=== PATIENT | male | born 1960 | race Caucasian/White ===

== ENCOUNTER 2020-02-27 09:15 | Outpatient (REF) | payer OTHER, SELFPAY ==
--- NOTE | 2020-02-27 09:35 | CT_ITS ---
EXAMINATION: CT HEAD WITHOUT CONTRAST CLINICAL INFORMATION: Numbness of face COMPARISON: 10/24/2018 TECHNIQUE: Contiguous axial imaging was performed from the skull base to vertex without intravenous administration of contrast. This CT examination was performed using dose optimization techniques as appropriate, variously including the following: *Automated exposure control *Adjustment of mA and/or kV according to patient size (this includes techniques or standardized protocols for targeted exams where dose is matched to indication/reason for exam; i.e. extremities or head) *Use of iterative reconstruction technique DLP: 757 mGy-cm FINDINGS: There is no evidence of acute intracranial hemorrhage or territorial infarction. No abnormal mass effect or midline shift is seen. Willis to white matter differentiation is well preserved. No extra-axial fluid collections are identified. The ventricles are normal in size. Patchy subcortical and periventricular white matter low-attenuation changes. Bilateral basal ganglial lacunar infarcts redemonstrated, with a new but nonrecent lacunar infarct in the left DP extending into the genu of the left internal capsule. There is also new lacunar infarct within the left caudate head. The osseous structures and soft tissues are normal. Status post bilateral medial maxillary antrostomies. Chronic mucoperiosteal thickening of the left maxillary sinus, and throughout the left ethmoid air cells. Post surgical changes within the left nasal cavity as well. IMPRESSION: * No acute transcortical infarct. * Moderate chronic white matter small vessel ischemic changes and bilateral basal ganglial lacunar infarct with interval progression since the previous exam. * Chronic sinus disease and evidence of prior FESS
== END 2020-02-27 09:16 | disposition home or self-care (01) ==
LOC: HO.CT 09:15
PROVIDERS: Visit Provider Internal Medicine
DX: R20.0 Anesthesia of skin (principal)
CPT/HCPCS: 70450

== ENCOUNTER 2020-04-25 10:15 | Inpatient (IN) | payer OTHER, SELFPAY ==
[2020-04-25] VITALS (7 sets, daily range): BP systolic 104–127; BP diastolic 53–82; PULSE 68–80; RESP 14–20; TEMP 36.3–36.8; O2SAT 96–100; BMI 25.2; BMI 26.6
--- NOTE | 2020-04-25 10:29 | ED.AMS ---
HPI - Altered Mental Status General Chief Complaint: Neuro Symptoms/Deficit Stated Complaint: Neuro symptoms x 5 days Time Seen by Provider: 04/25/20 10:29 Source: patient and old records reviewed Limitations: altered mental status History of Present Illness HPI narrative: family dropped him off and left but told order picker he has been like this for 5 days, review of EMR shows 2019 ICU stay with pneumonia/sepsis/delerium/ on xarelto for DVD had delerium post ICU staty complaint: altered mental status Onset (ago): day(s) (5) Timing confirmed by: family member Severity: severe Consistency of symptoms: getting Worse Context: history of similar presentation Associated symptoms: denies other symptoms Related Data Home Medications Medication Instructions Recorded Confirmed amitriptyline 150 mg PO BEDTIME 04/25/20 04/25/20 ascorbic acid (vitamin C) 500 mg PO BID 04/25/20 04/25/20 aspirin 81 mg PO DAILY 04/25/20 04/25/20 cholecalciferol (vitamin D3) 125 mcg PO DAILY 04/25/20 04/25/20 [Vitamin D3] clotrimazole 1 appl TOPICAL DAILY 04/25/20 04/25/20 colchicine 0.6 mg PO DAILY PRN 04/25/20 04/25/20 ferrous sulfate 325 mg PO BID 04/25/20 04/25/20 furosemide 20 mg PO DAILY 04/25/20 04/25/20 gabapentin 800 mg PO TID 04/25/20 04/25/20 hydroxychloroquine [Plaquenil] 200 mg PO BID 04/25/20 04/25/20 hydroxyzine HCl 25 mg PO Q6H PRN 04/25/20 04/25/20 lisinopril 2.5 mg PO DAILY 04/25/20 04/25/20 meloxicam 15 mg PO DAILY 04/25/20 04/25/20 metformin 500 mg PO BID 04/25/20 04/25/20 metoprolol tartrate 12.5 mg PO BID 04/25/20 04/25/20 omeprazole 20 mg PO DAILY 04/25/20 04/25/20 paroxetine HCl [Paxil] 30 mg PO DAILY 04/25/20 04/25/20 pregabalin 150 mg PO BID 04/25/20 04/25/20 rivaroxaban [Xarelto] 20 mg PO QPM 04/25/20 04/25/20 Allergies Allergy/AdvReac Type Severity Reaction Status Date / Time No Known Allergies Allergy Verified 04/25/20 10:32 [No Known Allergies*] Review of Systems Review of Systems: ROS unable to be obtained due to altered mental status [facility] Past Medical History Source: old records reviewed Medical History (Updated 04/25/20 @ 12:19 by Dayanna French DO) Acute delirium CHF (congestive heart failure) Diabetes DVT (deep venous thrombosis) HTN (hypertension) Pneumonia PVD (peripheral vascular disease) Respiratory failure Social History Social History (Updated 04/25/20 @ 10:32 by Dayanna French DO) Alcohol intake: unknown Smoking Status: Unknown if ever smoked Use of substances other than those prescribed or required for medical reasons: Unknown Advance Directives: No Advance Directives Information Provided: Yes Physical Exam Vital Signs: Vital Signs: Last Vital Signs Temp 98.0 F 04/25/20 10:29 Pulse 72 04/25/20 12:03 Resp 14 04/25/20 12:03 BP 111/68 04/25/20 12:03 Pulse Ox 96 04/25/20 12:03 Body Mass Index 25.2 Appearance: Alert. confused, cannot answer orientation questions but follows commands, anxious. mild acute distress. Eyes: Pupils equal, round and reactive to light. ENT: Pharynx normal. Neck: Normal inspection. Neck supple. CVS: Normal heart rate and rhythm. Pulses normal. Respiratory: No respiratory distress. Breath sounds normal. Abdomen: Soft and non-tender. Skin: Skin warm and dry. Normal skin color. Normal skin turgor. Extremities: No lower extremity edema. No calf ttp Neuro: Confused, follows commands, thinks he's at work. No motor deficit. No sensory deficit. Course Course Course Narrative: call to nephjuan miguel Romo listed as contact who dropped him off - dizzy x 1 week, falling, BS was high - unsure of his medications 1043 AM, states the is elderly 20+ years older than Geraldo and she cannot care for him. likely still on xarelto given elevated coags - patient still altered but no hypoxic, CT scan consistent with COVID discussion with family that the patient is very much altered from baseline and that this is acute change MDM - Altered Mental Status MDM Narrative Medical decision making narrative: 59 yo male with hx of DM, CHF, pneumonia, DVT was on xarelto in the past unsure of now, dropped off by family member for AMS x 5 days - has no reported trauma, follows commands but is delerious will need CT head for ICH, labs, toxic/metabolic workup, dispo pending workup Lab Data Result diagrams: 04/25/20 11:23 04/25/20 10:46 Labs: Lab Results 04/25/20 04/25/20 04/25/20 Range/Units 10:28 10:46 11:22 WBC (4.8-10.8) X10*3/uL RBC (4.60-5.80) X10*6/uL Hgb (14.0-18.0) g/dl Hct (42-52) % MCV (80-98) fL MCH (27.0-33.0) pg MCHC (31.0-36.0) g/dl RDW (11.0-16.0) % Plt Count (160-400) X10*3/uL MPV Immature Gran % (Auto) (0.0-0.4) % Neut % (Auto) (45-73) % Lymph % (Auto) (20-40) % [place] % (Auto) (2-11) % Eos % (Auto) (0-4) % Baso % (Auto) (0-2) % Lymph # (Auto) (1.2-4.9) X10*3/uL [place] # (Auto) (0.1-1.2) X10*3/uL Eos # (Auto) (0.0-0.4) X10*3/uL Baso # (Auto) (0.0-0.2) X10*3/uL Abs Immat Gran (auto) (0.00-0.03) X10*3/uL Absolute Neuts (auto) (2.0-8.3) X10*3/uL Absolute Nucleated RBC (0.0-0.012) X10*3/uL Nucleated RBC % (auto) (0.0-0.2) /100WBC PT (10.8-13.0) SEC INR (0.9-1.1) APTT (24.1-38.0) SEC VBG pH 7.33 (7.32-7.43) VBG pCO2 58 mmhg VBG pO2 39 mmhg VBG HCO3 30 mmol/L VBG O2 Saturation 67.3 % VBG Base Excess 2.4 mmol/L Sodium 141 (135-145) mmol/L Potassium 4.5 (3.3-5.1) mmol/l Chloride 104 (96-108) mmol/L Carbon Dioxide 22 (22-29) mmol/L Anion Gap 20 (12-20) BUN 17 H (9-16) mg/dL Creatinine 1.09 (0.5-1.4) mg/dL Estim Creat Clear Calc 80.0 Estimated GFR > 60 POC Glucose 181 H (60-115) mg/dL Random Glucose 176 H (60-115) mg/dL Lactic Acid (0.5-2.0) mmol/L Calcium 9.6 (8.4-10.2) mg/dL Magnesium (1.6-2.6) mg/dL Total Bilirubin (0.0-1.0) mg/dL Direct Bilirubin (0.0-0.5) mg/dL AST (5-37) U/L ALT (0-40) U/L Alkaline Phosphatase (39-117) U/L Lactate Dehydrogenase (118-273) U/L Total Creatine Kinase 99 (38-174) U/L Total Protein (6.5-8.0) g/dL Albumin (3.5-5.0) g/dL Lipase (8-78) U/L Ethyl Alcohol mg/dL COVID-19 ([facility]) (Negative) COVID-19 Clin Com 04/25/20 04/25/20 04/25/20 Range/Units 11:23 11:23 11:23 WBC 11.2 H (4.8-10.8) X10*3/uL RBC 4.53 L (4.60-5.80) X10*6/uL Hgb 11.6 L (14.0-18.0) g/dl Hct 37.0 L (42-52) % MCV 81.7 (80-98) fL MCH 25.6 L (27.0-33.0) pg MCHC 31.4 (31.0-36.0) g/dl RDW 14.9 (11.0-16.0) % Plt Count 184 (160-400) X10*3/uL MPV Not Reportable Immature Gran % (Auto) 0.4 (0.0-0.4) % Neut % (Auto) 76.2 H (45-73) % Lymph % (Auto) 13.6 L (20-40) % [place] % (Auto) 9.0 (2-11) % Eos % (Auto) 0.4 (0-4) % Baso % (Auto) 0.4 (0-2) % Lymph # (Auto) 1.5 (1.2-4.9) X10*3/uL [place] # (Auto) 1.0 (0.1-1.2) X10*3/uL Eos # (Auto) 0.0 (0.0-0.4) X10*3/uL Baso # (Auto) 0.0 (0.0-0.2) X10*3/uL Abs Immat Gran (auto) 0.04 H (0.00-0.03) X10*3/uL Absolute Neuts (auto) 8.5 H (2.0-8.3) X10*3/uL Absolute Nucleated RBC 0.000 (0.0-0.012) X10*3/uL Nucleated RBC % (auto) 0.0 (0.0-0.2) /100WBC PT (10.8-13.0) SEC INR (0.9-1.1) APTT (24.1-38.0) SEC VBG pH (7.32-7.43) VBG pCO2 mmhg VBG pO2 mmhg VBG HCO3 mmol/L VBG O2 Saturation % VBG Base Excess mmol/L Sodium (135-145) mmol/L Potassium (3.3-5.1) mmol/l Chloride (96-108) mmol/L Carbon Dioxide (22-29) mmol/L Anion Gap (12-20) BUN (9-16) mg/dL Creatinine (0.5-1.4) mg/dL Estim Creat Clear Calc Estimated GFR POC Glucose (60-115) mg/dL Random Glucose (60-115) mg/dL Lactic Acid (0.5-2.0) mmol/L Calcium (8.4-10.2) mg/dL Magnesium (1.6-2.6) mg/dL Total Bilirubin (0.0-1.0) mg/dL Direct Bilirubin (0.0-0.5) mg/dL AST (5-37) U/L ALT (0-40) U/L Alkaline Phosphatase (39-117) U/L Lactate Dehydrogenase (118-273) U/L Total Creatine Kinase (38-174) U/L Total Protein (6.5-8.0) g/dL Albumin (3.5-5.0) g/dL Lipase (8-78) U/L Ethyl Alcohol < 10 mg/dL COVID-19 ([facility]) Negative (Negative) COVID-19 Clin Com See Note 04/25/20 04/25/20 04/25/20 Range/Units 11:23 11:23 11:23 WBC (4.8-10.8) X10*3/uL RBC (4.60-5.80) X10*6/uL Hgb (14.0-18.0) g/dl Hct (42-52) % MCV (80-98) fL MCH (27.0-33.0) pg MCHC (31.0-36.0) g/dl RDW (11.0-16.0) % Plt Count (160-400) X10*3/uL MPV Immature Gran % (Auto) (0.0-0.4) % Neut % (Auto) (45-73) % Lymph % (Auto) (20-40) % [place] % (Auto) (2-11) % Eos % (Auto) (0-4) % Baso % (Auto) (0-2) % Lymph # (Auto) (1.2-4.9) X10*3/uL [place] # (Auto) (0.1-1.2) X10*3/uL Eos # (Auto) (0.0-0.4) X10*3/uL Baso # (Auto) (0.0-0.2) X10*3/uL Abs Immat Gran (auto) (0.00-0.03) X10*3/uL Absolute Neuts (auto) (2.0-8.3) X10*3/uL Absolute Nucleated RBC (0.0-0.012) X10*3/uL Nucleated RBC % (auto) (0.0-0.2) /100WBC PT 16.4 H (10.8-13.0) SEC INR 1.4 H (0.9-1.1) APTT 42.6 H (24.1-38.0) SEC VBG pH (7.32-7.43) VBG pCO2 mmhg VBG pO2 mmhg VBG HCO3 mmol/L VBG O2 Saturation % VBG Base Excess mmol/L Sodium (135-145) mmol/L Potassium (3.3-5.1) mmol/l Chloride (96-108) mmol/L Carbon Dioxide (22-29) mmol/L Anion Gap (12-20) BUN (9-16) mg/dL Creatinine (0.5-1.4) mg/dL Estim Creat Clear Calc Estimated GFR POC Glucose (60-115) mg/dL Random Glucose (60-115) mg/dL Lactic Acid 1.8 (0.5-2.0) mmol/L Calcium (8.4-10.2) mg/dL Magnesium 1.5 L (1.6-2.6) mg/dL Total Bilirubin 0.3 (0.0-1.0) mg/dL Direct Bilirubin 0.3 (0.0-0.5) mg/dL AST 13 (5-37) U/L ALT 14 (0-40) U/L Alkaline Phosphatase 91 (39-117) U/L Lactate Dehydrogenase 141 (118-273) U/L Total Creatine Kinase (38-174) U/L Total Protein 7.4 (6.5-8.0) g/dL Albumin 4.3 (3.5-5.0) g/dL Lipase 24 (8-78) U/L Ethyl Alcohol mg/dL COVID-19 ([facility]) (Negative) COVID-19 Clin Com ECG Data ECG #1: Attestation: I personally reviewed and interpreted this ECG as follows: ECG interpretation date: 04/25/20 ECG interpretation time: 10:37 Interpretation: Rate: 80 Rhythm: NSR with 1st degree AVB [place]: normal Normal P waves. Normal NICOLÁS. Normal QRS complex. ST T wave : inverted V2-V5 , no LIZA qTC: normal prior studies: no acute ischemia, no change from 09/2018 The study has been interpreted contemporaneously by me. . Discharge Plan Discharge Clinical Impression: COVID-19, Encephalopathy Patient Disposition: Admitted As Inpatient Prescriptions: No Action omeprazole 20 mg Capsule,Delayed Release(Dr/Ec) 20 mg PO DAILY RF: 0 gabapentin 800 mg Tablet 800 mg PO TID RF: 0 Xarelto 20 mg Tablet 20 mg PO QPM RF: 0 meloxicam 15 mg Tablet 15 mg PO DAILY RF: 0 metoprolol tartrate 25 mg Tablet 12.5 mg PO BID RF: 0 clotrimazole 1 % Cream 1 appl TOPICAL DAILY RF: 0 amitriptyline 150 mg Tablet 150 mg PO BEDTIME RF: 0 cholecalciferol (vitamin D3) [Vitamin D3] 125 mcg (5,000 unit) Tablet 125 mcg PO DAILY RF: 0 aspirin 81 mg Tablet 81 mg PO DAILY RF: 0 colchicine 0.6 mg Tablet 0.6 mg PO DAILY PRN (Reason: GOUT FLARE) RF: 0 ferrous sulfate 325 mg (65 mg iron) Tablet 325 mg PO BID RF: 0 furosemide 20 mg Tablet 20 mg PO DAILY RF: 0 hydroxyzine HCl 25 mg Tablet 25 mg PO Q6H PRN (Reason: Itching) RF: 0 lisinopril 2.5 mg Tablet 2.5 mg PO DAILY RF: 0 metformin 500 mg Tablet 500 mg PO BID RF: 0 paroxetine HCl [Paxil] 30 mg Tablet 30 mg PO DAILY RF: 0 hydroxychloroquine [Plaquenil] 200 mg Tablet 200 mg PO BID RF: 0 pregabalin 150 mg Capsule 150 mg PO BID RF: 0 ascorbic acid (vitamin C) 500 mg Tablet 500 mg PO BID RF: 0
--- NOTE | 2020-04-25 10:30 | ECG_ITS ---
Test Reason : FALL Blood Pressure : / mmHG Vent. Rate : 080 BPM Atrial Rate : 080 BPM P-R Int : 206 ms QRS Dur : 106 ms QT Int : 368 ms P-R-T Axes : 034 -15 055 degrees QTc Int : 424 ms Normal sinus rhythm ST & T wave abnormality, consider anterior ischemia Abnormal ECG When compared with ECG of 17-OCT-2018 05:43, No significant changes seen Referred By: Dayanna French Electronically Signed By:ROMAIN ADLER
--- NOTE | 2020-04-25 10:30 | CT_ITS ---
EXAMINATION: CT CHEST WITHOUT CONTRAST CLINICAL INFORMATION: Altered mental status. COMPARISON: Chest CT from 10/17/2018. TECHNIQUE: Multidetector volumetric CT imaging of the chest was done. Axial MIP volume rendering provided. Sagittal and coronal reformatted images were obtained. This CT examination was performed using dose optimization techniques as appropriate, variously including the following: *Automated exposure control *Adjustment of mA and/or kV according to patient size (this includes techniques or standardized protocols for targeted exams where dose is matched to indication/reason for exam; i.e. extremities or head) *Use of iterative reconstruction technique DLP: Please refer to separately reported CT examinations of the head and cervical spine for the dose data. FINDINGS: LUNGS AND PLEURA: Trachea and central airways are widely patent and normal in caliber. Mild paraseptal emphysema at lung apices. Multiple scattered patchy groundglass opacities are present in both lungs, and many of these opacities are more peripheral than central in distribution. Note that coronal virus infection (Covid 19 pneumonia) can have this appearance. No pulmonary edema, pleural effusion or pneumothorax. CARDIOVASCULAR: The heart size is normal. Scattered atherosclerotic calcification of coronary arteries and thoracic aorta without aortic aneurysm. Pulmonary arteries are normal in size. No pericardial effusion. MEDIASTINUM AND LOWER NECK: The thyroid gland and esophagus are unremarkable. No mediastinal mass. LYMPHATICS: No pathologic sized lymph nodes. UPPER ABDOMEN: Limited rich adenoma of the left adrenal gland has a stable appearance compared to 10/02/2018. Small, 0.3 cm calcification of the gallbladder. 2.1 cm cyst of the pancreatic tail is stable in size compared to 10/02/2018. SKELETAL AND CHEST WALL: The thoracic vertebra have normal height and alignment. No aggressive osseous lesions within the thorax. No chest wall mass. CT/CT chest wo con IMPRESSION: * There are scattered multifocal groundglass opacities of both lungs; this would be the typical imaging appearance of Covid-19 pneumonia. * Mild paraseptal emphysema of the lung apices. * A cyst of the pancreatic tail, and a lipid rich adenoma of the left adrenal gland, remain stable in appearance compared to 10/02/2018.
--- NOTE | 2020-04-25 10:30 | CT_ITS ---
EXAMINATION: CT HEAD W/O IV CONTRAST CT CERVICAL SPINE W/O IV CONTRAST CLINICAL INFORMATION: Altered mental status. COMPARISON: Prior CT exams from 09/21/2018 and 02/27/2020. TECHNIQUE: Head - Contiguous axial imaging of the head was performed from the skull base to the vertex without the administration of intravenous contrast, and axial images are reconstructed at 2 mm and 5 mm slice thickness. Cervical spine - A volumetric, helical CT acquisition of the cervical spine was obtained without contrast; in addition to the standard set of axial images, multiplanar reformatted images were provided in the coronal and sagittal imaging planes. This CT examination was performed using dose optimization techniques as appropriate, variously including the following: *Automated exposure control *Adjustment of mA and/or kV according to patient size (this includes techniques or standardized protocols for targeted exams where dose is matched to indication/reason for exam; i.e. extremities or head) *Use of iterative reconstruction technique DLP: 1572 mGy-cm (total, for CT exams of the chest, cervical spine and head) FINDINGS: HEAD: No intracranial hemorrhage, extra-axial fluid collection, focal mass effect or midline shift. The dove-white matter differentiation is maintained. Chronic small vessel ischemic changes of supratentorial white matter. No evidence of an acute major vascular territory infarction. There is chronic hypoattenuation from an old pontine infarct. Also, several old, lacunar infarcts are noted in regions of the thalami and bilateral caudate/basal ganglia. Mild atrophy of cerebral hemispheres with commensurate prominence of ventricles and sulci. No hydrocephalus. The cerebellar tonsils are normal position. The calvarium is intact. The mastoid air cells and middle ear cavities are well aerated. Temporomandibular joints, orbits and globes are unremarkable. Prior paranasal sinus surgery. Findings include chronic mucoperiosteal thickening involving left maxillary and ethmoid sinuses. There are chronic secretions within frontal and right maxillary sinuses. CERVICAL SPINE: No acute abnormalities compared to 09/21/2018. The craniocervical junction is normal. The occipital condyles, dens and atlantodental articulation are intact. The vertebral body heights and alignment are maintained. No fractures in the anterior or posterior elements. No prevertebral soft tissue swelling. Chronic, mild discovertebral degenerative changes of the cervical spine, and multilevel facet arthropathy, worst on the right at C3-C4. Chronic degeneration and joint ankylosis at the left C4-C5 facet joint. Chronic uncovertebral joint hypertrophy and facet arthropathy on the right at C3-C4 causes severe right-sided neural foraminal stenosis at this level. The facet hypertrophy at C4-C5 causes left-sided neural foraminal stenosis. No significant central spinal canal stenosis. No fluid collection or hematoma in the visualized neck. Atherosclerotic calcification of the aortic arch and branch vessels. The calcified plaque causes chronic stenosis of each proximal ICA. Findings in the chest are dictated separately. Thyroid gland is unremarkable. CT/CT cervical spine wo con IMPRESSION: * No hemorrhage or other acute intracranial pathology compared to 02/27/2020. 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 * Chronic paranasal sinus disease. * No acute fracture or malalignment of the degenerated cervical spine.
[2020-04-25 10:33] LABS: Glucose, Whole Blood 181 mg/dL (60-115)
--- NOTE | 2020-04-25 10:49 | PC.NURSE ---
Pt to Ct scan at this time. Speech is mumbled, and pt unable to answer all questions appropriately. Dr pond spoke with Nephew to confirm sx and onset.
[2020-04-25 11:27] LABS: Anion Gap 20 (12-20); Blood Urea Nitrogen 17 mg/dL (9-16); Calcium 9.6 mg/dL (8.4-10.2); Carbon Dioxide 22 mmol/L (22-29); Chloride 104 mmol/L (96-108); Estimated Glomerular Filt Rate > 60; Glucose Random 176 mg/dL (60-115); Potassium 4.5 mmol/l (3.3-5.1); Sodium 141 mmol/L (135-145)
[2020-04-25 11:40] LABS: PCO2 VBG 58 mmhg; PO2 VBG 39 mmhg; pH VBG 7.33 (7.32-7.43)
[2020-04-25 11:41] LABS: Base Excess VBG 2.4 mmol/L; HCO3 VBG 30 mmol/L; Oxygen Saturation VBG 67.3 %
[2020-04-25 11:45] LABS: Imm Gran Abs Auto 0.04 X10*3/uL (0.00-0.03); Imm Gran Pct Auto 0.4 % (0.0-0.4)
[2020-04-25 11:47] LABS: Basophils Percent Auto 0.4 % (0-2); Eosinophils Percent Auto 0.4 % (0-4); Hemoglobin 11.6 g/dl (14.0-18.0); Lymphocytes Absolute Auto 1.5 X10*3/uL (1.2-4.9); Lymphocytes Percent Auto 13.6 % (20-40); Mean Corpuscular HGB Conc 31.4 g/dl (31.0-36.0); Mean Corpuscular Hemoglobin 25.6 pg (27.0-33.0); Mean Corpuscular Volume 81.7 fL (80-98); Neutrophils Absolute Auto 8.5 X10*3/uL (2.0-8.3); Neutrophils Percent Auto 76.2 % (45-73); Platelet Count 184 X10*3/uL (160-400); Red Blood Count 4.53 X10*6/uL (4.60-5.80); Red Cell Distribution Width 14.9 % (11.0-16.0); White Blood Count 11.2 X10*3/uL (4.8-10.8)
[2020-04-25 11:52] LABS: COVID-19 Test Negative (Negative)
[2020-04-25 11:53] LABS: MANUAL DIFF FLAG NO
[2020-04-25 11:55] LABS: INTERNATIONAL NORM RATIO 1.4 (0.9-1.1); Prothrombin Time 16.4 SEC (10.8-13.0)
[2020-04-25 11:57] LABS: Partial Thromboplastin Time 42.6 SEC (24.1-38.0)
[2020-04-25 12:06] LABS: Lactic Acid 1.8 mmol/L (0.5-2.0)
[2020-04-25 12:08] LABS: Ethanol < 10 mg/dL
[2020-04-25 12:12] LABS: Alanine Aminotransferase 14 U/L (0-40); Albumin Level 4.3 g/dL (3.5-5.0); Alkaline Phosphatase 91 U/L (39-117); Aspartate Amino Transferase 13 U/L (5-37); Bilirubin Direct 0.3 mg/dL (0.0-0.5); Bilirubin Total 0.3 mg/dL (0.0-1.0); Lactate Dehydrogenase 141 U/L (118-273); Lipase 24 U/L (8-78); Magnesium 1.5 mg/dL (1.6-2.6); Total Protein 7.4 g/dL (6.5-8.0)
[2020-04-25 12:16] LABS: Troponin-I High Sensitivity < 3.5 ng/L (<3.5-35.0)
[2020-04-25] MEDS: cefTRIAXone sodium 1 GM in 0.9 % Sodium Chloride 50 ML IV (12:32)
[2020-04-25 12:35] LABS: Procalcitonin < 0.02 ng/mL
[2020-04-25 12:39] LABS: Thyroid Stimulating Hormone 1.11 uIU/mL (0.32-4.0)
[2020-04-25 12:49] LABS: Ferritin 33 ng/mL (20-250)
[2020-04-25] MEDS: Magnesium Sulfate/H2O 2 GM/50 ML PIGGYBACK IV (13:00)
[2020-04-25 13:09] LABS: Ammonia 26 umol/L (13-55)
[2020-04-25 13:12] LABS: C Reactive Protein 5.53 mg/dL (< or = 0.50)
--- NOTE | 2020-04-25 13:37 | P.HPHOSP_ITS ---
History of Present Illness Date of Service: 04/25/20 Chief Complaint: Altered mental status This is a 59-year-old with history of DVT/PE on anticoagulation, DM who was brought into the emergency department due to frequent falls and confusion. Per his nephew he has been confused for the past 8 days. Yesterday he had multiple falls. His SINGLE STAYER OPERATOR she was recently diagnosed with COVID-19, he was last in contact with the SINGLE STAYER OPERATOR 5 days ago. The patient is a coma be used but able to follow commands and answer some basic questions. He reports mild cough which may have started yesterday, sore throat. No shortness of breath. Patient was afebrile, vital signs within limits. Lab work unremarkable with the exception of magnesium of 1.5. Brain CT negative patient's exam was nonfocal. Given history of COVID-19 contact he had a CT scan of the chest which did show multifocal ground-glass opacities concerning for COVID-19 pneumonia. Patient did not require supplemental oxygen. He was given ceftriaxone empirically and the decision was made to admit him for further management. Review of Systems Review of Systems: Yes all other systems are reviewed and are negative ENT: Reports sore throat Cardiovascular: Cardiovascular: Denies dyspnea Respiratory: Respiratory: Reports cough and Denies dyspnea Neurologic: Reports confusion Psychiatric: Psychiatric: Reports confusion [facility] Medical History (Updated 04/25/20 @ 13:47 by BRADY Dumont) Alcohol abuse CHF (congestive heart failure) Diabetes DVT (deep venous thrombosis) Gout HCV (hepatitis C virus) HLD (hyperlipidemia) HTN (hypertension) Neuropathy Pneumonia PVD (peripheral vascular disease) Tobacco dependence Surgical History (Updated 04/25/20 @ 13:47 by BRADY Dumont) S/P femoropopliteal bypass surgery Social History (Updated 04/25/20 @ 13:48 by BRADY Dumont) Household Members: Spouse Alcohol intake: former Smoking Status: Current every day smoker Use of substances other than those prescribed or required for medical reasons: No Advance Directives: No Advance Directives Information Provided: Yes Meds Allergies Allergy/AdvReac Type Severity Reaction Status Date / Time No Known Allergies Allergy Verified 04/25/20 10:32 [No Known Allergies*] Home Medications Medication Instructions Recorded Confirmed Type amitriptyline 150 mg PO BEDTIME 04/25/20 04/25/20 History ascorbic acid (vitamin C) 500 mg PO BID 04/25/20 04/25/20 History aspirin 81 mg PO DAILY 04/25/20 04/25/20 History cholecalciferol (vitamin D3) 125 mcg PO DAILY 04/25/20 04/25/20 History [Vitamin D3] clotrimazole 1 appl TOPICAL DAILY 04/25/20 04/25/20 History colchicine 0.6 mg PO DAILY PRN 04/25/20 04/25/20 History ferrous sulfate 325 mg PO BID 04/25/20 04/25/20 History furosemide 20 mg PO DAILY 04/25/20 04/25/20 History gabapentin 800 mg PO TID 04/25/20 04/25/20 History hydroxychloroquine [Plaquenil] 200 mg PO BID 04/25/20 04/25/20 History hydroxyzine HCl 25 mg PO Q6H PRN 04/25/20 04/25/20 History lisinopril 2.5 mg PO DAILY 04/25/20 04/25/20 History meloxicam 15 mg PO DAILY 04/25/20 04/25/20 History metformin 500 mg PO BID 04/25/20 04/25/20 History metoprolol tartrate 12.5 mg PO BID 04/25/20 04/25/20 History omeprazole 20 mg PO DAILY 04/25/20 04/25/20 History paroxetine HCl [Paxil] 30 mg PO DAILY 04/25/20 04/25/20 History pregabalin 150 mg PO BID 04/25/20 04/25/20 History rivaroxaban [Xarelto] 20 mg PO QPM 04/25/20 04/25/20 History Physical Exam Vital Signs and Narrative: Vital Signs: Last Vital Signs Temp 98.0 F 04/25/20 10:29 Pulse 72 04/25/20 12:03 Resp 14 04/25/20 12:03 BP 111/68 04/25/20 12:03 Pulse Ox 96 04/25/20 12:03 Body Mass Index 25.2 Const: General: alert, awake and confusion Nutritional Appearance: well nourished Orientation/consciousness: oriented to person, oriented to place and confusion HENMT: Head: Yes normocephalic and Yes atraumatic Eyes: Sclerae: sclerae normal Chest: Chest palpation & inspection: normal inspection of the chest Resp: Effort & Inspection: normal respiratory effort and no respiratory distress Cardio: Rate: regular rate Rhythm: regular rhythm GI: Palpation (GI): Soft to palpation and nontender Skin: General skin exam: no rashes or lesions noted Neuro: General: oriented to person, oriented to place and confusion Cranial nerves: Yes CN's II-XII intact bilaterally and Yes Bilaterally intact EOM present Extrem: General: Yes normal to inspection Results Labs CBC and Chem 7: 04/25/20 11:23 04/25/20 10:46 Labs: Laboratory Results - last 24 hr 04/25/20 04/25/20 04/25/20 10:28 10:46 11:22 MCV MCH MCHC RDW Plt Count MPV Immature Gran % (Auto) Neut % (Auto) Lymph % (Auto) Beckham % (Auto) Eos % (Auto) Baso % (Auto) Lymph # (Auto) Beckham # (Auto) Eos # (Auto) Baso # (Auto) Abs Immat Gran (auto) Absolute Neuts (auto) Absolute Nucleated RBC Nucleated RBC % (auto) PT INR APTT VBG pH 7.33 VBG pCO2 58 VBG pO2 39 VBG HCO3 30 VBG O2 Saturation 67.3 VBG Base Excess 2.4 Anion Gap 20 Estim Creat Clear Calc 80.0 Estimated GFR > 60 POC Glucose 181 H Random Glucose 176 H Lactic Acid Calcium 9.6 Magnesium Ferritin Total Bilirubin Direct Bilirubin AST ALT Alkaline Phosphatase Ammonia Lactate Dehydrogenase Total Creatine Kinase 99 Troponin I High Sens C-Reactive Protein 5.53 H Total Protein Albumin Lipase Procalcitonin TSH Ethyl Alcohol COVID-19 ([facility]) COVID-19 Clin Com 04/25/20 04/25/20 04/25/20 11:23 11:23 11:23 MCV 81.7 MCH 25.6 L MCHC 31.4 RDW 14.9 Plt Count 184 MPV Not Reportable Immature Gran % (Auto) 0.4 Neut % (Auto) 76.2 H Lymph % (Auto) 13.6 L Beckham % (Auto) 9.0 Eos % (Auto) 0.4 Baso % (Auto) 0.4 Lymph # (Auto) 1.5 Beckham # (Auto) 1.0 Eos # (Auto) 0.0 Baso # (Auto) 0.0 Abs Immat Gran (auto) 0.04 H Absolute Neuts (auto) 8.5 H Absolute Nucleated RBC 0.000 Nucleated RBC % (auto) 0.0 PT INR APTT VBG pH VBG pCO2 VBG pO2 VBG HCO3 VBG O2 Saturation VBG Base Excess Anion Gap Estim Creat Clear Calc Estimated GFR POC Glucose Random Glucose Lactic Acid Calcium Magnesium Ferritin Total Bilirubin Direct Bilirubin AST ALT Alkaline Phosphatase Ammonia Lactate Dehydrogenase Total Creatine Kinase Troponin I High Sens C-Reactive Protein Total Protein Albumin Lipase Procalcitonin TSH Ethyl Alcohol < 10 COVID-19 ([facility]) Negative COVID-19 Clin Com See Note 04/25/20 04/25/20 04/25/20 11:23 11:23 11:23 MCV MCH MCHC RDW Plt Count MPV Immature Gran % (Auto) Neut % (Auto) Lymph % (Auto) Beckham % (Auto) Eos % (Auto) Baso % (Auto) Lymph # (Auto) Beckham # (Auto) Eos # (Auto) Baso # (Auto) Abs Immat Gran (auto) Absolute Neuts (auto) Absolute Nucleated RBC Nucleated RBC % (auto) PT 16.4 H INR 1.4 H APTT 42.6 H VBG pH VBG pCO2 VBG pO2 VBG HCO3 VBG O2 Saturation VBG Base Excess Anion Gap Estim Creat Clear Calc Estimated GFR POC Glucose Random Glucose Lactic Acid 1.8 Calcium Magnesium 1.5 L Ferritin 33 Total Bilirubin 0.3 Direct Bilirubin 0.3 AST 13 ALT 14 Alkaline Phosphatase 91 Ammonia Lactate Dehydrogenase 141 Total Creatine Kinase Troponin I High Sens C-Reactive Protein Total Protein 7.4 Albumin 4.3 Lipase 24 Procalcitonin TSH 1.11 Ethyl Alcohol COVID-19 ([facility]) COVID-19 [facility]icon Com 04/25/20 04/25/20 04/25/20 11:23 11:23 12:02 MCV MCH MCHC RDW Plt Count MPV Immature Gran % (Auto) Neut % (Auto) Lymph % (Auto) Beckham % (Auto) Eos % (Auto) Baso % (Auto) Lymph # (Auto) Beckham # (Auto) Eos # (Auto) Baso # (Auto) Abs Immat Gran (auto) Absolute Neuts (auto) Absolute Nucleated RBC Nucleated RBC % (auto) PT INR APTT VBG pH VBG pCO2 VBG pO2 VBG HCO3 VBG O2 Saturation VBG Base Excess Anion Gap Estim Creat Clear Calc Estimated GFR POC Glucose Random Glucose Lactic Acid Calcium Magnesium Ferritin Total Bilirubin Direct Bilirubin AST ALT Alkaline Phosphatase Ammonia 26 Lactate Dehydrogenase Total Creatine Kinase Troponin I High Sens < 3.5 C-Reactive Protein Total Protein Albumin Lipase Procalcitonin < 0.02 TSH Ethyl Alcohol COVID-19 ([facility]) COVID-19 Clin Com Imaging Radiologist's Impressions: Impressions Cervical Spine CT 04/25/20 10:30 IMPRESSION: * No hemorrhage or other acute intracranial pathology compared to 02/27/2020. 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 * Chronic paranasal sinus disease. * No acute fracture or malalignment of the degenerated cervical spine. Chest CT 04/25/20 10:30 IMPRESSION: * There are scattered multifocal groundglass opacities of both lungs; this would be the typical imaging appearance of Covid-19 pneumonia. * Mild paraseptal emphysema of the lung apices. * A cyst of the pancreatic tail, and a lipid rich adenoma of the left adrenal gland, remain stable in appearance compared to 10/02/2018. Head CT 04/25/20 10:30 IMPRESSION: * No hemorrhage or other acute intracranial pathology compared to 02/27/2020. 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 * Chronic paranasal sinus disease. * No acute fracture or malalignment of the degenerated cervical spine. Assessment and Plan (1) Encephalopathy: Status: Acute This is a 59-year-old male with history of diabetes, DVT/PE on anticoagulation, PVD among others brought to the emergency department for 8 days of confusion found to have CT scan concerning for COVID-[address] negative, nonfocal exam. Afebrile. Lab work wnl Tox screen, UA pending ? r/t polypharmacy versus COVID encephalopathy -neurology consult -hold hydroxyzine, gabapentin, pregabalin, amitriptyline Ground-glass opacities on CT Concerning for COVID-19 Initial screening negative Not requiring supplemental oxygen -droplet/contact precautions -will repeat covid test in 2-3 days Hypo magnesemia Replaced in the ED -repeat in a.m. Diabetes Hold metformin -SSI, POC Tobacco dependence -nrt Hypertension Continue lisinopril, metoprolol, Lasix History of DVT/PE Continue Xarelto History of polyarthralgia Hold Plaquenil DVT prophylaxis-Xarelto Code status-full code This case was discussed with Dr. Sanchez
--- NOTE | 2020-04-25 15:01 | P.EN_ITS ---
Event Note Date of Service: 04/25/20 Event Note: I interviewed and examined the patient. I discussed their present ation and management with the mid-level provider. I reviewed the history and physical and agree with the documentation, with the following additions and corrections: Mr Unger is a 59yo M pt of Dr Jones at [facility] with PMHx of prior PE now on rivaroxaban, DM2, HTN, peripheral neuropathy, prior alcoholism (per nephew, last intake over a yr ago), resolved HCV, tobacco abuse, and PVD s/p fem/pop bypass. His nephew noticed that over the last 8 days, the pt has become increasingly confused and disoriented. Since yesterday, he has fallen approximately 11 times. Patient endorses a mild sore through and dry cough for a few days, though he is not really a reliable historian due to confusion. His nephew has only noticed nasal congestion. The patient's GOVERNOR ASSEMBLER HYDRAULIC recently tested positive for COVID-19 and last contact with the pt was approximately 5 days ago. Pt lives with his disabled, elderly , who has no respiratory symptoms. Since his GOVERNOR ASSEMBLER [employer]DRAULIC has been out sick, his has been giving him his medications. Notably, he is on pregabalin, gabapentin, hydroxyzine, paroxetine, and amitriptylline. He is also supposedly on hydroxychloroquine for unspecified arthritis prescribed by Dr Chan. On exam, pt is confused, oriented to self and place, thinks it is 2020 then corrects himself to say it is 2020, thinks it is March but recognizes that has passed, but otherwise is quite conrfused about why he is here. Per his nephew this is not his baseline. He has normal strength in 4 extremities. There is no tremor or asterixis. He is afebrile, BP is 104/67, HR 68 and regular, and RR 16 and SaO2 100% on RA. Labs notable only for WBC 11.2 with 14% lymphs, CRP 5.53, Mg 1.5. CT head shows no acute disease. CT chest shows scattered GGO consistent with COVID-19; however, COVID-19 ALICIA is negative. Impression is of acute encephalopathy and ground-glass pneumonia. Possibly due to polypharmacy given all of his medications, rule out toxic ingestion. Possibly COVID-19 with false-negative test due to how recent the exposure is. Plan to admit to [facility] in a private room under contact/droplet precautions, retest COVID-19 PCR and inflammatory markers in 2-3 days, check Utox, consult Neurology, hold pregabalin/gabapentin/hydroxyzine/paroxetine/amitryptylline, replete/monitor Mg Per nephew he is FULL CODE
[2020-04-25] MEDS: Nicotine 21 MG PATCH.TD24 TRANSDERMA (16:50)
[2020-04-25] MEDS: 0.9 % Sodium Chloride Flush 3 ML SYRINGE IVFLUSH ×2 (16:50→23:47)
[2020-04-25 17:10] LABS: Glucose, Whole Blood 154 mg/dL (60-115)
[2020-04-25] MEDS: Insulin Lispro 100 UNIT/ML 3 ML VIAL SUBCUT ×2 (17:17→21:23)
[2020-04-25] MEDS: Rivaroxaban 20 MG TABLET PO (17:17)
[2020-04-25] MEDS: Flu Vacc QS2020-21(6mos up)/PF 0.5 ML SYRINGE IM (17:57)
[2020-04-25 20:45] LABS: Glucose, Whole Blood 155 mg/dL (60-115)
[2020-04-25] MEDS: Ascorbic Acid 500 MG TABLET PO (21:23)
[2020-04-25] MEDS: Metoprolol Tartrate 12.5 MG HALFTAB PO (21:23)
--- NOTE | 2020-04-25 22:38 | PC.NURSE ---
Pt had no c/o sob, trouble breathing. resting in bed comfortably. VS stable.
[2020-04-26] VITALS (8 sets, daily range): BP systolic 116–156; BP diastolic 68–83; PULSE 88–108; RESP 18–20; TEMP 36.7–37.1; O2SAT 95–98
[2020-04-26] MEDS: Omeprazole 20 MG CAPSULE.DR PO (06:26)
[2020-04-26 06:33] LABS: Imm Gran Abs Auto 0.04 X10*3/uL (0.00-0.03); Imm Gran Pct Auto 0.4 % (0.0-0.4); MANUAL DIFF FLAG SCAN; SCAN SMEAR FLAG 1
[2020-04-26 06:36] LABS: Basophils Percent Auto 0.3 % (0-2); Eosinophils Absolute Auto 0.1 X10*3/uL (0.0-0.4); Eosinophils Percent Auto 1.5 % (0-4); Hemoglobin 11.5 g/dl (14.0-18.0); Lymphocytes Percent Auto 21.2 % (20-40); Mean Corpuscular HGB Conc 31.9 g/dl (31.0-36.0); Mean Corpuscular Hemoglobin 26.3 pg (27.0-33.0); Mean Corpuscular Volume 82.2 fL (80-98); Mean Platelet Volume 13.9 fL (9.4-12.4); Monocytes Percent Auto 10.9 % (2-11); Neutrophils Absolute Auto 6.1 X10*3/uL (2.0-8.3); Neutrophils Percent Auto 65.7 % (45-73); Platelet Count 172 X10*3/uL (160-400); Red Blood Count 4.38 X10*6/uL (4.60-5.80); White Blood Count 9.3 X10*3/uL (4.8-10.8)
[2020-04-26 07:11] LABS: PLT ABN DIST 1
[2020-04-26 07:12] LABS: SLIDE REVIEW VERIFIED
[2020-04-26 07:27] LABS: Anion Gap 16 (12-20); Blood Urea Nitrogen 15 mg/dL (9-16); Calcium 8.9 mg/dL (8.4-10.2); Carbon Dioxide 25 mmol/L (22-29); Chloride 101 mmol/L (96-108); Creatinine Clr Calc Pharmacy 92.8; Estimated Glomerular Filt Rate > 60; Glucose Random 165 mg/dL (60-115); Magnesium 1.9 mg/dL (1.6-2.6); Potassium 3.8 mmol/l (3.3-5.1); Sodium 138 mmol/L (135-145)
[2020-04-26 09:26] LABS: Glucose, Whole Blood 198 mg/dL (60-115)
[2020-04-26] MEDS: Nicotine 21 MG PATCH.TD24 TRANSDERMA (09:28)
[2020-04-26] MEDS: lisinopriL 2.5 MG TABLET PO (09:29)
[2020-04-26] MEDS: Metoprolol Tartrate 12.5 MG HALFTAB PO ×2 (09:29→21:20)
[2020-04-26] MEDS: Furosemide 20 MG TABLET PO (09:29)
[2020-04-26] MEDS: Aspirin Enteric Coated 81 MG TABLET.DR PO (09:29)
[2020-04-26] MEDS: Ascorbic Acid 500 MG TABLET PO ×2 (09:29→21:20)
[2020-04-26] MEDS: 0.9 % Sodium Chloride Flush 3 ML SYRINGE IVFLUSH ×2 (09:34→17:05)
[2020-04-26] MEDS: Clotrimazole 1 % Cream 15 GM TUBE 1 APPL TOPICAL (09:36)
[2020-04-26] MEDS: Cholecalciferol (Vitamin D3) 25 MCG TABLET 125 MCG PO (09:38)
--- NOTE | 2020-04-26 10:08 | P.CDIC_ITS ---
CDI Concurrent Query Service Date: 04/26/20 Documentation Clarification: Please clarify if you are treating a proba ble/suspected/likely or confirmed: Specifics: Toxic Encephalopathy Metabolic Encephalopathy Acute Encephalopathy Please specify if known PLEASE DO NOT DELETE/MODIFY EXISTING CONTENT Additional information is needed in order to code to the highest accuracy and appropriate Severity of Illness (SOI). Please clarify the information noted below in your progress notes and discharge summary. Risk Factors/Clinical Indicators/Treatments Acute encephalopathy possibly due to polypharmacy given all his medicatiions. Confused, disoriented, delerious, altered mental status. ED: toxic/metabolic workup. H&P: ? r/t polypharmacy vs. covid encephalopathy CDS: Lary Hylton CCS, [facility] Contact Number: [phone] Please Review the information above and exercise your independent professional judgment in responding to the query. If you concur, pleas document in the PROGRESS NOTES and DISCHARGE SUMMARY. If you do not agree with the query, please document in the query above. THIS QUERY IS PART OF THE PERMANENT MEDICAL RECORD
--- NOTE | 2020-04-26 10:57 | PM.NEUROCN ---
History of Present Illness Data of Consult Service Date: 04/26/20 Primary Care Provider: Unknown Physician 59 years old man I was asked to see for confusion. When I saw him he tried to tell me that he was not sure why he was admitted and he was fine. Apparently his PATTERN GRADER had COVID recently and he had exposure to BC a few days ago. He was brought to hospital for confusion and falling. There was no sign of any seizure disorder or any fixed focal weakness or speech or language difficulty. He was not complaining of any pain or headache. Review of Systems Review of Systems: No recent cold or flu-like illness though he was exposed to COVID patient. No pain cardiac symptom or seizure. He has been falling. Neurologic: Reports confusion Psychiatric: Psychiatric: Reports confusion [facility] Past Medical History Medical History (Updated 04/25/20 @ 13:47 by BRADY Dumont) Alcohol abuse CHF (congestive heart failure) Diabetes DVT (deep venous thrombosis) Gout HCV (hepatitis C virus) HLD (hyperlipidemia) HTN (hypertension) Neuropathy Pneumonia PVD (peripheral vascular disease) Tobacco dependence Surgical History Surgical History (Updated 04/25/20 @ 13:47 by BRADY Dumont) S/P femoropopliteal bypass surgery Social History Social History (Updated 04/25/20 @ 13:48 by BRADY Dumont) Household Members: Spouse Housing: Apartment Do you presently have visiting nurse or other home services: Yes (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 If so, by whom?: No Do you feel safe in your current relationship?: Yes Is there a partner from a previous relationship who is making you feel unsafe now?: No Are you made to feel afraid or neglected: No Advance Directives: No Advance Directives Information Provided: Yes Do you have thoughts of harming others: None Do you have a plan to hurt others: No Plan Recently lost weight without trying: Unsure service: No Current occupational status: unemployed Meds Allergies Allergy/AdvReac Type Severity Reaction Status Date / Time No Known Allergies Allergy Verified 04/25/20 10:32 [No Known Allergies*] Home Medications Medication Instructions Recorded Confirmed Type amitriptyline 150 mg PO BEDTIME 04/25/20 04/25/20 History ascorbic acid (vitamin C) 500 mg PO BID 04/25/20 04/25/20 History aspirin 81 mg PO DAILY 04/25/20 04/25/20 History cholecalciferol (vitamin D3) 125 mcg PO DAILY 04/25/20 04/25/20 History [Vitamin D3] clotrimazole 1 appl TOPICAL DAILY 04/25/20 04/25/20 History colchicine 0.6 mg PO DAILY PRN 04/25/20 04/25/20 History ferrous sulfate 325 mg PO BID 04/25/20 04/25/20 History furosemide 20 mg PO DAILY 04/25/20 04/25/20 History gabapentin 800 mg PO TID 04/25/20 04/25/20 History hydroxychloroquine [Plaquenil] 200 mg PO BID 04/25/20 04/25/20 History hydroxyzine HCl 25 mg PO Q6H PRN 04/25/20 04/25/20 History lisinopril 2.5 mg PO DAILY 04/25/20 04/25/20 History meloxicam 15 mg PO DAILY 04/25/20 04/25/20 History metformin 500 mg PO BID 04/25/20 04/25/20 History metoprolol tartrate 12.5 mg PO BID 04/25/20 04/25/20 History omeprazole 20 mg PO DAILY 04/25/20 04/25/20 History paroxetine HCl [Paxil] 30 mg PO DAILY 04/25/20 04/25/20 History pregabalin 150 mg PO BID 04/25/20 04/25/20 History rivaroxaban [Xarelto] 20 mg PO QPM 04/25/20 04/25/20 History Physical Exam Vital Signs: Vital Signs: Last Vital Signs Temp 98.5 F 04/26/20 07:24 Pulse 88 04/26/20 09:29 Resp 18 04/26/20 07:24 BP 125/77 04/26/20 09:29 Pulse Ox 98 04/26/20 07:24 Body Mass Index 26.6 He was alert and awake with normal spontaneity of speech fluency comprehension and affect. There were no obvious cranial nerve findings. There was no focal weakness. Deep tendon reflexes were absent with flexor plantars. Exam was limited. Const: General: confusion Orientation/consciousness: confusion Neuro: General: confusion Results Labs CBC & Chem 7: 04/26/20 05:40 04/26/20 05:40 Labs: Short CBC 04/25/20 04/26/20 Range/Units 11:23 05:40 WBC 11.2 H 9.3 (4.8-10.8) X10*3/uL Hgb 11.6 L 11.5 L (14.0-18.0) g/dl Hct 37.0 L 36.0 L (42-52) % Plt Count 184 172 (160-400) X10*3/uL BMP 04/25/20 04/26/20 10:46 05:40 Sodium 141 138 Potassium 4.5 3.8 Chloride 104 101 Carbon Dioxide 22 25 BUN 17 H 15 Creatinine 1.09 0.94 Calcium 9.6 8.9 D Cardiac Enzymes 04/25/20 Range/Units 10:46 Total Creatine Kinase 99 (38-174) U/L Liver Function 04/25/20 Range/Units 11:23 Total Bilirubin 0.3 (0.0-1.0) mg/dL Direct Bilirubin 0.3 (0.0-0.5) mg/dL AST 13 (5-37) U/L ALT 14 (0-40) U/L Alkaline Phosphatase 91 (39-117) U/L Albumin 4.3 (3.5-5.0) g/dL Assessment and Plan (1) Encephalopathy: Status: Acute 59 years old man with underlying history of congestive heart failure, previous history of alcohol abuse, and diabetes who was brought to hospital with confusion and falling. At this time there was no obvious sign of confusion. He has multiple reasons to be unsteady including multiple ischemic infarcts in neuropathy. It is unclear if there is any new pathology but with previous history of multiple ischemic infarctions and stroke would be more likely possibility to explain both confusion and unsteadiness. As far as stroke is concerned he is already taking maximum antiplatelets/anticoagulants. May be an outpatient EEG can also be considered to rule out possibility of seizure disorder.
--- NOTE | 2020-04-26 11:02 | MHC.CM.PN ---
CM spoke with /HCP Beti [phone] who reports patient amb with a walker and lives with her. Patient is usually A&O x 4. Patient does have a HCP and a copy is on file. 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 Nephjuan miguel Romo [phone] will provide transportation. CM will continue to follow patient for discharge needs.
[2020-04-26 12:00] LABS: Glucose, Whole Blood 271 mg/dL (60-115)
[2020-04-26] MEDS: Insulin Lispro 100 UNIT/ML 3 ML VIAL SUBCUT ×3 (12:27→21:21)
[2020-04-26 12:53] LABS: Amphetamine Screen Urine Not Detected (Not Detect); Barbiturates, Urine Not Detected (Not Detect); Benzodiazepines Screen Urine Not Detected (Not Detect); Cannabinoid Screen Urine POSITIVE (Not Detect); Cocaine Screen Urine Not Detected (Not Detect); Opiate Screen Urine Not Detected (Not Detect); Phencyclidine Screen Urine Not Detected (Not Detect)
--- NOTE | 2020-04-26 15:07 | HO.PM.IMPN ---
Subjective Subjective Date of Service: 04/26/20 Interval History: A little more oriented but doesn't know why he's here. Thinks it is 1929... but knows it is April. Very ataxic. No EtOH per nephew or . Denies cough now. A little sore throat. Physical Exam Vital Signs: Vital Signs: Last Vital Signs Temp 98.7 F 04/26/20 11:52 Pulse 88 04/26/20 12:20 Resp 20 04/26/20 11:52 BP 123/79 04/26/20 12:20 Pulse Ox 95 04/26/20 12:20 Body Mass Index 26.6 Gen: in no acute distress HEENT: sclera anicteric, moist mucus membranes Neck: supple Lungs: no respiratory distress, auscultation deferred due to COVID-19 suspicion Heart: normal peripheral pulses Abd: soft, non-tender, non-distended Ext: no cyanosis, clubbing, or edema Skin: warm/well-perfused Neuro: alert and oriented to self and place but not date, ataxic Objective Data Current Medications Generic Name Dose Route Start Last Admin Trade Name Craigq PRN Reason Stop Dose Admin Acetaminophen 650 mg 04/25/20 16:41 Acetaminophen 325 Mg Tablet PO Q6H PRN Pain, Mild (Pain Scale 1-3) Ascorbic Acid 500 mg 04/25/20 21:00 04/26/20 09:29 Ascorbic Acid 500 Mg Tablet PO 500 mg BID MARYCARMEN Administration Aspirin 81 mg 04/26/20 09:00 04/26/20 09:29 Aspirin Enteric Coated 81 Mg Tablet. PO 81 mg DAILY MARYCARMEN Administration Clotrimazole 1 appl 04/26/20 09:00 04/26/20 09:36 Clotrimazole 1 % Cream 15 Gm Tube TOPICAL 1 appl DAILY MARYCARMEN Administration Docusate Sodium 100 mg 04/25/20 16:41 Docusate Sodium 100 Mg Capsule PO DAILY PRN Constipation Furosemide 20 mg 04/26/20 09:00 04/26/20 09:29 Furosemide 20 Mg Tablet PO 20 mg DAILY MARYCARMEN Administration Protocol Insulin Human Lispro 0 unit 04/25/20 16:41 04/26/20 12:27 Insulin Lispro 100 Unit/Ml 3 Ml Vial SUBCUT 6 unit QIDACHS MARYCARMEN Administration Protocol Lisinopril 2.5 mg 04/26/20 09:00 04/26/20 09:29 Lisinopril 2.5 Mg Tablet PO 2.5 mg DAILY [facility] Administration Protocol Metoprolol Tartrate 12.5 mg 04/25/20 21:00 04/26/20 09:29 Metoprolol Tartrate 12.5 Mg Halftab PO 12.5 mg BID MARYCARMEN Administration Protocol Nicotine 21 mg 04/25/20 16:41 04/26/20 09:28 Nicotine 21 Mg Patch.Td24 TRANSDERMA 21 mg DAILY MARYCARMEN Administration Omeprazole 20 mg 04/26/20 06:30 04/26/20 06:26 Omeprazole 20 Mg Capsule.Dr PO 20 mg DAILY@0630 [facility] Administration Ondansetron HCl 4 mg 04/25/20 16:41 Ondansetron Hcl 4 Mg/2 Ml Vial IVPUSH Q8H PRN Nausea and Vomiting Pharmacy Consult 1 each 04/25/20 10:30 Consult Rx Perform Med Rec MISCELLANE ONCE PRN Consult order Rivaroxaban 20 mg 04/25/20 17:00 04/25/20 17:17 Rivaroxaban 20 Mg Tablet PO 20 mg DAILY@1700 [facility] Administration Sodium Chloride 3 ml 04/25/20 16:41 04/26/20 09:34 0.9 % Sodium Chloride Flush 3 Ml Syringe IVFLUSH 3 ml QSHIFT [facility] Administration Vitamin D 125 mcg 04/26/20 09:00 04/26/20 09:38 Cholecalciferol (Vitamin D3) 25 Mcg Tablet PO 125 mcg DAILY [facility] Administration Labs CBC & Chem 7: 04/26/20 05:40 04/26/20 05:40 Labs: Laboratory Results - last 24 hr 04/25/20 04/25/20 04/26/20 16:46 20:39 05:40 WBC 9.3 RBC 4.38 L Hgb 11.5 L Hct 36.0 L MCV 82.2 MCH 26.3 L MCHC 31.9 RDW 15.0 Plt Count 172 MPV 13.9 H Immature Gran % (Auto) 0.4 Neut % (Auto) 65.7 Lymph % (Auto) 21.2 [place] % (Auto) 10.9 Eos % (Auto) 1.5 Baso % (Auto) 0.3 Lymph # (Auto) 2.0 [place] # (Auto) 1.0 Eos # (Auto) 0.1 Baso # (Auto) 0.0 Abs Immat Gran (auto) 0.04 H Absolute Neuts (auto) 6.1 Absolute Nucleated RBC 0.000 Nucleated RBC % (auto) 0.0 Smear Tech's Comments VERIFIED Sodium Potassium Chloride Carbon Dioxide Anion Gap BUN Creatinine Estim Creat Clear Calc Estimated GFR POC Glucose 154 H 155 H Random Glucose Calcium Magnesium Urine Opiates Screen Ur Barbiturates Screen Ur Phencyclidine Scrn Ur Amphetamines Screen U Benzodiazepines Scrn Urine Cocaine Screen U Marijuana (THC) Screen 04/26/20 04/26/20 04/26/20 05:40 09:23 11:30 WBC RBC Hgb Hct MCV MCH MCHC RDW Plt Count MPV Immature Gran % (Auto) Neut % (Auto) Lymph % (Auto) [place] % (Auto) Eos % (Auto) Baso % (Auto) Lymph # (Auto) [place] # (Auto) Eos # (Auto) Baso # (Auto) Abs Immat Gran (auto) Absolute Neuts (auto) Absolute Nucleated RBC Nucleated RBC % (auto) Smear Tech's Comments Sodium 138 Potassium 3.8 Chloride 101 Carbon Dioxide 25 Anion Gap 16 BUN 15 Creatinine 0.94 Estim Creat Clear Calc 92.8 Estimated GFR > 60 POC Glucose 198 H Random Glucose 165 H Calcium 8.9 D Magnesium 1.9 Urine Opiates Screen Not Detected Ur Barbiturates Screen Not Detected Ur Phencyclidine Scrn Not Detected Ur Amphetamines Screen Not Detected U Benzodiazepines Scrn Not Detected Urine Cocaine Screen Not Detected U Marijuana (THC) Screen POSITIVE H 04/26/20 11:51 WBC RBC Hgb Hct MCV MCH MCHC RDW Plt Count MPV Immature Gran % (Auto) Neut % (Auto) Lymph % (Auto) [place] % (Auto) Eos % (Auto) Baso % (Auto) Lymph # (Auto) [place] # (Auto) Eos # (Auto) Baso # (Auto) Abs Immat Gran (auto) Absolute Neuts (auto) Absolute Nucleated RBC Nucleated RBC % (auto) Smear Tech's Comments Sodium Potassium Chloride Carbon Dioxide Anion Gap BUN Creatinine Estim Creat Clear Calc Estimated GFR POC Glucose 271 H Random Glucose Calcium Magnesium Urine Opiates Screen Ur Barbiturates Screen Ur Phencyclidine Scrn Ur Amphetamines Screen U Benzodiazepines Scrn Urine Cocaine Screen U Marijuana (THC) Screen Microbiology Microbiology Results: Microbiology 04/25/20 11:22 Blood - Venous Blood Culture - Preliminary No growth after 24 hours. 04/25/20 10:46 Blood - Venous Blood Culture - Preliminary No growth after 24 hours. 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 # tobacco abuse - NRT # dispo - per PT STR recommended, updated pt's + nephew
--- NOTE | 2020-04-26 16:10 | MHC.CM.PN ---
CM spoke with richard Romo re: PT recommending STR. Choices are [facility] and [facility]. Referrals made via allscripts.
[2020-04-26] MEDS: Rivaroxaban 20 MG TABLET PO (17:04)
[2020-04-26 19:52] LABS: Glucose, Whole Blood 186 mg/dL (60-115)
[2020-04-26 20:06] LABS: Glucose, Whole Blood 190 mg/dL (60-115)
[2020-04-27] VITALS (9 sets, daily range): BP systolic 113–166; BP diastolic 63–88; PULSE 78–108; RESP 12–20; TEMP 36.6–37.2; O2SAT 93–98
[2020-04-27] MEDS: 0.9 % Sodium Chloride Flush 3 ML SYRINGE IVFLUSH ×4 (01:00→21:36)
[2020-04-27] MEDS: Omeprazole 20 MG CAPSULE.DR PO (06:26)
[2020-04-27 06:53] LABS: Hemoglobin 11.3 g/dl (14.0-18.0); Imm Gran Abs Auto 0.04 X10*3/uL (0.00-0.03); Imm Gran Pct Auto 0.3 % (0.0-0.4); MANUAL DIFF FLAG SCAN; SCAN SMEAR FLAG 1
[2020-04-27 06:55] LABS: Basophils Absolute Auto 0.1 X10*3/uL (0.0-0.2); Basophils Percent Auto 0.4 % (0-2); Eosinophils Absolute Auto 0.1 X10*3/uL (0.0-0.4); Lymphocytes Absolute Auto 2.1 X10*3/uL (1.2-4.9); Lymphocytes Percent Auto 17.4 % (20-40); Mean Corpuscular HGB Conc 32.3 g/dl (31.0-36.0); Mean Corpuscular Volume 80.6 fL (80-98); Mean Platelet Volume 13.6 fL (9.4-12.4); Monocytes Absolute Auto 1.5 X10*3/uL (0.1-1.2); Monocytes Percent Auto 12.7 % (2-11); Neutrophils Absolute Auto 8.2 X10*3/uL (2.0-8.3); Neutrophils Percent Auto 68.2 % (45-73); Platelet Count 183 X10*3/uL (160-400); Red Blood Count 4.34 X10*6/uL (4.60-5.80); Red Cell Distribution Width 14.9 % (11.0-16.0); White Blood Count 12.1 X10*3/uL (4.8-10.8)
[2020-04-27 06:59] LABS: D Dimer 211 NG/ML
[2020-04-27 07:18] LABS: Alanine Aminotransferase 17 U/L (0-40); Alkaline Phosphatase 97 U/L (39-117); Anion Gap 17 (12-20); Aspartate Amino Transferase 19 U/L (5-37); Bilirubin Total 0.9 mg/dL (0.0-1.0); Blood Urea Nitrogen 13 mg/dL (9-16); C Reactive Protein 15.89 mg/dL (< or = 0.50); Calcium 9.3 mg/dL (8.4-10.2); Carbon Dioxide 22 mmol/L (22-29); Chloride 104 mmol/L (96-108); Creatinine Clr Calc Pharmacy 93.8; Estimated Glomerular Filt Rate > 60; Glucose Random 172 mg/dL (60-115); Lactate Dehydrogenase 215 U/L (118-273); PLT ABN DIST 1; Potassium 3.8 mmol/l (3.3-5.1); Sodium 139 mmol/L (135-145); Total Protein 7.1 g/dL (6.5-8.0)
[2020-04-27 07:29] LABS: Procalcitonin 0.03 ng/mL
[2020-04-27 07:34] LABS: Ferritin 77 ng/mL (20-250)
[2020-04-27] MEDS: Cholecalciferol (Vitamin D3) 25 MCG TABLET 125 MCG PO (07:42)
[2020-04-27] MEDS: Ascorbic Acid 500 MG TABLET PO ×2 (07:43→21:36)
[2020-04-27] MEDS: Nicotine 21 MG PATCH.TD24 TRANSDERMA (07:43)
[2020-04-27] MEDS: Furosemide 20 MG TABLET PO (07:43)
[2020-04-27] MEDS: Metoprolol Tartrate 12.5 MG HALFTAB PO ×2 (07:43→21:36)
[2020-04-27 07:44] LABS: SLIDE REVIEW VERIFIED
[2020-04-27] MEDS: Aspirin Enteric Coated 81 MG TABLET.DR PO (07:45)
[2020-04-27] MEDS: lisinopriL 2.5 MG TABLET PO (07:45)
[2020-04-27] MEDS: Insulin Lispro 100 UNIT/ML 3 ML VIAL SUBCUT ×4 (07:51→21:37)
[2020-04-27 08:15] LABS: Glucose, Whole Blood 245 mg/dL (60-115)
[2020-04-27 12:22] LABS: Influenza A PCR NEGATIVE (Negative); Influenza B PCR NEGATIVE (Negative); Resp Syncy Virus RNA Qual PCR NEGATIVE (Negative); SARS COV2 PCR INHOUSE NEGATIVE (Negative)
[2020-04-27 13:00] LABS: Glucose, Whole Blood 163 mg/dL (60-115)
--- NOTE | 2020-04-27 13:51 | P.PNIM_ITS ---
Subjective Subjective Date of Service: 04/27/20 Interval History: Very ataxic and still somewhat confused. Repeat SARS-CoV2 PCR negative. RN reports dry cough; pt denies this to me. No fever. Physical Exam Vital Signs: Vital Signs: Last Vital Signs Temp 98.3 F 04/27/20 11:32 Pulse 94 04/27/20 11:32 Resp 12 04/27/20 11:32 BP 113/63 04/27/20 11:32 Pulse Ox 98 04/27/20 11:32 Body Mass Index 26.6 Gen: in no acute distress HEENT: sclera anicteric, moist mucus membranes Neck: supple Lungs: no respiratory distress, auscultation deferred due to COVID-19 suspicion Heart: normal peripheral pulses Abd: soft, non-tender, non-distended Ext: no cyanosis, clubbing, or edema Skin: warm/well-perfused Neuro: mildly disoriented, severely ataxic, impaired [id number] bilaterally Objective Data Current Medications Generic Name Dose Route Start Last Admin Trade Name Freq PRN Reason Stop Dose Admin Acetaminophen 650 mg 04/25/20 16:41 Acetaminophen 325 Mg Tablet PO Q6H PRN Pain, Mild (Pain Scale 1-3) Ascorbic Acid 500 mg 04/25/20 21:00 04/27/20 07:43 Ascorbic Acid 500 Mg Tablet PO 500 mg BID MARYCARMEN Administration Aspirin 81 mg 04/26/20 09:00 04/27/20 07:45 Aspirin Enteric Coated 81 Mg Tablet. PO 81 mg DAILY MARYCARMEN Administration Clotrimazole 1 appl 04/26/20 09:00 04/27/20 07:52 Clotrimazole 1 % Cream 15 Gm Tube TOPICAL Not Given DAILY MARYCARMEN Docusate Sodium 100 mg 04/25/20 16:41 Docusate Sodium 100 Mg Capsule PO DAILY PRN Constipation Furosemide 20 mg 04/26/20 09:00 04/27/20 07:43 Furosemide 20 Mg Tablet PO 20 mg DAILY [facility] Administration Protocol Insulin Human Lispro 0 unit 04/25/20 16:41 04/27/20 12:44 Insulin Lispro 100 Unit/Ml 3 Ml Vial SUBCUT 2 unit QIDACHS MARYCARMEN Administration Protocol Lisinopril 2.5 mg 04/26/20 09:00 04/27/20 07:45 Lisinopril 2.5 Mg Tablet PO 2.5 mg DAILY MARYCARMEN Administration Protocol Metoprolol Tartrate 12.5 mg 04/25/20 21:00 04/27/20 07:43 Metoprolol Tartrate 12.5 Mg Halftab PO 12.5 mg BID MARYCARMEN Administration Protocol Nicotine 21 mg 04/25/20 16:41 04/27/20 07:43 Nicotine 21 Mg Patch.Td24 TRANSDERMA 21 mg DAILY MARYCARMEN Administration Omeprazole 20 mg 04/26/20 06:30 04/27/20 06:26 Omeprazole 20 Mg Capsule.Dr PO 20 mg DAILY@0630 MARYCARMEN Administration Ondansetron HCl 4 mg 04/25/20 16:41 Ondansetron Hcl 4 Mg/2 Ml Vial IVPUSH Q8H PRN Nausea and Vomiting Pharmacy Consult 1 each 04/25/20 10:30 Consult Rx Perform Med Rec MISCELLANE ONCE PRN Consult order Rivaroxaban 20 mg 04/25/20 17:00 04/26/20 17:04 Rivaroxaban 20 Mg Tablet PO 20 mg DAILY@1700 [facility] Administration Sodium Chloride 3 ml 04/25/20 16:41 04/27/20 07:52 0.9 % Sodium Chloride Flush 3 Ml Syringe IVFLUSH 3 ml QSHIFT MARYCARMEN Administration Vitamin D 125 mcg 04/26/20 09:00 04/27/20 07:42 Cholecalciferol (Vitamin D3) 25 Mcg Tablet PO 125 mcg DAILY MARYCARMEN Administration Labs CBC & Chem 7: 04/27/20 06:18 04/27/20 06:18 Microbiology Microbiology Results: Microbiology 04/25/20 11:22 Blood - Venous Blood Culture - Preliminary No growth after 48 hours. 04/25/20 10:46 Blood - Venous Blood Culture - Preliminary No growth after 48 hours. Assessment and Plan (1) Encephalopathy: Status: Acute Assessment and Plan: hospital d#3 59yo M with hx PE on rivaorxaban, DM2, HTN, peripheral neuropathy, prior alcoholism (last intake >1 yr ago), resolved HCV, tobacco abuse, PVD s/p fem-pop bypass presenting with increasing confusion/disorientation exposed to COVID-19, CT chest shows bilateral GGO # encephalopathy, ataxia - unclear etiology. Neuro consulted. possible polypharmacy? holding pregabalin, gabapentin, amitrpytlline, hydroxyzine, and paroxetine. will obtain MRI. 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 ?etiology. PCT low. CRP quite elevated. check SARS-CoV2 IgG. check resp virus panel in am. check for ambulatory desaturation # hypoMg - repleted # DM2 - hold MTF, give correction-dose lispro # HTN - continue lisinopril, , furosemide # hx PE - continue rivaroxaban # arthritis - pt is on hydroxychloroquine from Rheum. 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 # tobacco abuse - NRT # dispo - will need STR due to severe balance problems
[2020-04-27 17:15] LABS: Glucose, Whole Blood 165 mg/dL (60-115)
[2020-04-27] MEDS: Rivaroxaban 20 MG TABLET PO (17:32)
--- NOTE | 2020-04-27 19:13 | PC.NURSE ---
Patient disoriented requiring frequent verbal cuing. Very impulsive and noncompliant with instruction. Patient very ataxic as well. Patient stumbled a few times when walking. MD aware. COVID swab sent. will continue to monitor.
[2020-04-27 21:02] LABS: Glucose, Whole Blood 180 mg/dL (60-115)
[2020-04-28] VITALS (9 sets, daily range): BP systolic 116–138; BP diastolic 56–86; PULSE 83–120; RESP 18–20; TEMP 36.4–37.2; O2SAT 93–98
[2020-04-28] MEDS: Omeprazole 20 MG CAPSULE.DR PO (05:36)
[2020-04-28 07:37] LABS: Glucose, Whole Blood 189 mg/dL (60-115)
[2020-04-28 07:38] LABS: Eosinophils Absolute Auto 0.2 X10*3/uL (0.0-0.4); Eosinophils Percent Auto 1.8 % (0-4); Hemoglobin 11.1 g/dl (14.0-18.0); Monocytes Absolute Auto 1.3 X10*3/uL (0.1-1.2)
[2020-04-28 07:41] LABS: Basophils Percent Auto 0.3 % (0-2); Hematocrit 34.2 % (42-52); Imm Gran Abs Auto 0.04 X10*3/uL (0.00-0.03); Imm Gran Pct Auto 0.4 % (0.0-0.4); Lymphocytes Absolute Auto 1.8 X10*3/uL (1.2-4.9); Lymphocytes Percent Auto 17.7 % (20-40); Mean Corpuscular HGB Conc 32.5 g/dl (31.0-36.0); Mean Corpuscular Hemoglobin 26.2 pg (27.0-33.0); Mean Corpuscular Volume 80.7 fL (80-98); Monocytes Percent Auto 12.9 % (2-11); Neutrophils Absolute Auto 6.8 X10*3/uL (2.0-8.3); Neutrophils Percent Auto 66.9 % (45-73); Platelet Count 191 X10*3/uL (160-400); Red Blood Count 4.24 X10*6/uL (4.60-5.80); Red Cell Distribution Width 15.3 % (11.0-16.0); White Blood Count 10.2 X10*3/uL (4.8-10.8)
[2020-04-28 07:48] LABS: SARS COV2 IgG Negative (Negative)
[2020-04-28] MEDS: Insulin Lispro 100 UNIT/ML 3 ML VIAL SUBCUT ×4 (09:11→22:40)
[2020-04-28] MEDS: 0.9 % Sodium Chloride Flush 3 ML SYRINGE IVFLUSH ×3 (09:11→22:40)
[2020-04-28] MEDS: Nicotine 21 MG PATCH.TD24 TRANSDERMA (09:35)
[2020-04-28] MEDS: Cholecalciferol (Vitamin D3) 25 MCG TABLET 125 MCG PO (09:38)
[2020-04-28] MEDS: Ascorbic Acid 500 MG TABLET PO ×2 (09:38→22:40)
[2020-04-28] MEDS: Furosemide 20 MG TABLET PO (09:38)
[2020-04-28] MEDS: Metoprolol Tartrate 12.5 MG HALFTAB PO ×2 (09:38→22:39)
[2020-04-28] MEDS: lisinopriL 2.5 MG TABLET PO (09:39)
[2020-04-28 11:29] LABS: Glucose, Whole Blood 240 mg/dL (60-115)
--- NOTE | 2020-04-28 11:51 | HO.PM.IMPN ---
Subjective Subjective Date of Service: 04/28/20 Interval History: Still very confused and unbalanced. Adamantly denies fever, chills, cough, or dyspnea. Laughing inappropriately. Physical Exam Vital Signs: Vital Signs: Last Vital Signs Temp 99.0 F 04/28/20 07:39 Pulse 120 H 04/28/20 09:39 Resp 20 04/28/20 07:39 BP 129/65 04/28/20 07:39 Pulse Ox 94 04/28/20 07:39 Body Mass Index 26.6 Gen: in no acute distress HEENT: sclera anicteric, moist mucus membranes Neck: supple Lungs: no respiratory distress, auscultation deferred due to COVID-19 suspicion Heart: normal peripheral pulses Abd: soft, non-tender, non-distended Ext: no cyanosis, clubbing, or edema Skin: warm/well-perfused Neuro: knows he is in the hospital but does not know what city, knows it is Wednesday and April but does not know the year, severely ataxic, impaired [id number] bilaterally, normal strength in all 4 extremities Psych: inappropriate affect Objective Data Current Medications Generic Name Dose Route Start Last Admin Trade Name Freq PRN Reason Stop Dose Admin Acetaminophen 650 mg 04/25/20 16:41 Acetaminophen 325 Mg Tablet PO Q6H PRN Pain, Mild (Pain Scale 1-3) Ascorbic Acid 500 mg 04/25/20 21:00 04/28/20 09:38 Ascorbic Acid 500 Mg Tablet PO 500 mg BID MARYCARMEN Administration Aspirin 81 mg 04/26/20 09:00 04/28/20 09:39 Aspirin Enteric Coated 81 Mg Tablet. PO Not Given DAILY [facility] Clotrimazole 1 appl 04/26/20 09:00 04/28/20 09:40 Clotrimazole 1 % Cream 15 Gm Tube TOPICAL Not Given DAILY [facility] Docusate Sodium 100 mg 04/25/20 16:41 Docusate Sodium 100 Mg Capsule PO DAILY PRN Constipation Furosemide 20 mg 04/26/20 09:00 04/28/20 09:38 Furosemide 20 Mg Tablet PO 20 mg DAILY [facility] Administration Protocol Insulin Human Lispro 0 unit 04/25/20 16:41 04/28/20 09:11 Insulin Lispro 100 Unit/Ml 3 Ml Vial SUBCUT 2 unit QIDACHS [facility] Administration Protocol Lisinopril 2.5 mg 04/26/20 09:00 04/28/20 09:39 Lisinopril 2.5 Mg Tablet PO 2.5 mg DAILY [facility] Administration Protocol Metoprolol Tartrate 12.5 mg 04/25/20 21:00 04/28/20 09:38 Metoprolol Tartrate 12.5 Mg Halftab PO 12.5 mg BID MARYCARMEN Administration Protocol Nicotine 21 mg 04/25/20 16:41 04/28/20 09:35 Nicotine 21 Mg Patch.Td24 TRANSDERMA 21 mg DAILY [facility]EN Administration Omeprazole 20 mg 04/26/20 06:30 04/28/20 05:36 Omeprazole 20 Mg Capsule.Dr PO 20 mg DAILY@0630 [facility] Administration Ondansetron HCl 4 mg 04/25/20 16:41 Ondansetron Hcl 4 Mg/2 Ml Vial IVPUSH Q8H PRN Nausea and Vomiting Pharmacy Consult 1 each 04/25/20 10:30 Consult Rx Perform Med Rec MISCELLANE ONCE PRN Consult order Rivaroxaban 20 mg 04/25/20 17:00 04/27/20 17:32 Rivaroxaban 20 Mg Tablet PO 20 mg DAILY@1700 [facility] Administration Sodium Chloride 3 ml 04/25/20 16:41 04/28/20 09:11 0.9 % Sodium Chloride Flush 3 Ml Syringe IVFLUSH 3 ml QSHIFT [facility] Administration Vitamin D 125 mcg 04/26/20 09:00 04/28/20 09:38 Cholecalciferol (Vitamin D3) 25 Mcg Tablet PO 125 mcg DAILY [facility]ARYC[facility] Administration Labs CBC & Chem 7: 04/28/20 06:13 04/27/20 06:18 Labs: Laboratory Results - last 24 hr 04/27/20 04/27/20 04/27/20 06:18 11:27 12:55 WBC RBC Hgb Hct MCV MCH MCHC RDW Plt Count MPV Immature Gran % (Auto) Neut % (Auto) Lymph % (Auto) [place] % (Auto) Eos % (Auto) Baso % (Auto) Lymph # (Auto) [place] # (Auto) Eos # (Auto) Baso # (Auto) Abs Immat Gran (auto) Absolute Neuts (auto) Absolute Nucleated RBC Nucleated RBC % (auto) POC Glucose 163 H Coronavirus (PCR) NEGATIVE Influenza Type A (PCR) NEGATIVE Influenza Type B (PCR) NEGATIVE RSV RNA Qual (PCR) NEGATIVE SARS-CoV-2 IgG Ab Negative 04/27/20 04/27/20 04/28/20 17:11 20:58 06:13 WBC 10.2 RBC 4.24 L Hgb 11.1 L Hct 34.2 L MCV 80.7 MCH 26.2 L MCHC 32.5 RDW 15.3 Plt Count 191 MPV Not Reportable Immature Gran % (Auto) 0.4 Neut % (Auto) 66.9 Lymph % (Auto) 17.7 L [place] % (Auto) 12.9 H Eos % (Auto) 1.8 Baso % (Auto) 0.3 Lymph # (Auto) 1.8 [place] # (Auto) 1.3 H Eos # (Auto) 0.2 Baso # (Auto) 0.0 Abs Immat Gran (auto) 0.04 H Absolute Neuts (auto) 6.8 Absolute Nucleated RBC 0.000 Nucleated RBC % (auto) 0.0 POC Glucose 165 H 180 H Coronavirus (PCR) Influenza Type A (PCR) Influenza Type B (PCR) RSV RNA Qual (PCR) SARS-CoV-2 IgG Ab 04/28/20 04/28/20 07:32 11:25 WBC RBC Hgb Hct MCV MCH MCHC RDW Plt Count MPV Immature Gran % (Auto) Neut % (Auto) Lymph % (Auto) [place] % (Auto) Eos % (Auto) Baso % (Auto) Lymph # (Auto) [place] # (Auto) Eos # (Auto) Baso # (Auto) Abs Immat Gran (auto) Absolute Neuts (auto) Absolute Nucleated RBC Nucleated RBC % (auto) POC Glucose 189 H 240 H Coronavirus (PCR) Influenza Type A (PCR) Influenza Type B (PCR) RSV RNA Qual (PCR) SARS-CoV-2 IgG Ab Microbiology Microbiology Results: Microbiology 04/25/20 11:22 Blood - Venous Blood Culture - Preliminary No growth after 48 hours. 04/25/20 10:46 Blood - Venous Blood Culture - Preliminary No growth after 48 hours. Assessment and Plan (1) Encephalopathy: Status: Acute Assessment and Plan: hospital d#4 59yo M with hx PE on rivaroxaban, DM2, HTN, peripheral neuropathy, prior alcoholism (last intake >1 yr ago), resolved HCV, tobacco abuse, PVD s/p fem-pop bypass presenting with increasing confusion/disorientation exposed to COVID-19, CT chest shows bilateral GGO # encephalopathy, ataxia - unclear etiology. Neuro consulted. possible polypharmacy, so holding pregabalin, gabapentin, amitrpytlline, hydroxyzine, and paroxetine. MRI tomorrow. 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 ?etiology. PCT low. CRP quite elevated. SARS-CoV2 IgG. check respiratory virus panel PCR. no ambulatory desaturation # hypoMg - repleted # DM2 - hold MTF, give correction-dose lispro # HTN - continue lisinopril + metoprolol + furosemide # hx PE - continue rivaroxaban # arthritis - pt is on hydroxychloroquine from Rheum. 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 holding for now. # tobacco abuse - NRT # dispo - will need STR due to severe ataxia, pending workup of encephalopathy I updated pt's nephew Demetrius [phone]
[2020-04-28 15:18] LABS: Adenovirus PCR Not Detected (Not Detect.); Bordetella parapertussis PCR Not Detected (Not Detect.); Bordetella pertussis PCR Not Detected (Not Detect.); Chlamydia pneumoniae PCR Not Detected (Not Detect.); Coronavirus 229E PCR Not Detected (Not Detect.); Coronavirus HKU1 PCR Not Detected (Not Detect.); Coronavirus NL63 PCR Not Detected (Not Detect.); Coronavirus OC43 PCR Not Detected (Not Detect.); Human metapneumovirus PCR Not Detected (Not Detect.); Influenza A PCR Not Detected (Not Detect.); Influenza B PCR Not Detected (Not Detect.); Mycoplasma pneumoniae PCR Not Detected (Not Detect.); Parainfluenza 1 PCR Not Detected (Not Detect.); Parainfluenza 2 PCR Not Detected (Not Detect.); Parainfluenza 3 PCR Not Detected (Not Detect.); Parainfluenza 4 PCR Not Detected (Not Detect.); RSV PCR Not Detected (Not Detect.); Rhino/Enterovirus PCR Not Detected (Not Detect.); SARS-CoV-2 PCR Not Detected (Not Detect.)
[2020-04-28 16:59] LABS: Glucose, Whole Blood 214 mg/dL (60-115)
[2020-04-28] MEDS: Rivaroxaban 20 MG TABLET PO (17:29)
--- NOTE | 2020-04-28 18:45 | PC.NURSE ---
Patient continues to be confused and needs frequent redirection. Respiratory panel sent and came back negative. Vitals stable. Will continue to monitor.
[2020-04-28 21:00] LABS: Glucose, Whole Blood 184 mg/dL (60-115)
[2020-04-29] VITALS (7 sets, daily range): BP systolic 111–152; BP diastolic 72–96; PULSE 82–100; RESP 16–20; TEMP 36.2–36.6; O2SAT 96–98
--- NOTE | 2020-04-29 | MR_ITS ---
MRI OF THE BRAIN WITHOUT IV CONTRAST INDICATION: Encephalopathy, ataxia COMPARISON: Head CT 04/25/2020. Brain MRI 10/25/2018 TECHNIQUE: Multiplanar multisequence MR imaging of the brain was obtained without IV contrast. FINDINGS: There is no hydrocephalus, extra-axial surface collection, or herniation. 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 Chronic left sided Wallerian degeneration. The major flow voids at the skull base are preserved. Possible small subacute infarct within the left frontal periventricular white matter on image 20 of series 4 versus artifact. No mass effect and no hemorrhagic transformation. There is no intracranial hemorrhage on the gradient recalled echo acquisition. The midline structures are normal. The cerebellar tonsils are normally positioned. The cerebellum and brainstem are normal. The craniocervical junction is normal. Osseous marrow signal intensity is homogenous. Stable 3.2 cm well circumscribed lesion within the left parotid tail. The left ethmoid air cells are partially opacified. There is moderate polypoid mucosal thickening within the left maxillary sinus. All mucosal thickening within the frontal sinuses bilaterally MR/MR head/brain wo con IMPRESSION: - Possible small subacute infarct within the left frontal periventricular white matter on image 20 of series 4 versus artifact. No mass effect and no hemorrhagic transformation. 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 Chronic left sided Wallerian degeneration. - Stable 3.2 cm well circumscribed lesion within the left parotid tail.
[2020-04-29] MEDS: Omeprazole 20 MG CAPSULE.DR PO (06:14)
[2020-04-29 07:49] LABS: Glucose, Whole Blood 172 mg/dL (60-115)
[2020-04-29] MEDS: lisinopriL 2.5 MG TABLET PO (13:56)
[2020-04-29] MEDS: Aspirin Enteric Coated 81 MG TABLET.DR PO (13:56)
[2020-04-29] MEDS: Nicotine 21 MG PATCH.TD24 TRANSDERMA (13:56)
[2020-04-29] MEDS: Furosemide 20 MG TABLET PO (13:56)
[2020-04-29] MEDS: 0.9 % Sodium Chloride Flush 3 ML SYRINGE IVFLUSH ×2 (13:57→16:49)
--- NOTE | 2020-04-29 14:05 | HO.PM.IMPN ---
Subjective Subjective Date of Service: 04/29/20 Interval History: Patient seen and examined at bedside. He is alert and oriented to self, place, and year and month. His ambulation is improving, he is not sure what happened to him and why he is in the hospital but otherwise has no complaints. He has no headache, change in vision, no chest pain, shortness of breath, palpitations. Physical Exam Vital Signs: Vital Signs: Last Vital Signs Temp 97.2 F 04/29/20 04:00 Pulse 82 04/29/20 04:00 Resp 16 04/29/20 07:44 BP 118/73 04/29/20 13:26 Pulse Ox 98 04/29/20 13:26 Body Mass Index 26.6 Const: General: cooperative and no acute distress Orientation/consciousness: oriented to person, oriented to place and oriented to time Eyes: General: appearance normal, both eyes and all related structures Pupils: Equal, round and reactive pupils present Resp: Effort & Inspection: normal respiratory effort and able to speak in complete sentences Auscultation: clear to auscultation bilaterally Cardio: Rate: regular rate Rhythm: regular rhythm GI: Palpation (GI): Soft to palpation Auscultation: normal bowel sounds Skin: General skin exam: no rashes or lesions noted Neuro: Other: gait slightly unstable but no significant ataxia today General: oriented to person, oriented to place and oriented to time Cranial nerves: Yes Equal, round and reactive pupils present Cognition (Neuro): normal cognition Extrem: General: Yes normal to inspection and Yes no pedal edema Psych: Appearance: grossly normal Speech and movement: Normal speech and movement present Objective Data Current Medications Generic Name Dose Route Start Last Admin Trade Name Joe PRN Reason Stop Dose Admin Acetaminophen 650 mg 04/25/20 16:41 Acetaminophen 325 Mg Tablet PO Q6H PRN Pain, Mild (Pain Scale 1-3) Ascorbic Acid 500 mg 04/25/20 21:00 04/29/20 13:57 Ascorbic Acid 500 Mg Tablet PO Not Given BID [facility] Aspirin 81 mg 04/26/20 09:00 04/29/20 13:56 Aspirin Enteric Coated 81 Mg Tablet. PO 81 mg DAILY [facility] Administration Clotrimazole 1 appl 04/26/20 09:00 04/29/20 13:57 Clotrimazole 1 % Cream 15 Gm Tube TOPICAL Not Given DAILY [facility] Docusate Sodium 100 mg 04/25/20 16:41 Docusate Sodium 100 Mg Capsule PO DAILY PRN Constipation Furosemide 20 mg 04/26/20 09:00 04/29/20 13:56 Furosemide 20 Mg Tablet PO 20 mg DAILY [facility] Administration Protocol Insulin Human Lispro 0 unit 04/25/20 16:41 04/29/20 09:42 Insulin Lispro 100 Unit/Ml 3 Ml Vial SUBCUT Not Given QIDACHS [facility] Protocol Lisinopril 2.5 mg 04/26/20 09:00 04/29/20 13:56 Lisinopril 2.5 Mg Tablet PO 2.5 mg DAILY [facility] Administration Protocol Metoprolol Tartrate 12.5 mg 04/25/20 21:00 04/29/20 13:57 Metoprolol Tartrate 12.5 Mg Halftab PO Not Given BID [facility] Protocol Nicotine 21 mg 04/25/20 16:41 04/29/20 13:56 Nicotine 21 Mg Patch.Td24 TRANSDERMA 21 mg DAILY [facility] Administration Omeprazole 20 mg 04/26/20 06:30 04/29/20 06:14 Omeprazole 20 Mg Capsule.Dr PO 20 mg DAILY@0630 [facility] Administration Ondansetron HCl 4 mg 04/25/20 16:41 Ondansetron Hcl 4 Mg/2 Ml Vial IVPUSH Q8H PRN Nausea and Vomiting Pharmacy Consult 1 each 04/25/20 10:30 Consult Rx Perform Med Rec MISCELLANE ONCE PRN Consult order Rivaroxaban 20 mg 04/25/20 17:00 04/28/20 17:29 Rivaroxaban 20 Mg Tablet PO 20 mg DAILY@1700 [facility] Administration Sodium Chloride 3 ml 04/25/20 16:41 04/29/20 13:57 0.9 % Sodium Chloride Flush 3 Ml Syringe IVFLUSH 3 ml QSHIFT [facility] Administration Vitamin D 125 mcg 04/26/20 09:00 04/29/20 13:57 Cholecalciferol (Vitamin D3) 25 Mcg Tablet PO Not Given DAILY [facility] Labs CBC & Chem 7: 04/28/20 06:13 04/27/20 06:18 Microbiology Microbiology Results: Microbiology 04/25/20 11:22 Blood - Venous Blood Culture - Preliminary No growth after 48 hours. 04/25/20 10:46 Blood - Venous Blood Culture - Preliminary No growth after 48 hours. Assessment and Plan (1) Encephalopathy: Status: Acute Assessment and Plan: hospital d#4 59yo M with hx PE on rivaorxaban, DM2, HTN, peripheral neuropathy, prior alcoholism (last intake >1 yr ago), resolved HCV, tobacco abuse, PVD s/p fem-pop bypass presenting with increasing confusion/disorientation exposed to COVID-19, CT chest shows bilateral GGO # encephalopathy, ataxia - Most likely 2/2 acute stroke per MRI which was done today - He is slightly better today, pt able to answer questions approproately, his ataxia is not significant - Will seek neuro recommendation again - will coninue holding pregabalin, gabapentin, amitrpytlline, hydroxyzine, and paroxetine. 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 ?etiology. PCT low. CRP quite elevated. - Pt has remained afebrile, leukocytosis improving - Has not been on Abx for this with improvement of clinical course- therefore will keep him off abx - SARS IgG -ve, respiratory viral panel -ve - check for ambulatory desaturation # hypoMg - repleted - will check mag level # DM2 - hold MTF, give correction-dose lispro - Diabetic diet # HTN - continue lisinopril, , furosemide # hx PE - continue rivaroxaban # arthritis - pt is on hydroxychloroquine from Rheum. 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 # tobacco abuse - NRT # dispo - will need STR due to severe balance problems - speech and PT consulted
[2020-04-29 14:09] LABS: Glucose, Whole Blood 260 mg/dL (60-115)
[2020-04-29] MEDS: Insulin Lispro 100 UNIT/ML 3 ML VIAL SUBCUT ×3 (14:23→23:14)
--- NOTE | 2020-04-29 14:34 | MHC.CM.PN ---
PT recommends home PT. TC to Maggi at [facility] and asked if their PT will be able to see patient, she is to return call. Discharge plan is now home with services. CM will continue to follow for discharge plan.
--- NOTE | 2020-04-29 15:46 | MHC.STROKE ---
[address] RG SEE HIS ADDENDUM. PATIENT ARRIVED ON 04/25/20 AT 1015, WALK-IN, CONFUSION FOR PAST 5 DAYS, ESTIMATED SINCE 04/20/20. NIHSS = 2. ?ENCEPHALOPATHY. HE HAS A HX OF PRIOR STROKES, HE PASSED HIS SWALLOW ON 06/26/19 AT 1729 PRIOR TO PO MEDICATION, VERIFIED WITH RN, PAPER SWALLOW COMPLETED. CT HEAD DONE, MRI, CTA H/N IS ORDERED, ECHO, AND LIPID PANEL. STROKE EDUCATION INITIATED BUT HE NEEDS REINFORCEMENT. HE WAS SEEN BY REHAB AND SERVICES ARE RECOMMENDED. HE WAS NEVER A CANDIDATE FOR TPA DUE TO DELAY IN ARRIVAL AND HIM BEING ON [place] (NOAC) IS AN EXCLUSION. HE HAS BEEN ON STROKE PREVENTION MEASURES SINCE ADMISSION. DIAGNOSIS, CLARIFIED TODAY AFTER MRI. I TALAT CONTINUE TO FOLLOW.
[2020-04-29 15:59] LABS: Basophils Percent Auto 0.3 % (0-2); Eosinophils Absolute Auto 0.2 X10*3/uL (0.0-0.4); MANUAL DIFF FLAG SCAN; Mean Corpuscular Volume 80.7 fL (80-98); PLT CLUMP 1; SCAN SMEAR FLAG 1
[2020-04-29 16:00] LABS: Hematocrit 32.1 % (42-52); Hemoglobin 10.4 g/dl (14.0-18.0); Imm Gran Abs Auto 0.06 X10*3/uL (0.00-0.03); Imm Gran Pct Auto 0.6 % (0.0-0.4); Lymphocytes Absolute Auto 1.4 X10*3/uL (1.2-4.9); Lymphocytes Percent Auto 14.4 % (20-40); Mean Corpuscular HGB Conc 32.4 g/dl (31.0-36.0); Mean Corpuscular Hemoglobin 26.1 pg (27.0-33.0); Mean Platelet Volume 13.5 fL (9.4-12.4); Neutrophils Absolute Auto 6.7 X10*3/uL (2.0-8.3); Neutrophils Percent Auto 71.7 % (45-73); Red Blood Count 3.98 X10*6/uL (4.60-5.80); Red Cell Distribution Width 15.1 % (11.0-16.0); White Blood Count 9.4 X10*3/uL (4.8-10.8)
[2020-04-29 16:20] LABS: PLT ABN DIST 1; Platelet Count 157 X10*3/uL (160-400)
[2020-04-29 16:21] LABS: SLIDE REVIEW VERIFIED
[2020-04-29 16:22] LABS: Anion Gap 14 (12-20); Blood Urea Nitrogen 12 mg/dL (9-16); Calcium 8.8 mg/dL (8.4-10.2); Carbon Dioxide 24 mmol/L (22-29); Chloride 103 mmol/L (96-108); Creatinine Clr Calc Pharmacy 84.7; Estimated Glomerular Filt Rate > 60; Glucose Random 166 mg/dL (60-115); Potassium 3.7 mmol/l (3.3-5.1); Sodium 137 mmol/L (135-145)
[2020-04-29 16:23] LABS: Cholesterol 128 mg/dL; HDL Cholesterol 31 mg/dL; LDL Cholesterol Calculated 67 mg/dl; Triglycerides 153 mg/dL
[2020-04-29] MEDS: Rivaroxaban 20 MG TABLET PO (16:50)
[2020-04-29 17:44] LABS: Glucose, Whole Blood 141 mg/dL (60-115)
[2020-04-29 20:57] LABS: Glucose, Whole Blood 178 mg/dL (60-115)
[2020-04-29] MEDS: Atorvastatin Calcium 80 MG TABLET PO (23:05)
[2020-04-29] MEDS: Metoprolol Tartrate 12.5 MG HALFTAB PO (23:06)
[2020-04-29] MEDS: Ascorbic Acid 500 MG TABLET PO (23:06)
[2020-04-29 23:16] LABS: Glucose, Whole Blood 164 mg/dL (60-115)
[2020-04-30] VITALS (9 sets, daily range): BP systolic 115–153; BP diastolic 71–82; PULSE 71–93; RESP 18; TEMP 36.3–36.6; O2SAT 93–98
--- NOTE | 2020-04-30 | CT_ITS ---
EXAMINATION: CT ANGIOGRAM HEAD CT ANGIOGRAM NECK CLINICAL INFORMATION: Stroke like symptoms. COMPARISON: Brain MRI from 04/29/2020 and 10/25/2018.. CT chest from 04/25/2020. TECHNIQUE: Initial noncontrast roof designer imaging of the head and neck was performed. Noncontrast head CT was also performed. Test bolus sequences followed by intravenous administration 70 mL of Omnipaque 350. Helical imaging was performed in the axial plane from the aortic arch to the skull vertex. Delayed postcontrast imaging of the head was also performed. The data was processed at the optometric technologist's workstation for generation of MIP sequences. Angled MIPs and volume rendered reformatted images were also generated at an offline 3D workstation. Stenoses are assessed in accordance with NASCET criteria unless otherwise indicated. DLP: 2267 mGy-cm FINDINGS: CT Head: There is no evidence of acute intracranial hemorrhage or edematous territorial infarction. Scattered hypoattenuation in the periventricular and deep white matter are consistent with moderate microangiopathy. Lacunar infarcts within the posterior limb of the internal capsule/lentiform nucleus, right caudate head, left thalamus, and left ventral neisha. No additional loss of dove-white matter differentiation. Proportional prominence of the ventricles and sulcal spaces. No evidence for obstructive hydrocephalus. No abnormal mass effect or midline shift. No extra-axial fluid collections. No pathologic intra-axial enhancement or regional oligemia. No acute soft tissue or osseous abnormalities. Moderate mucosal thickening of the paranasal sinuses. Hyperostotic change of the frontal sinuses and left maxillary sinus. Changes of prior left maxillary uncinectomy. Prominent mucosal thickening of the left middle turbinate. The mastoid air cells and paranasal sinuses are clear. Odontogenic enamel erosions with mild multifocal periapical lucencies.. CT Neck: There is a hyperattenuating lesion along the posterior aspect of the superficial lobe left parotid gland measuring 2.1 x 1.7 x 3.5 cm. The thyroid gland and remaining cervical soft tissues are within normal limits. Straightening of the normal cervical lordosis. Moderate multilevel degenerative disc disease, most notably at C3-C4 and C6-C7 with disc-osteophyte complexes. Prominent facet and uncovertebral joint arthropathy at C3-C4 and C4-C5 with osseous encroachment on the neural foramina. CT Upper Chest: Redemonstrated patchy groundglass opacities throughout the left greater than right upper lungs. The upper mediastinum is within normal limits. Neck CTA: Aortic Arch: Normal contour and caliber with mild calcific atherosclerotic disease. Classic 3 vessel branching pattern of the aortic arch. Great Vessel Origins: Atherosclerotic disease causes less than 50% narrowings of the origins of the left common carotid and left subclavian arteries. Right Common Carotid Artery: Normal opacification without focal stenosis or occlusion. Cervical Right Internal Carotid Artery: Calcific atherosclerotic disease of the carotid bulb and proximal internal carotid artery causing less than 50% stenosis. Left Common Carotid Artery: Normal opacification without focal stenosis or occlusion. Cervical Left Internal Carotid Artery: Calcific atherosclerotic disease of the carotid bulb and proximal internal carotid artery causing less than 50% stenosis. Cervical Right Vertebral Artery: Co-dominant. Calcific atherosclerotic disease causes multifocal mild to moderate narrowings of the V1 segment. Normal opacification of the V2 and V3 segments without focal stenosis or occlusion. Cervical Left Vertebral Artery: Co-dominant. Calcific atherosclerotic disease causes moderate stenosis of the origin. Otherwise, normal opacification without focal stenosis or occlusion. Brain CTA: Intracranial Internal Carotid Arteries: Moderate calcific atherosclerotic disease of the intracranial internal carotid arteries without occlusion or flow-limiting stenosis. Right Anterior Cerebral Artery: Normal A1 segment. Normal opacification of the distal segments of the JOHNNIE. Left Anterior Cerebral Artery: The A1 segment is mildly diminutive. Normal opacification of the distal segments of the JOHNNIE. Anterior Communicating Artery: Normal. Right Middle Cerebral Artery: Normal opacification of the M1 segment of the MCA without focal stenosis or occlusion. Normal arborization of the distal segments. Left Middle Cerebral Artery: Normal opacification of the M1 segment of the MCA without focal stenosis or occlusion. Normal arborization of the distal segments. Right Vertebral Artery: Normal opacification of the V4 segment. Normal opacification of the proximal segments of the posterior inferior cerebellar artery. Left Vertebral Artery: Normal opacification of the V4 segment. Normal opacification of the proximal segments of the posterior inferior cerebellar artery. Basilar Artery: Normal opacification without focal stenosis or occlusion. Normal appearance of the proximal superior cerebellar arteries. Right Posterior Cerebral Artery: Normal P1 segment. Normal opacification of the distal segments of the PRODUCTION ASSEMBLY SUPERVISOR. Left Posterior Cerebral Artery: Normal P1 segment. Normal opacification of the distal segments of the PRODUCTION ASSEMBLY SUPERVISOR. Normal opacification of the superior sagittal, straight, transverse, and sigmoid sinuses. CT/CT angio head neck IMPRESSION: 1. No evidence of acute intracranial hemorrhage or edematous territorial infarction. 2. CTA of the head and neck without proximal occlusion. Atherosclerotic disease causes mild to moderate stenosis of the V1 segment of the bilateral vertebral arteries. No additional flow-limiting stenosis. 3. Moderate underlying microangiopathy and generalized cerebral volume loss. Chronic lacunar infarcts of the deep nuclei and brainstem. 4. 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 This may be further characterized with ultrasound and tissue sampling if clinically indicated. 5. Moderate chronic left sinonasal mucosal disease. 6. Redemonstrated patchy groundglass opacities within the visualized upper lungs. Commonly reported imaging features of COVID-19 pneumonia are present. Other processes such as influenza pneumonia or organizing pneumonia can cause a similar imaging appearance, as can certain drug toxicities and connective tissue disorders.
[2020-04-30] MEDS: 0.9 % Sodium Chloride Flush 3 ML SYRINGE IVFLUSH ×4 (01:39→21:19)
[2020-04-30] MEDS: Omeprazole 20 MG CAPSULE.DR PO (05:31)
[2020-04-30 06:19] LABS: Eosinophils Absolute Auto 0.3 X10*3/uL (0.0-0.4); Imm Gran Abs Auto 0.05 X10*3/uL (0.00-0.03); Imm Gran Pct Auto 0.6 % (0.0-0.4); MANUAL DIFF FLAG SCAN; SCAN SMEAR FLAG 1
[2020-04-30 06:21] LABS: Basophils Percent Auto 0.2 % (0-2); Eosinophils Percent Auto 3.8 % (0-4); Hematocrit 33.3 % (42-52); Hemoglobin 10.9 g/dl (14.0-18.0); Lymphocytes Absolute Auto 1.7 X10*3/uL (1.2-4.9); Lymphocytes Percent Auto 19.7 % (20-40); Mean Corpuscular HGB Conc 32.7 g/dl (31.0-36.0); Mean Corpuscular Hemoglobin 26.4 pg (27.0-33.0); Mean Corpuscular Volume 80.6 fL (80-98); Mean Platelet Volume 13.1 fL (9.4-12.4); Monocytes Absolute Auto 1.1 X10*3/uL (0.1-1.2); Neutrophils Absolute Auto 5.5 X10*3/uL (2.0-8.3); Neutrophils Percent Auto 62.7 % (45-73); Platelet Count 214 X10*3/uL (160-400); Red Blood Count 4.13 X10*6/uL (4.60-5.80); White Blood Count 8.8 X10*3/uL (4.8-10.8)
[2020-04-30 06:37] LABS: PLT ABN DIST 1
[2020-04-30 06:41] LABS: SLIDE REVIEW VERIFIED
[2020-04-30 06:51] LABS: Anion Gap 16 (12-20); Blood Urea Nitrogen 15 mg/dL (9-16); Calcium 8.6 mg/dL (8.4-10.2); Carbon Dioxide 23 mmol/L (22-29); Chloride 102 mmol/L (96-108); Creatinine Clr Calc Pharmacy 103.9; Estimated Glomerular Filt Rate > 60; Glucose Random 169 mg/dL (60-115); Potassium 3.6 mmol/l (3.3-5.1); Sodium 137 mmol/L (135-145)
[2020-04-30 07:33] LABS: Glucose, Whole Blood 181 mg/dL (60-115)
--- NOTE | 2020-04-30 08:57 | MHC.CM.PN ---
Per PT eval yesterday patient is cleared to go home with services. CM referred to NA per patient's request. CM will continue to follow patient for discharge needs.
[2020-04-30] MEDS: Insulin Lispro 100 UNIT/ML 3 ML VIAL SUBCUT ×2 (09:53→17:34)
[2020-04-30] MEDS: Cholecalciferol (Vitamin D3) 25 MCG TABLET 125 MCG PO (09:54)
[2020-04-30] MEDS: Ascorbic Acid 500 MG TABLET PO ×2 (09:54→21:16)
[2020-04-30] MEDS: Metoprolol Tartrate 12.5 MG HALFTAB PO ×2 (09:54→21:16)
[2020-04-30] MEDS: Furosemide 20 MG TABLET PO (09:55)
[2020-04-30] MEDS: lisinopriL 2.5 MG TABLET PO (09:55)
[2020-04-30] MEDS: Nicotine 21 MG PATCH.TD24 TRANSDERMA (09:56)
[2020-04-30] MEDS: Aspirin Enteric Coated 81 MG TABLET.DR PO (09:56)
[2020-04-30] MEDS: Clotrimazole 1 % Cream 15 GM TUBE 1 APPL TOPICAL (09:56)
[2020-04-30] MEDS: iohexoL 350 MG/ML 100 ML INFUS..BTL 70 ML IV (11:40)
--- NOTE | 2020-04-30 11:50 | MHC.SLORD ---
[address] [address] Speech & Hearing [phone] Name: Geraldo Unger Date of : 1960 Age: 59 Date of Registration: 04/25/20 DRUPAL WEB DEVELOPER attempted to see pt today, however was unable to get ahold of news reporter. Per RN report, pt is tolerating current diet with no concerns at this time. DRUPAL WEB DEVELOPER will follow up tomorrow morning to ensure tolerance and to complete a cognitive-linguistic assessment. Speech Language Pathology Order Status:
[2020-04-30 11:59] LABS: Glucose, Whole Blood 155 mg/dL (60-115)
--- NOTE | 2020-04-30 15:36 | P.PNIM_ITS ---
Subjective Subjective Date of Service: 04/30/20 Interval History: pt seen and examined at bedside. He is alert, oriented to self and place, but not to time. He has no complaints. no abd pain, no chest pain, no SOB, no weakness. Physical Exam Vital Signs: Vital Signs: Last Vital Signs Temp 968 F H 04/30/20 12:00 Pulse 74 04/30/20 12:00 Resp 18 04/30/20 12:00 BP 142/74 H 04/30/20 12:00 Pulse Ox 97 04/30/20 12:00 Body Mass Index 26.6 Const: General: cooperative and no acute distress Orientation/consci ousness: oriented to person and oriented to place Eyes: General: appearance normal, both eyes and all related structures Pupils: Equal, round and reactive pupils present Resp: Effort & Inspection: normal respiratory effort and able to speak in complete sentences Auscultation: clear to auscultation bilaterally Cardio: Rate: regular rate Rhythm: regular rhythm GI: Palpation (GI): Soft to palpation Auscultation: normal bowel sounds Neuro: Other: strength 5/5 in all extremities General: oriented to person and oriented to place Cranial nerves: Yes CN's II-XII intact bilaterally and Yes Equal, round and reactive pupils present Cognition (Neuro): normal cog nition Extrem: General: Yes normal to inspection and Yes no pedal edema Objective Data Current Medications Generic Name Dose Route Start Last Admin Trade Name Freq PRN Reason Stop Dose Admin Acetaminophen 650 mg 04/25/20 16:41 Acetaminophen 325 Mg Tablet PO Q6H PRN Pain, Mild (Pain Scale 1-3) Ascorbic Acid 500 mg 04/25/20 21:00 04/30/20 09:54 Ascorbic Acid 500 Mg Tablet PO 500 mg BID [facility] Administration Aspirin 81 mg 04/26/20 09:00 04/30/20 09:56 Aspirin Enteric Coated 81 Mg Tablet. PO 81 mg DAILY [facility] Administration Atorvastatin Calcium 80 mg 04/29/20 21:00 04/29/20 23:05 Atorvastatin Calcium 80 Mg Tablet PO 80 mg BEDTIME [facility] Administration Clotrimazole 1 appl 04/26/20 09:00 04/30/20 09:56 Clotrimazole 1 % Cream 15 Gm Tube TOPICAL 1 appl DAILY [facility] Administration Docusate Sodium 100 mg 04/25/20 16:41 Docusate Sodium 100 Mg Capsule PO DAILY PRN Constipation Furosemide 20 mg 04/26/20 09:00 04/30/20 09:55 Furosemide 20 Mg Tablet PO 20 mg DAILY [facility] Administration Protocol Insulin Human Lispro 0 unit 04/25/20 16:41 04/30/20 12:37 Insulin Lispro 100 Unit/Ml 3 Ml Vial SUBCUT Not Given QIDACHS REPLACED BY [facility] Protocol Lisinopril 2.5 mg 04/26/20 09:00 04/30/20 09:55 Lisinopril 2.5 Mg Tablet PO 2.5 mg DAILY [facility] Administration Protocol Metoprolol Tartrate 12.5 mg 04/25/20 21:00 04/30/20 09:54 Metoprolol Tartrate 12.5 Mg Halftab PO 12.5 mg BID [facility] Administration Protocol Nicotine 21 mg 04/25/20 16:41 04/30/20 09:56 Nicotine 21 Mg Patch.Td24 TRANSDERMA 21 mg DAILY [facility] Administration Omeprazole 20 mg 04/26/20 06:30 04/30/20 05:31 Omeprazole 20 Mg Capsule.Dr PO 20 mg DAILY@0630 [facility] Administration Ondansetron HCl 4 mg 04/25/20 16:41 Ondansetron Hcl 4 Mg/2 Ml Vial IVPUSH Q8H PRN Nausea and Vomiting Pharmacy Consult 1 each 04/25/20 10:30 Consult Rx Perform Med Rec MISCELLANE ONCE PRN Consult order Rivaroxaban 20 mg 04/25/20 17:00 04/29/20 16:50 Rivaroxaban 20 Mg Tablet PO 20 mg DAILY@1700 [facility] Administration Sodium Chloride 3 ml 04/25/20 16:41 04/30/20 09:54 0.9 % Sodium Chloride Flush 3 Ml Syringe IVFLUSH 3 ml QSHIFT [facility]PLAC[facility] Administration Vitamin D 125 mcg 04/26/20 09:00 04/30/20 09:54 Cholecalciferol (Vitamin D3) 25 Mcg Tablet PO 125 mcg DAILY [facility] Administration Labs CBC & Chem 7: 04/30/20 05:47 04/30/20 05:49 Microbiology Microbiology Results: Microbiology 04/25/20 11:22 Blood - Venous Blood Culture - Final No growth after 5 days. 04/25/20 10:46 Blood - Venous Blood Culture - Final No growth after 5 days. Assessment and Plan (1) Encephalopathy: Status: Acute Assessment and Plan: hospital d#5 59yo M with hx PE on rivaorxaban, DM2, HTN, peripheral neuropathy, prior alcoholism (last intake >1 yr ago), resolved HCV, tobacco abuse, PVD s/p fem-pop bypass presenting with increasing confusion/disorientation exposed to COVID-19, CT chest shows bilateral GGO # encephalopathy, ataxia - Most likely 2/2 acute stroke per MRI - Improving daily , pt able to answer questions approproately, his ataxia is not significant - Neurology recommended CTA , and TTE which are pending - Lipid panel showed LDL of 67, cholestrol of 128 - Started on ASA 81, and high dose statin - will coninue holding pregabalin, gabapentin, amitrpytlline, hydroxyzine, and paroxetine, given his significant confusion on arrival # GGO PNA - CT chest showed bilateral ground glass opacities typical of covid- 19 PNA - high suspicion for COVID-19 especially with exposure to positive case - Pt has remained afebrile, leukocytosis improving - Has not been on Abx for this with improvement of clinical course- therefore will keep him off abx - SARS IgG -ve, respiratory viral panel -ve - No ambulatory desaturation # hypoMg - repleted - Mag now normal # DM2 - hold MTF, give correction-dose lispro - Diabetic diet # HTN - continue lisinopril, , furosemide # hx PE - continue rivaroxaban # arthritis - pt is on hydroxychloroquine from Rheum. 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 # tobacco abuse - NRT # dispo - STR - awaiting auth
[2020-04-30 17:33] LABS: Glucose, Whole Blood 162 mg/dL (60-115)
[2020-04-30] MEDS: Rivaroxaban 20 MG TABLET PO (17:35)
[2020-04-30 21:03] LABS: Glucose, Whole Blood 134 mg/dL (60-115)
[2020-04-30] MEDS: Atorvastatin Calcium 80 MG TABLET PO (21:16)
[2020-05-01] VITALS: BP 127/97; PULSE 74; RESP 20; TEMP 37; O2SAT 98
[2020-05-01 04:00] VITALS: BP 111/55; PULSE 73; RESP 18; TEMP 36.6; O2SAT 97
[2020-05-01] MEDS: Omeprazole 20 MG CAPSULE.DR PO (05:35)
[2020-05-01 07:44] LABS: Glucose, Whole Blood 157 mg/dL (60-115)
[2020-05-01] MEDS: Insulin Lispro 100 UNIT/ML 3 ML VIAL SUBCUT ×2 (08:39→12:22)
[2020-05-01] MEDS: 0.9 % Sodium Chloride Flush 3 ML SYRINGE IVFLUSH (08:40)
--- NOTE | 2020-05-01 09:24 | MHC.CDI.CONC ---
CDI Concurrent Query Service Date: 05/01/20 Documentation Clarification: Please clarify if you are treating a probable/suspected/likely or confirmed: Clarity of documentation in medical record: Covid-19 presumed Provider Response: Encephalopathy PLEASE DO NOT DELETE/MODIFY EXISTING CONTENT Additional information is needed in order to code to the highest accuracy and appropriate Severity of Illness (SOI). Please clarify the information noted below in your progress notes and discharge summary. Risk Factors/Clinical Indicators/Treatments PN: High suspicion for Covid-19 especially w exposure to positive case. SARS IgG-vs, respiratory viral panel-ve, has not been on ABX. PN: exposure to COVID-19 mild sore throat and cough, confused, acute encephalopathy. HR 68 wbc 11.2 CRP 5.53 RR 16 on room air. Possibly covid-19 pna. LABS: 04/28 coronovirus - not detected SARS-COV - not detected. CDS: [facility], [facility] Contact Number: Ext. [phone] Please Review the information above and exercise your independent professional judgment in responding to the query. If you concur, pleas document in the PROGRESS NOTES and DISCHARGE SUMMARY. If you do not agree with the query, please document in the query above. THIS QUERY IS PART OF THE PERMANENT MEDICAL RECORD
[2020-05-01] MEDS: Ascorbic Acid 500 MG TABLET PO (10:29)
[2020-05-01] MEDS: Aspirin Enteric Coated 81 MG TABLET.DR PO (10:29)
[2020-05-01] MEDS: Furosemide 20 MG TABLET PO (10:30)
[2020-05-01] MEDS: lisinopriL 2.5 MG TABLET PO (10:30)
[2020-05-01] MEDS: Clotrimazole 1 % Cream 15 GM TUBE 1 APPL TOPICAL (10:30)
[2020-05-01] MEDS: Cholecalciferol (Vitamin D3) 25 MCG TABLET 125 MCG PO (10:30)
[2020-05-01] MEDS: Nicotine 21 MG PATCH.TD24 TRANSDERMA (10:31)
[2020-05-01] MEDS: Metoprolol Tartrate 12.5 MG HALFTAB PO (10:31)
--- NOTE | 2020-05-01 10:39 | W.MHC.F2F ---
Service Date Service Date: 05/01/20 Reasons for Services Homebound: Leaving the home is medically contraindicated at this time without the asist of a device and/or another person due th the listed conditions above and below. Certification: Based on the above findings, I certify that this patient is confined to the home and needs intermittent fpc care, physical therapy and/or speech therapy, or continues to need occupational therapy. The patient is under my care, and I have initiated the establishment of the plan of care. The patient will be followed by a physician who will periodically review the plan of care.
--- NOTE | 2020-05-01 10:40 | PM.DS ---
DS: Providers Provider Date of admission: 04/25/20 13:36 Primary care physician: Unknown Physician Consults: 04/25/20 13:36 Consult to Neurology Routine Consulting Provider: [facility] Reason for consultation: encephalopathy Has provider been notified: No 04/29/20 14:17 Consult Respiratory Therapy Routine Reason for consultation: Check for ambulatory desaturation Has provider been notified: No DS: Diagnosis Discharge Diagnosis (1) Encephalopathy: Status: Acute DS: Medications Discharge Medications Home Medications: Home Medications Medication Instructions Recorded Confirmed Xarelto 20 mg PO QPM 04/25/20 04/25/20 amitriptyline 150 mg PO BEDTIME 04/25/20 04/25/20 ascorbic acid (vitamin C) 500 mg PO BID 04/25/20 04/25/20 aspirin 81 mg PO DAILY 04/25/20 04/25/20 cholecalciferol (vitamin D3) 125 mcg PO DAILY 04/25/20 04/25/20 [Vitamin D3] clotrimazole 1 appl TOPICAL DAILY 04/25/20 04/25/20 colchicine 0.6 mg PO DAILY PRN 04/25/20 04/25/20 ferrous sulfate 325 mg PO BID 04/25/20 04/25/20 furosemide 20 mg PO DAILY 04/25/20 04/25/20 gabapentin 800 mg PO TID 04/25/20 04/25/20 hydroxychloroquine [Plaquenil] 200 mg PO BID 04/25/20 04/25/20 hydroxyzine HCl 25 mg PO Q6H PRN 04/25/20 04/25/20 lisinopril 2.5 mg PO DAILY 04/25/20 04/25/20 meloxicam 15 mg PO DAILY 04/25/20 04/25/20 metformin 500 mg PO BID 04/25/20 04/25/20 metoprolol tartrate 12.5 mg PO BID 04/25/20 04/25/20 omeprazole 20 mg PO DAILY 04/25/20 04/25/20 paroxetine HCl [Paxil] 30 mg PO DAILY 04/25/20 04/25/20 pregabalin 150 mg PO BID 04/25/20 04/25/20 Previous Rx's Medication Instructions Recorded atorvastatin 80 mg PO BEDTIME 90 Days #90 tab 05/01/20 DS: Summary Hospital Course Hospital Course: History of Present Illness obtained from BRADY Jolley Date of Service: 04/25/20 Chief Complaint: Altered mental status This is a 59-year-old with history of DVT/PE on anticoagulation, DM who was brought into the emergency department due to frequent falls and confusion. Per his nephew he has been confused for the past 8 days. Yesterday he had multiple falls. 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 The patient is a coma be used but able to follow commands and answer some basic questions. He reports mild cough which may have started yesterday, sore throat. No shortness of breath. Patient was afebrile, vital signs within limits. Lab work unremarkable with the exception of magnesium of 1.5. Brain CT negative patient's exam was nonfocal. Given history of COVID-19 contact he had a CT scan of the chest which did show multifocal ground-glass opacities concerning for COVID-19 pneumonia. Patient did not require supplemental oxygen. He was given ceftriaxone empirically and the decision was made to admit him for further management. Hospital course: This is a gentleman who was admitted to the hospital on 04/25 found to be encephalopathic. At that time thought to be secondary to medication but further workup including an MRI of the brain revealed an acute stroke. CTA head and neck showed no proximal occlusion. Pt was started on aspirin 81 mg and high-dose statin 80 mg daily. Pt was also found to have ground glass opacity on imaging, with risk for COVID-19 although COVID-19 PCR was negative. IgG was negative. Although he did have high risk exposure from his SITE OPERATIONS MANAGER. Have any desaturation at rest or at ambulating. Patient encephalopathy improved is back to baseline, he had mild ataxia which improved upon discharge. PT evaluated patient and felt that he can go home with home VNA. Time Spent with Patient Time attestation: Total time spent providing and/or coordinating discharge services: Quality: Stroke Pt Provided Written Stroke Discharge Instructions: Patient given written information Physical Exam Vital Signs: Vital Signs: Last Vital Signs Temp 97.9 F 05/01/20 04:00 Pulse 73 05/01/20 04:00 Resp 18 05/01/20 04:00 BP 111/55 L 05/01/20 04:00 Pulse Ox 97 05/01/20 04:00 Body Mass Index 26.6 DS: Data Data Completed and Pending Labs on day of discharge: 04/25/20 10:28 Glucose, Whole Blood Routine 04/25/20 10:30 ECG 12 lead EKG Stat EKG Documentation DIRECTED CT cervical spine wo con Stat CT chest wo con Stat CT head/brain wo con Stat 04/25/20 10:46 Basic Metabolic Panel Stat C Reactive Protein Stat Creatine Kinase Total Stat 04/25/20 11:22 Venous Blood Gas Stat Blood Culture X2 [BC] Stat 04/25/20 11:23 COVID-19 ID NOW ([place]) Stat Complete Blood Count Auto Diff Stat Ethanol Stat Ferritin Stat Lactate Dehydrogenase Stat Lactic Acid Stat Lipase Stat Liver Panel Stat Magnesium Stat Partial Thromboplastin Time Stat Procalcitonin Stat Prothrombin Time INR Stat Thyroid Stimulating Hormone Stat Troponin-I High Sensitivity Stat 04/25/20 12:02 Ammonia Stat 04/25/20 12:08 cefTRIAXone sodium [Rocephin] 1 gm 0.9 % Sodium Chloride [Ns] 50 ml IV ONCE 04/25/20 12:25 Magnesium Sulfate/H2O 2 gm in 50 ml IV ONCE 04/25/20 12:26 cefTRIAXone sodium [Rocephin] 1 gm .ROUTE .STK-MED ONE 04/25/20 13:03 Add Laboratory Test Stat 04/25/20 13:19 Transfer Order Routine 04/25/20 Lunch Diabetic Diet 04/25/20 16:46 Glucose, Whole Blood Routine 04/25/20 17:30 Flu Vacc [id number](6mos up)/PF [Fluarix Quad [id number]] 0.5 ml IM .ONCE ONE 04/25/20 20:39 Glucose, Whole Blood Routine 04/26/20 05:40 Basic Metabolic Panel DAILY@0600 Complete Blood Count Auto Diff DAILY@0600 Magnesium Routine SLIDE REVIEW Routine 04/26/20 09:23 Glucose, Whole Blood Routine 04/26/20 11:30 Drug Screen Urine Stat 04/26/20 11:51 Glucose, Whole Blood Routine 04/26/20 16:29 Glucose, Whole Blood Routine 04/26/20 19:59 Glucose, Whole Blood Routine 04/27/20 06:18 C Reactive Protein Routine Complete Blood Count Auto Diff Routine Comprehensive Met. Panel Routine D Dimer Routine Ferritin Routine Lactate Dehydrogenase Routine Procalcitonin Routine SARS COV2 IgG Routine SLIDE REVIEW Routine 04/27/20 07:40 Glucose, Whole Blood Routine 04/27/20 11:27 SARS-CoV2/FLU/RSV Routine 04/27/20 12:55 Glucose, Whole Blood Routine 04/27/20 17:11 Glucose, Whole Blood Routine 04/27/20 20:58 Glucose, Whole Blood Routine 04/28/20 Respiratory Panel Routine 04/28/20 06:13 Complete Blood Count Auto Diff Routine 04/28/20 07:32 Glucose, Whole Blood Routine 04/28/20 11:25 Glucose, Whole Blood Routine 04/28/20 16:15 Glucose, Whole Blood Routine 04/28/20 20:57 Glucose, Whole Blood Routine 04/29/20 MR head/brain wo con Routine 04/29/20 07:41 Glucose, Whole Blood Routine 04/29/20 13:59 Glucose, Whole Blood Routine 04/29/20 15:46 Basic Metabolic Panel Stat Complete Blood Count Auto Diff Stat Lipid Panel Routine SLIDE REVIEW Stat 04/29/20 16:19 Glucose, Whole Blood Routine 04/29/20 20:50 Glucose, Whole Blood Routine 04/29/20 23:08 Glucose, Whole Blood Routine 04/30/20 CT angio head neck Routine 04/30/20 05:47 Complete Blood Count Auto Diff DAILY@0600 Magnesium DAILY SLIDE REVIEW Routine 04/30/20 05:49 Basic Metabolic Panel DAILY@0600 04/30/20 07:30 Glucose, Whole Blood Routine 04/30/20 11:40 iohexoL 350 MG/ML [Omnipaque 350 MG/ML] 70 ml IV ONCE ONE 04/30/20 11:55 Glucose, Whole Blood Routine 04/30/20 17:02 Glucose, Whole Blood Routine 04/30/20 20:59 Glucose, Whole Blood Routine 05/01/20 07:32 Glucose, Whole Blood Routine Laboratory Last Values WBC 8.8 X10*3/uL (4.8-10.8) 04/30/20 05:47 RBC 4.13 X10*6/uL (4.60-5.80) L 04/30/20 05:47 Hgb 10.9 g/dl (14.0-18.0) L 04/30/20 05:47 Hct 33.3 % (42-52) L 04/30/20 05:47 MCV 80.6 fL (80-98) 04/30/20 05:47 MCH 26.4 pg (27.0-33.0) L 04/30/20 05:47 MCHC 32.7 g/dl (31.0-36.0) 04/30/20 05:47 RDW 15.0 % (11.0-16.0) 04/30/20 05:47 Plt Count 214 X10*3/uL (160-400) D 04/30/20 05:47 MPV 13.1 fL (9.4-12.4) H 04/30/20 05:47 Immature Gran % (Auto) 0.6 % (0.0-0.4) H 04/30/20 05:47 Neut % (Auto) 62.7 % (45-73) 04/30/20 05:47 Lymph % (Auto) 19.7 % (20-40) L 04/30/20 05:47 Glades % (Auto) 13.0 % (2-11) H 04/30/20 05:47 Eos % (Auto) 3.8 % (0-4) 04/30/20 05:47 Baso % (Auto) 0.2 % (0-2) 04/30/20 05:47 Lymph # (Auto) 1.7 X10*3/uL (1.2-4.9) 04/30/20 05:47 Glades # (Auto) 1.1 X10*3/uL (0.1-1.2) 04/30/20 05:47 Eos # (Auto) 0.3 X10*3/uL (0.0-0.4) 04/30/20 05:47 Baso # (Auto) 0.0 X10*3/uL (0.0-0.2) 04/30/20 05:47 Abs Immat Gran (auto) 0.05 X10*3/uL (0.00-0.03) H 04/30/20 05:47 Absolute Neuts (auto) 5.5 X10*3/uL (2.0-8.3) 04/30/20 05:47 Absolute Nucleated RBC 0.000 X10*3/uL (0.0-0.012) 04/30/20 05:47 Nucleated RBC % (auto) 0.0 /100WBC (0.0-0.2) 04/30/20 05:47 Smear Tech's Comments VERIFIED 04/30/20 05:47 PT 16.4 SEC (10.8-13.0) H 04/25/20 11:23 INR 1.4 (0.9-1.1) H 04/25/20 11:23 APTT 42.6 SEC (24.1-38.0) H 04/25/20 11:23 D-Dimer 211 NG/ML 04/27/20 06:18 VBG pH 7.33 (7.32-7.43) 04/25/20 11:22 VBG pCO2 58 mmhg 04/25/20 11:22 VBG pO2 39 mmhg 04/25/20 11:22 VBG HCO3 30 mmol/L 04/25/20 11:22 VBG O2 Saturation 67.3 % 04/25/20 11:22 VBG Base Excess 2.4 mmol/L 04/25/20 11:22 Sodium 137 mmol/L (135-145) 04/30/20 05:49 Potassium 3.6 mmol/l (3.3-5.1) 04/30/20 05:49 Chloride 102 mmol/L (96-108) 04/30/20 05:49 Carbon Dioxide 23 mmol/L (22-29) 04/30/20 05:49 Anion Gap 16 (-) 04/30/20 05:49 BUN 15 mg/dL (9-16) 04/30/20 05:49 Creatinine 0.84 mg/dL (0.5-1.4) 04/30/20 05:49 Estim Creat Clear Calc 103.9 04/30/20 05:49 Estimated GFR > 60 04/30/20 05:49 POC Glucose 157 mg/dL (60-115) H 05/01/20 07:32 Random Glucose 169 mg/dL (60-115) H 04/30/20 05:49 Lactic Acid 1.8 mmol/L (0.5-2.0) 04/25/20 11:23 Calcium 8.6 mg/dL (8.4-10.2) 04/30/20 05:49 Magnesium 2.0 mg/dL (1.6-2.6) 04/30/20 05:47 Ferritin 77 ng/mL (20-250) 04/27/20 06:18 Total Bilirubin 0.9 mg/dL (0.0-1.0) 04/27/20 06:18 Direct Bilirubin 0.3 mg/dL (0.0-0.5) 04/25/20 11:23 AST 19 U/L (5-37) D 04/27/20 06:18 ALT 17 U/L (0-40) 04/27/20 06:18 Alkaline Phosphatase 97 U/L (39-117) 04/27/20 06:18 Ammonia 26 umol/L (13-55) 04/25/20 12:02 Lactate Dehydrogenase 215 U/L (118-273) 04/27/20 06:18 Total Creatine Kinase 99 U/L (38-174) 04/25/20 10:46 Troponin I High Sens < 3.5 ng/L (<3.5-35.0) 04/25/20 11:23 C-Reactive Protein 15.89 mg/dL (< or = 0.50) H 04/27/20 06:18 Total Protein 7.1 g/dL (6.5-8.0) 04/27/20 06:18 Albumin 4.0 g/dL (3.5-5.0) 04/27/20 06:18 Triglycerides 153 mg/dL 04/29/20 15:46 Cholesterol 128 mg/dL 04/29/20 15:46 LDL Cholesterol, Calc 67 mg/dl 04/29/20 15:46 HDL Cholesterol 31 mg/dL 04/29/20 15:46 Lipase 24 U/L (8-78) 04/25/20 11:23 Procalcitonin 0.03 ng/mL 04/27/20 06:18 TSH 1.11 uIU/mL (0.32-4.0) 04/25/20 11:23 Urine Opiates Screen Not Detected (Not Detect) 04/26/20 11:30 Ur Barbiturates Screen Not Detected (Not Detect) 04/26/20 11:30 Ur Phencyclidine Scrn Not Detected (Not Detect) 04/26/20 11:30 Ur Amphetamines Screen Not Detected (Not Detect) 04/26/20 11:30 U Benzodiazepines Scrn Not Detected (Not Detect) 04/26/20 11:30 Urine Cocaine Screen Not Detected (Not Detect) 04/26/20 11:30 U Marijuana (THC) Screen POSITIVE (Not Detect) H 04/26/20 11:30 Ethyl Alcohol < 10 mg/dL 04/25/20 11:23 Respiratory Panel Pereira See Note 04/28/20 Unknown Adenovirus (Rapid PCR) Not Detected (Not Detect.) 04/28/20 Unknown B.pert (TEM-PCR) Not Detected (Not Detect.) 04/28/20 Unknown B.parapertussis DNA PCR Not Detected (Not Detect.) 04/28/20 Unknown C. pneumoniae DNA (PCR) Not Detected (Not Detect.) 04/28/20 Unknown Coronavirus (PCR) NEGATIVE (Negative) 04/27/20 11:27 Coronavirus OC43 (PCR) Not Detected (Not Detect.) 04/28/20 Unknown Coronavirus HKU1 (PCR) Not Detected (Not Detect.) 04/28/20 Unknown Coronavirus 229E (PCR) Not Detected (Not Detect.) 04/28/20 Unknown COVID-19 (ALICIA) Negative (Negative) 04/25/20 11:23 COVID-19 Clin Com See Note 04/25/20 11:23 Coronavirus NL63 (PCR) Not Detected (Not Detect.) 04/28/20 Unknown Human Metapneumovir PCR Not Detected (Not Detect.) 04/28/20 Unknown Influenza A (RT-PCR) Not Detected (Not Detect.) 04/28/20 Unknown Influenza Type A (PCR) NEGATIVE (Negative) 04/27/20 11:27 Influenza B (RT-PCR) Not Detected (Not Detect.) 04/28/20 Unknown Influenza Type B (PCR) NEGATIVE (Negative) 04/27/20 11:27 M. pneumoniae (PCR) Not Detected (Not Detect.) 04/28/20 Unknown Parainfluenza 1 (PCR) Not Detected (Not Detect.) 04/28/20 Unknown Parainfluenza 2 (PCR) Not Detected (Not Detect.) 04/28/20 Unknown Parainfluenza 3 (PCR) Not Detected (Not Detect.) 04/28/20 Unknown Parainfluenza 4 (PCR) Not Detected (Not Detect.) 04/28/20 Unknown RSV (PCR) Not Detected (Not Detect.) 04/28/20 Unknown RSV RNA Qual (PCR) NEGATIVE (Negative) 04/27/20 11:27 Entero/Rhino (PCR) Not Detected (Not Detect.) 04/28/20 Unknown SARS-CoV-2 RNA (RT-PCR) Not Detected (Not Detect.) 04/28/20 Unknown SARS-CoV-2 IgG Ab Negative (Negative) 04/27/20 06:18 Discharge Plan Discharge Patient Disposition: Home Health Service Referrals: [facility] [Outside] Physician,Unknown [Primary Care Provider] - Discharge Medications: New atorvastatin 80 mg Tablet 80 mg PO BEDTIME 90 Days Qty: 90 RF: 0 Continued omeprazole 20 mg Capsule,Delayed Release(Dr/Ec) 20 mg PO DAILY RF: 0 gabapentin 800 mg Tablet 800 mg PO TID RF: 0 Xarelto 20 mg Tablet 20 mg PO QPM RF: 0 meloxicam 15 mg Tablet 15 mg PO DAILY RF: 0 metoprolol tartrate 25 mg Tablet 12.5 mg PO BID RF: 0 clotrimazole 1 % Cream 1 appl TOPICAL DAILY RF: 0 amitriptyline 150 mg Tablet 150 mg PO BEDTIME RF: 0 cholecalciferol (vitamin D3) [Vitamin D3] 125 mcg (5,000 unit) Tablet 125 mcg PO DAILY RF: 0 aspirin 81 mg Tablet 81 mg PO DAILY RF: 0 colchicine 0.6 mg Tablet 0.6 mg PO DAILY PRN (Reason: GOUT FLARE) RF: 0 ferrous sulfate 325 mg (65 mg iron) Tablet 325 mg PO BID RF: 0 furosemide 20 mg Tablet 20 mg PO DAILY RF: 0 hydroxyzine HCl 25 mg Tablet 25 mg PO Q6H PRN (Reason: Itching) RF: 0 lisinopril 2.5 mg Tablet 2.5 mg PO DAILY RF: 0 metformin 500 mg Tablet 500 mg PO BID RF: 0 paroxetine HCl [Paxil] 30 mg Tablet 30 mg PO DAILY RF: 0 hydroxychloroquine [Plaquenil] 200 mg Tablet 200 mg PO BID RF: 0 pregabalin 150 mg Capsule 150 mg PO BID RF: 0 ascorbic acid (vitamin C) 500 mg Tablet 500 mg PO BID RF: 0 Discharge Orders: Discharge Order (Routine); Ordered 05/01/20 Ordered By: Allie Duran Diet: diabetic diet Activity on Discharge: As tolerated Visit Report Forms: Patient Portal Discharge page Care Plan Goals: Recovery , avoid hospitalization Health Concerns: Regain full function as prior to stroke, see below Plan of Treatment: You were admitted for confusion, secondary to new stroke. You have been started on a new medication to reduce your chances of having a second stroke. Please continue Aspirin daily. No changes to your other medications have been made. You will be discharged to short term rehab so you can be back to your baseline before going home If you notice any recurrent confusion, slurred speech, change in vision, weakness in arms or legs, please return to hospital immediately
--- NOTE | 2020-05-01 10:54 | MHC.CM.PN ---
Patient will be discharged home today with services from [facility]. richard Romo [phone]. Patient, nurse updated.
[2020-05-01 11:31] VITALS: BP 160/90; PULSE 82; RESP 18; TEMP 36.6; O2SAT 97
[2020-05-01 11:44] LABS: Glucose, Whole Blood 192 mg/dL (60-115)
--- NOTE | 2020-05-01 13:32 | P.F2F_ITS ---
Service Date Service Date: 05/01/20 Reasons for Services Reason for senior living: medication management Reason for physical therapy: gait/transfer training Homebound: Leaving the home is medically contraindicated at this time without the asist of a device and/or another person due th the listed conditions above and below. Reason homebound: unsteady gait / fall risk, leg weakness and weakness related to hospital stay Certification: Based on the above findings, I certify that this patient is confined to the home and needs intermittent senior living care, physical therapy and/or speech therapy, or continues to need occupational therapy. The patient is under my care, and I have initiated the establishment of the plan of care. The patient will be followed by a physician who will periodically review the plan of care.
--- NOTE | 2020-05-01 14:00 | CA_ITS ---
Transthoracic Echocardiogram Patient (Last, First, Middle): Geraldo Unger, Gender: Male Date of : 1960 Age: 59 Procedure Date: 05/01/2020 Procedure Type: Transthoracic Echocardiogram Location: [facility] – [place] Height: 182.88 cm Weight: 88.91 kg BSA: 2.11 m2 Heart Rate: bpm BP: 111 / 55 mmHg Vegetable Trimmer: LUIS Referring MD: Allie Duran MD Symptoms: stroke Conclusions: - Normal left ventricular size and systolic function. There is mildly increased left ventricular wall thickness. The visually estimated ejection fraction is between 55-60%. - Both atria are normal in size. Interatrial shunt cannot be excluded by color Doppler because the septum is not well visualized. - The inferior vena cava is collapsed, consistent with reduced intravascular volume. Findings Left Ventricle Normal left ventricular size and systolic function. There is mildly increased left ventricular wall thickness. The visually estimated ejection fraction is between 55-60%. There is no evidence of regional wall motion abnormalities. Diastolic function is normal for age. Right Ventricle Normal right ventricular cavity size and systolic function. Atria Both atria are normal in size. Interatrial shunt cannot be excluded by color Doppler because the septum is not well visualized. Aortic Valve Normal aortic valve structure and function. There is no aortic valve stenosis. There is no aortic valve regurgitation. Mitral Valve Normal mitral valve structure and function. There is no mitral valve regurgitation. There is no mitral valve stenosis. Pulmonic Valve The pulmonic valve is likely normal. Tricuspid Valve Normal tricuspid valve structure and function. There is no tricuspid valve regurgitation. Low right atrial pressure. There is no evidence of pulmonary hypertension. Great Vessels All visible segments of the aorta are normal in size. The pulmonary artery was not well visualized. Venous The inferior vena cava is collapsed, consistent with reduced intravascular volume. Pericardium/Pleural There is no evidence of pericardial effusion. Measurements 2D Linear Measurements IVSd: 1.09 0.6-0.9/0.6-1.0 cm LVIDd: 5.04 3.9-5.3/4.2-5.9 cm LVIDd Index: 2.39 2.4-3.2/2.2-3.1 cm/m2 LVIDs: 3.63 2.0-3.6 cm LVPWd: 1.10 0.7-1.1 cm Ao Root: 3.60 2.1-3.5 cm LA Diam: 3.30 2.7-3.8/3.0-4.0 cm LAIDs Index: 1.56 1.5-2.3 cm/m2 LV Mass: 259.91 67-162/88-224 g LV Mass Index: 123.18 43-95/49-115 g/m2 LVOT Diam: 2.20 3.0+(-)1.3 cm Mitral Valve MV Pk E: 0.63 MV PK A: 0.55 MV Decel Time: 335.00 E/A: 1.10 E'Lateral: 9.36 E'Medial: 7.07 E/E' Med: 8.90 E/E' Lat: 6.70 PHT: 98.00 MVA PHT: 2.24 Decel [place]: 1.87 Aortic Valve AoV Pk Ramy: 1.35 AoV Mn Ramy: 0.80 AoV VTI: 0.24 AoV Pk Grad: 7.00 Aov Mn Grad: 3.00 STEPHON Cont.VTI: 3.11 LVOT LVOT Pk Ramy: 1.20 LVOT Mn Ramy: 0.74 LVOT VTI: 0.20 LVOT Pk Grad: 6.00 LVOT Mn Grad: 3.00 LVOT Diam: 2.20 LVOT Area: 3.80 Diastolic Function MV Pk E: 0.63 MV Pk A: 0.55 E/A: 1.10 E'Medial: 7.07 E/E' Med: 8.90 E' Laterial: 9.36 E/E' Lat: 6.70 Tricuspid Valve TR Pk Ramy: 2.29 TR Pk Grad: 21.00 RVSP: 25.00 Great Vessels Aorta Ao Root-2D: 3.60 2.0-3.7 cm Ao Asc: 2.90 2.1-3.4 cm Ao Arch: 3.10 Updated in Other Vendor System with Status of Final Tenzin Gauthier MD electronically signed on 05/01/2020 6:20:34 PM with status of Final
== END 2020-05-01 16:30 | disposition home health service (06) | DRG 64 ==
LOC: HO.ED 12:19 → HO.IMC 14:19
PROVIDERS: Physician Assistant Medical; Admitting Provider Family Medicine; Emergency Provider Emergency Medicine; Visit Provider Internal Medicine
DX: I63.89 Other cerebral infarction (principal); J18.9 Pneumonia, unspecified organism; G93.49 Other encephalopathy; F17.210 Nicotine dependence, cigarettes, uncomplicated; F10.11 Alcohol abuse, in remission; E11.42 Type 2 diabetes mellitus with diabetic polyneuropathy; E83.42 Hypomagnesemia; Z71.6 Tobacco abuse counseling; Z23 Encounter for immunization; Z86.718 Personal history of other venous thrombosis and embolism; Z79.1 Long term (current) use of non-steroidal anti-inflammatories (NSAID); Z79.01 Long term (current) use of anticoagulants; Z79.82 Long term (current) use of aspirin; Z79.84 Long term (current) use of oral hypoglycemic drugs; Z79.899 Other long term (current) drug therapy
CPT/HCPCS: 0241U; 36415; 70450; 70496; 70498; 70551; 71250; 72125; 80048; 80053; 80061; 80076; 80307; 80320; 82140; 82550; 82728; 82803; 82947; 83605; 83615; 83690; 83735; 84145; 84443; 84484; 85025; 85379; 85610; 85730; 86140; 86769; 87040; 87633; 87635; 90686; 92507; 92610; 93005; 93306; 97110; 97116; 97163; 99285; J0696; J3475; Q9967

== ENCOUNTER 2020-06-03 10:31 | Emergency (ER) | payer OTHER, SELFPAY ==
[2020-06-03 10:58] VITALS: BP 102/62; PULSE 62; RESP 18; TEMP 36.3; O2SAT 98; BMI 26.4
--- NOTE | 2020-06-03 11:03 | ED.LOWEXIN ---
HPI - Extremity Injury (Lower) General Chief Complaint: Extremity Injury, Lower Stated Complaint: left calf pain Time Seen by Provider: 06/03/20 10:47 Source: patient Mode of arrival: ambulatory Limitations: no limitations History of Present Illness HPI Narrative: With a past medical history of DVT and PE on Coumadin, diabetes, CVA PVD, CHF, alcohol abuse, gout, hyperlipidemia, hypertension, neuropathy, here with left calf pain x6 months. No injury or trauma. Worsening over the last few days. No paresthesias, fevers, chills, redness, body aches. Compliant with his Coumadin. MD complaint: other (left calf pain) Onset (ago): month(s) Severity: mild Relieving factors: nothing Exacerbating factors: nothing Other symptoms: none Related Data Home Medications Medication Instructions Recorded Confirmed Xarelto 20 mg PO QPM 04/25/20 04/25/20 amitriptyline 150 mg PO BEDTIME 04/25/20 04/25/20 ascorbic acid (vitamin C) 500 mg PO BID 04/25/20 04/25/20 aspirin 81 mg PO DAILY 04/25/20 04/25/20 cholecalciferol (vitamin D3) 125 mcg PO DAILY 04/25/20 04/25/20 [Vitamin D3] clotrimazole 1 appl TOPICAL DAILY 04/25/20 04/25/20 colchicine 0.6 mg PO DAILY PRN 04/25/20 04/25/20 ferrous sulfate 325 mg PO BID 04/25/20 04/25/20 furosemide 20 mg PO DAILY 04/25/20 04/25/20 gabapentin 800 mg PO TID 04/25/20 04/25/20 hydroxychloroquine [Plaquenil] 200 mg PO BID 04/25/20 04/25/20 hydroxyzine HCl 25 mg PO Q6H PRN 04/25/20 04/25/20 lisinopril 2.5 mg PO DAILY 04/25/20 04/25/20 meloxicam 15 mg PO DAILY 04/25/20 04/25/20 metformin 500 mg PO BID 04/25/20 04/25/20 metoprolol tartrate 12.5 mg PO BID 04/25/20 04/25/20 omeprazole 20 mg PO DAILY 04/25/20 04/25/20 paroxetine HCl [Paxil] 30 mg PO DAILY 04/25/20 04/25/20 pregabalin 150 mg PO BID 04/25/20 04/25/20 Previous Rx's Medication Instructions Recorded atorvastatin 80 mg PO BEDTIME 90 Days #90 tab 05/01/20 Allergies Allergy/AdvReac Type Severity Reaction Status Date / Time No Known Allergies Allergy Verified 04/25/20 10:32 [No Known Allergies*] Review of Systems Review of Systems: Yes all other systems are reviewed and are negative Constitutional: Constitutional: Reports no additional constitutional complaints, Denies body ache(s), Denies chills, Denies fever(s), Denies headache(s) and Denies weakness Eyes: Eyes: Reports no additional eye complaints and Denies change in vision ENT: Reports system reviewed and no additional complaints, except as documented, Denies dizziness, Denies headache(s), Denies nasal congestion, Denies nasal discharge and Denies neck pain Cardiovascular: Cardiovascular: Reports no additional cardiovascular complaints, Denies chest pain, Denies leg edema and Denies dyspnea Respiratory: Respiratory: Reports no additional respiratory complaints, Denies cough and Denies dyspnea Gastrointestinal: Gastrointestinal: Reports no additional gastrointestinal complaints, Denies abdominal pain, Denies diarrhea, Denies nausea and Denies vomiting Genitourinary: Genitourinary: Denies urinary incontinence Musculoskeletal: Musculoskeletal: Reports no additional musculoskeletal complaints, Denies back pain, Denies arthralgias, Denies joint swelling, Denies neck pain, Denies numbness and Denies tingling Comments: Calf pain Integumentary/Breasts: Skin/Breast: Reports system reviewed and no additional complaints, except as docu and Denies rash Neurologic: Reports system reviewed and no additional complaints, except as documented, Denies Abnormal speech present, Denies dizziness, Denies headache(s), Denies numbness, Denies tingling and Denies weakness PMFSH Past Medical History Attestation statement: The following information was validated with the patient. Source: old records reviewed and nursing notes reviewed Medical History Alcohol abuse CHF (congestive heart failure) COVID-19 Diabetes DVT (deep venous thrombosis) Gout HCV (hepatitis C virus) HLD (hyperlipidemia) HTN (hypertension) Neuropathy Pneumonia PVD (peripheral vascular disease) Tobacco dependence Surgical History S/P femoropopliteal bypass surgery Social History Social History Household Members: Spouse Housing: Apartment Alcohol intake: former Smoking Status: Current every day smoker Tobacco Type: Cigarette Cigarettes Per Day: 2 Years Smoked: 4 Advance Directives: No Advance Directives Information Provided: No service: No Current occupational status: unemployed Physical Exam Vital Signs: Vital Signs: Last Vital Signs Temp 97.3 F 06/03/20 10:58 Pulse 62 06/03/20 10:58 Resp 18 06/03/20 10:58 BP 102/62 06/03/20 10:58 Pulse Ox 98 06/03/20 10:58 Body Mass Index 26.4 Const: General: cooperative, healthy appearing, comfortable and no acute distress Orientation/consciousness: patient oriented x3 Limitations: no limitations HENMT: Head: Yes normal to inspection Ears: hearing grossly normal bilaterally General nose exam: Normal external nose present Face and sinus: Yes normal facial exam Mouth: Normal oral and palatal mucosa present Throat: Yes posterior oropharynx normal Eyes: General: appearance normal, both eyes and all related structures Pupils: Equal, round and reactive pupils present Neck: Neck: Yes normal visual inspection Chest: Chest palpation & inspection: normal inspection of the chest Resp: Effort & Inspection: normal respiratory effort Auscultation: clear to auscultation bilaterally Cardio: Rate: regular rate Rhythm: regular rhythm Peripheral pulses: Peripheral pulses 2+ throughout GI: Inspection: Yes normal to inspection Palpation (GI): Soft to palpation and nontender Auscultation: normal bowel sounds Back/Spine/Pelvis: Thoracic/Lumbar Spine: thoracic and lumbar spine normal to inspection Skin: General skin exam: no rashes or lesions noted Neuro: General: patient oriented x3, no focal motor deficits and normal sensation to monofilament Cranial nerves: Yes Equal, round and reactive pupils present Cognition (Neuro): normal cognition Speech: No Abnormal speech present Gait exam (Neuro): Normal gait present Motor exam (neuro): 5/5 motor strength present throughout Extrem: Other: Left calf tender to palp, no swelling, erythema. Distal popliteal and posterior tibial pulses with no abnormality. General: Yes normal to inspection and Yes no pedal edema Course Course Course Narrative: 59-year-old male here with left calf pain x6 months. No injury or trauma. Does have some tenderness on exam. There is no obvious swelling or erythema. I explained to the patient that I would like to check an ultrasound to make sure that there is no DVT. He declined this. He tells me he has an appointment and thinks due today and does not have time to wait for an ultrasound. I explained to him that he is welcome to return at any time for this. In the meantime we discussed supportive care. Reviewed worrisome signs and symptoms and when to return to the emergency department. Comfortable discharge home. Discharge Plan Discharge Clinical Impression: Muscle strain Patient Disposition: Home, Self-Care Instructions: Musculoskeletal Pain (ED) Additional Instructions: It was recommended that you have an ultrasound of your leg to make sure that there is no blood clot but you declined this. You may have a blood clot in your lower leg which could travel to your heart and your lungs and cause further problems. When you are available please return for an ultrasound or follow-up with your primary care doctor. Apply heat to the area. Take Tylenol for pain if able as needed Prescriptions: No Action omeprazole 20 mg Capsule,Delayed Release(Dr/Ec) 20 mg PO DAILY RF: 0 gabapentin 800 mg Tablet 800 mg PO TID RF: 0 Xarelto 20 mg Tablet 20 mg PO QPM RF: 0 meloxicam 15 mg Tablet 15 mg PO DAILY RF: 0 metoprolol tartrate 25 mg Tablet 12.5 mg PO BID RF: 0 clotrimazole 1 % Cream 1 appl TOPICAL DAILY RF: 0 amitriptyline 150 mg Tablet 150 mg PO BEDTIME RF: 0 cholecalciferol (vitamin D3) [Vitamin D3] 125 mcg (5,000 unit) Tablet 125 mcg PO DAILY RF: 0 aspirin 81 mg Tablet 81 mg PO DAILY RF: 0 colchicine 0.6 mg Tablet 0.6 mg PO DAILY PRN (Reason: GOUT FLARE) RF: 0 ferrous sulfate 325 mg (65 mg iron) Tablet 325 mg PO BID RF: 0 furosemide 20 mg Tablet 20 mg PO DAILY RF: 0 hydroxyzine HCl 25 mg Tablet 25 mg PO Q6H PRN (Reason: Itching) RF: 0 lisinopril 2.5 mg Tablet 2.5 mg PO DAILY RF: 0 metformin 500 mg Tablet 500 mg PO BID RF: 0 paroxetine HCl [Paxil] 30 mg Tablet 30 mg PO DAILY RF: 0 hydroxychloroquine [Plaquenil] 200 mg Tablet 200 mg PO BID RF: 0 pregabalin 150 mg Capsule 150 mg PO BID RF: 0 ascorbic acid (vitamin C) 500 mg Tablet 500 mg PO BID RF: 0 atorvastatin 80 mg Tablet 80 mg PO BEDTIME 90 Days Qty: 90 RF: 0 Referrals: [facility] [Primary Care Provider] - 2 days Interventions: ED Discharge Assessment Last Done: 06/03/20 11:14 Discharge Date/Time: 06/03/20 11:14
--- NOTE | 2020-06-03 11:13 | PC.NURSE ---
PT IN A HURRY TO LEAVE ER. PT SAYS HE HAS AN APPT WITH HIS DOCTOR.
== END 2020-06-03 11:14 | disposition home or self-care (01) ==
PROVIDERS: Emergency Provider Emergency Medicine
DX: S86.912A Strain of unspecified muscle(s) and tendon(s) at lower leg level, left leg, initial encounter (principal); X58.XXXA Exposure to other specified factors, initial encounter; M79.662 Pain in left lower leg; E11.9 Type 2 diabetes mellitus without complications; I11.0 Hypertensive heart disease with heart failure; I50.9 Heart failure, unspecified; F10.10 Alcohol abuse, uncomplicated; M10.9 Gout, unspecified; F17.210 Nicotine dependence, cigarettes, uncomplicated; Y93.9 Activity, unspecified; Y92.9 Unspecified place or not applicable; Y99.9 Unspecified external cause status; Z86.718 Personal history of other venous thrombosis and embolism; Z79.01 Long term (current) use of anticoagulants; Z79.82 Long term (current) use of aspirin; Z79.84 Long term (current) use of oral hypoglycemic drugs; Z86.16 Personal history of COVID-19
CPT/HCPCS: 99283

== ENCOUNTER 2020-12-01 13:18 | Inpatient (IN) | payer OTHER, SELFPAY ==
--- NOTE | ~2020-12-01 | CT_ITS ---
EXAMINATION: CT CHEST, ABDOMEN AND PELVIS WITHOUT CONTRAST CLINICAL INFORMATION: Altered mental status. Falls. COMPARISON: CT scan of the chest dated 04/25/2020. CT scan of the abdomen and pelvis dated 10/02/2018. TECHNIQUE: Multidetector volumetric imaging was performed from the base of the neck through the pubic symphysis. Sagittal and coronal reformatted images were obtained on the technologist workstation. This CT examination was performed using dose optimization techniques as appropriate, variously including the following: *Automated exposure control *Adjustment of mA and/or kV according to patient size (this includes techniques or standardized protocols for targeted exams where dose is matched to indication/reason for exam; i.e. extremities or head) *Use of iterative reconstruction technique DLP: CT chest: 479.10 mGy-cm. CT abdomen pelvis: 917.09 mGy-cm. FINDINGS: Evaluation of the chest, abdomen and pelvis is limited lack of intravenous contrast in the setting of trauma. CT SCAN OF THE CHEST: LUNGS: Evaluation of the lungs is limited due to motion artifact. There are multifocal patchy groundglass opacity masslike areas of infiltration seen in the right upper lobe and to a lesser extent in the left upper lobe, suspicious for multifocal pneumonia. These findings have progressed in the right lung and hasn't changed in location within the left upper lobe compared to 04/25/2020. The previously seen patchy groundglass opacities in the right middle lobe and superior segment of the right lower lobe have resolved. Mild dependent atelectasis is seen in both lower lobes. No pleural effusion or pneumothorax. Central airways patent. LYMPHOVASCULAR STRUCTURES: Aortic and heart size normal. No pericardial effusion. Mild aortic, great vessel and coronary artery calcifications. No mediastinal, hilar or axillary adenopathy or free fluid collection. THYROID GLAND: Unremarkable to the extent included. BONES: Mild vertebral spondylosis seen in the thoracic spine. No suspicious focal findings. CT SCAN OF THE ABDOMEN AND PELVIS: LIVER, GALLBLADDER, AND BILIARY TREE: The liver is normal in size, shape, and attenuation. No focal hepatic lesion on noncontrast imaging. No biliary ductal dilatation is present. There is a punctate calcification in the gallbladder fundal wall again seen, unchanged. The gallbladder is otherwise unremarkable. PANCREAS: Unremarkable on noncontrast imaging. SPLEEN: Unremarkable on noncontrast imaging. ADRENAL GLANDS: Right adrenal gland normal. In the left adrenal gland, a 1.8 cm diameter low-attenuation mass is seen with mean attenuation values of -8 Hounsfield units, unchanged from prior exam, consistent with a benign lipid rich adrenal adenoma. KIDNEYS AND URETERS: The kidneys are normal in size, shape, and attenuation. No hydronephrosis, hydroureter, or calculi seen. No perinephric stranding. BLADDER: Unremarkable. PELVIC VISCERA: Unremarkable. GASTROINTESTINAL TRACT: The small and large bowel are unremarkable. The appendix is unremarkable. ABDOMINAL WALL: There is a tiny fat-containing umbilical hernia. LYMPH NODES, VASCULAR: There is moderate to severe atherosclerotic calcification of the aorta and branch vessels. No periaortic collection. No abdominal or pelvic adenopathy or free fluid collection. OSSEOUS STRUCTURES: There is moderate vertebral spondylosis seen throughout the lumbar spine and mild vertebral spondylosis in lower thoracic spine. No suspicious bone findings. CT/CT abdomen pelvis wo con IMPRESSION: CT chest: 1. No evidence of acute intrathoracic injury, though evaluation is limited on noncontrast study. 2. Multifocal groundglass opacities are seen in the upper lobes bilaterally, progressed in the right upper lobe and change in distribution in the left upper lobe and compared to 04/25/2020. Other previously seen patchy opacities in the right middle lobe and superior segment of right lower lobe have resolved. Findings are suspicious for ongoing/recurrent multifocal viral or atypical pneumonia. Hypersensitivity pneumonitis and other inflammatory disorders may have a similar appearance. Close clinical correlation is requested. 3. No adenopathy in the chest. 4. Mild coronary artery calcifications. CT abdomen pelvis: 1. No acute intra-abdominal or pelvic findings on noncontrast exam. 2. Incidental lipid rich left adrenal adenoma. 3. Atherosclerotic vascular disease..
--- NOTE | ~2020-12-01 | CT_ITS ---
EXAMINATION: CT HEAD WITHOUT CONTRAST CT CERVICAL SPINE WITHOUT CONTRAST CLINICAL INFORMATION: Fall. Altered mental status. COMPARISON: 04/30/2020 TECHNIQUE: Multidetector CT imaging of the head and cervical spine was performed without the use of intravenous contrast. Multiplanar reformats are reviewed. This CT examination was performed using dose optimization techniques as appropriate, variously including the following: *Automated exposure control *Adjustment of mA and/or kV according to patient size (this includes techniques or standardized protocols for targeted exams where dose is matched to indication/reason for exam; i.e. extremities or head) *Use of iterative reconstruction technique DLP: 1460 mGy-cm. FINDINGS: There is no evidence of acute intracranial hemorrhage or territorial infarction. No abnormal mass effect or midline shift is seen. Willis to white matter differentiation is well preserved. No extra-axial fluid collections are identified. The ventricles are normal in size. Patchy and confluent subcortical and periventricular white matter low-attenuation changes. Bilateral gangliocapsular lacunar infarcts redemonstrated. The osseous structures and soft tissues are normal. The mastoid air cells and visualized portions of the paranasal sinuses are well-aerated. Atlantooccipital alignment is maintained. The vertebral bodies and posterior elements align normally. No acute fracture or subluxation. Vertebral body heights are maintained.Prominent endplate osteophytes present along the right posterolateral aspect of C3-4 inclusive of uncovertebral arthrosis. There is also bulky hypertrophic facet arthropathy at C3-4 on the right and C4-5 on the left, associated with ankylosis of the posterior articular pillar at this level on the left.. The cervicomedullary junction and spinal cord are grossly unremarkable. The paraspinal soft tissues are unremarkable. The imaged lung apices are clear CT/CT cervical spine wo con IMPRESSION: No acute intracranial pathology. Extensive patchy and confluent subcortical white matter low-attenuation changes reflective of chronic microangiopathic gliosis. Chronic bilateral gangliocapsular lacunar infarcts. No cervical spine fracture or malalignment.
[2020-12-01 13:22] VITALS: BP 107/63; PULSE 75; RESP 18; TEMP 37.2; O2SAT 97; BMI 28.7
--- NOTE | 2020-12-01 13:44 | ECG_ITS ---
Test Reason : AMS Blood Pressure : / mmHG Vent. Rate : 069 BPM Atrial Rate : 069 BPM P-R Int : 182 ms QRS Dur : 098 ms QT Int : 382 ms P-R-T Axes : -21 -12 049 degrees QTc Int : 409 ms Normal sinus rhythm ST & T wave abnormality, consider anterolateral ischemia Abnormal ECG When compared with ECG of 25-APR-2020 10:29, No significant change was found Referred By: Dayanna French Electronically Signed By:Tenzin Gauthier
[2020-12-01 13:50] LABS: Glucose, Whole Blood 134 mg/dL (60-115)
--- NOTE | 2020-12-01 13:50 | ED_ITS ---
HPI - Altered Mental Status General Chief Complaint: Fall Stated Complaint: fall Time Seen by Provider: 12/01/20 13:43 Source: patient and family Mode of arrival: ambulatory Limitations: altered mental status History of Present Illness MD complaint: altered mental status Onset (ago): week(s) (2) Timing confirmed by: family member Severity: severe Consistency of symptoms: getting Worse Context: history of similar presentation Associated symptoms: other (patient has been falling at home, found down today, finally agreed to let the family bring him to the hospital) Related Data Home Medications Medication Instructions Recorded Confirmed amitriptyline 1 tab PO BEDTIME 12/01/20 12/01/20 amlodipine 1 tab PO DAILY 12/01/20 12/01/20 aspirin 1 tab PO DAILY 12/01/20 12/01/20 cholecalciferol (vitamin D3) 1 tab PO DAILY 12/01/20 12/01/20 [Vitamin D3] lancets [FreeStyle Lancets] 12/01/20 12/01/20 lisinopril 1 tab PO DAILY 12/01/20 12/01/20 metformin 1 tab PO BID 12/01/20 12/01/20 metoprolol tartrate 0.5 tab PO BID 12/01/20 12/01/20 omeprazole 1 cap PO DAILY 12/01/20 12/01/20 paroxetine HCl 1 tab PO DAILY 12/01/20 12/01/20 pregabalin 1 cap PO BID 12/01/20 12/01/20 rivaroxaban [Xarelto] 1 tab PO DAILY 12/01/20 12/01/20 Allergies Allergy/AdvReac Type Severity Reaction Status Date / Time No Known Allergies Allergy Verified 12/01/20 13:21 [No Known Allergies*] Review of Systems Review of Systems: ROS unable to be obtained due to altered mental status [facility] Past Medical History Source: old records reviewed Medical History Alcohol abuse CHF (congestive heart failure) COVID-19 Diabetes DVT (deep venous thrombosis) Gout HCV (hepatitis C virus) HLD (hyperlipidemia) HTN (hypertension) Neuropathy Pneumonia PVD (peripheral vascular disease) Tobacco dependence Surgical History S/P femoropopliteal bypass surgery Social History Social History Household Members: Spouse Housing: Apartment 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 Confused, not following commands, Moderate distress Eyes: Pupils equal, round and reactive to light. ENT: Pharynx normal. Contusion to posterior occiput Dried chips on tongue was eating en route Neck: Normal inspection. Neck supple. CVS: Normal heart rate and rhythm. Pulses normal. Respiratory: No respiratory distress. Breath sounds normal. Abdomen: Soft and non-tender. Doesn't grimace with palpations Skin: Skin warm and dry. Normal skin color. Normal skin turgor. Extremities: No lower extremity edema. No calf ttp Neuro: Unable to participate in exam, unsteady gait, limited to follow commands, mumbling incoherent speech, protecting airway Course Course Course Narrative: elevated WBC lactic acidosis - empiric rocephin ordered, CT scans pending added on doxy in case of atypical pneumonia, negative head CT will admit for further workup, IVF ordered MDM - Altered Mental Status MDM Narrative Medical decision making narrative: 60 yo male hx of HLD, DM, HTN, GERD, frontal CVA apr 2020, DVT/PE comes with family member altered, mumbling unable to follow commands, family member found patient on the ground, has been altered x 2 weeks, states patient refused to come to ED - came today because fell - will need full tox/metabolic/traumatic workup including CT scans - back in Apr 2020 had similar presentation found to have acute frontal stroke Lab Data Result diagrams: 12/01/20 13:57 12/01/20 13:57 Labs: Lab Results 12/01/20 12/01/20 12/01/20 Range/Units 13:46 13:57 13:57 WBC 11.1 H (4.8-10.8) X10*3/uL RBC 4.56 L (4.60-5.80) X10*6/uL Hgb 9.1 L (14.0-18.0) g/dl Hct 31.0 L (42-52) % MCV 68.0 L (80-98) fL MCH 20.0 L (27.0-33.0) pg MCHC 29.4 L (31.0-36.0) g/dl RDW 19.8 H (11.0-16.0) % Plt Count 260 (160-400) X10*3/uL MPV Not Reportable Immature Gran % (Auto) 0.5 H (0.0-0.4) % Neut % (Auto) 73.0 (45-73) % Lymph % (Auto) 14.7 L (20-40) % [place] % (Auto) 10.1 (2-11) % Eos % (Auto) 1.4 (0-4) % Baso % (Auto) 0.3 (0-2) % Lymph # (Auto) 1.6 (1.2-4.9) X10*3/uL [place] # (Auto) 1.1 (0.1-1.2) X10*3/uL Eos # (Auto) 0.2 (0.0-0.4) X10*3/uL Baso # (Auto) 0.0 (0.0-0.2) X10*3/uL Abs Immat Gran (auto) 0.06 H (0.00-0.03) X10*3/uL Absolute Neuts (auto) 8.1 (2.0-8.3) X10*3/uL Absolute Nucleated RBC 0.000 (0.0-0.012) X10*3/uL Nucleated RBC % (auto) 0.0 (0.0-0.2) /100WBC Smear Tech's Comments Not Reportable PT (9.9-13.0) SEC INR (0.9-1.1) APTT (24.1-38.0) SEC VBG pH (7.32-7.43) VBG pCO2 mmHg VBG pO2 mmHg VBG HCO3 (22-26) mmol/L VBG O2 Saturation % VBG Base Excess mmol/L Sodium 142 (135-145) mmol/L Potassium 3.9 (3.3-5.1) mmol/L Chloride 106 (96-108) mmol/L Carbon Dioxide 24 (22-29) mmol/L Anion Gap 16 (12-20) BUN 14 (9-16) mg/dL Creatinine 1.42 H (0.5-1.4) mg/dL Estim Creat Clear Calc 62.6 Estimated GFR 51 POC Glucose 134 H (60-115) mg/dL Random Glucose 143 H (60-115) mg/dL Lactic Acid (0.5-2.0) mmol/L Calcium 9.8 D (8.4-10.2) mg/dL Magnesium (1.6-2.6) mg/dL Total Bilirubin (0.0-1.0) mg/dL Direct Bilirubin (0.0-0.5) mg/dL AST (5-37) U/L ALT (0-40) U/L Alkaline Phosphatase (39-117) U/L Ammonia (13-55) umol/L Total Creatine Kinase 268 H D (38-174) U/L Troponin I High Sens (<3.5-35.0) ng/L Total Protein (6.5-8.0) g/dL Albumin (3.5-5.0) g/dL Lipase (8-78) U/L Acetaminophen < 1 (<30) mcg/mL Ethyl Alcohol mg/dL COVID-19 ([facility]) (Negative) COVID-19 Clin Com 12/01/20 12/01/20 12/01/20 Range/Units 13:57 13:57 13:57 WBC (4.8-10.8) X10*3/uL RBC (4.60-5.80) X10*6/uL Hgb (14.0-18.0) g/dl Hct (42-52) % MCV (80-98) fL MCH (27.0-33.0) pg MCHC (31.0-36.0) g/dl RDW (11.0-16.0) % Plt Count (160-400) X10*3/uL MPV Immature Gran % (Auto) (0.0-0.4) % Neut % (Auto) (45-73) % Lymph % (Auto) (20-40) % [place] % (Auto) (2-11) % Eos % (Auto) (0-4) % Baso % (Auto) (0-2) % Lymph # (Auto) (1.2-4.9) X10*3/uL [place] # (Auto) (0.1-1.2) X10*3/uL Eos # (Auto) (0.0-0.4) X10*3/uL Baso # (Auto) (0.0-0.2) X10*3/uL Abs Immat Gran (auto) (0.00-0.03) X10*3/uL Absolute Neuts (auto) (2.0-8.3) X10*3/uL Absolute Nucleated RBC (0.0-0.012) X10*3/uL Nucleated RBC % (auto) (0.0-0.2) /100WBC Smear Tech's Comments PT 20.3 H (9.9-13.0) SEC INR 1.8 H (0.9-1.1) APTT 53.0 H (24.1-38.0) SEC VBG pH (7.32-7.43) VBG pCO2 mmHg VBG pO2 mmHg VBG HCO3 (22-26) mmol/L VBG O2 Saturation % VBG Base Excess mmol/L Sodium (135-145) mmol/L Potassium (3.3-5.1) mmol/L Chloride (96-108) mmol/L Carbon Dioxide (22-29) mmol/L Anion Gap (12-20) BUN (9-16) mg/dL Creatinine (0.5-1.4) mg/dL Estim Creat Clear Calc Estimated GFR POC Glucose (60-115) mg/dL Random Glucose (60-115) mg/dL Lactic Acid (0.5-2.0) mmol/L Calcium (8.4-10.2) mg/dL Magnesium (1.6-2.6) mg/dL Total Bilirubin (0.0-1.0) mg/dL Direct Bilirubin (0.0-0.5) mg/dL AST (5-37) U/L ALT (0-40) U/L Alkaline Phosphatase (39-117) U/L Ammonia 28 (13-55) umol/L Total Creatine Kinase (38-174) U/L Troponin I High Sens (<3.5-35.0) ng/L Total Protein (6.5-8.0) g/dL Albumin (3.5-5.0) g/dL Lipase (8-78) U/L Acetaminophen (<30) mcg/mL Ethyl Alcohol < 10 mg/dL COVID-19 ([facility]) (Negative) COVID-19 Clin Com 12/01/20 12/01/20 12/01/20 Range/Units 13:57 13:57 13:57 WBC (4.8-10.8) X10*3/uL RBC (4.60-5.80) X10*6/uL Hgb (14.0-18.0) g/dl Hct (42-52) % MCV (80-98) fL MCH (27.0-33.0) pg MCHC (31.0-36.0) g/dl RDW (11.0-16.0) % Plt Count (160-400) X10*3/uL MPV Immature Gran % (Auto) (0.0-0.4) % Neut % (Auto) (45-73) % Lymph % (Auto) (20-40) % [place] % (Auto) (2-11) % Eos % (Auto) (0-4) % Baso % (Auto) (0-2) % Lymph # (Auto) (1.2-4.9) X10*3/uL [place] # (Auto) (0.1-1.2) X10*3/uL Eos # (Auto) (0.0-0.4) X10*3/uL Baso # (Auto) (0.0-0.2) X10*3/uL Abs Immat Gran (auto) (0.00-0.03) X10*3/uL Absolute Neuts (auto) (2.0-8.3) X10*3/uL Absolute Nucleated RBC (0.0-0.012) X10*3/uL Nucleated RBC % (auto) (0.0-0.2) /100WBC Smear Tech's Comments PT (9.9-13.0) SEC INR (0.9-1.1) APTT (24.1-38.0) SEC VBG pH (7.32-7.43) VBG pCO2 mmHg VBG pO2 mmHg VBG HCO3 (22-26) mmol/L VBG O2 Saturation % VBG Base Excess mmol/L Sodium (135-145) mmol/L Potassium (3.3-5.1) mmol/L Chloride (96-108) mmol/L Carbon Dioxide (22-29) mmol/L Anion Gap (12-20) BUN (9-16) mg/dL Creatinine (0.5-1.4) mg/dL Estim Creat Clear Calc Estimated GFR POC Glucose (60-115) mg/dL Random Glucose (60-115) mg/dL Lactic Acid 2.5 H* (0.5-2.0) mmol/L Calcium (8.4-10.2) mg/dL Magnesium 1.5 L (1.6-2.6) mg/dL Total Bilirubin 0.6 (0.0-1.0) mg/dL Direct Bilirubin 0.3 (0.0-0.5) mg/dL AST 19 (5-37) U/L ALT 15 (0-40) U/L Alkaline Phosphatase 78 (39-117) U/L Ammonia (13-55) umol/L Total Creatine Kinase (38-174) U/L Troponin I High Sens 5.0 (<3.5-35.0) ng/L Total Protein 8.0 (6.5-8.0) g/dL Albumin 4.5 (3.5-5.0) g/dL Lipase 20 (8-78) U/L Acetaminophen (<30) mcg/mL Ethyl Alcohol mg/dL COVID-19 ([facility]ICIA) (Negative) COVID-19 Clin Com 12/01/20 12/01/20 Range/Units 14:01 14:09 WBC (4.8-10.8) X10*3/uL RBC (4.60-5.80) X10*6/uL Hgb (14.0-18.0) g/dl Hct (42-52) % MCV (80-98) fL MCH (27.0-33.0) pg MCHC (31.0-36.0) g/dl RDW (11.0-16.0) % Plt Count (160-400) X10*3/uL MPV Immature Gran % (Auto) (0.0-0.4) % Neut % (Auto) (45-73) % Lymph % (Auto) (20-40) % [place] % (Auto) (2-11) % Eos % (Auto) (0-4) % Baso % (Auto) (0-2) % Lymph # (Auto) (1.2-4.9) X10*3/uL [place] # (Auto) (0.1-1.2) X10*3/uL Eos # (Auto) (0.0-0.4) X10*3/uL Baso # (Auto) (0.0-0.2) X10*3/uL Abs Immat Gran (auto) (0.00-0.03) X10*3/uL Absolute Neuts (auto) (2.0-8.3) X10*3/uL Absolute Nucleated RBC (0.0-0.012) X10*3/uL Nucleated RBC % (auto) (0.0-0.2) /100WBC Smear Tech's Comments PT (9.9-13.0) SEC INR (0.9-1.1) APTT (24.1-38.0) SEC VBG pH 7.37 (7.32-7.43) VBG pCO2 39 mmHg VBG pO2 54 mmHg VBG HCO3 23 (22-26) mmol/L VBG O2 Saturation 76.0 % VBG Base Excess -1.2 mmol/L Sodium (135-145) mmol/L Potassium (3.3-5.1) mmol/L Chloride (96-108) mmol/L Carbon Dioxide (22-29) mmol/L Anion Gap (12-20) BUN (9-16) mg/dL Creatinine (0.5-1.4) mg/dL Estim Creat Clear Calc Estimated GFR POC Glucose (60-115) mg/dL Random Glucose (60-115) mg/dL Lactic Acid (0.5-2.0) mmol/L Calcium (8.4-10.2) mg/dL Magnesium (1.6-2.6) mg/dL Total Bilirubin (0.0-1.0) mg/dL Direct Bilirubin (0.0-0.5) mg/dL AST (5-37) U/L ALT (0-40) U/L Alkaline Phosphatase (39-117) U/L Ammonia (13-55) umol/L Total Creatine Kinase (38-174) U/L Troponin I High Sens (<3.5-35.0) ng/L Total Protein (6.5-8.0) g/dL Albumin (3.5-5.0) g/dL Lipase (8-78) U/L Acetaminophen (<30) mcg/mL Ethyl Alcohol mg/dL COVID-19 ([facility]ICIA) Negative (Negative) COVID-19 Clin Com See Note ECG Data ECG #1: Attestation: I personally reviewed and interpreted this ECG as follows: ECG interpretation date: 12/01/20 ECG interpretation time: 14:19 Interpretation: Rate: 69 Rhythm: NSR [place]: left Normal P waves. Normal [place]. Normal QRS complex. ST T wave : inverted V1-V5 qTC: normal prior studies: no acute ischemia no change from Apr 2020 The study has been interpreted contemporaneously by me. . Discharge Plan Discharge Clinical Impression: RASTA (acute kidney injury), Acidosis, lactic, Atypical pneumonia AMS (altered mental status) Qualifiers: Altered mental status type: delirium Qualified Code(s): R41.0 - Disorientation, unspecified Patient Disposition: Admitted As Inpatient Prescriptions: No Action metformin 500 mg tablet 1 tab PO BID RF: 0 amitriptyline 150 mg tablet 1 tab PO BEDTIME RF: 0 amlodipine 10 mg tablet 1 tab PO DAILY RF: 0 paroxetine HCl 30 mg tablet 1 tab PO DAILY RF: 0 omeprazole 20 mg capsule,delayed release(DR/EC) 1 cap PO DAILY RF: 0 aspirin 81 mg tablet,chewable 1 tab PO DAILY RF: 0 lisinopril 2.5 mg tablet 1 tab PO DAILY RF: 0 metoprolol tartrate 25 mg tablet 0.5 tab PO BID RF: 0 pregabalin 150 mg capsule 1 cap PO BID RF: 0 cholecalciferol (vitamin D3) [Vitamin D3] 125 mcg (5,000 unit) tablet 1 tab PO DAILY RF: 0 Xarelto 20 mg tablet 1 tab PO DAILY RF: 0 (DME) lancets [FreeStyle Lancets] 28 gauge misc 1 lancet topical TID RF: 0
[2020-12-01 14:10] LABS: Eosinophils Absolute Auto 0.2 X10*3/uL (0.0-0.4); MANUAL DIFF FLAG SCAN; SCAN SMEAR FLAG 1
[2020-12-01 14:12] LABS: Basophils Percent Auto 0.3 % (0-2); Eosinophils Percent Auto 1.4 % (0-4); Hemoglobin 9.1 g/dl (14.0-18.0); Imm Gran Abs Auto 0.06 X10*3/uL (0.00-0.03); Imm Gran Pct Auto 0.5 % (0.0-0.4); Lymphocytes Absolute Auto 1.6 X10*3/uL (1.2-4.9); Lymphocytes Percent Auto 14.7 % (20-40); Mean Corpuscular HGB Conc 29.4 g/dl (31.0-36.0); Monocytes Absolute Auto 1.1 X10*3/uL (0.1-1.2); Monocytes Percent Auto 10.1 % (2-11); Neutrophils Absolute Auto 8.1 X10*3/uL (2.0-8.3); Platelet Count 260 X10*3/uL (160-400); Red Blood Count 4.56 X10*6/uL (4.60-5.80); Red Cell Distribution Width 19.8 % (11.0-16.0); White Blood Count 11.1 X10*3/uL (4.8-10.8)
[2020-12-01 14:16] LABS: INTERNATIONAL NORM RATIO 1.8 (0.9-1.1); Prothrombin Time 20.3 SEC (9.9-13.0)
[2020-12-01 14:17] VITALS: PULSE 71
[2020-12-01 14:17] LABS: VBG Base Excess -1.2 mmol/L; VBG HCO3 23 mmol/L (22-26); VBG pCO2 39 mmHg; VBG pH 7.37 (7.32-7.43); VBG pO2 54 mmHg
[2020-12-01 14:18] LABS: PLT ABN DIST 1; Venous Blood Gas Refer to POC result
[2020-12-01 14:25] LABS: Ammonia 28 umol/L (13-55)
[2020-12-01 14:27] LABS: COVID-19 Test Negative (Negative)
[2020-12-01 14:44] LABS: Ethanol < 10 mg/dL
[2020-12-01 14:51] LABS: Acetaminophen LAB < 1 mcg/mL (<30); Anion Gap 16 (12-20); Blood Urea Nitrogen 14 mg/dL (9-16); Calcium 9.8 mg/dL (8.4-10.2); Carbon Dioxide 24 mmol/L (22-29); Chloride 106 mmol/L (96-108); Creatinine Clr Calc Pharmacy 62.6; Estimated Glomerular Filt Rate 51; Glucose Random 143 mg/dL (60-115); Potassium 3.9 mmol/L (3.3-5.1); Sodium 142 mmol/L (135-145)
[2020-12-01 15:03] LABS: Alanine Aminotransferase 15 U/L (0-40); Albumin Level 4.5 g/dL (3.5-5.0); Alkaline Phosphatase 78 U/L (39-117); Aspartate Amino Transferase 19 U/L (5-37); Bilirubin Direct 0.3 mg/dL (0.0-0.5); Bilirubin Total 0.6 mg/dL (0.0-1.0); Lipase 20 U/L (8-78); Magnesium 1.5 mg/dL (1.6-2.6)
[2020-12-01] MEDS: 0.9 % Sodium Chloride 500 ML IV (15:21)
[2020-12-01 15:27] LABS: Lactic Acid 2.5 mmol/L (0.5-2.0)
[2020-12-01] MEDS: cefTRIAXone sodium 1 GM in 0.9 % Sodium Chloride 50 ML IV (15:31)
[2020-12-01] MEDS: Magnesium Sulfate/H2O 2 GM/50 ML PIGGYBACK IV (15:34)
[2020-12-01 16:00] VITALS: BP 133/75; PULSE 68; RESP 14; TEMP 36.5; O2SAT 96
[2020-12-01 16:06] LABS: Reflex Lactate? Lactic Acid Added
[2020-12-01] MEDS: Doxycycline Hyclate 100 MG in 0.9 % Sodium Chloride 250 ML 166.67 MG IV (16:12)
[2020-12-01 16:25] LABS: Acetone, serum QL Negative (Negative)
[2020-12-01 16:40] VITALS: BP 133/75; PULSE 68; RESP 12; TEMP 36.6; O2SAT 99
[2020-12-01 17:12] LABS: ~Lactic Acid-LAB USE ONLY 0.8 mmol/L (0.5-2.0)
--- NOTE | 2020-12-01 17:43 | PM.IMHP ---
History of Present Illness Date of Service: 12/01/20 Chief Complaint: fall/syncope , rasta HPI: 60-year-old with history of DVT/PE on anticoagulation, DM , hx of Covid 19 who was brought into the emergency department due to frequent falls and confusion. Per his nephew he has been confused for the past 2 weeks. As per patient general doc at bedside-she says that patient had multiple falls in last couple of weeks and and she thought her think that that sometime it is related to not using the walker and other times patient feels weak and dizzy. She also said that his mental status-seems similar since the last stroke on and off get confused but it is is probably near baseline. Patient and his general doc denies any new weakness or numbness, the could not able to elaborate what happened during the event of fall , denies any seizure-like movements for any tongue bite or any on voluntarily urine or stool incontinence. They also said there is no new chest pain or shortness of breath during the episode unclear about the palpitations or the circumstances of fall. Last fall was this morning when he was trying to get out of the bed and trying to hold onto the walker and afterwards does not know what happened, is also not clear whether he passed out or not. Could able to answer most of the questions otherwise-he says he has cough but mostly dry unclear if he brings up any phlegm Denies any fever or chills or nausea or vomiting or abdominal pain or diarrhea. 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 intake from last week or so.. Lab imaging reviewed : Patient had mild leukocytosis, lactic acidosis, RASTA, hypomagnesemia, in addition chest CT shows question of right-sided infiltrate worsening CT head: Question chronic changes pmx: Alcohol abuse CHF (congestive heart failure) Diabetes DVT (deep venous thrombosis) Gout HCV (hepatitis C virus) HLD (hyperlipidemia) HTN (hypertension) Neuropathy Pneumonia PVD (peripheral vascular disease) Tobacco dependence Review of Systems Review of Systems: ENT: Denies any sore throat, any ear pain Or eye discharge cvs: No chest pain or Denies dyspnea Respiratory: Respiratory: Reports cough and Denies dyspnea Neurologic: Reports confusion Psychiatric: Psychiatric: Reports confusion Please see HPI also. [facility] Medical History Alcohol abuse CHF (congestive heart failure) COVID-19 Diabetes DVT (deep venous thrombosis) Gout HCV (hepatitis C virus) HLD (hyperlipidemia) HTN (hypertension) Neuropathy Pneumonia PVD (peripheral vascular disease) Tobacco dependence Family history: reviewed and not pertinent Surgical History S/P femoropopliteal bypass surgery Social History Household Members: Spouse Housing: Apartment Do you presently have visiting nurse or other home services: Yes (super[employer]) Alcohol intake: former Patient Tobacco Use Status: Current everyday Tobacco user Cigarettes Per Day: 2 Years Smoked: 4 Use of substances other than those prescribed or required for medical reasons: Yes Advance Directives: Yes Advance Directives Information Provided: Yes Advance Directives on File: No service: No Current occupational status: unemployed Meds Allergies Allergy/AdvReac Type Severity Reaction Status Date / Time No Known Allergies Allergy Verified 12/01/20 13:21 [No Known Allergies*] Active Medications: Current Medications Generic Name Dose Route Start Last Admin Trade Name Freq PRN Reason Stop Dose Admin Amlodipine Besylate 10 mg 12/02/20 09:00 Amlodipine Besylate 10 Mg Tablet PO DAILY [facility] Protocol Aspirin 81 mg 12/02/20 09:00 Aspirin 81 Mg Tab.Chew PO DAILY [facility] Lactated Ringer's 1,000 mls @ 80 mls/hr 12/01/20 17:38 Lr IVCONT .[id number] [facility] Ceftriaxone Sodium 1 gm/ 50 mls @ 100 mls/hr 12/01/20 17:38 Sodium Chloride IV Q24H [facility] Azithromycin 500 mg/ Sodium 250 mls @ 125 mls/hr 12/01/20 17:38 Chloride IV 12/01/20 19:37 ONCE ONE Insulin Human Lispro 0 unit 12/01/20 21:00 Insulin Lispro 100 Unit/Ml 3 Ml Vial SUBCUT QIDACHS [facility] Protocol Magnesium Oxide 400 mg 12/01/20 21:00 Magnesium Oxide 400 Mg Tablet PO BID [facility] Metoprolol Tartrate 12.5 mg 12/01/20 21:00 Metoprolol Tartrate 12.5 Mg Halftab PO BID [facility] Protocol Omeprazole 20 mg 12/02/20 09:00 Omeprazole 20 Mg Capsule.Dr PO DAILY [facility] Paroxetine HCl 30 mg 12/02/20 09:00 Paroxetine Hcl 30 Mg Tablet PO DAILY [facility] Pharmacy Consult 1 each 12/01/20 13:44 Consult Rx Perform Med Rec MISCELLANE ONCE PRN Consult order Pregabalin 150 mg 12/01/20 21:00 Pregabalin 150 Mg Capsule PO BID [facility] Rivaroxaban 20 mg 12/02/20 09:00 Rivaroxaban 20 Mg Tablet PO DAILY [facility] Sodium Chloride 3 ml 12/02/20 00:00 0.9 % Sodium Chloride Flush 3 Ml Syringe IVFLUSH QSHIFT [facility] Vitamin D 125 mcg 12/02/20 09:00 Cholecalciferol (Vitamin D3) 25 Mcg Tablet PO DAILY [facility] Home Medications Medication Instructions Recorded Confirmed Last Taken Type amitriptyline 1 tab PO BEDTIME 12/01/20 12/01/20 Unknown History amlodipine 1 tab PO DAILY 12/01/20 12/01/20 Unknown History aspirin 1 tab PO DAILY 12/01/20 12/01/20 Unknown History cholecalciferol (vitamin D3) 1 tab PO DAILY 12/01/20 12/01/20 Unknown History [Vitamin D3] lancets [FreeStyle Lancets] 12/01/20 12/01/20 Unknown History lisinopril 1 tab PO DAILY 12/01/20 12/01/20 Unknown History metformin 1 tab PO BID 12/01/20 12/01/20 Unknown History metoprolol tartrate 0.5 tab PO BID 12/01/20 12/01/20 Unknown History omeprazole 1 cap PO DAILY 12/01/20 12/01/20 Unknown History paroxetine HCl 1 tab PO DAILY 12/01/20 12/01/20 Unknown History pregabalin 1 cap PO BID 12/01/20 12/01/20 Unknown History rivaroxaban [Xarelto] 1 tab PO DAILY 12/01/20 12/01/20 Unknown History Physical Exam Vital Signs and Narrative: Vital Signs: Last Vital Signs Temp 97.8 F 12/01/20 16:40 Pulse 68 12/01/20 16:40 Resp 12 12/01/20 16:40 BP 133/75 12/01/20 16:40 Pulse Ox 99 12/01/20 16:40 Body Mass Index 28.7 Const: Orientation/consciousness: oriented to person, oriented to place and confusion HEEMT: Head: normocephalic and atraumatic Eyes: Sclerae: sclerae normal Chest: Chest palpation & inspection: normal inspection of the chest Resp: Effort & Inspection: normal respiratory effort and no respiratory distress Cardio: Rate: regular rate Rhythm: regular rhythm GI: Palpation (GI): Soft to palpation and nontender Skin: General skin exam: no rashes or lesions noted Neuro: General: oriented to person, oriented to place and confusion Cranial nerves: Yes CN's II-XII intact bilaterally and Yes Bilaterally intact EOM present Extrem: General: Yes normal to inspection Results Labs CBC and Chem 7: 12/02/20 07:10 12/02/20 07:10 Labs: Laboratory Results - last 24 hr 12/01/20 12/01/20 12/01/20 13:46 13:57 13:57 MCV 68.0 L MCH 20.0 L MCHC 29.4 L RDW 19.8 H Plt Count 260 MPV Not Reportable Immature Gran % (Auto) 0.5 H Neut % (Auto) 73.0 Lymph % (Auto) 14.7 L [place] % (Auto) 10.1 Eos % (Auto) 1.4 Baso % (Auto) 0.3 Lymph # (Auto) 1.6 [place] # (Auto) 1.1 Eos # (Auto) 0.2 Baso # (Auto) 0.0 Abs Immat Gran (auto) 0.06 H Absolute Neuts (auto) 8.1 Absolute Nucleated RBC 0.000 Nucleated RBC % (auto) 0.0 Smear Tech's Comments Not Reportable PT INR APTT VBG pH VBG pCO2 VBG pO2 VBG HCO3 VBG O2 Saturation VBG Base Excess Anion Gap 16 Estim Creat Clear Calc 62.6 Estimated GFR 51 POC Glucose 134 H Random Glucose 143 H Lactic Acid Lactic Acid Fup @ 2Hr Calcium 9.8 D Magnesium Total Bilirubin Direct Bilirubin AST ALT Alkaline Phosphatase Ammonia Total Creatine Kinase 268 H D Troponin I High Sens Total Protein Albumin Lipase Acetaminophen < 1 Ethyl Alcohol Acetone, Qual Negative COVID-19 ([facility]) COVID-19 Clin Com 12/01/20 12/01/20 12/01/20 13:57 13:57 13:57 MCV MCH MCHC RDW Plt Count MPV Immature Gran % (Auto) Neut % (Auto) Lymph % (Auto) [place] % (Auto) Eos % (Auto) Baso % (Auto) Lymph # (Auto) [place] # (Auto) Eos # (Auto) Baso # (Auto) Abs Immat Gran (auto) Absolute Neuts (auto) Absolute Nucleated RBC Nucleated RBC % (auto) Smear Tech's Comments PT 20.3 H INR 1.8 H APTT 53.0 H VBG pH VBG pCO2 VBG pO2 VBG HCO3 VBG O2 Saturation VBG Base Excess Anion Gap Estim Creat Clear Calc Estimated GFR POC Glucose Random Glucose Lactic Acid Lactic Acid Fup @ 2Hr Calcium Magnesium Total Bilirubin Direct Bilirubin AST ALT Alkaline Phosphatase Ammonia 28 Total Creatine Kinase Troponin I High Sens Total Protein Albumin Lipase Acetaminophen Ethyl Alcohol < 10 Acetone, Qual COVID-19 ([facility]) [employer] 12/01/20 12/01/20 12/01/20 13:57 13:57 13:57 MCV MCH MCHC RDW Plt Count MPV Immature Gran % (Auto) Neut % (Auto) Lymph % (Auto) [place] % (Auto) Eos % (Auto) Baso % (Auto) Lymph # (Auto) [place] # (Auto) Eos # (Auto) Baso # (Auto) Abs Immat Gran (auto) Absolute Neuts (auto) Absolute Nucleated RBC Nucleated RBC % (auto) Smear Tech's Comments PT INR APTT VBG pH VBG pCO2 VBG pO2 VBG HCO3 VBG O2 Saturation VBG Base Excess Anion Gap Estim Creat Clear Calc Estimated GFR POC Glucose Random Glucose Lactic Acid 2.5 H* Lactic Acid Fup @ 2Hr Calcium Magnesium 1.5 L Total Bilirubin 0.6 Direct Bilirubin 0.3 AST 19 ALT 15 Alkaline Phosphatase 78 Ammonia Total Creatine Kinase Troponin I High Sens 5.0 Total Protein 8.0 Albumin 4.5 Lipase 20 Acetaminophen Ethyl Alcohol Acetone, Qual COVID-19 ([facility]) [employer] 12/01/20 12/01/20 12/01/20 14:01 14:09 16:37 MCV MCH MCHC RDW Plt Count MPV Immature Gran % (Auto) Neut % (Auto) Lymph % (Auto) [place] % (Auto) Eos % (Auto) Baso % (Auto) Lymph # (Auto) [place] # (Auto) Eos # (Auto) Baso # (Auto) Abs Immat Gran (auto) Absolute Neuts (auto) Absolute Nucleated RBC Nucleated RBC % (auto) Smear Tech's Comments PT INR APTT VBG pH 7.37 VBG pCO2 39 VBG pO2 54 VBG HCO3 23 VBG O2 Saturation 76.0 VBG Base Excess -1.2 Anion Gap Estim Creat Clear Calc Estimated GFR POC Glucose Random Glucose Lactic Acid Lactic Acid Fup @ 2Hr 0.8 Calcium Magnesium Total Bilirubin Direct Bilirubin AST ALT Alkaline Phosphatase Ammonia Total Creatine Kinase Troponin I High Sens Total Protein Albumin Lipase Acetaminophen Ethyl Alcohol Acetone, Qual COVID-19 ([facility]) Negative COVID-19 Clin Com See Note Imaging Radiologist's Impressions: Impressions Abdomen/Pelvis CT 12/01/20 13:44 IMPRESSION: CT chest: 1. No evidence of acute intrathoracic injury, though evaluation is limited on noncontrast study. 2. Multifocal groundglass opacities are seen in the upper lobes bilaterally, progressed in the right upper lobe and change in distribution in the left upper lobe and compared to 04/25/2020. Other previously seen patchy opacities in the right middle lobe and superior segment of right lower lobe have resolved. Findings are suspicious for ongoing/recurrent multifocal viral or atypical pneumonia. Hypersensitivity pneumonitis and other inflammatory disorders may have a similar appearance. Close clinical correlation is requested. 3. No adenopathy in the chest. 4. Mild coronary artery calcifications. CT abdomen pelvis: 1. No acute intra-abdominal or pelvic findings on noncontrast exam. 2. Incidental lipid rich left adrenal adenoma. 3. Atherosclerotic vascular disease.. Cervical Spine CT 12/01/20 13:44 IMPRESSION: No acute intracranial pathology. Extensive patchy and confluent subcortical white matter low-attenuation changes reflective of chronic microangiopathic gliosis. Chronic bilateral gangliocapsular lacunar infarcts. No cervical spine fracture or malalignment. Chest CT 12/01/20 13:44 IMPRESSION: CT chest: 1. No evidence of acute intrathoracic injury, though evaluation is limited on noncontrast study. 2. Multifocal groundglass opacities are seen in the upper lobes bilaterally, progressed in the right upper lobe and change in distribution in the left upper lobe and compared to 04/25/2020. Other previously seen patchy opacities in the right middle lobe and superior segment of right lower lobe have resolved. Findings are suspicious for ongoing/recurrent multifocal viral or atypical pneumonia. Hypersensitivity pneumonitis and other inflammatory disorders may have a similar appearance. Close clinical correlation is requested. 3. No adenopathy in the chest. 4. Mild coronary artery calcifications. CT abdomen pelvis: 1. No acute intra-abdominal or pelvic findings on noncontrast exam. 2. Incidental lipid rich left adrenal adenoma. 3. Atherosclerotic vascular disease.. Head CT 12/01/20 13:44 IMPRESSION: No acute intracranial pathology. Extensive patchy and confluent subcortical white matter low-attenuation changes reflective of chronic microangiopathic gliosis. Chronic bilateral gangliocapsular lacunar infarcts. No cervical spine fracture or malalignment. Assessment and Plan (1) RASTA (acute kidney injury): Status: Acute (2) Acidosis, lactic: Status: Acute (3) AMS (altered mental status): Qualifiers: Altered mental status type: delirium Qualified Code(s): R41.0 - Disorientation, unspecified Status: Acute (4) Atypical pneumonia: Status: Acute 1. Toxic metabolic encephalopathy: Probably multifactorial including RASTA, hypomagnesemia, question of pneumonia Seems improving Will continue IV fluids, antibiotics including ceftriaxone and azithromycin, repleting electrolytes aggressively. As per the family patient is probably near his baseline mental status de la fuente 2. Falls/question of syncope Admit the patient to tele Patient last stress test was in 2019 which was fine , ef was 60% orthostasis signs will add neuro eval PT evaluation 3. Lactic acidosis: Probably related to metformin, hydrated and resolved Hold metformin for now .4. Multifocal pneumonia: Mild leukocytosis has cough but no fever Continue azithromycin and ceftriaxone Continue to monitor 5. RASTA: Continue to hydration Monitors BMP 6. History of DVT and PE: Continue Xarelto 7. dm: Fingersticks around 140s Hold metformin Continue sliding scale coverage. Quality Stroke Does the patient have a stroke diagnosis?: Yes Reason for No Anti-thrombotic by Day Two: N/A - Med Ordered VTE Prior VTE?: Yes VTE Risk Level:: Medical - moderate - high VTE Device Contraindication: N/A - Device Ordered VTE Drug Contraindication: N/A - Med Ordered
[2020-12-01] MEDS: Azithromycin 500 MG in 0.9 % Sodium Chloride 250 ML 125 MG IV (18:45)
[2020-12-01] MEDS: Lactated Ringers 1,000 ML 80 ML IVCONT (20:38)
[2020-12-01 20:55] VITALS: BP 127/66; PULSE 72; RESP 16; TEMP 36.4; O2SAT 99
[2020-12-01 21:03] LABS: Glucose, Whole Blood 122 mg/dL (60-115)
[2020-12-01 21:06] LABS: Glucose Urine UA NEG (NEG); Leukocyte Esterase Urine NEG (NEG); Nitrite Urine NEG (NEG); Specific Gravity - Urine 1.025 (1.005-1.025); Urine Blood NEG (NEG); Urine Ketones 40 MG/DL (NEG); Urine Protein NEG (NEG-TRACE)
[2020-12-01 21:08] LABS: Appearance Urine CLEAR; Color Urine YELLOW
[2020-12-01 21:28] LABS: Amphetamine Screen Urine Not Detected (Not Detect); Barbiturates, Urine Not Detected (Not Detect); Benzodiazepines Screen Urine Not Detected (Not Detect); Cannabinoid Screen Urine POSITIVE (Not Detect); Cocaine Screen Urine Not Detected (Not Detect); Opiate Screen Urine Not Detected (Not Detect); Phencyclidine Screen Urine Not Detected (Not Detect)
--- NOTE | 2020-12-01 22:08 | PC.NURSE ---
Held night meds pending speech swallow eval. okay by hospitalist.
[2020-12-01 22:09] VITALS: BP 138/72; PULSE 71; RESP 15; TEMP 36.8; O2SAT 99
[2020-12-02 07:25] LABS: Hematocrit 30.2 % (42-52); Hemoglobin 8.5 g/dl (14.0-18.0); Mean Corpuscular HGB Conc 28.1 g/dl (31.0-36.0); Mean Corpuscular Hemoglobin 19.4 pg (27.0-33.0); Mean Corpuscular Volume 68.9 fL (80-98); Red Blood Count 4.38 X10*6/uL (4.60-5.80); Red Cell Distribution Width 19.9 % (11.0-16.0); White Blood Count 10.3 X10*3/uL (4.8-10.8)
[2020-12-02 07:28] LABS: PLT ABN DIST 1
[2020-12-02 07:48] LABS: Platelet Count 237 X10*3/uL (160-400)
[2020-12-02 08:02] LABS: Anion Gap 15 (12-20); Blood Urea Nitrogen 10 mg/dL (9-16); Calcium 9.1 mg/dL (8.4-10.2); Carbon Dioxide 23 mmol/L (22-29); Chloride 106 mmol/L (96-108); Creatinine Clr Calc Pharmacy 96.7; Estimated Glomerular Filt Rate > 60; Glucose Random 157 mg/dL (60-115); Potassium 3.7 mmol/L (3.3-5.1); Sodium 140 mmol/L (135-145)
[2020-12-02 08:29] VITALS: BP 133/65; PULSE 86; RESP 19; TEMP 37.2; O2SAT 95
--- NOTE | 2020-12-02 08:56 | HO.PM.IMPN ---
Subjective Subjective Date of Service: 12/03/20 Interval History: fall/syncope Review of Systems Patient says shortness of breath improving, still somewhat disoriented. Physical Exam Vital Signs: Vital Signs: Last Vital Signs Temp 98.9 F 12/02/20 08:29 Pulse 86 12/02/20 08:29 Resp 19 12/02/20 08:29 BP 133/65 12/02/20 08:29 Pulse Ox 95 12/02/20 08:29 Body Mass Index 28.7 Physical exam: Const: Orientation/consciousness: oriented to person, oriented to place and confusion Chest: Chest palpation & inspection: normal inspection of the chest Resp: Effort & Inspection: normal respiratory effort and no respiratory distress Cardio: Rate: regular rate Rhythm: regular rhythm GI: Palpation (GI): Soft to palpation and nontender Skin: General skin exam: no rashes or lesions noted Neuro: General: oriented to person, oriented to place and confusion Cranial nerves: Yes CN's II-XII intact bilaterally and Yes Bilaterally intact EOM present Objective Data Current Medications Generic Name Dose Route Start Last Admin Trade Name Freq PRN Reason Stop Dose Admin Amlodipine Besylate 10 mg 12/02/20 09:00 Amlodipine Besylate 10 Mg Tablet PO DAILY [facility] Protocol Aspirin 81 mg 12/02/20 09:00 Aspirin 81 Mg Tab.Chew PO DAILY [facility] Ceftriaxone Sodium 1 gm/ 50 mls @ 100 mls/hr 12/02/20 15:00 Sodium Chloride IV Q24H [facility] Insulin Human Lispro 0 unit 12/01/20 21:00 12/02/20 08:46 Insulin Lispro 100 Unit/Ml 3 Ml Vial SUBCUT Not Given QIDACHS [facility] Protocol Magnesium Oxide 400 mg 12/01/20 21:00 12/01/20 22:07 Magnesium Oxide 400 Mg Tablet PO Not Given BID [facility] Metoprolol Tartrate 12.5 mg 12/01/20 21:00 12/01/20 22:07 Metoprolol Tartrate 12.5 Mg Halftab PO Not Given BID [facility] Protocol Omeprazole 20 mg 12/02/20 06:30 12/02/20 08:47 Omeprazole 20 Mg Capsule.Dr PO Not Given DAILY@0630 [facility] Paroxetine HCl 30 mg 12/02/20 09:00 Paroxetine Hcl 30 Mg Tablet PO DAILY [facility] Pharmacy Consult 1 each 12/01/20 13:44 Consult Rx Perform Med Rec MISCELLANE ONCE PRN Consult order Pregabalin 150 mg 12/01/20 21:00 12/01/20 22:08 Pregabalin 150 Mg Capsule PO Not Given BID [facility] Rivaroxaban 20 mg 12/02/20 09:00 Rivaroxaban 20 Mg Tablet PO DAILY [facility] Sodium Chloride 3 ml 12/02/20 00:00 12/02/20 00:26 0.9 % Sodium Chloride Flush 3 Ml Syringe IVFLUSH Not Given QSHIFT [facility] Vitamin D 125 mcg 12/02/20 09:00 Cholecalciferol (Vitamin D3) 25 Mcg Tablet PO DAILY [facility] Labs CBC & Chem 7: 12/02/20 10:58 12/02/20 07:10 Labs: Laboratory Results - last 24 hr 12/01/20 12/01/20 12/01/20 13:46 13:57 13:57 WBC 11.1 H RBC 4.56 L Hgb 9.1 L Hct 31.0 L MCV 68.0 L MCH 20.0 L MCHC 29.4 L RDW 19.8 H Plt Count 260 MPV Not Reportable Immature Gran % (Auto) 0.5 H Neut % (Auto) 73.0 Lymph % (Auto) 14.7 L Young % (Auto) 10.1 Eos % (Auto) 1.4 Baso % (Auto) 0.3 Lymph # (Auto) 1.6 Young # (Auto) 1.1 Eos # (Auto) 0.2 Baso # (Auto) 0.0 Abs Immat Gran (auto) 0.06 H Absolute Neuts (auto) 8.1 Absolute Nucleated RBC 0.000 Nucleated RBC % (auto) 0.0 Smear Tech's Comments Not Reportable PT INR APTT VBG pH VBG pCO2 VBG pO2 VBG HCO3 VBG O2 Saturation VBG Base Excess Sodium 142 Potassium 3.9 Chloride 106 Carbon Dioxide 24 Anion Gap 16 BUN 14 Creatinine 1.42 H Estim Creat Clear Calc 62.6 Estimated GFR 51 POC Glucose 134 H Random Glucose 143 H Lactic Acid Lactic Acid Fup @ 2Hr Calcium 9.8 D Magnesium Total Bilirubin Direct Bilirubin AST ALT Alkaline Phosphatase Ammonia Total Creatine Kinase 268 H D Troponin I High Sens Total Protein Albumin Lipase Urine Color Urine Appearance Urine pH Ur Specific [place] Urine Protein Urine Glucose (UA) Urine Ketones Urine Blood Urine Nitrite Ur Leukocyte Esterase Urine Opiates Screen Acetaminophen < 1 Ur Barbiturates Screen Ur Phencyclidine Scrn Ur Amphetamines Screen U Benzodiazepines Scrn Urine Cocaine Screen U Marijuana (THC) Screen Ethyl Alcohol Acetone, Qual Negative COVID-19 ([facility]) COVID-19 [facility] 12/01/20 12/01/20 12/01/20 13:57 13:57 13:57 WBC RBC Hgb Hct MCV MCH MCHC RDW Plt Count MPV Immature Gran % (Auto) Neut % (Auto) Lymph % (Auto) Young % (Auto) Eos % (Auto) Baso % (Auto) Lymph # (Auto) Young # (Auto) Eos # (Auto) Baso # (Auto) Abs Immat Gran (auto) Absolute Neuts (auto) Absolute Nucleated RBC Nucleated RBC % (auto) Smear Tech's Comments PT 20.3 H INR 1.8 H APTT 53.0 H VBG pH VBG pCO2 VBG pO2 VBG HCO3 VBG O2 Saturation VBG Base Excess Sodium Potassium Chloride Carbon Dioxide Anion Gap BUN Creatinine Estim Creat Clear Calc Estimated GFR POC Glucose Random Glucose Lactic Acid Lactic Acid Fup @ 2Hr Calcium Magnesium Total Bilirubin Direct Bilirubin AST ALT Alkaline Phosphatase Ammonia 28 Total Creatine Kinase Troponin I High Sens Total Protein Albumin Lipase Urine Color Urine Appearance Urine pH Ur Specific [place] Urine Protein Urine Glucose (UA) Urine Ketones Urine Blood Urine Nitrite Ur Leukocyte Esterase Urine Opiates Screen Acetaminophen Ur Barbiturates Screen Ur Phencyclidine Scrn Ur Amphetamines Screen U Benzodiazepines Scrn Urine Cocaine Screen U Marijuana (THC) Screen Ethyl Alcohol < 10 Acetone, Qual COVID-19 ([facility]) COVID-19 [employer] [employer] 12/01/20 12/01/20 12/01/20 13:57 13:57 13:57 WBC RBC Hgb Hct MCV MCH MCHC RDW Plt Count MPV Immature Gran % (Auto) Neut % (Auto) Lymph % (Auto) Young % (Auto) Eos % (Auto) Baso % (Auto) Lymph # (Auto) Young # (Auto) Eos # (Auto) Baso # (Auto) Abs Immat Gran (auto) Absolute Neuts (auto) Absolute Nucleated RBC Nucleated RBC % (auto) Smear Tech's Comments PT INR APTT VBG pH VBG pCO2 VBG pO2 VBG HCO3 VBG O2 Saturation VBG Base Excess Sodium Potassium Chloride Carbon Dioxide Anion Gap BUN Creatinine Estim Creat Clear Calc Estimated GFR POC Glucose Random Glucose Lactic Acid 2.5 H* Lactic Acid Fup @ 2Hr Calcium Magnesium 1.5 L Total Bilirubin 0.6 Direct Bilirubin 0.3 AST 19 ALT 15 Alkaline Phosphatase 78 Ammonia Total Creatine Kinase Troponin I High Sens 5.0 Total Protein 8.0 Albumin 4.5 Lipase 20 Urine Color Urine Appearance Urine pH Ur Specific [place] Urine Protein Urine Glucose (UA) Urine Ketones Urine Blood Urine Nitrite Ur Leukocyte Esterase Urine Opiates Screen Acetaminophen Ur Barbiturates Screen Ur Phencyclidine Scrn Ur Amphetamines Screen U Benzodiazepines Scrn Urine Cocaine Screen U Marijuana (THC) Screen Ethyl Alcohol Acetone, Qual COVID-19 ([facility]) COVID-SessionM 12/01/20 12/01/20 12/01/20 14:01 14:09 16:37 WBC RBC Hgb Hct MCV MCH MCHC RDW Plt Count MPV Immature Gran % (Auto) Neut % (Auto) Lymph % (Auto) Young % (Auto) Eos % (Auto) Baso % (Auto) Lymph # (Auto) Young # (Auto) Eos # (Auto) Baso # (Auto) Abs Immat Gran (auto) Absolute Neuts (auto) Absolute Nucleated RBC Nucleated RBC % (auto) Smear Tech's Comments PT INR APTT VBG pH 7.37 VBG pCO2 39 VBG pO2 54 VBG HCO3 23 VBG O2 Saturation 76.0 VBG Base Excess -1.2 Sodium Potassium Chloride Carbon Dioxide Anion Gap BUN Creatinine Estim Creat Clear Calc Estimated GFR POC Glucose Random Glucose Lactic Acid Lactic Acid Fup @ 2Hr 0.8 Calcium Magnesium Total Bilirubin Direct Bilirubin AST ALT Alkaline Phosphatase Ammonia Total Creatine Kinase Troponin I High Sens Total Protein Albumin Lipase Urine Color Urine Appearance Urine pH Ur Specific [place] Urine Protein Urine Glucose (UA) Urine Ketones Urine Blood Urine Nitrite Ur Leukocyte Esterase Urine Opiates Screen Acetaminophen Ur Barbiturates Screen Ur Phencyclidine Scrn Ur Amphetamines Screen U Benzodiazepines Scrn Urine Cocaine Screen U Marijuana (THC) Screen Ethyl Alcohol Acetone, Qual COVID-19 ([facility]) Negative [employer] See Note 12/01/20 12/01/20 12/01/20 20:53 20:59 20:59 WBC RBC Hgb Hct MCV MCH MCHC RDW Plt Count MPV Immature Gran % (Auto) Neut % (Auto) Lymph % (Auto) Young % (Auto) Eos % (Auto) Baso % (Auto) Lymph # (Auto) Young # (Auto) Eos # (Auto) Baso # (Auto) Abs Immat Gran (auto) Absolute Neuts (auto) Absolute Nucleated RBC Nucleated RBC % (auto) Smear Tech's Comments PT INR APTT VBG pH VBG pCO2 VBG pO2 VBG HCO3 VBG O2 Saturation VBG Base Excess Sodium Potassium Chloride Carbon Dioxide Anion Gap BUN Creatinine Estim Creat Clear Calc Estimated GFR POC Glucose 122 H Random Glucose Lactic Acid Lactic Acid Fup @ 2Hr Calcium Magnesium Total Bilirubin Direct Bilirubin AST ALT Alkaline Phosphatase Ammonia Total Creatine Kinase Troponin I High Sens Total Protein Albumin Lipase Urine Color YELLOW Urine Appearance CLEAR Urine pH 6.0 Ur Specific [place] 1.025 Urine Protein NEG Urine Glucose (UA) NEG Urine Ketones 40 Urine Blood NEG Urine Nitrite NEG Ur Leukocyte Esterase NEG Urine Opiates Screen Not Detected Acetaminophen Ur Barbiturates Screen Not Detected Ur Phencyclidine Scrn Not Detected Ur Amphetamines Screen Not Detected U Benzodiazepines Scrn Not Detected Urine Cocaine Screen Not Detected U Marijuana (THC) Screen POSITIVE H Ethyl Alcohol Acetone, Qual COVID-19 ([facility]) COVID-19 Clin [facility] 12/02/20 12/02/20 07:10 07:10 WBC 10.3 RBC 4.38 L Hgb 8.5 L Hct 30.2 L MCV 68.9 L MCH 19.4 L MCHC 28.1 L RDW 19.9 H Plt Count 237 MPV Not Reportable Immature Gran % (Auto) Neut % (Auto) Lymph % (Auto) Young % (Auto) Eos % (Auto) Baso % (Auto) Lymph # (Auto) Young # (Auto) Eos # (Auto) Baso # (Auto) Abs Immat Gran (auto) Absolute Neuts (auto) Absolute Nucleated RBC 0.000 Nucleated RBC % (auto) 0.0 Smear Tech's Comments PT INR APTT VBG pH VBG pCO2 VBG pO2 VBG HCO3 VBG O2 Saturation VBG Base Excess Sodium 140 Potassium 3.7 Chloride 106 Carbon Dioxide 23 Anion Gap 15 BUN 10 Creatinine 0.92 Estim Creat Clear Calc 96.7 Estimated GFR > 60 POC Glucose Random Glucose 157 H Lactic Acid Lactic Acid Fup @ 2Hr Calcium 9.1 D Magnesium Total Bilirubin Direct Bilirubin AST ALT Alkaline Phosphatase Ammonia Total Creatine Kinase Troponin I High Sens Total Protein Albumin Lipase Urine Color Urine Appearance Urine pH Ur Specific [place] Urine Protein Urine Glucose (UA) Urine Ketones Urine Blood Urine Nitrite Ur Leukocyte Esterase Urine Opiates Screen Acetaminophen Ur Barbiturates Screen Ur Phencyclidine Scrn Ur Amphetamines Screen U Benzodiazepines Scrn Urine Cocaine Screen U Marijuana (THC) Screen Ethyl Alcohol Acetone, Qual COVID-19 ([facility]) COVID-19 Clin Com Quality Stroke Does the patient have a stroke diagnosis?: Yes Reason for No Anti-thrombotic by Day Two: N/A - Med Ordered VTE Prior VTE?: Yes VTE Risk Level:: Medical - moderate - high VTE Device Contraindication: N/A - Device Ordered VTE Drug Contraindication: N/A - Med Ordered Assessment and Plan (1) Acidosis, lactic: Status: Acute (2) RASTA (acute kidney injury): Status: Acute (3) AMS (altered mental status): Status: Acute (4) Atypical pneumonia: Status: Acute Assessment and Plan: 1. Toxic metabolic encephalopathy: Probably multifactorial including RASTA, hypomagnesemia, question of pneumonia Seems similar antibiotics including ceftriaxone and azithromycin day2, repleting electrolytes aggressively. 2. Falls/question of syncope Admit the patient to tele Patient last stress test was in 2019 which was fine , ef was 60% orthostasis signs added PT evaluation Seen by neuro-thought to be multifactorial issue secondary to multiple infarct , marijuana and alcohol use 3. Lactic acidosis: Probably related to metformin, hydrated and resolved Hold metformin for now .4. Multifocal pneumonia: Mild leukocytosis has cough but no fever Seems more like a typical type pneumonia so we will continue azithromycin hold off ceftriaxone. Continue to monitor 5. RASTA: Continue to hydration Monitors BMP 6. History of DVT and PE: Continue Xarelto 7. dm: Hold metformin Continue sliding scale coverage. 8. Microcytic anemia: Did patient does not give much history of bleeding but but poor historian Will check anemia workup and occult blood Last culture blood in October 2018 was negative.
[2020-12-02] MEDS: Aspirin 81 MG TAB.CHEW PO (09:20)
[2020-12-02] MEDS: Magnesium Oxide 400 MG TABLET PO ×2 (09:20→22:08)
[2020-12-02] MEDS: Metoprolol Tartrate 12.5 MG HALFTAB PO ×2 (09:20→22:08)
[2020-12-02] MEDS: amLODIPine Besylate 10 MG TABLET PO (09:20)
[2020-12-02] MEDS: Cholecalciferol (Vitamin D3) 25 MCG TABLET 125 MCG PO (09:21)
[2020-12-02] MEDS: 0.9 % Sodium Chloride Flush 3 ML SYRINGE IVFLUSH ×2 (09:22→16:19)
--- NOTE | 2020-12-02 09:26 | PC.NURSE ---
Swallow eval re-assessed and pt passed. AM meds given. 3 medications not available in pyxis. Will inform receiving RN. Attempting to call report at this time. Pt is comfortable and VSS. IVF stopped per .
[2020-12-02 10:04] VITALS: BP 133/65; PULSE 86; O2SAT 95
[2020-12-02 10:31] VITALS: BP 139/63; PULSE 79; RESP 18; TEMP 36.1; O2SAT 99
[2020-12-02 11:04] LABS: Glucose, Whole Blood 139 mg/dL (60-115)
--- NOTE | 2020-12-02 11:05 | P.CNNE_ITS ---
History of Present Illness Data of Consult Service Date: 12/02/20 Primary Care Provider: Benito Fabian MD 60 years old man I was asked to see for falling. He hospital with unsteadiness and falls there was no complaint of any headache neck pain or back pain or bowel bladder difficulty the numbness seizures. There was no alteration of conscious multi pre there was no evidence of any seizure-like episode. Review of Systems Review of Systems: No recent cold or flu-like illness or trauma PMFSH Past Medical History Medical History Alcohol abuse CHF (congestive heart failure) COVID-19 Diabetes DVT (deep venous thrombosis) Gout HCV (hepatitis C virus) HLD (hyperlipidemia) HTN (hypertension) Neuropathy Pneumonia PVD (peripheral vascular disease) Tobacco dependence Family History Family history: reviewed and not pertinent Surgical History Surgical History S/P femoropopliteal bypass surgery Social History Social History Household Members: Spouse Housing: Apartment Do you presently have visiting nurse or other home services: Yes (superintendent transmission) Alcohol intake: former Patient Tobacco Use Status: Current everyday Tobacco user Cigarettes Per Day: 2 Years Smoked: 4 Use of substances other than those prescribed or required for medical reasons: Yes Advance Directives: Yes Advance Directives Information Provided: Yes Advance Directives on File: No service: No Current occupational status: unemployed Meds Allergies Allergy/AdvReac Type Severity Reaction Status Date / Time No Known Allergies Allergy Verified 12/01/20 13:21 [No Known Allergies*] Active Medications: Current Medications Generic Name Dose Route Start Last Admin Trade Name Freq PRN Reason Stop Dose Admin Amlodipine Besylate 10 mg 12/02/20 09:00 12/02/20 09:20 Amlodipine Besylate 10 Mg Tablet PO 10 mg DAILY [facility] Administration Protocol Aspirin 81 mg 12/02/20 09:00 12/02/20 09:20 Aspirin 81 Mg Tab.Chew PO 81 mg DAILY [facility] Administration Ceftriaxone Sodium 1 gm/ 50 mls @ 100 mls/hr 12/02/20 15:00 Sodium Chloride IV Q24H [facility] Insulin Human Lispro 0 unit 12/01/20 21:00 12/02/20 08:46 Insulin Lispro 100 Unit/Ml 3 Ml Vial SUBCUT Not Given QIDACHS [facility] Protocol Magnesium Oxide 400 mg 12/01/20 21:00 12/02/20 09:20 Magnesium Oxide 400 Mg Tablet PO 400 mg BID [facility] Administration Metoprolol Tartrate 12.5 mg 12/01/20 21:00 12/02/20 09:20 Metoprolol Tartrate 12.5 Mg Halftab PO 12.5 mg BID [facility] Administration Protocol Omeprazole 20 mg 12/02/20 06:30 12/02/20 08:47 Omeprazole 20 Mg Capsule.Dr PO Not Given DAILY@0630 [facility] Paroxetine HCl 30 mg 12/02/20 09:00 Paroxetine Hcl 30 Mg Tablet PO DAILY [facility] Pharmacy Consult 1 each 12/01/20 13:44 Consult Rx Perform Med Rec MISCELLANE ONCE PRN Consult order Pregabalin 150 mg 12/01/20 21:00 12/01/20 22:08 Pregabalin 150 Mg Capsule PO Not Given BID [facility] Rivaroxaban 20 mg 12/02/20 09:00 Rivaroxaban 20 Mg Tablet PO DAILY [facility] Sodium Chloride 3 ml 12/02/20 00:00 12/02/20 09:22 0.9 % Sodium Chloride Flush 3 Ml Syringe IVFLUSH 3 ml QSHIFT [facility] Administration Vitamin D 125 mcg 12/02/20 09:00 12/02/20 09:21 Cholecalciferol (Vitamin D3) 25 Mcg Tablet PO 125 mcg DAILY [facility] Administration Home Medications Medication Instructions Recorded Confirmed Last Taken Type amitriptyline 1 tab PO BEDTIME 12/01/20 12/01/20 Unknown History amlodipine 1 tab PO DAILY 12/01/20 12/01/20 Unknown History aspirin 1 tab PO DAILY 12/01/20 12/01/20 Unknown History cholecalciferol (vitamin D3) 1 tab PO DAILY 12/01/20 12/01/20 Unknown History [Vitamin D3] lancets [FreeStyle Lancets] 12/01/20 12/01/20 Unknown History lisinopril 1 tab PO DAILY 12/01/20 12/01/20 Unknown History metformin 1 tab PO BID 12/01/20 12/01/20 Unknown History metoprolol tartrate 0.5 tab PO BID 12/01/20 12/01/20 Unknown History omeprazole 1 cap PO DAILY 12/01/20 12/01/20 Unknown History paroxetine HCl 1 tab PO DAILY 12/01/20 12/01/20 Unknown History pregabalin 1 cap PO BID 12/01/20 12/01/20 Unknown History rivaroxaban [Xarelto] 1 tab PO DAILY 12/01/20 12/01/20 Unknown History Physical Exam Vital Signs: Vital Signs: Last Vital Signs Temp 97 F 12/02/20 10:31 Pulse 79 12/02/20 10:31 Resp 18 12/02/20 10:31 BP 139/63 12/02/20 10:31 Pulse Ox 99 12/02/20 10:31 Body Mass Index 28.7 He was alert and awake with normal spontaneity of speech fluency comprehension and affect. Pupils were equal and reactive to light and extraocular muscles were intact. Visual palma are full to threat. Face was symmetrical. There was no pronator drift. [id number] testing was okay. Deep tendon reflexes were trace to absent with flexor plantars. He was able to get up and walk in a cautious gait. Speech was normal. Results Labs CBC & Chem 7: 12/02/20 07:10 12/02/20 07:10 Labs: Short CBC 12/01/20 12/02/20 Range/Units 13:57 07:10 WBC 11.1 H 10.3 (4.8-10.8) X10*3/uL Hgb 9.1 L 8.5 L (14.0-18.0) g/dl Hct 31.0 L 30.2 L (42-52) % Plt Count 260 237 (160-400) X10*3/uL BMP 12/01/20 12/02/20 13:57 07:10 Sodium 142 140 Potassium 3.9 3.7 Chloride 106 106 Carbon Dioxide 24 23 BUN 14 10 Creatinine 1.42 H 0.92 Calcium 9.8 D 9.1 D Cardiac Enzymes 12/01/20 Range/Units 13:57 Total Creatine Kinase 268 H D (38-174) U/L Liver Function 12/01/20 Range/Units 13:57 Total Bilirubin 0.6 (0.0-1.0) mg/dL Direct Bilirubin 0.3 (0.0-0.5) mg/dL AST 19 (5-37) U/L ALT 15 (0-40) U/L Alkaline Phosphatase 78 (39-117) U/L Albumin 4.5 (3.5-5.0) g/dL Urine 12/01/20 Range/Units 20:59 Urine Color YELLOW Urine Appearance CLEAR Urine pH 6.0 (5.0-8.0) Ur Specific [place] 1.025 (1.005-1.025) Urine Protein NEG (NEG-TRACE) MG/DL Urine Glucose (UA) NEG (NEG) MG/DL His noncontrast head CT revealed few bilateral chronic lacunar type ischemic infarctions in basal ganglia area and minimal diffuse cerebral atrophy. Assessment and Plan (1) Multifactorial gait disorder: Status: Acute 60 years old man with multiple bilateral basal ganglia small ischemic infarctions resulting in unsteadiness of gait, anemia and marijuana abuse. As far as unsteadiness and falling was concerned, it was probably combination of anemia and drugs. He should be advised to avoid alcohol marijuana or any other drug abuse. In the EMG nerve conduction study of legs can be arranged as an outpatient to rule out any possibility of significant neuropathy contributing to his problem. Procedures Date of Service Date of Service: 12/02/20
[2020-12-02 11:16] LABS: Hematocrit 30.6 % (42-52); Hemoglobin 8.8 g/dl (14.0-18.0)
--- NOTE | 2020-12-02 11:43 | MHC.CM.PN ---
IMM 12/02/20 Male 60 DX S/P fall syncope, paresh, hypomag. He lives alone, with assist from [facility] and [employer] ATTENDANT. He requires assist ADLS. Pt amb with a walker. DP resume [facility] services. He will need transport via [facility]. CM will follow to assess for change in discharge needs.
[2020-12-02] MEDS: Pregabalin 150 MG CAPSULE PO ×2 (12:30→22:08)
[2020-12-02] MEDS: Rivaroxaban 20 MG TABLET PO (12:30)
[2020-12-02] MEDS: PARoxetine HCL 30 MG TABLET PO (12:47)
--- NOTE | 2020-12-02 13:01 | MHC.SL.SWA ---
Speech Pathologist Impression: Risk of Aspiration Risk of Aspiration Due to: History of Pneumonia Poor PO Intake Reduced Cognition Dysphasia Diet Status: Upgrade Liquid Consistency and Strategies for Safe Swallow: Liquid Intake Recommendation: Thin Liquid Intake Strategies: Small Sips Solid Food Consistency: Dietary Recommendations: Regular Additional Modifications to Solid Foods: Recommend regular solids. Patient displays mild to moderate lingual residue, but complete clearance with strategies. Patient may require verbal reminders to utilize strategies for oral clearance: double swallow, liquid wash, alternate bite of food with sip of liquid. Oral Medication Intake: Whole with Liquid Compensatory Strategies and Precautions to be Taken for Safe Swallow: Sitting Upright (90 deg) Double Swallow Small Bites and Sips Alternate Liquids/Solids Rate of Ingestion Change Oral Check Supervision While Eating and Drinking for Safe Swallow: Total Supervision (1:1) Foods to Avoid: Swallowing Recommended Treatments: Compens. Strategy Educat. Recommendation for Speech: Inpatient Speech Therapy Modified Barium Swallow Study - Inpatient Modified Barium Swallow Study - Outpatient Comment: Patient displays mild to moderate oral residue when eating harder solids, but complete oral clearance when implementing strategies. Recommend total supervision as patient may require reminders to utilize strategies for oral clearance: liquid wash, double swallow, alternate bite of food with sip of liquid. TOP BOTTOM ATTACHING MACHINE OPERATOR will continue to follow. Given concern for right side pneumonia and history of dysphagia, patient may benefit from MBSS done either during inpatient stay or in outpatient setting if concern persists to rule in/out silent aspiration. Polymerization Supervisor Clinican/Clinical Fellow: No Supervisory Statement: I have reviewed and agree with the student/clinical fellow's documentation: N/A Speech Language Pathologist: Savana Feng M.A., CCC-TOP BOTTOM ATTACHING MACHINE OPERATOR
[2020-12-02 15:24] VITALS: BP 117/71; PULSE 74; RESP 19; TEMP 36.6; O2SAT 100
[2020-12-02] MEDS: cefTRIAXone sodium 1 GM in 0.9 % Sodium Chloride 50 ML IV (16:19)
[2020-12-02 16:26] LABS: Glucose, Whole Blood 110 mg/dL (60-115)
[2020-12-02 19:05] VITALS: BP 129/69; PULSE 77; RESP 19; TEMP 37.3; O2SAT 98
[2020-12-02 20:35] LABS: Glucose, Whole Blood 123 mg/dL (60-115)
[2020-12-03] VITALS (11 sets, daily range): BP systolic 100–136; BP diastolic 58–78; PULSE 70–102; RESP 15–19; TEMP 36.1–37.2; O2SAT 92–99
[2020-12-03] MEDS: Omeprazole 20 MG CAPSULE.DR PO (06:33)
[2020-12-03 07:03] LABS: Glucose, Whole Blood 143 mg/dL (60-115)
--- NOTE | 2020-12-03 08:22 | HO.PM.IMPN ---
Subjective Subjective Date of Service: 12/03/20 Interval History: still somewhat confused, please come in? 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 Physical Exam Vital Signs: Vital Signs: Last Vital Signs Temp 98.6 F 12/03/20 07:21 Pulse 80 12/03/20 07:21 Resp 18 12/03/20 07:21 BP 133/75 12/03/20 07:21 Pulse Ox 96 12/03/20 07:21 Body Mass Index 28.7 Const: oriented to person, oriented to place and confusion Chest: Chest palpation & inspection: normal inspection of the chest Resp: Effort & Inspection: normal respiratory effort and no respiratory distress Cardio: Rate: regular rate Rhythm: regular rhythm GI: Palpation (GI): Soft to palpation and nontender Skin: General skin exam: no rashes or lesions noted Neuro: General: oriented to person, oriented to place and confusion Cranial nerves: Yes CN's II-XII intact bilaterally and Yes Bilaterally intact EOM present Objective Data Current Medications Generic Name Dose Route Start Last Admin Trade Name Joe PRN Reason Stop Dose Admin Amlodipine Besylate 10 mg 12/02/20 09:00 12/02/20 09:20 Amlodipine Besylate 10 Mg Tablet PO 10 mg DAILY MARYCARMEN Administration Protocol Aspirin 81 mg 12/02/20 09:00 12/02/20 09:20 Aspirin 81 Mg Tab.Chew PO 81 mg DAILY MARYCARMEN Administration Ceftriaxone Sodium 1 gm/ 50 mls @ 100 mls/hr 12/02/20 15:00 12/02/20 17:04 Sodium Chloride IV Infused Q24H MARYCARMEN Infusion Insulin Human Lispro 0 unit 12/01/20 21:00 12/03/20 08:10 Insulin Lispro 100 Unit/Ml 3 Ml Vial SUBCUT Not Given QIDACHS [facility] Protocol Magnesium Oxide 400 mg 12/01/20 21:00 12/02/20 22:08 Magnesium Oxide 400 Mg Tablet PO 400 mg BID MARYCARMEN Administration Metoprolol Tartrate 12.5 mg 12/01/20 21:00 12/02/20 22:08 Metoprolol Tartrate 12.5 Mg Halftab PO 12.5 mg BID MARYCARMEN Administration Protocol Omeprazole 20 mg 12/02/20 06:30 12/03/20 06:33 Omeprazole 20 Mg Capsule.Dr PO 20 mg DAILY@0630 MARYCARMEN Administration Paroxetine HCl 30 mg 12/02/20 09:00 12/02/20 12:47 Paroxetine Hcl 30 Mg Tablet PO 30 mg DAILY MARYCARMEN Administration Pharmacy Consult 1 each 12/01/20 13:44 Consult Rx Perform Med Rec MISCELLANE ONCE PRN Consult order Pregabalin 150 mg 12/01/20 21:00 12/02/20 22:08 Pregabalin 150 Mg Capsule PO 150 mg BID MARYCARMEN Administration Rivaroxaban 20 mg 12/02/20 09:00 12/02/20 12:30 Rivaroxaban 20 Mg Tablet PO 20 mg DAILY MARYCARMEN Administration Sodium Chloride 3 ml 12/02/20 00:00 12/03/20 01:17 0.9 % Sodium Chloride Flush 3 Ml Syringe IVFLUSH Not Given QSHIFT [facility] Vitamin D 125 mcg 12/02/20 09:00 12/02/20 09:21 Cholecalciferol (Vitamin D3) 25 Mcg Tablet PO 125 mcg DAILY MARYCARMEN Administration Labs CBC & Chem 7: 12/03/20 09:33 12/02/20 07:10 Labs: Laboratory Results - last 24 hr 12/02/20 12/02/20 12/02/20 10:58 11:00 16:22 Hgb 8.8 L Hct 30.6 L POC Glucose 139 H 110 12/02/20 12/03/20 20:27 06:58 Hgb Hct POC Glucose 123 H 143 H Microbiology Microbiology Results: Microbiology 12/01/20 14:39 Blood Culture - Preliminary Blood - Venous No growth after 24 hours. 12/01/20 14:36 Blood Culture - Preliminary Blood - Venous No growth after 24 hours. Quality Stroke Does the patient have a stroke diagnosis?: Yes Reason for No Anti-thrombotic by Day Two: N/A - Med Ordered VTE Prior VTE?: Yes VTE Risk Level:: Medical - moderate - high VTE Device Contraindication: N/A - Device Ordered VTE Drug Contraindication: N/A - Med Ordered Assessment and Plan (1) Multifactorial gait disorder: Status: Acute (2) RASTA (acute kidney injury): Status: Acute Assessment and Plan: 1. Toxic metabolic encephalopathy: Probably multifactorial including RASTA, hypomagnesemia, question of pneumonia Seems confused , has hallucination ? may be sundown /due to hospitalisation antibiotics including azithromycin day2, hold off ceftriaxone, repleting electrolytes aggressively. 2. Falls/question of syncope Admit the patient to tele Patient last stress test was in 2019 which was fine , ef was 60% orthostasis signs neg PT evaluation Seen by neuro-thought to be multifactorial issue secondary to multiple infarct , marijuana and alcohol use 3. Lactic acidosis: Probably related to metformin, hydrated and resolved Hold metformin for now .4. Multifocal pneumonia: Mild leukocytosis has cough but no fever Seems more like a typical type pneumonia so we will continue azithromycin hold off ceftriaxone. Continue to monitor 5. RASTA: improved with hydration Monitors BMP 6. History of DVT and PE: Continue Xarelto 7. dm: Hold metformin Continue sliding scale coverage. 8. Microcytic anemia: Did patient does not give much history of bleeding but but poor historian added check anemia workup and occult blood needs to send Last occult blood in October 2018 was negative. h/h is 8.6 /29.5 range Hematocrit 29.5 probably goes for hemoglobin near 10 range Continue to monitor CBC
[2020-12-03 09:58] LABS: Hemoglobin 8.6 g/dl (14.0-18.0)
[2020-12-03 10:00] LABS: Hematocrit 29.5 % (42-52)
[2020-12-03] MEDS: PARoxetine HCL 30 MG TABLET PO (10:14)
[2020-12-03] MEDS: Aspirin 81 MG TAB.CHEW PO (10:14)
[2020-12-03] MEDS: amLODIPine Besylate 10 MG TABLET PO (10:14)
[2020-12-03] MEDS: Pregabalin 150 MG CAPSULE PO ×2 (10:14→21:29)
[2020-12-03] MEDS: Magnesium Oxide 400 MG TABLET PO ×2 (10:14→21:29)
[2020-12-03] MEDS: Metoprolol Tartrate 12.5 MG HALFTAB PO ×2 (10:15→21:29)
[2020-12-03] MEDS: Cholecalciferol (Vitamin D3) 25 MCG TABLET 125 MCG PO (10:15)
[2020-12-03] MEDS: Rivaroxaban 20 MG TABLET PO (10:15)
[2020-12-03] MEDS: 0.9 % Sodium Chloride Flush 3 ML SYRINGE IVFLUSH ×3 (10:15→21:29)
--- NOTE | 2020-12-03 10:47 | MHC.SL.DTX ---
Pre-Treatment Diet: REGULAR SOLIDS THIN LIQUIDS CRUSHED OR WHOLE IN PUREE Subjective: Changes made to current diet?: Yes Dysphasia Diet Status: Upgrade Liquid Consistency and Strategies: Liquid Intake Recommendation: Thin Compensatory Strategies for Safe Swallow: Small Sips Double Swallow Compensatory Strategies for Safe Swallow(b): Sitting Upright (90 deg) Double Swallow Liquids from Cup Small Bites and Sips Alternate Liquids/Solids Oral Check Solid Food Consistency: Dietary Recommendations: Regular Additional Modifications to Solids: Recommend regular solids. Patient displays mild to moderate lingual residue, but complete clearance with strategies. Patient may require verbal reminders to utilize strategies for oral clearance: double swallow, liquid wash, alternate bite of food with sip of liquid. Oral Medication Intake: Whole with Liquid Strategies and Precautions to be Taken for Safe Swallow: Compensatory Swallowing Status: Sitting Upright (90 deg) Double Swallow Liquids from Cup Small Bites and Sips Alternate Liquids/Solids Oral Check Supervision While Eating and/Drinking: Total Supervision (1:1) Foods to Avoid: Swallowing Recommended Treatments: Compens. Strategy Educat. Level of Impact on: Daily activities: None Interpersonal interactions: None Education: None Employment: None Community: None Prognosis for Improvement: Fair Recommendation for Speech: Inpatient Speech Therapy Modified Barium Swallow Study - Inpatient Modified Barium Swallow Study - Outpatient Comment: Patient displays mild to moderate oral residue when eating harder solids, but complete oral clearance when implementing strategies. Recommend total supervision as patient may require reminders to utilize strategies for oral clearance: liquid wash, double swallow, alternate bite of food with sip of liquid. 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 Given concern for right side pneumonia and history of dysphagia, patient may benefit from MBSS done either during inpatient stay or in outpatient setting if concern persists to rule in/out silent aspiration. Frequency/Duration: Date Range for Service Req: Timeline to reassess: Additional Comments: Treatment: Pt was seen this morning for dysphagia follow up. Pt accepted limited PO trials, as he stated he was no hungry. Per RN, pt had breakfast without difficulty. Pt tolerated thin liquids via cup sip with no overt s/s aspiration. When given a christine cracker, pt was noted to talk while chewing, He required verbal prompts to continue chewing and not talk while he was eating. Moderate lingual residue noted. With cue to swallow again, oral residue significantly decreased. With liquid wash, total oral clearance was obtained. Pt continues to require verbal cues to double swallow, alternate solids with liquids, and wash food down with liquid following bite. Assessment: Photo Specialist Clinican/Clinical Fellow: No Supervisory Statement: I have reviewed and agree with the student/clinical fellow's documentation: N/A Speech Language Pathologist: Sharri Navas M.A. [facility]EEP[facility] [employer]
[2020-12-03 11:03] LABS: Glucose, Whole Blood 134 mg/dL (60-115)
[2020-12-03 12:27] LABS: Iron 22 mcg/dL (45-160); Percent Iron Saturation 6 % (15-50); Total Iron Binding Capacity 360 mcg/dL (228-428); Unsaturated Iron Binding 338 ug/dL
[2020-12-03 13:09] LABS: Ferritin 63 ng/mL (20-250)
[2020-12-03] MEDS: cefTRIAXone sodium 1 GM in 0.9 % Sodium Chloride 50 ML IV (14:18)
[2020-12-03] MEDS: polyethylene glycoL 3350 17 GM POWD.PACK PO (14:18)
[2020-12-03] MEDS: Azithromycin 500 MG in 0.9 % Sodium Chloride 250 ML 125 MG IV (16:07)
[2020-12-03 16:10] LABS: Glucose, Whole Blood 132 mg/dL (60-115)
[2020-12-03 20:43] LABS: Glucose, Whole Blood 127 mg/dL (60-115)
[2020-12-04 03:28] VITALS: BP 118/66; PULSE 70; RESP 16; TEMP 36.8; O2SAT 92
[2020-12-04] MEDS: Omeprazole 20 MG CAPSULE.DR PO (05:21)
[2020-12-04 06:24] LABS: PLT ABN DIST 1
[2020-12-04 06:26] LABS: Hematocrit 27.8 % (42-52); Mean Corpuscular HGB Conc 28.8 g/dl (31.0-36.0); Mean Corpuscular Hemoglobin 19.7 pg (27.0-33.0); Mean Corpuscular Volume 68.3 fL (80-98); Platelet Count 237 X10*3/uL (160-400); Red Blood Count 4.07 X10*6/uL (4.60-5.80); Red Cell Distribution Width 20.1 % (11.0-16.0); White Blood Count 10.5 X10*3/uL (4.8-10.8)
[2020-12-04 06:56] LABS: Anion Gap 14 (12-20); Blood Urea Nitrogen 13 mg/dL (9-16); Carbon Dioxide 24 mmol/L (22-29); Chloride 107 mmol/L (96-108); Creatinine Clr Calc Pharmacy 88.1; Estimated Glomerular Filt Rate > 60; Glucose Random 134 mg/dL (60-115); Potassium 4.1 mmol/L (3.3-5.1); Sodium 141 mmol/L (135-145)
[2020-12-04 07:14] LABS: Glucose, Whole Blood 158 mg/dL (60-115)
[2020-12-04 08:00] VITALS: BP 109/61; PULSE 84; RESP 20; TEMP 36.8; O2SAT 96
[2020-12-04] MEDS: Magnesium Oxide 400 MG TABLET PO (08:50)
[2020-12-04] MEDS: Rivaroxaban 20 MG TABLET PO (08:50)
[2020-12-04] MEDS: Cholecalciferol (Vitamin D3) 25 MCG TABLET 125 MCG PO (08:51)
[2020-12-04] MEDS: Metoprolol Tartrate 12.5 MG HALFTAB PO (08:52)
[2020-12-04] MEDS: Thiamine HCL 100 MG TABLET PO (08:52)
[2020-12-04] MEDS: 0.9 % Sodium Chloride Flush 3 ML SYRINGE IVFLUSH (08:52)
[2020-12-04] MEDS: Docusate Sodium 100 MG CAPSULE PO (08:52)
[2020-12-04] MEDS: Pregabalin 150 MG CAPSULE PO (08:52)
[2020-12-04] MEDS: Folic Acid 1 MG TABLET PO (08:52)
[2020-12-04] MEDS: Aspirin 81 MG TAB.CHEW PO (08:52)
[2020-12-04] MEDS: amLODIPine Besylate 10 MG TABLET PO (08:52)
[2020-12-04] MEDS: PARoxetine HCL 30 MG TABLET PO (08:52)
[2020-12-04 11:09] LABS: Glucose, Whole Blood 154 mg/dL (60-115)
[2020-12-04 11:23] VITALS: BP 119/69; PULSE 72; RESP 18; TEMP 36.4; O2SAT 96
--- NOTE | 2020-12-04 13:11 | P.DS_ITS ---
DS: Providers Provider Date of Service: 12/04/20 Date of admission: 12/01/20 17:38 Primary care physician: Benito Fabian MD Consults: 12/01/20 18:04 Consult to Neurology Routine Consulting Provider: [facility] Reason for consultation: syncope ,multiple falls Has provider been notified: No DS: Diagnosis Discharge Diagnosis (1) Multifactorial gait disorder: Status: Acute (2) RASTA (acute kidney injury): Status: Acute DS: Medications Discharge Medications Home Medications: Home Medications Medication Instructions Recorded Confirmed Xarelto 1 tab PO DAILY 12/01/20 12/01/20 amlodipine 1 tab PO DAILY 12/01/20 12/01/20 aspirin 1 tab PO DAILY 12/01/20 12/01/20 cholecalciferol (vitamin D3) 1 tab PO DAILY 12/01/20 12/01/20 [Vitamin D3] lancets [FreeStyle Lancets] 12/01/20 12/01/20 metformin 1 tab PO BID 12/01/20 12/01/20 metoprolol tartrate 0.5 tab PO BID 12/01/20 12/01/20 omeprazole 1 cap PO DAILY 12/01/20 12/01/20 paroxetine HCl 1 tab PO DAILY 12/01/20 12/01/20 pregabalin 1 cap PO BID 12/01/20 12/01/20 DS: Summary Hospital Course Hospital Course: patient was admitted for confusion and unsteady gait. he was evaluated by neuro who felt this was likely multifactorial, vascular dementia, toxic encephalopathy from alcohol and marijuana. patient was also noted to have lactic acodisos and rasta from dehydration. he was given IVF and rasta resolved. the ct chest findings appear to be chronic changes from covid, no clear bacterial pneumonia. he appears back at baseline and will be discharged home. Time Spent with Patient Time attestation: Total time spent providing and/or coordinating discharge services: Discharge coordination time: Greater than 30 minutes Quality: Stroke Does the patient have a stroke diagnosis?: No Physical Exam Vital Signs: Vital Signs: Last Vital Signs Temp 97.5 F 12/04/20 11:23 Pulse 72 12/04/20 11:23 Resp 18 12/04/20 11:23 BP 119/69 12/04/20 11:23 Pulse Ox 96 12/04/20 11:23 Body Mass Index 28.7 General: AO X 3, no acute distress Resp: CTA bilateral CVS: S1,S2,RRR GI: soft, non tender, non distended Neuro: motor grossly intact Psych: appropriate affect DS: Data Data Completed and Pending Labs on day of discharge: Laboratory Results - last 24 hr 12/03/20 12/03/20 12/04/20 16:06 20:40 05:15 WBC 10.5 RBC 4.07 L Hgb 8.0 L Hct 27.8 L MCV 68.3 L MCH 19.7 L MCHC 28.8 L RDW 20.1 H Plt Count 237 MPV Not Reportable Absolute Nucleated RBC 0.000 Nucleated RBC % (auto) 0.0 Sodium Potassium Chloride Carbon Dioxide Anion Gap BUN Creatinine Estim Creat Clear Calc Estimated GFR POC Glucose 132 H 127 H Random Glucose Calcium 12/04/20 12/04/20 12/04/20 05:15 07:11 10:47 WBC RBC Hgb Hct MCV MCH MCHC RDW Plt Count MPV Absolute Nucleated RBC Nucleated RBC % (auto) Sodium 141 Potassium 4.1 Chloride 107 Carbon Dioxide 24 Anion Gap 14 BUN 13 Creatinine 1.01 Estim Creat Clear Calc 88.1 Estimated GFR > 60 POC Glucose 158 H 154 H Random Glucose 134 H Calcium 9.0 Preliminary micro results at discharge 12/01/20 14:39 Blood Culture - Preliminary Blood - Venous No growth after 48 hours. 12/01/20 14:36 Blood Culture - Preliminary Blood - Venous No growth after 48 hours. Discharge Plan Discharge Patient Disposition: Home Health Service Discharge Diagnosis: rasta Referrals: Benito Fabian MD [Primary Care Provider] - 1 Week Discharge Medications: Continued metformin 500 mg tablet 1 tab PO BID RF: 0 amlodipine 10 mg tablet 1 tab PO DAILY RF: 0 paroxetine HCl 30 mg tablet 1 tab PO DAILY RF: 0 omeprazole 20 mg capsule,delayed release(DR/EC) 1 cap PO DAILY RF: 0 aspirin 81 mg tablet,chewable 1 tab PO DAILY RF: 0 metoprolol tartrate 25 mg tablet 0.5 tab PO BID RF: 0 pregabalin 150 mg capsule 1 cap PO BID RF: 0 cholecalciferol (vitamin D3) [Vitamin D3] 125 mcg (5,000 unit) tablet 1 tab PO DAILY RF: 0 Xarelto 20 mg tablet 1 tab PO DAILY RF: 0 (DME) lancets [FreeStyle Lancets] 28 gauge misc 1 lancet topical TID RF: 0 Discontinued amitriptyline 150 mg tablet 1 tab PO BEDTIME RF: 0 lisinopril 2.5 mg tablet 1 tab PO DAILY RF: 0 Discharge Orders: Discharge Order (Routine); Ordered 12/04/20 Ordered By: Toby Mccray Diet: advance to usual diet Activity on Discharge: As tolerated Stand Alone Forms: Patient Portal Discharge page Care Plan Goals: recvovery Health Concerns: falls Plan of Treatment: rehab at home, avoid drugs Assessment: see above
--- NOTE | 2020-12-04 13:25 | MHC.CM.PN ---
IMM 12/04/20 Male discharged today to home with family and CCA. Spoke with [facility]. Requested services resume tomorrow His Nephew will provide transportation. He will peanut picker at 7:30pm today.
[2020-12-04 15:13] VITALS: BP 106/68; PULSE 82; RESP 18; TEMP 36.6; O2SAT 94
[2020-12-04 16:02] LABS: Glucose, Whole Blood 135 mg/dL (60-115)
[2020-12-04 16:07] LABS: Folate 6.9 ng/mL (> or = 4.0); Vitamin B12 340 pg/mL (200-900)
== END 2020-12-04 19:19 | disposition home health service (06) | DRG 640 ==
LOC: HO.ED 16:28 → HO.EDOVER 17:52 → HO.IMC 12-02 07:35
PROVIDERS: Admitting Provider Internal Medicine; Emergency Provider Emergency Medicine; PCP Internal Medicine; Visit Provider Internal Medicine
DX: E86.0 Dehydration (principal); G92 Toxic encephalopathy; J18.9 Pneumonia, unspecified organism; N17.9 Acute kidney failure, unspecified; E87.2 Acidosis; D72.829 Elevated white blood cell count, unspecified; F01.50 Vascular dementia, unspecified severity, without behavioral disturbance, psychotic disturbance, mood disturbance, and anxiety; E11.9 Type 2 diabetes mellitus without complications; E83.42 Hypomagnesemia; R26.81 Unsteadiness on feet; Z86.718 Personal history of other venous thrombosis and embolism; Z20.822 Contact with and (suspected) exposure to COVID-19; Z79.82 Long term (current) use of aspirin; Z79.84 Long term (current) use of oral hypoglycemic drugs; Z79.01 Long term (current) use of anticoagulants; Z79.899 Other long term (current) drug therapy
CPT/HCPCS: 36415; 70450; 71250; 72125; 74176; 80048; 80076; 80143; 80307; 81003; 82009; 82077; 82140; 82550; 82607; 82728; 82746; 82803; 82947; 83540; 83605; 83690; 83735; 84484; 85014; 85018; 85025; 85027; 85610; 85730; 87040; 87635; 92610; 93005; 97116; 97162; 99285; J0456; J0696; J3475

== ENCOUNTER 2021-04-01 10:49 | Outpatient (REF) | payer OTHER, SELFPAY ==
[2021-04-01 13:15] LABS: Hematocrit 41.1 % (42.0-52.0); Hemoglobin 12.7 g/dl (14.0-18.0); Mean Corpuscular HGB Conc 30.9 g/dl (31.0-36.0); Mean Corpuscular Hemoglobin 22.9 pg (27.0-33.0); Mean Corpuscular Volume 74.2 fL (80.0-98.0); Platelet Count 300 X10*3/uL (160-400); Red Blood Count 5.54 X10*6/uL (4.60-5.80); Red Cell Distribution Width 24.9 % (11.0-16.0); White Blood Count 9.9 X10*3/uL (4.8-10.8)
[2021-04-01 13:41] LABS: Alanine Aminotransferase 23 U/L (0-40); Albumin Level 4.1 g/dL (3.5-5.0); Alkaline Phosphatase 70 U/L (39-117); Anion Gap 13 (12-20); Aspartate Amino Transferase 20 U/L (5-37); Bilirubin Total 0.3 mg/dL (0.0-1.0); Blood Urea Nitrogen 9 mg/dL (9-16); Calcium 9.9 mg/dL (8.4-10.2); Carbon Dioxide 24 mmol/L (22-29); Chloride 107 mmol/L (96-108); Estimated Glomerular Filt Rate > 60; Glucose Random 97 mg/dL (60-115); Potassium 4.3 mmol/L (3.3-5.1); Sodium 140 mmol/L (135-145); Total Protein 7.4 g/dL (6.5-8.0)
== END 2021-04-01 10:50 | disposition home or self-care (01) ==
LOC: HO.LAB 10:49
PROVIDERS: PCP Internal Medicine; Referring Provider Nurse Practitioner Primary Care; Visit Provider Nurse Practitioner Family
DX: D64.9 Anemia, unspecified (principal); F17.210 Nicotine dependence, cigarettes, uncomplicated; Z12.11 Encounter for screening for malignant neoplasm of colon
CPT/HCPCS: 36415; 80053; 85027; 99202

== ENCOUNTER → 2021-06-03 10:53 | Outpatient (BNVA) | payer OTHER, SELFPAY | PROVIDERS: PCP Internal Medicine; Referring Provider Internal Medicine; Visit Provider Nurse Practitioner Family | DX: Z12.11 Encounter for screening for malignant neoplasm of colon (principal); D64.9 Anemia, unspecified; K21.9 Gastro-esophageal reflux disease without esophagitis | CPT/HCPCS: 99212 ==

== ENCOUNTER 2022-03-25 08:17 | Day surgery (SDC) | payer OTHER, SELFPAY ==
[2022-03-19 16:00] VITALS: BMI 27.8
[2022-03-25] VITALS (8 sets, daily range): BP systolic 111–156; BP diastolic 63–86; PULSE 42–58; RESP 16; TEMP 36.5–37.1; O2SAT 98–100
--- NOTE | 2022-03-25 09:24 | MHC.SHP ---
Pre-Procedural Eval Section A Date of Service: 03/25/22 Section B Chief Complaint: screening,anemia,reflux Relevant Family History (Specify if Yes): No Relevant Social History: Tobacco Use Present Medications: see Short Stay Collaborative assessment Medical History: Significant History (Alcohol abuse CHF (congestive heart failure) COVID-19 Diabetes DVT (deep venous thrombosis) Gout HCV (hepatitis C virus) HLD (hyperlipidemia) HTN (hypertension) Neuropathy Pneumonia PVD (peripheral vascular disease) Tobacco dependence) History of Previous Operations: Relevant previous surgery/procedure and date(s) (S/P femoropopliteal bypass surgery) Allergies: Allergies Allergy/AdvReac Type Severity Reaction Status Date / Time No Known Allergies Allergy Verified 06/03/21 10:59 [No Known Allergies*] Review of Systems Sugical H&P ROS: Negative: Constitution, Cardiovascular, Respiratory, Neurological, Psychiatric, Hem-Onc, Allergic/Immunologic, Gastrointestinal, Genitourinary, Musculoskeletal, Integumentary, Endocrine and Eyes/Ears/Nose/Throat Exam Surgical H&P Exam: Normal: HEENT, Normal: Heart, Normal: Lungs, Normal: Extremities, Normal: Abdomen, Normal: Skin and Normal: Neurological Plan Diagnosis/Plan: Unchanged I have reviewed the history and physical and performed a pertinent physical examination on my patient. No changes have occurred unless specified.
[2022-03-25 09:26] LABS: Glucose, Whole Blood 128 mg/dL (60-115)
--- NOTE | 2022-03-25 09:40 | HO.ANESPROP2 ---
[facility] [place] Active Problems Active Problems: All Active Problems (Updated 12/02/20 @ 11:07 by Devan Ramirez MD) Multifactorial gait disorder (Acute) RASTA (acute kidney injury) (Acute) Acidosis, lactic (Acute) AMS (altered mental status) (Acute) Atypical pneumonia (Acute) Past Medical History Medical History Alcohol abuse CHF (congestive heart failure) COVID-19 Diabetes DVT (deep venous thrombosis) Gout HCV (hepatitis C virus) HLD (hyperlipidemia) HTN (hypertension) Neuropathy Pneumonia PVD (peripheral vascular disease) Tobacco dependence Functional capacity: independent ambulation Family History Family history of problems with anesthesia: No Surgical History Surgical History S/P femoropopliteal bypass surgery History of Problems with Anesthesia: No Social History Social History Household Members: Spouse Housing: Apartment Do you presently have visiting nurse or other home services: Yes ([employer] OPER[employer]) Alcohol intake: former Patient Tobacco Use Status: Current everyday Tobacco user Tobacco use type: Cigarette Cigarettes Per Day: 6 Years Smoked: 4 Use of substances other than those prescribed or required for medical reasons: Yes Substance Use Type: Marijuana Substance Use Frequency: Daily Are you DNR?: No Advance Directives: Yes Advance Directives on File: Yes Advance Directives Date on File: 12/02/20 service: No Current occupational status: unemployed Meds Allergies Allergy/AdvReac Type Severity Reaction Status Date / Time No Known Allergies Allergy Verified 06/03/21 10:59 [No Known Allergies*] Home Medications Medication Instructions Recorded Confirmed Last Taken Type amlodipine 10 mg tablet 1 tab PO DAILY 12/01/20 12/01/20 Unknown History aspirin 81 mg chewable tablet 1 tab PO DAILY 12/01/20 12/01/20 Unknown History cholecalciferol (vitamin D3) 125 1 tab PO DAILY 12/01/20 12/01/20 Unknown History mcg (5,000 unit) tablet (Vitamin D3) lancets 28 gauge (FreeStyle 12/01/20 12/01/20 Unknown History Lancets) metformin 500 mg tablet 1 tab PO BID 12/01/20 12/01/20 Unknown History metoprolol tartrate 25 mg tablet 0.5 tab PO BID 12/01/20 12/01/20 Unknown History omeprazole 20 mg capsule,delayed 1 cap PO DAILY 12/01/20 12/01/20 Unknown History release paroxetine HCl 30 mg tablet 1 tab PO DAILY 12/01/20 12/01/20 Unknown History pregabalin 150 mg capsule 1 cap PO BID 12/01/20 12/01/20 Unknown History rivaroxaban 20 mg tablet (Xarelto) 1 tab PO DAILY 12/01/20 12/01/20 Unknown History Exam Exam Date and Time: March 25, 2022 0940 Height,Weight and Vital Signs: Height 5 ft 11 in Weight 90.718 kg Last Vital Signs Temp 98.8 F 03/25/22 09:25 Pulse 43 L 03/25/22 09:25 Resp 16 03/25/22 09:25 BP 132/68 03/25/22 09:25 Pulse Ox 98 03/25/22 09:25 O2 Del Method 03/25/22 09:25 Pertinent Lab Results Pertinent Lab Results: Laboratory Tests 03/25/22 09:22 POC Glucose 128 H Airway Mallampati Class: III TM Dist: >3cm Neck ROM: Full Denture: Upper Heart: RRR Lungs: CTA Assessment and Plan Final Anesthetic Review Family History of Problems with Anesthesia: No History of Problems with Anesthesia: No ASA Class: III Final Preanesthetic Review: No Changes in Pt Med Stat, Meds/Allgs Chart Reviewed, Consent Obtained/Reviewed and Anes Risks/Benef Reviewed Patient Risk: Intermediate Procedure Risk: Low Anesthetic Plan Anesthetic Plan: MAC: Disposition: Standard PACU
--- NOTE | 2022-03-25 09:47 | W.PM.OPN ---
Operative Note Operative Note Date of Service: 03/25/22 Narrative: Operative Information Procedure Description: EGD, Colonoscopy Indication: anemia Anesthesia: MAC FLEXIBLE TRANSORAL UPPER GASTROINTESTINAL ENDOSCOPY AND COLONOSCOPY PROCEDURE NOTE UPPER ENDOSCOPY Consent: Indications for the procedure and potential complications of bleeding, perforation, reaction to medications and missed diagnosis were discussed with the patient and informed consent was obtained. Instrument: Olympus GIF H 190 J mid size upper endoscope Monitoring: Vital signs and clinical assessment, continuous EKG monitoring, Pulse oximetry, Carbon Dioxide monitoring and blood pressure monitoring were done throughout the procedure. Procedure: The patient was placed in the left lateral decubitis position and pre-procedure medications were administered and a bite block was placed. The endoscope was inserted into the mouth and advanced under direct vision to the third part of duodenum. A careful inspection was made as the upper endoscope was withdrawn including a retroflexed examination of the proximal stomach; Findings and interventions are described below. Findings: Larynx:normal Esophagus: GE junction at 37 cm, diaphragm hiatus at 39 cm, consistent with 2 cm sliding hiatal hernia, LA grade C erosive esophagitis noted Stomach: Patchy erosions, and erythema with scarring. Biopsies were obtained. Grade 2 flap valve on retroflexed examination of the cardia. Duodenum: erosive bulbar duodenitis Intervention: Biopsies as noted above COLONOSCOPY Instrument: Olympus variable stiffness pediatric scope 190L Colonoscopy Monitoring: Vital signs and clinical assessment, continuous EKG monitoring, Pulse oximetry, Carbon Dioxide monitoring and blood pressure monitoring were done throughout the procedure. Colon withdrawal time was 9 minutes. Procedure: The patient was placed in the left lateral decubitis position and pre-procedure medications were administered. After a digital rectal examination of the ano-rectum, the video colonoscope was inserted into the rectum and advanced through the colon to the cecum/TI. The colonoscope was slowly withdrawn in a retrograde panoramic fashion and the colon mucosa was carefully examined including a retroflexed view of the rectum. Findings and interventions are described below. Procedure Difficulty: Findings: Terminal Ileum-not intubated Cecum:normal Ascending Colon: x1 sessile polyp removed with cold snare and x2 clips applied for hemostasis Transverse Colon -normal Descending Colon:normal Sigmoid Colon: normal Rectum: Retroflexion with small internal hemorrhoids, grade I Anorectum - normal Colon preparation: [place] Bowel Preparation Scale Right colon; 1-2 Transverse colon: 1-2 Left colon; 1-2 (0 = Unprepared colon segment with mucosa not seen due to solid stool that cannot be cleared. 1 = Portion of mucosa of the colon segment seen, but other areas of the colon segment not well seen due to staining, residual stool and/or opaque liquid. 2 = Minor amount of residual staining, small fragments of stool and/or opaque liquid, but mucosa of colon segment seen well. 3 = Entire mucosa of colon segment seen well with no residual staining, small fragments of stool or opaque liquid) Impression and Post Procedure Diagnosis: Endoscopy Findings: erosive esophagitis erosive gastritis erosive duodenitis hiatal hernia Colonoscopy Findings: polyp internal hemorrhoids Plan: Await Pathology results Repeat Colonoscopy in 1-2 years due to fair prep or earlier if clinically indicated High fiber diet leaflet avoid straining at stool, epsom salts and sitz bath, anusol supps or cream Repeat EGD in 3-6 months, check compliqance with PPI hold xarelto today, can restart tomorrow Above findings were reviewed with the patient and relevant handouts were provided if indicated.
--- NOTE | 2022-03-25 11:07 | HO.ANESPROP2 ---
[facility] Active Problems Active Problems: All Active Problems (Updated 12/02/20 @ 11:07 by Devan Ramirez MD) Multifactorial gait disorder (Acute) RASTA (acute kidney injury) (Acute) Acidosis, lactic (Acute) AMS (altered mental status) (Acute) Atypical pneumonia (Acute) Past Medical History Medical History Alcohol abuse CHF (congestive heart failure) COVID-19 Diabetes DVT (deep venous thrombosis) Gout HCV (hepatitis C virus) HLD (hyperlipidemia) HTN (hypertension) Neuropathy Pneumonia PVD (peripheral vascular disease) Tobacco dependence Functional capacity: independent ambulation Family History Family history of problems with anesthesia: No Surgical History Surgical History S/P femoropopliteal bypass surgery History of Problems with Anesthesia: No Social History Social History Household Members: Spouse Housing: Apartment 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) Alcohol intake: former Patient Tobacco Use Status: Current everyday Tobacco user Tobacco use type: Cigarette Cigarettes Per Day: 6 Years Smoked: 4 Use of substances other than those prescribed or required for medical reasons: Yes Substance Use Type: Marijuana Substance Use Frequency: Daily Are you DNR?: No Advance Directives: Yes Advance Directives on File: Yes Advance Directives Date on File: 12/02/20 service: No Current occupational status: unemployed Meds Allergies Allergy/AdvReac Type Severity Reaction Status Date / Time No Known Allergies Allergy Verified 06/03/21 10:59 [No Known Allergies*] Home Medications Medication Instructions Recorded Confirmed Last Taken Type amlodipine 10 mg tablet 1 tab PO DAILY 12/01/20 12/01/20 Unknown History aspirin 81 mg chewable tablet 1 tab PO DAILY 12/01/20 12/01/20 Unknown History cholecalciferol (vitamin D3) 125 1 tab PO DAILY 12/01/20 12/01/20 Unknown History mcg (5,000 unit) tablet (Vitamin D3) lancets 28 gauge (FreeStyle 12/01/20 12/01/20 Unknown History Lancets) metformin 500 mg tablet 1 tab PO BID 12/01/20 12/01/20 Unknown History metoprolol tartrate 25 mg tablet 0.5 tab PO BID 12/01/20 12/01/20 Unknown History omeprazole 20 mg capsule,delayed 1 cap PO DAILY 12/01/20 12/01/20 Unknown History release paroxetine HCl 30 mg tablet 1 tab PO DAILY 12/01/20 12/01/20 Unknown History pregabalin 150 mg capsule 1 cap PO BID 12/01/20 12/01/20 Unknown History rivaroxaban 20 mg tablet (Xarelto) 1 tab PO DAILY 12/01/20 12/01/20 Unknown History Exam Exam Date and Time: March 25, 2022 1107 Height,Weight and Vital Signs: Height 5 ft 11 in Weight 90.718 kg Last Vital Signs Temp 98.8 F 03/25/22 09:25 Pulse 43 L 03/25/22 09:25 Resp 16 03/25/22 09:25 BP 132/68 03/25/22 09:25 Pulse Ox 98 03/25/22 09:25 O2 Del Method 03/25/22 09:25 Pertinent Lab Results Pertinent Lab Results: Laboratory Tests 03/25/22 09:22 POC Glucose 128 H Airway Mallampati Class: II TM Dist: >3cm Neck ROM: Full Denture: Upper Heart: RRR Lungs: CTA Assessment and Plan Final Anesthetic Review Family History of Problems with Anesthesia: No History of Problems with Anesthesia: No ASA Class: III Final Preanesthetic Review: No Changes in Pt Med Stat, Meds/Allgs Chart Reviewed and Consent Obtained/Reviewed Patient Risk: Intermediate Procedure Risk: Low Anesthetic Plan Anesthetic Plan: MAC: Disposition: Standard PACU
--- NOTE | 2022-03-25 12:50 | HO.POSTANES ---
Post Anesthesia Evaluation Post Anesthesia Evaluation Vital Signs: Vital Signs Temp Pulse Resp BP Pulse Ox O2 Del Method 03/25/22 12:03 47 L 16 146/73 H 100 Room Air 03/25/22 11:50 97.7 F 51 16 140/81 H 100 Room Air 03/25/22 11:35 42 L 16 156/70 H 99 Room Air 03/25/22 11:20 47 L 16 145/66 H 99 Room Air 03/25/22 11:15 50 16 148/86 H 99 Room Air 03/25/22 11:10 58 16 124/80 99 Room Air 03/25/22 11:05 97.9 F 57 16 111/63 99 Room Air 03/25/22 09:25 98.8 F 43 L 16 132/68 98 Room Air Anesthesia: Monitored Mental Status: Awake Pain Control: Satisfactory Nausea/Vomiting: None Hydration: Adequate
== END 2022-03-25 12:38 | disposition home or self-care (01) ==
PROVIDERS: PCP Internal Medicine; Visit Provider Internal Medicine Gastroenterology
PROC: (CPT 45385; principal; 2022-03-25 10:10)
DX: Z12.11 Encounter for screening for malignant neoplasm of colon (principal); D12.2 Benign neoplasm of ascending colon; K64.0 First degree hemorrhoids; D64.9 Anemia, unspecified; K21.9 Gastro-esophageal reflux disease without esophagitis; K29.50 Unspecified chronic gastritis without bleeding; K29.80 Duodenitis without bleeding; K44.9 Diaphragmatic hernia without obstruction or gangrene; I11.0 Hypertensive heart disease with heart failure; I50.9 Heart failure, unspecified; E11.9 Type 2 diabetes mellitus without complications; B19.20 Unspecified viral hepatitis C without hepatic coma; I73.9 Peripheral vascular disease, unspecified; M10.9 Gout, unspecified; Z79.01 Long term (current) use of anticoagulants; Z79.84 Long term (current) use of oral hypoglycemic drugs; Z79.899 Other long term (current) drug therapy; F10.10 Alcohol abuse, uncomplicated; F17.210 Nicotine dependence, cigarettes, uncomplicated; Z86.16 Personal history of COVID-19
CPT/HCPCS: 45385; 43239; 82947; 88305; 88342

== ENCOUNTER 2022-08-12 09:45 | Day surgery (SDC) | payer OTHER, SELFPAY ==
[2022-08-07 16:21] VITALS: BMI 27.8
--- NOTE | 2022-08-11 12:48 | P.CONAN_ITS ---
Documented by User: Cassie Cedillo NP 08/11/22 12:51 HPI - Anesthesia Eval Consult details Narrative: 61yo M for Upper Endoscopy Xarelto for DVT s/p EGD and [place] 03/2022 with [facility] Active Problems Active Problems: All Active Problems (Updated 07/20/22 @ 09:17 by Valentine Rice Cathy) Multifactorial gait disorder (Acute) RASTA (acute kidney injury) (Acute) Acidosis, lactic (Acute) AMS (altered mental status) (Acute) Atypical pneumonia (Acute) Past Medical History Medical History Alcohol abuse CHF (congestive heart failure) COVID-19 Diabetes Diabetes mellitus, type II DVT (deep venous thrombosis) Gout HCV (hepatitis C virus) HLD (hyperlipidemia) HTN (hypertension) Neuropathy Pneumonia PVD (peripheral vascular disease) Tobacco dependence Warthin's tumor Family History Family history of problems with anesthesia: No Surgical History Surgical History History of esophagogastroduodenoscopy (EGD) Hx of colonoscopy S/P femoropopliteal bypass surgery History of Problems with Anesthesia: No Social History Social History Household Members: Spouse Housing: Apartment 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) Alcohol intake: former Patient Tobacco Use Status: Current everyday Tobacco user Tobacco use type: Cigarette Cigarettes Per Day: 4 Years Smoked: 50 Use of substances other than those prescribed or required for medical reasons: Yes Substance Use Type: Marijuana Substance Use Frequency: Daily Are you DNR?: No Advance Directives: Yes Advance Directives on File: Yes Advance Directives Date on File: 12/02/20 service: No Current occupational status: unemployed Meds Allergies Allergy/AdvReac Type Severity Reaction Status Date / Time No Known Allergies Allergy Verified 06/03/21 10:59 [No Known Allergies*] Home Medications Medication Instructions Recorded Confirmed Last Taken Type amlodipine 10 mg tablet 1 tab PO DAILY 12/01/20 12/01/20 Unknown History aspirin 81 mg chewable tablet 1 tab PO DAILY 12/01/20 12/01/20 Unknown History cholecalciferol (vitamin D3) 125 1 tab PO DAILY 12/01/20 12/01/20 Unknown History mcg (5,000 unit) tablet (Vitamin D3) lancets 28 gauge (FreeStyle 12/01/20 12/01/20 Unknown History Lancets) metformin 500 mg tablet 1 tab PO BID 12/01/20 12/01/20 Unknown History metoprolol tartrate 25 mg tablet 0.5 tab PO BID 12/01/20 12/01/20 Unknown History omeprazole 20 mg capsule,delayed 1 cap PO DAILY 12/01/20 12/01/20 Unknown History release paroxetine HCl 30 mg tablet 1 tab PO DAILY 12/01/20 12/01/20 Unknown History pregabalin 150 mg capsule 1 cap PO BID 12/01/20 12/01/20 Unknown History rivaroxaban 20 mg tablet (Xarelto) 1 tab PO DAILY 12/01/20 12/01/20 08/09/22 16:00 History Exam Exam Date and Time: August 11, 2022 1248 Height,Weight and Vital Signs: Height 5 ft 11 in Weight 90.718 kg Narrative Narrative: ECHO 2019 Conclusions: - Normal left ventricular size and systolic function. There is ? mildly increased left ventricular wall thickness.? The visually? estimated ejection fraction is between 55-60%. ? - Both atria are normal in size.? Interatrial shunt cannot be? ? excluded by color Doppler because the septum is not well ? visualized.? - The inferior vena cava is collapsed, consistent with reduced ? intravascular volume.? Assessment and Plan Assessment Anesthesia Assessment: Chart Reviewed Final Anesthetic Review Family History of Problems with Anesthesia: No History of Problems with Anesthesia: No Documented by User: Mckay Shea MD 08/12/22 11:55 [facility] Past Medical History Medical History Alcohol abuse CHF (congestive heart failure) COVID-19 Diabetes Diabetes mellitus, type II DVT (deep venous thrombosis) Gout HCV (hepatitis C virus) HLD (hyperlipidemia) HTN (hypertension) Neuropathy Pneumonia PVD (peripheral vascular disease) Tobacco dependence Warthin's tumor Narrative: Echo Apr 2020 essentially normal. 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) Alcohol intake: former Patient Tobacco Use Status: Current everyday Tobacco user Tobacco use type: Cigarette Cigarettes Per Day: 4 Years Smoked: 50 Use of substances other than those prescribed or required for medical reasons: Yes Substance Use Type: Marijuana Substance Use Frequency: Daily Are you DNR?: No Advance Directives: Yes Advance Directives on File: Yes Advance Directives Date on File: 12/02/20 service: No Current occupational status: unemployed Meds Allergies Allergy/AdvReac Type Severity Reaction Status Date / Time No Known Allergies Allergy Verified 06/03/21 10:59 [No Known Allergies*] Home Medications Medication Instructions Recorded Confirmed Last Taken Type amlodipine 10 mg tablet 1 tab PO DAILY 12/01/20 12/01/20 Unknown History aspirin 81 mg chewable tablet 1 tab PO DAILY 12/01/20 12/01/20 Unknown History cholecalciferol (vitamin D3) 125 1 tab PO DAILY 12/01/20 12/01/20 Unknown History mcg (5,000 unit) tablet (Vitamin D3) lancets 28 gauge (FreeStyle 12/01/20 12/01/20 Unknown History Lancets) metformin 500 mg tablet 1 tab PO BID 12/01/20 12/01/20 Unknown History metoprolol tartrate 25 mg tablet 0.5 tab PO BID 12/01/20 12/01/20 Unknown History omeprazole 20 mg capsule,delayed 1 cap PO DAILY 12/01/20 12/01/20 Unknown Histo ry release paroxetine HCl 30 mg tablet 1 tab PO DAILY 12/01/20 12/01/20 Unknown History pregabalin 150 mg capsule 1 cap PO BID 12/01/20 12/01/20 Unknown History rivaroxaban 20 mg tablet (Xarelto) 1 tab PO DAILY 12/01/20 12/01/20 08/09/22 16:00 History Exam Airway Mallampati Class: I TM Dist: >3cm Neck ROM: Full Denture: Upper Heart: ok Lungs: ok Assessment and Plan Assessment Anesthesia Assessment: Anesthesia Plan Discussed Final Anesthetic Review NPO: Yes ASA Class: III Final Preanesthetic Review: No Changes in Pt Med Stat, Meds/Allgs Chart Reviewed, Consent Obtained/Reviewed and Anes Risks/Benef Reviewed Patient Risk: Intermediate Procedure Risk: Intermediate Anesthetic Plan Anesthetic Plan: MAC: and Agree w/ Assess. and Plan Disposition: Standard PACU
[2022-08-12 10:11] VITALS: BMI 22.6
--- NOTE | 2022-08-12 10:14 | MHC.SHP ---
Pre-Procedural Eval Section A Date of Service: 08/12/22 Section B Chief Complaint: reflux,Esophagitis, unspecified without bleeding Relevant Family History (Specify if Yes): No Relevant Social History: Tobacco Use Present Medications: see Short Stay Collaborative assessment Medical History: Significant History (Alcohol abuse CHF (congestive heart failure) COVID-19 Diabetes DVT (deep venous thrombosis) Gout HCV (hepatitis C virus) HLD (hyperlipidemia) HTN (hypertension) Neuropathy Pneumonia PVD (peripheral vascular disease) Tobacco dependence) History of Previous Operations: Relevant previous surgery/procedure and date(s) (History of esophagogastroduodenoscopy (EGD) Hx of colonoscopy S/P femoropopliteal bypass surgery) Allergies: Allergies Allergy/AdvReac Type Severity Reaction Status Date / Time No Known Allergies Allergy Verified 06/03/21 10:59 [No Known Allergies*] Review of Systems Sugical H&P ROS: Negative: Constitution, Cardiovascular, Respiratory, Neurological, Psychiatric, Hem-Onc, Allergic/Immunologic, Gastrointestinal, Genitourinary, Musculoskeletal, Integumentary, Endocrine and Eyes/Ears/Nose/Throat Exam Surgical H&P Exam: Normal: HEENT, Normal: Heart, Normal: Lungs, Normal: Extremities, Normal: Abdomen, Normal: Skin and Normal: Neurological Plan Diagnosis/Plan: Unchanged I have reviewed the history and physical and performed a pertinent physical examination on my patient. No changes have occurred unless specified. Time Spent With Patient Time: Total time managing care of this patient today ____ minutes.
[2022-08-12 10:22] VITALS: BMI 22.6
[2022-08-12 10:22] LABS: Glucose, Whole Blood 171 mg/dL (60-115)
[2022-08-12 10:36] VITALS: BP 126/65; PULSE 56; RESP 18; TEMP 36.3; O2SAT 99
[2022-08-12] MEDS: Lactated Ringers 1,000 ML 50 ML IVCONT (10:43)
--- NOTE | 2022-08-12 11:47 | W.PM.OPN ---
Operative Note Operative Note Date of Service: 08/12/22 Narrative: Procedure Description: EGD Indication: hx of esophagitis, Anesthesia: MAC FLEXIBLE TRANSORAL UPPER GASTROINTESTINAL ENDOSCOPY UPPER ENDOSCOPY Consent: Indications for the procedure and potential complications of bleeding, perforation, reaction to medications and missed diagnosis were discussed with the patient and informed consent was obtained. Instrument: Olympus GIF H 190 J mid size upper endoscope Monitoring: Vital signs and clinical assessment, continuous EKG monitoring, Pulse oximetry, Carbon Dioxide monitoring and blood pressure monitoring were done throughout the procedure. Procedure: The patient was placed in the left lateral decubitis position and pre-procedure medications were administered and a bite block was placed. The endoscope was inserted into the mouth and advanced under direct vision to the third part of duodenum. A careful inspection was made as the upper endoscope was withdrawn including a retroflexed examination of the proximal stomach; Findings and interventions are described below. Findings: Larynx:normal Esophagus: GE junction at 37? cm, diaphragm hiatus at 40 cm, consistent with 3 cm sliding hiatal hernia, LA grade A esophagitis noted which was actually improved from last time, bx taken from GEJ and distal esophagus? Stomach: Patchy erosions, and erythema with scarring in the antrum and mid body. Biopsies were obtained. Grade 2 flap valve on retroflexed examination of the cardia. Duodenum: moderate bulbar duodenitis Intervention: Biopsies as noted above Impression/Findings: erosive gastritis duodenitis esophagitis hiatal hernia PLAN: overall appearances of his esophagus and stomach are improved compared to last time he should continue with omeprazole he can restart xarelto tomorrow
[2022-08-12 12:25] VITALS: BP 111/57; PULSE 56; RESP 22; TEMP 36.8; O2SAT 92
[2022-08-12 12:39] VITALS: BP 106/58; PULSE 54; RESP 16; TEMP 36.8; O2SAT 98
== END 2022-08-12 12:50 | disposition home or self-care (01) ==
PROVIDERS: PCP Nurse Practitioner Family; Visit Provider Internal Medicine Gastroenterology
PROC: 0DJ08ZZ Inspection of Upper Intestinal Tract, Via Natural or Artificial Opening Endoscopic (ICD-10-PCS; CPT 43235; principal; 2022-08-12 11:10)
DX: K20.90 Esophagitis, unspecified without bleeding (principal); K21.9 Gastro-esophageal reflux disease without esophagitis; K29.60 Other gastritis without bleeding; K29.80 Duodenitis without bleeding; K44.9 Diaphragmatic hernia without obstruction or gangrene; I11.0 Hypertensive heart disease with heart failure; I50.9 Heart failure, unspecified; E78.5 Hyperlipidemia, unspecified; E11.9 Type 2 diabetes mellitus without complications; I73.9 Peripheral vascular disease, unspecified; M10.9 Gout, unspecified; B18.2 Chronic viral hepatitis C; Z87.01 Personal history of pneumonia (recurrent); Z86.718 Personal history of other venous thrombosis and embolism; Z79.01 Long term (current) use of anticoagulants; Z79.84 Long term (current) use of oral hypoglycemic drugs; Z79.899 Other long term (current) drug therapy; F10.10 Alcohol abuse, uncomplicated; F17.210 Nicotine dependence, cigarettes, uncomplicated; Z86.16 Personal history of COVID-19; Z98.890 Other specified postprocedural states
CPT/HCPCS: 43239; 82947; 88305; 88342; J3010

== ENCOUNTER → 2022-09-07 11:27 | Outpatient (BNVA) | payer OTHER, SELFPAY | PROVIDERS: PCP Nurse Practitioner Family; Visit Provider Nurse Practitioner Family | DX: K21.00 Gastro-esophageal reflux disease with esophagitis, without bleeding (principal); K29.50 Unspecified chronic gastritis without bleeding | CPT/HCPCS: 99212 ==

== ENCOUNTER → 2022-09-15 09:17 | Outpatient (BNVA) | payer OTHER, SELFPAY | PROVIDERS: PCP Nurse Practitioner Family; Visit Provider Nurse Practitioner Family | DX: N40.0 Benign prostatic hyperplasia without lower urinary tract symptoms (principal); N39.43 Post-void dribbling; E11.69 Type 2 diabetes mellitus with other specified complication; N52.1 Erectile dysfunction due to diseases classified elsewhere | CPT/HCPCS: 51798; 99202 ==

== ENCOUNTER 2022-11-27 12:01 | Outpatient (REF) | payer OTHER, SELFPAY ==
[2022-11-27 13:49] LABS: Estimated Average Glucose 123 mg/dL; Hemoglobin A1c % 5.9 %
[2022-11-27 14:50] LABS: Alanine Aminotransferase 14 U/L (0-40); Albumin Level 4.4 g/dL (3.5-5.0); Alkaline Phosphatase 68 U/L (39-117); Anion Gap 13 (12-20); Aspartate Amino Transferase 12 U/L (5-37); Bilirubin Total 0.3 mg/dL (0.0-1.0); Blood Urea Nitrogen 12 mg/dL (9-16); Calcium 10.6 mg/dL (8.4-10.2); Carbon Dioxide 26 mmol/L (22-29); Chloride 104 mmol/L (96-108); Cholesterol 197 mg/dL; Estimated Glomerular Filt Rate > 60; Glucose Random 116 mg/dL (60-115); HDL Cholesterol 52 mg/dL; LDL Cholesterol Calculated 127 mg/dl; Potassium 4.3 mmol/L (3.3-5.1); Sodium 139 mmol/L (135-145); Total Protein 7.9 g/dL (6.5-8.0); Triglycerides 91 mg/dL
[2022-11-27 15:20] LABS: Creatinine Urine 76.03 mg/dL; Microalbum/Creatinine Ratio Ur 11.8 ug/mg cr
== END 2022-11-27 12:02 | disposition home or self-care (01) ==
LOC: HO.HHCL 12:01
PROVIDERS: Nurse Practitioner Family; Visit Provider Nurse Practitioner Family
DX: E11.9 Type 2 diabetes mellitus without complications (principal)
CPT/HCPCS: 36415; 80053; 80061; 82043; 83036

== ENCOUNTER 2022-12-15 10:16 | Outpatient (REF) | payer OTHER, SELFPAY ==
--- NOTE | ~2022-12-15 | US_ITS ---
EXAMINATION: US RETROPERITONEAL COMPLETE (RENAL) CLINICAL INFORMATION: Post-void dribbling. COMPARISON: CT abdomen pelvis 12/01/2020. Ultrasound abdomen 10/25/2018. TECHNIQUE: Real-time imaging of the kidneys and bladder. FINDINGS: RIGHT KIDNEY: 10.5 x 6.5 x 5.4 cm (SAG x AP x TRV). The kidney is normal in size, contour, and echogenicity. Renal cortical thickness is normal. No calculi or focal parenchymal lesions. No hydronephrosis. LEFT KIDNEY: 12.9 x 5.5 x 5.0 cm (SAG x AP x TRV). The kidney is normal in size, contour, and echogenicity. Renal cortical thickness is normal. No calculi or focal parenchymal lesions. No hydronephrosis. BLADDER: Trabeculated bladder. Bilateral ureteral jets are demonstrated. Prevoid bladder volume is 205.5 mL. Postvoid bladder volume is 33.6 mL. PROSTATE: Enlarged measuring 81 mL. US/US retroperitoneal comp IMPRESSION: Enlarged prostate. Trabeculated bladder consistent with bladder outlet obstructive physiology. No hydronephrosis.
== END 2022-12-15 10:17 | disposition home or self-care (01) ==
LOC: HO.US 10:16
PROVIDERS: Visit Provider Nurse Practitioner Family
DX: N39.43 Post-void dribbling (principal)
CPT/HCPCS: 76770

== ENCOUNTER 2023-01-08 14:36 | Outpatient (AMB) | payer OTHER, SELFPAY ==
--- NOTE | 2023-01-08 14:51 | A.OFFVIS_ITS ---
Intake Intake Visit Reasons: 3m/US/labs Medical Center Representative Required: Yes Medical Center Representative Name: Arnel [id number] Accompanied by: Self / Same As Patient Allergies No Known Allergies [No Known Allergies*] Allergy (Verified 01/09/23 20:48) Medication List - Last Reconciled 01/09/23 by JEROD Cadet- amlodipine 5 mg PO DAILY aspirin 81 mg PO DAILY atorvastatin 80 mg PO DAILY cholecalciferol (vitamin D3) (Vitamin D3) 1 tab PO DAILY cyanocobalamin (vitamin B-12) 1,000 mcg PO DAILY empagliflozin (Jardiance) 25 mg PO DAILY famotidine (Pepcid) 20 mg PO BEDTIME furosemide 20 mg PO DAILY lancets (FreeStyle Lancets) metformin 850 mg PO metoprolol tartrate 0.5 tabs PO BID omeprazole 20 mg PO DAILY paroxetine HCl 1 tab PO DAILY pregabalin 1 cap PO BID rivaroxaban (Xarelto) 1 tab PO DAILY terazosin 5 mg PO BEDTIME 30 days HPI HPI Comments History of Present Illness Details Geraldo is a pleasant Maldivian-speaking 62-year-old male patient of Dr. Lee. He has a past medical history of alcohol abuse, CHF, diabetes, DVT, gout, hepatitis-C, hyperlipidemia, hypertension, peripheral vascular disease, and tobacco dependence. He presents to the office today for follow-up. Of note, patient was seen approximately 3 months ago as a new patient for erectile dysfunction and urinary leakage at which time the patient was started on p.r.n. Cialis and a retroperitoneal ultrasound was ordered for further assessment evaluation. These results were reviewed with the patient today. Bilateral kidneys with no calculi, lesions, and or hydronephrosis noted. The bladder is trabeculated. Pre void bladder volume is approximately 205 mL. Postvoid bladder volume is approximately 35 mL. The prostate is enlarged measuring approximately 80 mL. A PSA was ordered however this was not obtained. Discussed at length importance of obtaining PSA. Patient agreeable. When asked patient reports no improvement in erectile dysfunction on daily Cialis with additional p.r.n. Cialis 1 hour prior to sexual activity. Discussed at length injectable therapy for erectile dysfunction. However, patient reports he would like to think about this. In office urinalysis results reviewed with the patient today. When asked he reports to be smoking almost 1 pack of cigarettes per day. He reports smoking for over 45 years. It appears PSA drawn by PCP 01/05--0.7. He otherwise denies urinary urgency, incontinence, nocturia, hematuria, dysuria, foul smelling urine, changes to urinary stream, flank pain, fever, and or chills. He reports be happy with his current voiding parameters. He does endorse to urinary frequency at times however relates it to his uncontrolled diabetes. He reports when his point of cares are elevated he notes urinary frequency. Discussed at length the importance of limiting/quitting smoking for improvement in erectile dysfunction, urinary symptoms, and overall health and well-being. Also discussed at length importance of managing diabetes for improved in urinary symptoms, erectile dysfunction, as well as overall health and well-being. [facility] Medical History Alcohol abuse CHF (congestive heart failure) COVID-19 Diabetes Diabetes mellitus, type II DVT (deep venous thrombosis) Gastritis Gout HCV (hepatitis C virus) HLD (hyperlipidemia) HTN (hypertension) Neuropathy Pneumonia PVD (peripheral vascular disease) Tobacco dependence Warthin's tumor Surgical History History of esophagogastroduodenoscopy (EGD) Hx of colonoscopy S/P femoropopliteal bypass surgery Social History Household Members: Spouse Housing: Apartment Do you presently have visiting nurse or other home services: Yes (SCREENING SPECIALIST) Alcohol intake: former Patient Tobacco Use Status: Current everyday Tobacco user Tobacco use type: Cigarette Cigarettes Per Day: 4 Years Smoked: 50 Substance Use Type: Marijuana Advance Directives Date on File: 12/02/20 service: No Current occupational status: unemployed Review of Systems Const Reports as per HPI Eyes Reports no additional complaints ENT Reports no additional complaints Card Reports as per HPI Resp Reports no additional complaints GI Reports no additional complaints Reports as per HPI Musc Reports no additional complaints Neuro Reports no additional complaints Psych Reports no additional complaints Endo Reports as per HPI Physical Exam Const General: cooperative, comfortable, no acute distress, well developed, alert and awake Orientation/consciousness: patient oriented x3 HEENT Head: Yes normal to inspection, Yes normocephalic and Yes atraumatic Ears: hearing grossly normal bilaterally Eyes General: appearance normal, both eyes and all related structures Neck Neck: Yes normal visual inspection and Yes trachea midline Chest Chest palpation & inspection: normal inspection of the chest Resp Effort & Inspection: normal respiratory effort and able to speak in complete sentences Cardio Rate: regular rate GI Inspection: Yes normal to inspection General: Yes no CVA tenderness Back/Spine/Pelvis Back: no CVA tenderness Skin General skin exam: no rashes or lesions noted Neuro General: patient oriented x3 Extrem General: Yes normal to inspection Psych Appearance: grossly normal and well kempt Mental Status: mental status grossly normal Speech and movement: Normal speech and movement present and Clear speech present Affect: normal affect Attitude: cooperative Thought process: Normal thought process present Thought content: Normal thought content present Insight: Fair insight present (Psych) Judgement: Fair judgement present (Psych) Office Procedures Post Void Residual Post Residual Void Post Void Residual (PVR): 0 35861-Pffh Void Residual by ultrasound Results AMB Urinalysis, Automated UA Leukoctes 0 Harpreet/uL Last Edit by [employer] on 01/08/23 15:09 UA Nitrite Last Edit by [employer] on 01/08/23 15:09 UA Urobilinogen 0.2 mg/dL Last Edit by [employer] on 01/08/23 15:09 UA Protein 0 mg/dL Last Edit by [employer] on 01/08/23 15:09 UA pH 7.0 Last Edit by [employer] on 01/08/23 15:09 UA Blood 0 Uriel/uL Last Edit by [employer] on 01/08/23 15:09 UA Specific [place] 1.005 Last Edit by [employer] on 01/08/23 15:09 UA Ketone Last Edit by [employer] on 01/08/23 15:09 UA Bilirubin 0 mg/dL Last Edit by [employer] on 01/08/23 15:09 UA Glucose 0 mg/dL Last Edit by [employer] on 01/08/23 15:09 Results Reviewed Results Reviewed: Laboratory Last Values Urine pH (Auto) 7.0 01/08/23 14:56 Specific [place] (Auto) 1.005 01/08/23 14:56 Urine Protein (Auto) 0 mg/dL 01/08/23 14:56 Glucose (UA)(Auto) 0 mg/dL 01/08/23 14:56 Urine Blood (Auto) 0 Uriel/uL 01/08/23 14:56 Urine Bilirubin (Auto) 0 mg/dL 01/08/23 14:56 Urine Urobilinogen (Auto) 0.2 mg/dL 01/08/23 14:56 Leukocyte Esterase (Auto) 0 Harpreet/uL 01/08/23 14:56 Date of Service: 12/15/22 FINDINGS: RIGHT KIDNEY: 10.5 x 6.5 x 5.4 cm (SAG x AP x TRV). The kidney is normal in size, contour, and echogenicity. Renal cortical thickness is normal. No calculi or focal parenchymal lesions. No hydronephrosis. LEFT KIDNEY: 12.9 x 5.5 x 5.0 cm (SAG x AP x TRV). The kidney is normal in size, contour, and echogenicity. Renal cortical thickness is normal. No calculi or focal parenchymal lesions. No hydronephrosis. BLADDER: Trabeculated bladder. Bilateral ureteral jets are demonstrated. Prevoid bladder volume is 205.5 mL. Postvoid bladder volume is 33.6 mL. PROSTATE: Enlarged measuring 81 mL. IMPRESSION: Enlarged prostate. Trabeculated bladder consistent with bladder outlet obstructive physiology. No hydronephrosis. Assessment & Plan Assessment & Plan (1) Bladder trabeculation: Code(s): N32.89 - Other specified disorders of bladder (2) Erectile dysfunction associated with type 2 diabetes mellitus: Code(s): E11.69 - Type 2 diabetes mellitus with other specified complication; N52.1 - Erectile dysfunction due to diseases classified elsewhere Plan In office urinalysis results reviewed with the patient today; as noted above. Recent retroperitoneal ultrasound results reviewed with the patient today; as noted above. Start terazosin 5 mg as discussed and prescribed. Stop daily Cialis as well as p.r.n. as patient reports this to be effective for treatment of his erectile dysfunction. Discussed at length injectable therapy for ED however patient reports he would like to think about this. Discussed and stressed the importance of managing diabetes as well as limiting/quitting smoking for improvement in erectile dysfunction, lower urinary tract symptoms, as well as for overall health and well-being. Follow-up in 1-2 weeks with lab to be completed prior; or sooner with any issues, concerns, and or questions. Orders: Orders Prostate Specific Antigen 01/08/23 N40.0 - Benign prostatic hyperplasia without lower urinary tract symptoms AMB Urinalysis Automated 01/08/23 Z13.9 - Encounter for screening, unspecified AMB Post Void Residual by ultrasound 01/08/23 N40.0 - Benign prostatic hyperplasia without lower urinary tract symptoms Medications: New terazosin 5 mg PO BEDTIME 30 days 30 caps 1RF N40.1 - Benign prostatic hyperplasia with lower urinary tract symptoms, R35.0 - Frequency of micturition Discontinued tadalafil (Cialis) [facility] [id number] Discontinued Reason: Doctor's Order 20 mg PO DAILY 30 days PRN 10 tabs 0RF sexual activity tadalafil (Cialis) [facility] [id number] Discontinued Reason: Doctor's Order 5 mg PO DAILY 90 days 90 tabs 0RF Patient Instructions: The patient had an opportunity to ask questions regarding the treatment plan. All questions were answered. Physical exam, labs, and imaging were discussed and reviewed in detail. As well as risks, benefits, and discussion of treatment choices. No major barriers to understanding were identified. The patient expressed understanding and agreement with the above treatment plan. The patient was made aware they should contact our office by phone for worsening of their current condition, the appearance of new symptoms, or with any questions or concerns. Compliance is encouraged with any medications and follow up testing that is ordered. It is a privilege to be allowed the opportunity to participate in? your urological care.? Again, if you have any questions or concerns If you have any questions or concerns please do not hesitate to contact me. The office is [phone]. This note is constructed using voice recognition software. While every effort has been made to ensure accuracy business trainer errors may have been included. Yours sincerely, DORIS Cadet Coding Level of Care Code Est Pt Level 4 (49271) Diagnoses Bladder trabeculation N32.89 Erectile dysfunction associated with type 2 diabetes mellitus E11.69; N52.1 CPT Codes Post Residual Void - PVR CPT Code: 11694-Hzzw Void Residual by ultrasound ([id number])
== END 2023-01-08 15:39 | disposition home or self-care (01) ==
PROVIDERS: PCP Nurse Practitioner Family; Visit Provider Nurse Practitioner Family
DX: N32.89 Other specified disorders of bladder (principal); E11.69 Type 2 diabetes mellitus with other specified complication; N52.1 Erectile dysfunction due to diseases classified elsewhere
CPT/HCPCS: 99214

== ENCOUNTER → 2023-01-08 14:36 | Outpatient (BNVA) | payer OTHER, SELFPAY | PROVIDERS: Visit Provider Nurse Practitioner Family | DX: E11.69 Type 2 diabetes mellitus with other specified complication (principal); N52.1 Erectile dysfunction due to diseases classified elsewhere; N32.89 Other specified disorders of bladder | CPT/HCPCS: 51798; 81003; 99212 ==

== ENCOUNTER 2023-03-01 11:57 | Outpatient (REF) | payer OTHER, SELFPAY ==
[2023-03-01 14:32] LABS: Prostate Specific Antigen 0.26 ng/mL (<0.05-4.0)
== END 2023-03-01 11:58 | disposition home or self-care (01) ==
LOC: HO.LAB 11:57
PROVIDERS: Visit Provider Nurse Practitioner Family
DX: N40.0 Benign prostatic hyperplasia without lower urinary tract symptoms (principal); Z12.5 Encounter for screening for malignant neoplasm of prostate
CPT/HCPCS: 36415; 84153

== ENCOUNTER 2023-03-19 10:18 | Outpatient (AMB) | payer OTHER, SELFPAY ==
--- NOTE | 2023-03-19 10:20 | MHC.OFFVIS ---
Intake Intake Visit Reasons: 6w/PSA(set) Intake Note: Patient presents for follow up PSA lab/BPH/Erectile Dysfunction Urology Medications: terazosin Blood Thinner: aspirin, xarelto Licensed And Certified Midwife Required: Yes Accompanied by: Self / Same As Patient Allergies No Known Allergies [No Known Allergies*] Allergy (Verified 03/19/23 17:05) Medication List - Last Reconciled 03/19/23 by CHRISTIAN CadetP- amlodipine 5 mg PO DAILY aspirin 81 mg PO DAILY atorvastatin 80 mg PO DAILY cholecalciferol (vitamin D3) (Vitamin D3) 1 tab PO DAILY cyanocobalamin (vitamin B-12) 1,000 mcg PO DAILY empagliflozin (Jardiance) 25 mg PO DAILY famotidine (Pepcid) 20 mg PO BEDTIME finasteride 5 mg PO DAILY 90 days furosemide 20 mg PO DAILY lancets (FreeStyle Lancets) metformin 850 mg PO metoprolol tartrate 0.5 tabs PO BID omeprazole 20 mg PO DAILY paroxetine HCl 1 tab PO DAILY pregabalin 1 cap PO BID rivaroxaban (Xarelto) 1 tab PO DAILY terazosin 5 mg PO BEDTIME 90 days HPI HPI Comments History of Present Illness Details Geraldo is a pleasant Filipino-speaking 62-year-old male patient of Dr. Lee. He has a past medical history of alcohol abuse, CHF, diabetes, DVT, gout, hepatitis-C, hyperlipidemia, hypertension, peripheral vascular disease, and tobacco dependence. He presents to the office today for follow-up of his lower urinary tract symptoms. When asked patient reports to be doing and feeling well. He reports noting significant improvement in lower urinary tract symptoms since taking Terazosin 5mg daily. Recent PSA results reviewed with the patient. PSAs are as follows: 01/05--0.7 03/08--0.3 Previous work up has included a retroperitoneal ultrasound noting bilateral kidneys with no calculi, lesions, and or hydronephrosis noted. The bladder is trabeculated. Prevoid bladder volume is approximately 205 mL. Postvoid bladder volume is approximately 35 mL. The prostate is enlarged measuring approximately 80 mL. He has previously trialled flomax and low dose Cialis with no improvement in lower urinary tract symptoms. Patient has also failed oral therapy for his erectile dysfunction. Discussed at length risks and benefits of injectable therapy for erectile dysfunction. However, patient reports he would like to think about this. In office urinalysis results reviewed with the patient today. When asked he reports to be smoking almost 1 pack of cigarettes per day. He reports smoking for over 45 years. He otherwise denies urinary urgency, incontinence, nocturia, hematuria, dysuria, foul smelling urine, changes to urinary stream, flank pain, fever, and or chills. He reports be happy with his current voiding parameters on terazosin 5 mg daily. He does endorse to urinary frequency at times however relates it to his uncontrolled diabetes. He reports when his point of cares are elevated he notes urinary frequency. Discussed at length the importance of limiting/quitting smoking for improvement in erectile dysfunction, urinary symptoms, and overall health and well-being. Also discussed at length importance of managing diabetes for improved in urinary symptoms, erectile dysfunction, as well as overall health and well-being. [facility] Medical History Gastritis Warthin's tumor Diabetes mellitus, type II Tobacco dependence Alcohol abuse HLD (hyperlipidemia) HCV (hepatitis C virus) Neuropathy Gout COVID-19 PVD (peripheral vascular disease) DVT (deep venous thrombosis) Pneumonia CHF (congestive heart failure) HTN (hypertension) Diabetes Surgical History History of esophagogastroduodenoscopy (EGD) Hx of colonoscopy S/P femoropopliteal bypass surgery Social History Household Members: Spouse Housing: Apartment Do you presently have visiting nurse or other home services: Yes (3RD MATE) Alcohol intake: former Patient Tobacco Use Status: Current everyday Tobacco user Tobacco use type: Cigarette Cigarettes Per Day: 4 Years Smoked: 50 Substance Use Type: Marijuana Advance Directives Date on File: 12/02/20 service: No Current occupational status: unemployed Review of Systems Const Reports as per HPI Eyes Reports no additional complaints ENT Reports no additional complaints Card Reports as per HPI Resp Reports no additional complaints GI Reports no additional complaints Reports as per HPI Musc Reports no additional complaints Neuro Reports no additional complaints Psych Reports no additional complaints Endo Reports as per HPI Physical Exam Const General: cooperative, comfortable, no acute distress, well developed, alert and awake Orientation/consciousness: patient oriented x3 HEENT Head: Yes normal to inspection, Yes normocephalic and Yes atraumatic Ears: hearing grossly normal bilaterally Eyes General: appearance normal, both eyes and all related structures Neck Neck: Yes normal visual inspection and Yes trachea midline Chest Chest palpation & inspection: normal inspection of the chest Resp Effort & Inspection: normal respiratory effort and able to speak in complete sentences Cardio Rate: regular rate GI Inspection: Yes normal to inspection General: Yes no CVA tenderness Back/Spine/Pelvis Back: no CVA tenderness Skin General skin exam: no rashes or lesions noted Neuro General: patient oriented x3 Extrem General: Yes normal to inspection Psych Appearance: grossly normal and well kempt Mental Status: mental status grossly normal Speech and movement: Normal speech and movement present and Clear speech present Affect: normal affect Attitude: cooperative Thought process: Normal thought process present Thought content: Normal thought content present Insight: Fair insight present (Psych) Judgement: Fair judgement present (Psych) Office Procedures Post Void Residual Post Residual Void Post Void Residual (PVR): 0 [id number] Void Residual by ultrasound Results AMB Urinalysis, Automated UA Leukoctes 0 Harpreet/uL Last Edit by [employer] on 03/19/23 10:41 UA Nitrite Negative Last Edit by [employer] on 03/19/23 10:41 UA Urobilinogen 0.2 mg/dL Last Edit by [employer] on 03/19/23 10:41 UA Protein 15 mg/dL Last Edit by [employer] on 03/19/23 10:41 UA pH 6.0 Last Edit by [employer] on 03/19/23 10:41 UA Blood 0 Uriel/uL Last Edit by [employer] on 03/19/23 10:41 UA Specific [place] 1.020 Last Edit by [employer] on 03/19/23 10:41 UA Ketone Negative Last Edit by [employer] on 03/19/23 10:41 UA Bilirubin 1 mg/dL Last Edit by [employer] on 03/19/23 10:41 UA Glucose 0 mg/dL Last Edit by [employer] on 03/19/23 10:41 Results Reviewed Results Reviewed: Laboratory Last Values Urine pH (Auto) 6.0 03/19/23 10:30 Specific [place] (Auto) 1.020 03/19/23 10:30 Urine Protein (Auto) 15 mg/dL 03/19/23 10:30 Glucose (UA)(Auto) 0 mg/dL 03/19/23 10:30 Urine Ketones (Auto) Negative 03/19/23 10:30 Urine Blood (Auto) 0 Uriel/uL 03/19/23 10:30 Urine Nitrite (Auto) Negative 03/19/23 10:30 Urine Bilirubin (Auto) 1 mg/dL 03/19/23 10:30 Urine Urobilinogen (Auto) 0.2 mg/dL 03/19/23 10:30 Leukocyte Esterase (Auto) 0 Harpreet/uL 03/19/23 10:30 Assessment & Plan Assessment & Plan (1) Bladder trabeculation: Code(s): N32.89 - Other specified disorders of bladder (2) Erectile dysfunction associated with type 2 diabetes mellitus: Code(s): E11.69 - Type 2 diabetes mellitus with other specified complication; N52.1 - Erectile dysfunction due to diseases classified elsewhere (3) Enlarged prostate: Code(s): N40.0 - Benign prostatic hyperplasia without lower urinary tract symptoms (4) Lower urinary tract symptoms: Code(s): R39.9 - Unspecified symptoms and signs involving the genitourinary system Plan In office urinalysis results reviewed with the patient today; as noted above. PVR 0 mL. Discussed at length injectable therapy for ED however patient reports he would like to think about this. Discussed and stressed the importance of managing diabetes as well as limiting/quitting smoking for improvement in erectile dysfunction, lower urinary tract symptoms, as well as for overall health and well-being. Continue Terazosin as prescribed; patient reports significant improvement in lower urinary tract symptoms. Start finasteride 5mg daily as discussed and prescribed. Recent PSA results reviewed with the patient today; as noted above PSA in 6 months. Follow up in 6 months with lab to be completed prior; or sooner with any issues, concerns, or questions. Orders: Orders AMB Urinalysis Automated Today Z13.9 - Encounter for screening, unspecified AMB Post Void Residual by ultrasound Today N40.0 - Benign prostatic hyperplasia without lower urinary tract symptoms Medications: New finasteride 5 mg PO DAILY 90 days 90 tabs 3RF N40.0 - Benign prostatic hyperplasia without lower urinary tract symptoms finasteride 5 mg PO DAILY 90 days 90 tabs 3RF N40.0 - Benign prostatic hyperplasia without lower urinary tract symptoms Changed From terazosin 5 mg PO BEDTIME 30 days 30 caps 1RF N40.1 - Benign prostatic hyperplasia with lower urinary tract symptoms, R35.0 - Frequency of micturition To terazosin 5 mg PO BEDTIME 90 days 90 caps 1RF N40.1 - Benign prostatic hyperplasia with lower urinary tract symptoms, R35.0 - Frequency of micturition Patient Instructions: The patient had an opportunity to ask questions regarding the treatment plan. All questions were answered. Physical exam, labs, and imaging were discussed and reviewed in detail. As well as risks, benefits, and discussion of treatment choices. No major barriers to understanding were identified. The patient expressed understanding and agreement with the above treatment plan. The patient was made aware they should contact our office by phone for worsening of their current condition, the appearance of new symptoms, or with any questions or concerns. Compliance is encouraged with any medications and follow up testing that is ordered. It is a privilege to be allowed the opportunity to participate in? your urological care.? Again, if you have any questions or concerns If you have any questions or concerns please do not hesitate to contact me. The office is [phone]. This note is constructed using voice recognition software. While every effort has been made to ensure accuracy concreting supervisor errors may have been included. Yours sincerely, DORIS Cadet Coding Level of Care Code Est Pt Level 4 (54121) Diagnoses Bladder trabeculation N32.89 Erectile dysfunction associated with type 2 diabetes mellitus E11.69; N52.1 Enlarged prostate N40.0 Lower urinary tract symptoms R39.9 CPT Codes Post Residual Void - PVR CPT Code: 42329-Vsbl Void Residual by ultrasound ([id number])
== END 2023-03-19 10:54 | disposition home or self-care (01) ==
PROVIDERS: PCP Nurse Practitioner Family; Visit Provider Nurse Practitioner Family
DX: N32.89 Other specified disorders of bladder (principal); E11.69 Type 2 diabetes mellitus with other specified complication; N52.1 Erectile dysfunction due to diseases classified elsewhere; N40.0 Benign prostatic hyperplasia without lower urinary tract symptoms; R39.9 Unspecified symptoms and signs involving the genitourinary system; Z13.9 Encounter for screening, unspecified
CPT/HCPCS: 99214

== ENCOUNTER → 2023-03-19 10:18 | Outpatient (BNVA) | payer OTHER, SELFPAY | PROVIDERS: PCP Nurse Practitioner Family; Visit Provider Nurse Practitioner Family | DX: N32.89 Other specified disorders of bladder (principal); N40.0 Benign prostatic hyperplasia without lower urinary tract symptoms; N52.1 Erectile dysfunction due to diseases classified elsewhere; E11.69 Type 2 diabetes mellitus with other specified complication; R39.9 Unspecified symptoms and signs involving the genitourinary system | CPT/HCPCS: 51798; 81003; 99212 ==

== ENCOUNTER 2023-07-13 10:06 | Outpatient (REF) | payer OTHER, SELFPAY ==
[2023-07-13 12:14] LABS: Anion Gap 12 (12-20); Carbon Dioxide 28 mmol/L (22-29); Chloride 103 mmol/L (96-108); Potassium 3.9 mmol/L (3.3-5.1); Sodium 139 mmol/L (135-145)
== END 2023-07-13 10:07 | disposition home or self-care (01) ==
LOC: HO.LAB 10:06
PROVIDERS: PCP Nurse Practitioner Family; Referring Provider Nurse Practitioner Family; Visit Provider Surgery
DX: R22.1 Localized swelling, mass and lump, neck (principal); I27.0 Primary pulmonary hypertension; E11.9 Type 2 diabetes mellitus without complications; Z79.899 Other long term (current) drug therapy
CPT/HCPCS: 36415; 80051; 99202

== ENCOUNTER 2023-07-13 10:06 | Outpatient (AMB) | payer OTHER, SELFPAY ==
--- NOTE | 2023-07-13 10:12 | A.OFFVIS_ITS ---
Intake Vital Signs 3 07/13/23 10:19 Height 6 ft Weight 170 lb 6 oz BMI 23.1 BP 92/54 L Blood Pressure Location Lt brachial Position Sitting Pulse 62 Intake Visit Reasons: Facial Lesion Intake Note: Patient is seen in office for evaluation and treatment of a facial lesion. Pt c/o: left chaw lump, onset for years, has increase in size, now it bothers when eating/swallowing and pain radiates to the ear, denies discharge, redness, no antibiotics Veterinarian Assistant Required: No Accompanied by: Self / Same As Patient Allergies No Known Allergies [No Known Allergies*] Allergy (Verified 07/13/23 10:18) Medication List - Last Reconciled 07/13/23 by Joaquin Rasmussen MD amlodipine 5 mg PO DAILY aspirin 81 mg PO DAILY atorvastatin 80 mg PO DAILY cholecalciferol (vitamin D3) (Vitamin D3) 1 tab PO DAILY cyanocobalamin (vitamin B-12) 1,000 mcg PO DAILY empagliflozin (Jardiance) 25 mg PO DAILY famotidine (Pepcid) 20 mg PO BEDTIME finasteride 5 mg PO DAILY 90 days furosemide 20 mg PO DAILY lancets (FreeStyle Lancets) metformin 850 mg PO metoprolol tartrate 0.5 tabs PO BID omeprazole 20 mg PO DAILY paroxetine HCl 1 tab PO DAILY pregabalin 1 cap PO BID rivaroxaban (Xarelto) 1 tab PO DAILY terazosin 5 mg PO BEDTIME 90 days HPI HPI Comments 2 History of Present Illness0 Details 62-year-old male patient presenting with a mass in the left neck. He feels this is been present for least a year and has gradually increased in size. He now reports pain extending into the ear and pain with swallowing. He denies any previous workup or surgery in this area. He has had no previous diagnostic studies. He does have a history of a Warthin's tumor but no information is available at the time of this dictation regarding his treatment for this. 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) Alcohol intake: former Comment: refuses bed alarm Patient Tobacco Use Status: Current everyday Tobacco user Tobacco use type: Cigarette Cigarettes Per Day: 4 Years Smoked: 50 Substance Use Type: Marijuana Advance Directives Date on File: 12/02/20 service: No Current occupational status: unemployed Review of Systems Const All systems reviewed & are unremarkable except as noted in HPI and below ENT Reports otalgia, Denies mouth lesions, Reports neck pain and Reports odynophagia Resp Denies cough, Denies hemoptysis and Denies wheezing GI Reports odynophagia Musc Reports neck pain Jabier/Lymph Reports lymphadenopathy Aller/Immun Denies wheezing Physical Exam Vital Signs: Last Vital Signs Pulse 62 07/13/23 10:19 BP 92/54 L 07/13/23 10:19 BMI result Body Mass Index 23.1 Const General: cooperative and no acute distress Nutritional Appearance: well nourished Orientation/consciousness: patient oriented x3 Limitations: no limitations HEENT Head: Yes normocephalic and Yes atraumatic Head images: 2 1. Site of palpable mass left neck Ears: hearing grossly normal bilaterally Neck Other: 2-3 cm mobile mass located posterior to the angle of the mandible left side, possible parotid mass or lymphadenopathy, tender to palpation but no evidence of fluctuance. No oral lesions appreciated. Resp Effort & Inspection: normal respiratory effort, no audible wheezes, no cough and no respiratory distress Cardio Jugular venous distension: no JVD GI Inspection: Yes normal to inspection Skin Other: Warm, dry, no rash Neuro General: patient oriented x3 Extrem General: Yes no clubbing, cyanosis or edema Assessment & Plan Assessment & Plan (1) Palpable mass of neck: Code(s): R22.1 - Localized swelling, mass and lump, neck Plan 62-year-old male patient with a prior history of Warthin's tumor now presenting with a palpable mass of approximately 1 year duration causing pain in the left neck and ear with difficulty swallowing. On examination there is indeed a palpable mass, mobile within the neck measuring approximately 3 cm, possibly a parotid tumor or lymphadenopathy. I recommended further evaluation with CT of the neck. He will return following the study to review the results and discuss treatment options. Orders: Orders 2 CT soft tissue neck wo/w IVcon Today R22.1 - Localized swelling, mass and lump, neck Coding Level of Care Code New Pt Level 4 (30560) Diagnoses Palpable mass of neck R22.1
[2023-07-13 10:19] VITALS: BP 92/54; PULSE 62; BMI 23.1
== END 2023-07-13 10:43 | disposition home or self-care (01) ==
PROVIDERS: PCP Nurse Practitioner Family; Referring Provider Nurse Practitioner Family; Visit Provider Surgery
DX: R22.1 Localized swelling, mass and lump, neck (principal)
CPT/HCPCS: 99203

== ENCOUNTER 2023-08-11 12:00 | Outpatient (REF) | payer OTHER, SELFPAY ==
[2023-08-11 13:58] LABS: Cholesterol 97 mg/dL (<200); HDL Cholesterol 39 mg/dL (>40); LDL Cholesterol Calculated 46 mg/dL (<100); Triglycerides 64 mg/dL (<150)
== END 2023-08-11 12:01 | disposition home or self-care (01) ==
LOC: HO.HHCL 12:00
PROVIDERS: Visit Provider Nurse Practitioner Family
DX: E11.9 Type 2 diabetes mellitus without complications (principal)
CPT/HCPCS: 36415; 80061

== ENCOUNTER 2023-11-01 15:56 | Outpatient (REF) | payer OTHER, SELFPAY ==
--- NOTE | ~2023-11-01 | XR_ITS ---
EXAMINATION: 1. Left foot. 2. Left toes. CLINICAL INFORMATION: Left Foot Pain,Discoloration And Pain,Pt States He is A Diabetic Noticed 2 Weeks Ago. Stated Its His 2nd And 3rd Toe In Pain With Discoloration. COMPARISON: None. TECHNIQUE: 1. Left foot. 3 views 2. Left toes. 2 cone-down views FINDINGS: 1. Left foot. No fracture. No dislocation. Metatarsals, tarsal bones and hindfoot demonstrate no acute abnormality. There is a prominent plantar calcaneal spur. Vascular calcifications in the soft tissues of the foot. 2. Left toes. There is edema and swelling of the left third toe. There is significant loss of bone of the distal phalanx of the third toe. Findings consistent with osteomyelitis XR/XR foot LT min 3V IMPRESSION: 1. Left foot. No acute abnormality of the proximal foot. 2. Left toes. There is loss of bone of the distal phalanx of the third toe consistent with osteomyelitis.
--- NOTE | ~2023-11-01 | XR_ITS ---
EXAMINATION: 1. Left foot. 2. Left toes. CLINICAL INFORMATION: Left Foot Pain,Discoloration And Pain,Pt States He is A Diabetic Noticed 2 Weeks Ago. Stated Its His 2nd And 3rd Toe In Pain With Discoloration. COMPARISON: None. TECHNIQUE: 1. Left foot. 3 views 2. Left toes. 2 cone-down views FINDINGS: 1. Left foot. No fracture. No dislocation. Metatarsals, tarsal bones and hindfoot demonstrate no acute abnormality. There is a prominent plantar calcaneal spur. Vascular calcifications in the soft tissues of the foot. 2. Left toes. There is edema and swelling of the left third toe. There is significant loss of bone of the distal phalanx of the third toe. Findings consistent with osteomyelitis XR/XR toe LT min 2V IMPRESSION: 1. Left foot. No acute abnormality of the proximal foot. 2. Left toes. There is loss of bone of the distal phalanx of the third toe consistent with osteomyelitis.
== END 2023-11-01 15:57 | disposition home or self-care (01) ==
LOC: HO.HHCX 15:56
PROVIDERS: Visit Provider Nurse Practitioner Family
DX: M79.672 Pain in left foot (principal)
CPT/HCPCS: 73630; 73660

== ENCOUNTER 2024-03-23 10:19 | Outpatient (REF) | payer OTHER, SELFPAY | END 2024-03-23 10:20 | disposition home or self-care (01) | LOC: HO.HOSX 10:19 | PROVIDERS: Visit Provider Orthopaedic Surgery | DX: Z13.89 Encounter for screening for other disorder (principal) ==

== ENCOUNTER 2024-04-10 11:13 | Outpatient (REF) | payer OTHER, SELFPAY ==
[2024-04-10 13:27] LABS: MANUAL DIFF FLAG NO
[2024-04-10 13:31] LABS: Basophils Percent Auto 0.5 % (0-2); Eosinophils Absolute Auto 0.1 X10*3/uL (0.0-0.4); Hematocrit 37.3 % (42.0-52.0); Hemoglobin 12.3 g/dl (14.0-18.0); Imm Gran Abs Auto 0.03 X10*3/uL (0.00-0.03); Imm Gran Pct Auto 0.3 % (0.0-0.4); Lymphocytes Absolute Auto 1.8 X10*3/uL (1.2-4.9); Lymphocytes Percent Auto 20.5 % (20-40); Mean Corpuscular Hemoglobin 26.8 pg (27.0-33.0); Mean Corpuscular Volume 81.3 fL (80.0-98.0); Mean Platelet Volume 12.3 fL (9.4-12.4); Neutrophils Absolute Auto 5.9 x10*3/uL (2.0-8.3); Neutrophils Percent Auto 66.7 % (45-73); Platelet Count 217 X10*3/uL (160-400); Red Blood Count 4.59 X10*6/uL (4.60-5.80); Red Cell Distribution Width 16.6 % (11.0-16.0); White Blood Count 8.9 X10*3/uL (4.8-10.8)
[2024-04-10 14:10] LABS: TSH reflex Free T4 0.96 uIU/mL (0.32-4.0)
[2024-04-10 14:13] LABS: Alanine Aminotransferase 23 U/L (0-40); Albumin Level 4.2 g/dL (3.5-5.0); Alkaline Phosphatase 72 U/L (39-117); Anion Gap 13 (12-20); Aspartate Amino Transferase 22 U/L (5-37); Bilirubin Total 0.3 mg/dL (0.0-1.0); Blood Urea Nitrogen 8 mg/dL (9-16); C Reactive Protein < 0.04 mg/dL (< or = 0.50); Calcium 9.5 mg/dL (8.4-10.2); Carbon Dioxide 21 mmol/L (22-29); Chloride 105 mmol/L (96-108); Estimated Glomerular Filt Rate > 60; Glucose Random 107 mg/dL (60-115); Lactate Dehydrogenase 185 U/L (118-273); Potassium 4.2 mmol/L (3.3-5.1); Sodium 135 mmol/L (135-145); Total Protein 7.1 g/dL (6.5-8.0)
[2024-04-10 14:19] LABS: Erythrocyte Sedimentation Rate 6 MM/HR (0-15)
== END 2024-04-10 11:14 | disposition home or self-care (01) ==
LOC: HO.HHCL 11:13
PROVIDERS: Visit Provider Nurse Practitioner Family
DX: R59.1 Generalized enlarged lymph nodes (principal)
CPT/HCPCS: 36415; 80053; 83615; 84443; 85025; 85652; 86140

== ENCOUNTER 2024-04-11 08:42 | Outpatient (REF) | payer OTHER, SELFPAY ==
--- NOTE | ~2024-04-11 | XR_ITS ---
EXAMINATION: XR SHOULDER, LEFT CLINICAL INFORMATION: M25.512 - Pain in left shoulder COMPARISON: None available. TECHNIQUE: AP external rotation, Grashey, scapular Y, and axillary views of the left shoulder. FINDINGS: There is slight widening of the AC joint suggestive of AC joint separation age-indeterminate. There is also mild arthrosis of the joint. Glenohumeral joint normal. Surrounding bone and soft tissues unremarkable XR/XR shoulder LT min 2V IMPRESSION: Slight widening of the AC joint suggestive of AC joint separation versus normal variation. Mild arthrosis of the joint. Electronically signed by: Antoni Choi MD 04/16/2024 07:22 AM [facility]
--- NOTE | ~2024-04-11 | US_ITS ---
EXAMINATION: Ultrasound of the neck CLINICAL INFORMATION: Left submandibular mass.. COMPARISON: CT angiogram head and neck April 30, 2020 TECHNIQUE: Linear transducer dove-scale and color Doppler examination with attention to the region of the left neck FINDINGS: There is an ovoid lesion in the region of the left gland which is heterogeneous in echotexture and nodular in contour with increased vascularity. Lesion measures 3 x 1.8 x 3.2 cm. This is asymmetric with the right side were no lesion is evident. There is an enhancing lesion present in the left parotid gland present on the CT of the neck April 30, 2020. This correlates with the current lesion. This measured 2.2 x 1.6 x 3.5 cm on prior study. US/US soft tiss head and/or neck IMPRESSION: Heterogeneous vascular lesion in the left parotid gland. This correlates with the lesion seen on prior CT angiogram head and neck April 30, 2020. This has not substantially changed in size since prior CAT scan. This is consistent with a benign lesion therefore Electronically signed by: David Tovar MD 04/12/2024 05:23 PM [facility]
== END 2024-04-11 08:43 | disposition home or self-care (01) ==
LOC: HO.US 08:42
PROVIDERS: PCP Nurse Practitioner Family; Visit Provider Nurse Practitioner Family
DX: R59.1 Generalized enlarged lymph nodes (principal); M25.512 Pain in left shoulder
CPT/HCPCS: 73030; 76536

== ENCOUNTER 2024-04-19 13:32 | Outpatient (REF) | payer OTHER, SELFPAY ==
--- NOTE | ~2024-04-19 | CT_ITS ---
EXAMINATION: CT SOFT TISSUE NECK WITH CONTRAST CLINICAL INFORMATION: Neck mass COMPARISON: CTA head and neck on 04/30/2020 TECHNIQUE: Following the intravenous administration of 100 mL of Omnipaque 350 intravenous contrast, helical imaging was performed in the axial plane with generation of coronal and sagittal reformatted images. This CT examination was performed using dose optimization techniques as appropriate, variously including the following: *Automated exposure control *Adjustment of mA and/or kV according to patient size (this includes techniques or standardized protocols for targeted exams where dose is matched to indication/reason for exam; i.e. extremities or head) *Use of iterative reconstruction technique DLP: 300 mGy-cm FINDINGS: Again seen is a homogeneously enhancing mass in the superficial lobe of the left parotid gland extending to the parotid tail. This mass measures 2.4 x 3.9 cm (AP x CC), previously 3.5 x 1.9 cm. The submandibular and thyroid glands as well as the right parotid gland are unremarkable. No abnormally enlarged lymph node. The nasopharynx, oropharynx, hypopharynx, and laryngeal structures are unremarkable. The parotid, submandibular, and thyroid glands are unremarkable. The visualized orbits are unremarkable. Chronic left maxillary and ethmoid sinusitis with near complete opacification. The mastoid air cells are clear. Atherosclerotic calcifications of the bilateral carotid bulbs extending into the proximal segments of the cervical ICAs bilaterally. There is significant stenosis of the left greater than right proximal cervical ICAs accounting for contrast bolus timing. The imaged portions of the brain are unremarkable. No acute osseous abnormality. No lytic or blastic osseous lesions. Multilevel degenerative changes of the visualized spine. The visualized lungs are clear. CT/CT soft tissue neck w IV con IMPRESSION: -Slightly increased size of homogeneously enhancing mass in the left parotid gland superficial lobe. 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 -Significant stenosis of the left greater than right proximal cervical ICAs accounting for contrast bolus timing. Electronically signed by: Sushma Velez MD 04/19/2024 06:58 PM EST
[2024-04-19] MEDS: iohexoL 350 MG/ML 100 ML INFUS..BTL 60 ML IV (14:11)
== END 2024-04-19 13:33 | disposition home or self-care (01) ==
LOC: HO.CT 13:32
PROVIDERS: PCP Nurse Practitioner Family; Visit Provider Nurse Practitioner Family
DX: R59.1 Generalized enlarged lymph nodes (principal)
CPT/HCPCS: 70491; Q9967

== ENCOUNTER 2024-05-18 10:24 | Outpatient (AMB) | payer OTHER, SELFPAY ==
[2024-05-18 10:29] VITALS: BP 99/55; PULSE 92; BMI 21.8
--- NOTE | 2024-05-18 10:29 | MHC.OFFVIS ---
Vital Signs 05/18/24 10:29 Height 6 ft Weight 161 lb BMI 21.8 BP 99/55 L Blood Pressure Location Rt brachial Position Sitting Pulse 92 Intake Visit Reasons: Mass~ Lt neck Intake Note: Patient is seen in office for CT scan follow up visit, following mass of the neck. Growth present for more than 10yrs. Pt c/o: painful, pain spreads to posterior shoulder, ear, head. CT:04/19/24 Sales Representative Adding Machines Required: Yes Sales Representative Adding Machines Name: Aida JEREZ Accompanied by: Self / Same As Patient Allergies No Known Allergies [No Known Allergies*] Allergy (Verified 05/18/24 10:31) HPI Comments Details: 63-year-old male patient returning for re-evaluation of a with a mass in the left neck. He feels this is been present for several years and has gradually increased in size. He continues to report pain extending into the ear and pain with swallowing. He denies any previous workup or surgery in this area. He has had no previous diagnostic studies. He does have a history of a Warthin's tumor but no information is available at the time of this dictation regarding his treatment for this. A CT of the neck was performed on 04/19/2024 and reveals an enhancing mass of the left parotid gland. He presents today to review the results and discuss treatment options. 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) Alcohol intake: former Comment: refuses bed alarm Patient Tobacco Use Status: Current everyday Tobacco user Tobacco use type: Cigarette Cigarettes Per Day: 4 Years Smoked: 50 Substance Use Type: Marijuana Advance Directives Date on File: 12/02/20 service: No Current occupational status: unemployed Review of Systems Const All systems reviewed & are unremarkable except as noted in HPI and below ENT Reports otalgia, Denies mouth lesions, Reports neck pain and Reports odynophagia Resp Denies cough, Denies hemoptysis and Denies wheezing GI Reports odynophagia Musc Reports neck pain Jabier/Lymph Reports lymphadenopathy Aller/Immun Denies wheezing Physical Exam Vital Signs: Last Vital Signs Pulse 92 05/18/24 10:29 BP 99/55 L 05/18/24 10:29 BMI result Body Mass Index 21.8 Const General: cooperative and no acute distress Nutritional Appearance: well nourished Orientation/consciousness: patient oriented x3 Limitations: no limitations HEENT Head: Yes normocephalic and Yes atraumatic Ears: hearing grossly normal bilaterally Neck Other: 3 cm mobile mass located posterior to the angle of the mandible left side, possible parotid mass or lymphadenopathy, tender to palpation but no evidence of fluctuance. No oral lesions appreciated. Resp Effort & Inspection: normal respiratory effort, no audible wheezes, no cough and no respiratory distress Cardio Jugular venous distension: no JVD GI Inspection: Yes normal to inspection Skin Other: Warm, dry, no rash Neuro General: patient oriented x3 Extrem General: Yes no clubbing, cyanosis or edema Assessment & Plan Assessment & Plan (1) Palpable mass of neck: Code(s): R22.1 - Localized swelling, mass and lump, neck Category: Medical Plan 63-year-old male patient with a prior history of Warthin's tumor now presenting with an enlarging symptomatic palpable mass of the left parotid gland confirmed by CT of the neck. This is a specialized surgery performed generally by ENT surgeons and not by general surgeons. Patient has previously been referred to the ENT surgeons of [facility]. I will reconsult the ENT surgeons for further evaluation regarding this left parotid tumor. He should follow up in our office as needed. Orders: Referrals Ear/Nose/Throat Referral K11.8 - Other diseases of salivary glands Coding Level of Care Code Est Pt Level 4 (39162) Diagnoses Palpable mass of neck R22.1
== END 2024-05-18 10:40 | disposition home or self-care (01) ==
PROVIDERS: PCP Nurse Practitioner Family; Visit Provider Surgery
DX: R22.1 Localized swelling, mass and lump, neck (principal)
CPT/HCPCS: 99214

== ENCOUNTER → 2024-05-18 10:24 | Outpatient (BNVA) | payer OTHER, SELFPAY | PROVIDERS: PCP Nurse Practitioner Family; Visit Provider Surgery | DX: R22.1 Localized swelling, mass and lump, neck (principal) | CPT/HCPCS: 99212 ==

== ENCOUNTER 2024-06-30 11:25 | Outpatient (REF) | payer OTHER, SELFPAY ==
--- OUTSIDE RECORDS SUMMARY | 2024-06-30 12:14 | XMS_ITS | Encounter Summary ---
Author Organization [facility] Address [address] [place] [address] Care Team Providers Care Bench Precision Assembler Name Role Phone Fifi LeeP Primary Care Provider [phone] Ny Hsu NP Primary Care Provider [phone] Reason for Visit * Reason Comments Med Refill Encounter Details Date Type Department Care Team ([facility] st Contact Info) Description 06/10/2023 Refill [facility] [address] [place], [place] [phone] Fifi Lee FNP [address] [place] [address] Peripheral vascular disease (CMS/HCC); Essential pulmonary hypertension (CMS/HCC) Social History Tobacco Use Types Packs/Day Years Used Date Smoking Tobacco: Every Day Cigarettes Smokeless Tobacco: Never Comments:Reports smokes 6-8 cigarettes daily Alcohol Use Standard Drinks/Week Comments Not Currently 0 (1 standard drink = 0.6 oz pur e alcohol) Depression Answer Date Recorded Patient Health Questionnaire-9 Score 1 05/26/2023 Patient Health Questionnaire-9 Score 1 05/26/2023 Last PHQ-9: Questionnaire Data Not on file 0 05/26/2023 Housing Stability Answer Date Recorded What is your housing situation today? I have richard soares 03/01/[address] you li ve. Do you have problems with any of the following? None of the above 03/01/2023 Food Insecurity Answer Date Recorded Within the past 12 months, y ou worried that your food would run out before you got money to buy more: Never True 05/26/2023 Within the past 12 months,th e food you bought just didn't last and you didn't have enough money to get more: Never True 02/2024 Transportation Answer Date Recorded In the past 12 months, has l ack of transportation kept you from medical appts, meetings, work or from getting things needed for daily living? No 03/01/2023 Utilities Answer Date Recorded In the past 12 months, has t he electric, gas, oil or water company threatened to shut off services in your home? No 03/01/2023 Depression Answer Date Recorded Patient Health Questionnaire-2 Score 0 05/26/2023 Sex and Gender Information Value Date Recorded Sex Assigned at Male 03/16/2022 10:30 AM EDT Legal Sex Male 10:30 AM EDT Gender Identity Male 03/16/2022 10:30 AM EDT Sexual Orientation Straight 03/16/2022 10 :30 AM EDT documented as of this encounter Plan of Treatment Upcoming Encounters Date Type Department Care Team (Late st Contact Info) Description 08/14/2024 1:45 PM EDT Office Visit [facility] [address] [place] [address] Ny Hsu NP [address] [place] [address] documented as of this encounter Visit Diagnoses Diagnosis Peripheral vascular disease (CMS/HCC) Unspecified peripheral vascular disease Essential pulmonary hypertension (CMS/HCC) documented in this encounter Additional Health Concerns Assessment Noted Time PHQ-9 Depression Total Score: 1 05/26/19 24 3:48 PM EST documented as of this encounter Care Teams Bench Precision Assembler Relationship Specialty Start Date End Date Fifi Lee FNP [address] [place] [address] PCP - General Family Medicine 04/06/22 01/17/24 Ny Hsu NP [address] [place] [address] PCP - General Family Medicine 01/18/24 documented as of this encounter
--- OUTSIDE RECORDS SUMMARY | 2024-06-30 12:14 | XMS_ITS | Encounter Summary ---
Author Organization [employer] Address [address] [facility] [facility] [facility] [address] [place] [address] Care Team Providers Care History Faculty Member Name Role Phone Ny Hsu NP Primary Care Provider Reason for Visit * Reason Comments Med Change Request Encounter Details Date Type Department Care Team ([facility] Contact Info) Description 06/30/2024 Refill [facility] [address] [place], [place] [phone] Ny Hsu NP [address] [place], [place] [phone] Tobacco abuse Social History Tobacco Use Types Packs/Day Years Used Date Smoking Tobacco: Every Day Cigarettes Smokeless Tobacco: Never Comments:Reports smokes 6-8 cigarettes daily Alcohol Use Standard Drinks/Week Comments Never 0 (1 standard drink = 0.6 oz pur e alcohol) Alcohol Answer Date Recorded Frequency of Alcohol Consumption Not on file 01/24/2024 Average Number of Drinks Not on file 024 Frequency of Binge Drinking Not on file 01/2024 Score 0 01/24/2024 Depression Answer Date Recorded Patient Health Questionnaire-9 Score 2 06/30/2024 Patient Health Questionnaire-9 Score 2 06/30/2024 Last PHQ-9: Questionnaire Data Not on file 0 06/30/2024 Housing Stability Answer Date Recorded What is your housing situation today? I have richard soares 06/30/[address] you li ve. Do you have problems with any of the following? None of the above 06/30/2024 Food Insecurity Answer Date Recorded Within the past 12 months, y ou worried that your food would run out before you got money to buy more: Never True 06/30/2024 Within the past 12 months,th e food you bought just didn't last and you didn't have enough money to get more: Never True Transportation Answer Date Recorded In the past 12 months, has l ack of transportation kept you from medical appts, meetings, work or from getting things needed for daily living? No 06/30/2024 Utilities Answer Date Recorded In the past 12 months, has t he electric, gas, oil or water company threatened to shut off services in your home? No 06/30/2024 Depression Answer Date Recorded Patient Health Questionnaire-2 Score 0 06/30/2024 Internet Access Answer Date Recorded Internet Access Q1 Yes 06/30/2024 Internet Access Q2 Not on file 06/30/2024 Sex and Gender Information Value Date Recorded Sex Assigned at Male 03/16/2022 10:30 AM EDT Legal Sex Male 10:30 AM EDT Gender Identity Male 03/16/2022 10:30 AM EDT Sexual Orientation Straight 03/16/2022 10 :30 AM EDT documented as of this encounter Plan of Treatment Upcoming Encounters Date Type Department Care Team (Late st Contact Info) Description 08/14/2024 1:45 PM EDT Office Visit [facility] [address] [place] [address] Ny Hsu NP [address] [place] [address] documented as of this encounter Visit Diagnoses Diagnosis Tobacco abuse Tobacco use disorder documented in this encounter Additional Health Concerns Assessment Noted Time PHQ-9 Depression Total Score: 2 06/30/19 25 10:52 AM EST documented as of this encounter Care Teams History Faculty Member Relationship Specialty Start Date End Date Ny Hsu NP [address] [place] [address] PCP - General Family Medicine 01/18/24 documented as of this encounter
--- OUTSIDE RECORDS SUMMARY | 2024-06-30 12:14 | XMS_ITS | Encounter Summary ---
Author Organization [employer] Address [address] [place] [address] Care Team Providers Care Roller Shop Utility Worker Name Role Phone Fifi LeeP Primary Care Provider [phone] Ny Hsu NP Primary Care Provider [phone] Encounter Details Date Type Department Care Team (Late st Contact Info) Description 06/14/2023 Orders Only [facility] [address] [place], [place] [phone] Fifi Lee FNP [address] [place], [place] [phone] Essential pulmonary hypertension (CMS/HCC) Social History Tobacco [...] Description 08/14/2024 1:45 PM EDT Office Visit [facility] [address] [place] [address] Ny Hsu NP [address] [place] [address] documented as of this encounter Visit Diagnoses Diagnosis Essential pulmonary hypertension (CMS/HCC) documented in this encounter Additional Health Concerns Assessment Noted Time PHQ-9 Depression Total Score: 1 05/26/19 24 3:48 PM EST documented as of this encounter Care Teams Roller Shop Utility Worker Relationship Specialty Start Date End Date Fifi Lee FNP [address] [place] [address] PCP - General Family Medicine 04/06/22 01/17/24 Ny Hsu NP [address] [place] [address] PCP - General Family Medicine 01/18/24 documented as of this encounter
--- OUTSIDE RECORDS SUMMARY | 2024-06-30 12:14 | XMS_ITS | Encounter Summary ---
Author Organization [employer] Address [address] [facility] 7t [place] [address] Care Team Providers Care Pile Operator Name Role Phone Fifi Lee Primary Care Provider [phone] Ny Hsu NP Primary Care Provider [phone] Encounter Details Date Type Department Care Team (Late Contact Info) Description 10/28/2022 Abstract [facility] MEDICINE [address] [place] [phone] Fifi Lee FNP [address] [place] [address] [phone] Social History Tobacco Use Types Packs/Day Years Used Date Smoking Tobacco: Every Day Cigarettes Smokeless Tobacco: Never Alcohol Use Standard Drinks/Week Comments Not Currently 0 (1 standard drink = 0.6 oz pur e alcohol) Depression Answer Date Recorded Patient Health Questionnaire-9 Score 1 06/05/2022 Depression Answer Date Recorded Patient Health Questionnaire-2 Score 0 06/05/2022 Sex and Gender Information Value Date Recorded Sex Assigned at Male 03/16/2022 10:30 AM EDT Legal Sex Male 10:30 AM EDT Gender Identity Male 03/16/2022 10:30 AM EDT Sexual Orientation Straight 03/16/2022 10 :30 AM EDT documented as of this encounter Plan of Treatment Upcoming Encounters Date Type Department Care Team (Late st Contact Info) Description 08/14/2024 1:45 PM EDT Office Visit [facility] [address] [place] [address] Ny Hsu NP [address] [place], [place] [phone] documented as of this encounter Procedures Procedure Name Priority Date/Time Associated Diagnosis Comments COLONOSCOPY Routine 03/25/2022 1:38 PM EST documented in this encounter Results * Colonoscopy (03/25/2022 1:38 PM EST) Colonoscopy Normal Normal Narrative Amrita Oneill - 03/25/2022 1:38 PM EST Recommended 1-2 year follow up due to fair prep ([facility] [place]) us Historical Provider HEALTH MAINTENANCE Edited Result - Final documented in this encounter Visit Diagnoses Not on filedocumented in this encounter Additional Health Concerns Assessment Noted Time PHQ-9 Depression Total Score: 1 06/05/19 23 11:19 AM EST documented as of this encounter Care Teams Pile Operator Relationship Specialty Start Date End Date Fifi Lee FNP [address] [place] [address] PCP - General Family Medicine 04/06/22 01/17/24 Ny Hsu NP [address] [place] [address] PCP - General Family Medicine 01/18/24 documented as of this encounter
--- OUTSIDE RECORDS SUMMARY | 2024-06-30 12:14 | XMS_ITS | Encounter Summary ---
Author Organization [employer] Address 75 [facility] 7t [place] [address] Care Team Providers Care Repeater Operator Name Role Phone Ny Hsu NP Primary Care Provider [phone] Reason for Referral * Consultation (Routine) - Authorized Specialty Diagnoses / Procedures Referred By Evy allen Referred To Contact Pharmacy Diagnoses Tobacco abuse Ny Hsu NP [address] [place] [address] Phone: tel: fax: Referral ID Status Reason Start Date Expiration Date Visits Requested Visits Authorized [id number] Authorized Consult and Treat 06/30/2024 06/30/2025 1 1 * Consultation (STAT) - Pending Review Specialty Diagnoses / Procedures Referred By Evy allen Referred To Contact Otolaryngology Diagnoses Parotid mass Ny Hsu NP [address] [place] [address] Phone: tel: fax: Referral ID Status Reason Start Date Expiration Date Visits Requested Visits Authorized [id number] Pending Review Specialty Services Required 06/30/2024 06/30/2025 1 1 Encounter Details Date Type Department Care Team (Late st Contact Info) Description 06/30/2024 10:30 AM EST Office Visit [facility] MEDICINE [address] [place] [address] Ny Hsu NP [address] [place] [address] Type 2 diabetes mellitus without complication, unspecified whether fpc insulin use ([facility]) (Primary Dx); Parotid mass; Benign prostatic hyperplasia with urinary frequency; Essential pulmonary hypertension ([facility]); Peripheral vascular disease ([facility]); Anemia, unspecified type; Tobacco abuse; Nicotine dependence, uncomplicated, unspecified nicotine product type; Alcoholism ([facility]) Social History Tobacco Use Types Packs/Day Years [...] AM EDT documented as of this encounter Last Filed Vital Signs Vital Sign Reading Time Taken Comments Blood Pressure 110/66 06/30/2024 10:46 AM EST Pulse 80 06/30/2024 10:46 AM EST Temperature 35.6 ??C (96.1 ??F) 06/30/2024 10:[address] Respiratory Rate 18 06/30/2024 10:46 AM EST Oxygen Saturation 98% 06/30/2024 10:46 AM EST Inhaled Oxygen Concentration - - Weight 75 kg (165 lb 6.4 oz) 06/30/2024 10:46 AM EST Height 180.3 cm (5' 11 ) 06/30/2024 10:46 AM EST Body Mass Index 23.07 06/30/2024 10:46 AM EST documented in this encounter Progress Notes * Ny Hsu, SERA - 06/30/2024 10:30 AM EST Subjective Geraldo Unger is a 63 y.o. male who presents to the office for follow up visit - chronic conditions. 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 This is a specialized surgery performed generally by ENT surgeons and not by general surgeons. Patient has previously been referred to the ENT surgeons of [facility]. I will reconsult the ENT surgeons for further evaluation regarding this left parotid tumor. He should follow up in our office as needed. Current concerns: Pt reports hard to eat and if pushes on left mass dizziness Unable to swallow Reports difficulty with memory, saw surgery but has not heard from ent Reports ran out of medications Willing to work on quitting smoking Patient Active Problem List Diagnosis Chronic hepatitis C (CMS/HCC) Essential pulmonary hypertension (CMS/HCC) Neuropathy of right upper extremity Nicotine dependence Peripheral vascular disease (CMS/HCC) Type 2 diabetes mellitus without complication (CMS/HCC) Pulmonary thromboembolism (CMS/HCC) Acute low back pain Adenolymphoma Alcoholism (CMS/HCC) Anxiety Cervical radiculopathy Pneumonia of both lungs due to infectious organism Chronic left shoulder pain Neck pain Diabetes due to underlying condition w oth circulatory comp (CMS/HCC) Lymphadenopathy Pancytopenia (CMS/HCC) Parotid mass Review of Systems Constitutional: Negative for activity change and appetite change. HENT: Positive for trouble swallowing. Negative for congestion. Respiratory: Negative for apnea and chest tightness. Cardiovascular: Negative for chest pain. Gastrointestinal: Negative for abdominal distention. Genitourinary: Negative for difficulty urinating. Musculoskeletal: Negative for arthralgias. Hematological: Negative for adenopathy. Psychiatric/Behavioral: Negative for agitation. Objective Visit Vitals BP 110/66 (BP Location: Right arm, Patient Position: Sitting, BP Cuff Size: Adult) Pulse 80 Temp 96.1 ??F (35.6 ??C) (Temporal) Resp 18 Ht 5' 11 (1.803 m) Wt 165 lb 6.4 oz (75 kg) SpO2 98% BMI 23.07 kg/m?? Smoking Status Every Day BSA 1.94 m?? Physical Exam Vitals reviewed. Constitutional: Appearance: Normal appearance. HENT: Head: Normocephalic. Neck: Comments: Esimated 4 cm parotid submandibular mass Cardiovascular: Rate and Rhythm: Normal rate. Heart sounds: Normal heart sounds. Pulmonary: Breath sounds: Normal breath sounds. Abdominal: Palpations: Abdomen is soft. Musculoskeletal: Cervical back: Neck supple. Neurological: Mental Status: He is alert. Psychiatric: Mood and Affect: Mood normal. Assessment/Plan Problem List Items Addressed This Visit Essential pulmonary hypertension ([facility]) Relevant Medications metoprolol tartrate (Lopressor) 25 MG tablet Nicotine dependence Current Assessment & Plan Aware that cutting down is encouraged before any surgery Nicorette prescribed Referral to tobacco cessation Peripheral vascular disease ([facility]) Relevant Medications aspirin 81 MG EC tablet atorvastatin (Lipitor) 80 MG tablet Type 2 diabetes mellitus without complication ([facility]) - Primary Relevant Orders POCT Glucose (Completed) POCT HGB A1C (Completed) Comprehensive Metabolic Panel CBC auto differential Sed Rate by Modified [place]gren Hemoglobin A1c Alcoholism ([facility]) Current Assessment & Plan 10 years sober, cbc pending Parotid mass Current Assessment & Plan Pt uncertain of follow up with ENT Stat referral as pt endorses constant pain, dysphagia Relevant Orders Referral to ENT Other Visit Diagnoses Benign prostatic hyperplasia with urinary frequency Relevant Medications tamsulosin (Flomax) 0.4 MG 24 hr capsule Anemia, unspecified type Relevant Medications cyanocobalamin (Vitamin B-12) 1000 MCG tablet folic acid (Folvite) 1 MG tablet Other Relevant Orders Vitamin B12/Folate, Serum Panel Tobacco abuse Relevant Medications nicotine polacrilex (Nicorette) 4 MG gum Other Relevant Orders Referral to Pharmacy Smoking Cessation Program Current Outpatient Medications Medication Sig Dispense Refill amLODIPine (Norvasc) 5 MG tablet Take 1 tablet (5 mg) by mouth in the morning. TAKE 1 TABLET BY MOUTH EVERY MORNING 90 tablet 3 aspirin 81 MG EC tablet Take 1 tablet (81 mg) by mouth Once per day. 90 tablet 3 atorvastatin (Lipitor) 80 MG tablet TAKE 1 TABLET BY MOUTH EVERY MORNING 90 tablet 3 cholecalciferol (D-5000) 5,000 Units tablet TAKE 1 TABLET BY MOUTH EVERY DAY 90 tablet 3 cyanocobalamin (Vitamin B-12) 1000 MCG tablet TAKE 1 TABLET BY MOUTH EVERY MORNING 90 tablet 3 empagliflozin (Jardiance) 25 MG Take 1 tablet by mouth at bed time. famotidine (Pepcid) 20 MG tablet Take 20 mg by mouth Once per day. folic acid (Folvite) 1 MG tablet Take 1 tablet (1,000 mcg) by mouth Once per day. 30 tablet 2 furosemide (Lasix) 20 MG tablet TAKE 1 TABLET BY MOUTH EVERY DAY 90 tablet 1 gabapentin (Neurontin) 800 MG tablet TAKE 1 TABLET BY MOUTH THREE TIMES A DAY 90 tablet 1 glucose blood (FREESTYLE TEST STRIPS) test strip every 8 (eight) hours. hydrOXYzine HCl (Atarax) 25 MG tablet take 1 tablet by oral route 3 times every day as needed for anxiety metFORMIN (Glucophage) 850 MG tablet TOME ULYSSES TABLETA DOS VECES AL VISHAL CON LAS COMIDAS 180 tablet 3 metoprolol tartrate (Lopressor) 25 MG tablet TAKE 1/2 TABLET BY MOUTH TWICE A DAY 90 tablet 1 nicotine polacrilex (Nicorette) 4 MG gum Chew 1 each (4 mg) if needed for smoking cessation. 100 each 0 omeprazole (PriLOSEC) [address] capsule Take 1 capsule by mouth at bed time. PARoxetine (Paxil) 40 MG tablet Take 1 tablet (40 mg) by mouth in the morning. 30 tablet 11 rivaroxaban (Xarelto) 20 MG tablet Take 1 tablet by mouth at bed time. tamsulosin (Flomax) 0.4 MG 24 hr capsule TAKE 1 CAPSULE BY MOUTH EVERY DAY 1/2 HOUR FOLLOWING THE SAME MEAL EACH DAY 90 capsule 3 terazosin (Hytrin) 5 MG capsule Take 1 capsule (5 mg) by mouth Once per day. 30 capsule 2 tiZANidine (Zanaflex) 4 MG tablet Take 1 tablet (4 mg) by mouth every 8 (eight) hours if needed formuscle spasms for up to 10 days. 30 tablet 0 No current facility-administered medications for this visit. Visit Conducted in: French Translation by: Provided by [facility] staff member Camilla , documented in this encounter Miscellaneous Notes * Assessment & Plan Note - Ny Hsu NP - 06/30/2024 11:11 AM ESTAssociated Problem(s): Alcoholism (CMS/HCC) 10 years sober, cbc pending * Assessment & Plan Note - Ny Hsu NP - 06/30/2024 11:10 AM ESTAssociated Problem(s): Nicotine dependence Aware that cutting down is encouraged before any surgery Nicorette prescribed Referral to tobacco cessation * Assessment & Plan Note - Ny Hsu NP - 06/30/2024 11:10 AM ESTAssociated Problem(s): Parotid mass Pt uncertain of follow up with ENT Stat referral as pt endorses constant pain, dysphagia documented in this encounter Plan of Treatment Upcoming Encounters Date Type Department Care Team (Late st Contact Info) Description 08/14/2024 1:45 PM EDT Office Visit [facility] MEDICINE [address] [place] [address] Ny Hsu NP [address] [place], [place] [phone] Scheduled Orders Name Type Priority Associated Diagnoses Orde r Schedule Comprehensive Metabolic Panel Lab Routine Type 2 diabetes mellitus without complication, unspecified whether superintendent container terminal insulin use ([facility]) Expected: 06/30/2024 (Approximate), Expires: 06/30/2025 CBC auto differential Lab Routine Type 2 diabetes mellitus without complication, unspecified whether superintendent container terminal insulin use ([facility]) Expected: 06/30/2024 (Approximate), Expires: 06/30/2025 Sed Rate by Modified [place]gren Lab Routine Type 2 diabetes mellitus without complication, unspecified whether superintendent container terminal insulin use ([facility]) Expected: 06/30/2024, Expires: 06/30/2025 Hemoglobin A1c Lab Routine Type 2 diabetes mellitus without complication, unspecified whether superintendent container terminal insulin use ([facility]) Expected: 06/30/2024 (Approximate), Expires: 06/30/2025 Vitamin B12/Folate, Serum Panel Lab Routine Anemia, unspecified type Expected: 06/30/2024, Expires: 06/30/2025 Scheduled Referrals Name Type Priority Associated Diagnoses Orde r Schedule Referral to ENT Outpatient Referral STAT Parotid mass Expected: 06/30/2024 (Approximate), Expires: 06/30/2025 Referral to Pharmacy Smoking Cessation Program Outpatient Referral Routine Tobacco abuse Expected: 06/30/2024 (Approximate), Expires: 06/30/2025 documented as of this encounter Procedures Procedure Name Priority Date/Time Associated Diagnosis Comments POCT GLYCATED HEMOGLOBIN, TOTAL Routine 06/30/2024 10:53 AM EST Type 2 diabetes mellitus without complication, unspecified whether fpc insulin use ([facility]) POCT GLUCOSE Routine 06/30/2024 10:53 AM EST Type 2 diabetes mellitus without complication, unspecified whether superintendent container terminal insulin use ([facility]) documented in this encounter Results * (ABNORMAL) POCT HGB A1C (06/30/2024 10:53 AM EST) Hemoglobin A1C 6.5(A) 4.0 - 6.0 % QC Media Lot # [id number] Lot# Expiration Date Blood 06/30/2024 10:5 3 AM EST us Ny Hsu NP POINT OF CARE TEST ENTER/EDIT OR DERABLES Final Result * (ABNORMAL) POCT Glucose (06/30/2024 10:53 AM EST) Glucose Blood, POC 210(A) 60 - 200 mg/dL QC Media Lot # [id number] Lot# Expiration Date ,826 Blood Capillary blood specimen / Unknown 06/30/2024 10:53 AM EST us Ny Hsu NP POINT OF CARE TEST ENTER/EDIT OR DERABLES Final Result documented in this encounter Visit Diagnoses Diagnosis Type 2 diabetes mellitus without complication, unspecified whether superintendent container terminal insulin use (CMS/HCC)- Primary Parotid mass Swelling, mass, or lump in head and neck Benign prostatic hyperplasia with urinary frequency Essential pulmonary hypertension (CMS/HCC) Peripheral vascular disease (CMS/HCC) Unspecified peripheral vascular disease Anemia, unspecified type Tobacco abuse Tobacco use disorder Nicotine dependence, uncomplicated, unspecified nicotine product type Alcoholism (CMS/HCC) Other and unspecified alcohol dependence, unspecified drinking behavior documented in this encounter Additional Health Concerns Assessment Noted Time PHQ-9 Depression Total Score: 2 06/30/19 25 10:52 AM EST documented as of this encounter Care Teams Repeater Operator Relationship Specialty Start Date End Date Ny Hsu NP [address] [place] [phone] PCP - General Family Medicine 01/18/24 documented as of this encounter
--- OUTSIDE RECORDS SUMMARY | 2024-06-30 12:14 | XMS_ITS | Encounter Summary ---
Author Organization [employer] Address 75 [facility] 7t [place] [address] Care Team Providers Care Pump House Technician Name Role Phone Fifi Lee SENIOR CARE PROVIDER Primary Care Provider [phone] Ny Hsu NP Primary Care Provider [phone] Reason for Visit * Reason Comments Med Refill Encounter Details Date Type Department Care Team ([facility] st Contact Info) Description 11/25/2023 Refill [facility] [address] [place], [place] [phone] Laurel Moore MD [address] [place], [place] [phone] Social History Tobacco Use Types Packs/Day Years [...] Description 08/14/2024 1:45 PM EDT Office Visit [facility] [address] [place] [address] Ny Hsu NP [address] [place] [address] documented as of this encounter Visit Diagnoses Not on filedocumented in this encounter Additional Health Concerns Assessment Noted Time PHQ-9 Depression Total Score: 1 05/26/19 24 3:48 PM EST documented as of this encounter Care Teams Pump House Technician Relationship Specialty Start Date End Date Fifi Lee FNP [address] [place] [address] PCP - General Family Medicine 04/06/22 01/17/24 Ny Hsu NP [address] [place] [address] PCP - General Family Medicine 01/18/24 documented as of this encounter
--- OUTSIDE RECORDS SUMMARY | 2024-06-30 12:14 | XMS_ITS | Encounter Summary ---
Author Organization [employer] Address 75 [facility] 7t [place] [address] Care Team Providers Care Still Operator Whiskey Name Role Phone Fifi LeeP Primary Care Provider [phone] Ny Hsu NP Primary Care Provider [phone] Reason for Visit * Reason Comments Med Refill Encounter Details Date Type Department Care Team ([facility] st Contact Info) Description 11/25/2023 Refill [facility] [address] [place], [place] [phone] Fifi Lee FNP [address] [place] [address] Social History Tobacco Use Types Packs/Day Years [...] Description 08/14/2024 1:45 PM EDT Office Visit [facility] MEDICINE [address] [place] [address] Ny Hsu NP [address] [place] [address] documented as of this encounter Visit Diagnoses Not on filedocumented in this encounter Additional Health Concerns Assessment Noted Time PHQ-9 Depression Total Score: 1 05/26/19 24 3:48 PM EST documented as of this encounter Care Teams Still Operator Whiskey Relationship Specialty Start Date End Date Fifi Lee FNP [address] [place] [address] PCP - General Family Medicine 04/06/22 01/17/24 Ny Hsu NP [address] [place] [address] PCP - General Family Medicine 01/18/24 documented as of this encounter
--- OUTSIDE RECORDS SUMMARY | 2024-06-30 12:14 | XMS_ITS | Encounter Summary ---
Author Organization [employer] Address [address] [facility] 7t [place] [address] Care Team Providers Care Brush Polisher Name Role Phone Fifi Lee CORRECTIONAL SUPERVISOR LIEUTENANT Primary Care Provider [phone] Ny Hsu NP Primary Care Provider Reason for Visit * Reason Onset Date Comments Results 11/09/2023 Encounter Details Date Type Department Care Team ([facility] Contact Info) Description 11/09/2023 Telephone [facility] [address] [place], [place] [phone] Fifi Lee FNP [address] [place], [place] [phone] Results Social History Tobacco Use Types Packs/Day Years [...] AM EDT documented as of this encounter Miscellaneous Notes * Telephone Encounter - Peter Lezama RN - 11/09/2023 11:17 AM EDT Please review and advise for below message, x-ray result is in pt.'s chart. * Telephone Encounter - Latoya Real - 11/09/2023 10:34 AM EDT TC from pt requesting call back regarding Results. Type of results: Xray foot and xray toe Date when done: 10/31 Facility: [facility] walk in Please contact pt at [phone] documented in this encounter Plan of Treatment Upcoming Encounters Date Type Department Care Team (Late st Contact Info) Description 08/14/2024 1:45 PM EDT Office Visit [facility] [address] [place] [address] Ny Hsu NP [address] [place] [address] documented as of this encounter Visit Diagnoses Not on filedocumented in this encounter Additional Health Concerns Assessment Noted Time PHQ-9 Depression Total Score: 1 05/26/19 24 3:48 PM EST documented as of this encounter Care Teams Brush Polisher Relationship Specialty Start Date End Date Fifi Lee FNP [address] [place] [address] PCP - General Family Medicine 04/06/22 01/17/24 Ny Hsu NP [address] [place] [address] PCP - General Family Medicine 01/18/24 documented as of this encounter
--- OUTSIDE RECORDS SUMMARY | 2024-06-30 12:14 | XMS_ITS | Encounter Summary ---
Author Organization [employer] Address 75 [facility] 7t [place] [address] Care Team Providers Care Carriage Rider Name Role Phone Fifi Lee BORING MILL OPERATOR Primary Care Provider [phone] Ny Hsu NP Primary Care Provider [phone] Reason for Visit * Reason Onset Date Comments Change PCP 12/14/2023 Encounter Details Date Type Department Care Team ([facility] st Contact Info) Description 12/14/2023 Telephone [facility] MEDICINE [address] [place], [place] [phone] Fifi Lee FNP [address] [place], [place] [phone] Change PCP Social History Tobacco Use Types Packs/Day Years [...] encounter Miscellaneous Notes * Telephone Encounter - Adama Maciel - 12/14/2023 11:45 AM EDT Tc from pt received letter stating Dr. Lee will no longer be with blue team and is requesting a call back for clarification. Please contact pt at [phone]. Chadian Speaker. documented in this encounter Plan of Treatment Upcoming Encounters Date Type Department Care Team (Late st Contact Info) Description 08/14/2024 1:45 PM EDT Office Visit [facility] MEDICINE [address] [place] [address] Ny Hsu NP [address] [place] [address] documented as of this encounter Visit Diagnoses Not on filedocumented in this encounter Additional Health Concerns Assessment Noted Time PHQ-9 Depression Total Score: 1 05/26/19 24 3:48 PM EST documented as of this encounter Care Teams Carriage Rider Relationship Specialty Start Date End Date Fifi Lee FNP [address] [place] [address] PCP - General Family Medicine 04/06/22 01/17/24 Ny Hsu NP [address] [place] [address] PCP - General Family Medicine 01/18/24 documented as of this encounter
--- OUTSIDE RECORDS SUMMARY | 2024-06-30 12:14 | XMS_ITS | Encounter Summary ---
Author Organization [employer] Address [address] [facility] [address]t [place] [address] Care Team Providers Care Die Barber Name Role Phone Fifi Lee FRAME REPAIRER Primary Care Provider [phone] Ny Hsu NP Primary Care Provider [phone] Encounter Details Date Type Department Care Team (Late st Contact Info) Description 05/26/2023 Abstract [facility] MEDICINE [address] [place] [address] Fifi Lee FNP [address] [place], [place] [phone] Social History Tobacco Use Types Packs/Day Years [...] Description 08/14/2024 1:45 PM EDT Office Visit [facility] MED[facility] [address] [place] [address] Ny Hsu NP [address] [place] [address] documented as of this encounter Visit Diagnoses Not on filedocumented in this encounter Additional Health Concerns Assessment Noted Time PHQ-9 Depression Total Score: 1 05/26/19 24 3:48 PM EST documented as of this encounter Care Teams Die Barber Relationship Specialty Start Date End Date Fifi Lee FNP [address] [place] [address] PCP - General Family Medicine 04/06/22 01/17/24 Ny Hsu NP [address] [place] [address] PCP - General Family Medicine 01/18/24 documented as of this encounter
--- OUTSIDE RECORDS SUMMARY | 2024-06-30 12:14 | XMS_ITS | Encounter Summary ---
Author Organization [employer] Address [address] [place] [address] Care Team Providers Care Mash Preparatory Operator Name Role Phone Aracelis Ny SERA Primary Care Provider [phone] Reason for Visit * Reason Onset Date Comments Chart Prep 06/27/2024 Encounter Details Date Type Department Care Team (Late st Contact Info) Description 06/27/2024 Telephone [facility] MEDICINE [address] [place], [place] [phone] Cecy Islas MA Chart Prep Social History Tobacco Use Types Packs/Day Years [...] encounter Miscellaneous Notes * Telephone Encounter - Cecy Islas MA - 06/27/2024 9:51 AM EST Chart Prep Labs: done Images: done Vaccines due: Covid, Hep A , Hep B, PCV20, Flu, RSV and Shingles Referrals: complete Screenings: eye exam , Lipid panel, Urine protein, HIV Overdue care gaps: A1C, Glucose, SDOH, PHQ-9 documented in this encounter Plan of Treatment Upcoming Encounters Date Type Department Care Team (Late st Contact Info) Description 08/14/2024 1:45 PM EDT Office Visit [facility] MEDICINE [address] [place] [address] Ny Hsu NP [address] [place] [address] documented as of this encounter Visit Diagnoses Not on filedocumented in this encounter Additional Health Concerns Assessment Noted Time PHQ-9 Depression Total Score: 1 05/26/19 3:48 PM EST documented as of this encounter Care Teams Mash Preparatory Operator Relationship Specialty Start Date End Date Ny Hsu NP [address] [place] [address] PCP - General Family Medicine 01/18/24 documented as of this encounter
--- OUTSIDE RECORDS SUMMARY | 2024-06-30 12:14 | XMS_ITS | Encounter Summary ---
Author Organization [employer] Address [address] [place] [address] Care Team Providers Care Pipe Smoking Machine Offbearer Name Role Phone Fifi LeeP Primary Care Provider [phone] Ny Hsu NP Primary Care Provider [phone] Reason for Visit * Reason Comments Med Refill Encounter Details Date Type Department Care Team ([facility] st Contact Info) Description 07/02/2023 Refill [facility] MEDICINE [address] [place], [place] [phone] Fifi Lee FNP [address] [place] [address] Peripheral vascular disease (CMS/HCC) Social History Tobacco Use Types Packs/Day [...] Description 08/14/2024 1:45 PM EDT Office Visit [facility] MEDICINE [address] [place] [address] Ny Hsu NP [address] [place] [address] documented as of this encounter Visit Diagnoses Diagnosis Peripheral vascular disease (CMS/HCC) Unspecified peripheral vascular disease documented in this encounter Additional Health Concerns Assessment Noted Time PHQ-9 Depression Total Score: 1 05/26/19 24 3:48 PM EST documented as of this encounter Care Teams Pipe Smoking Machine Offbearer Relationship Specialty Start Date End Date Fifi Lee FNP [address] [place] [address] PCP - General Family Medicine 04/06/22 01/17/24 Ny Hsu NP [address] [place] [address] PCP - General Family Medicine 01/18/24 documented as of this encounter
--- OUTSIDE RECORDS SUMMARY | 2024-06-30 12:15 | XMS_ITS | Clinical Summary ---
Author Organization [email or web address] Address [address] [facility] [address] [place] [address] Care Team Providers Care Giver Name Role Phone RosangelaNy suazo SERA Primary Care Provider [phone] Allergies No known active allergies Medications empagliflozin (Jardiance) 25 MG Take 1 tablet by mouth at bed time. 03/28/20 21 Active glucose blood (FREESTYLE TEST STRIPS) test strip every 8 (eight) hours. 07/29/19 22 Active hydrOXYzine HCl (Atarax) 25 MG tablet take 1 tablet by oral route 3 times every day as needed for anxiety 03/17/20 21 Active omeprazole (PriLOSEC) [address] capsule Take 1 capsule by mouth at bed time. 11/05/19 22 Active rivaroxaban (Xarelto) 20 MG tablet Take 1 tablet by mouth at bed time. Active gabapentin (Neurontin) 800 MG tablet TAKE 1 TABLET BY MOUTH THREE TIMES A DAY 90 tablet 1 12/31/19 23 Active amLODIPine (Norvasc) 5 MG tabletIndicatio ns:Essential pulmonary hypertension (CMS/HCC) Take 1 tablet (5 mg) by mouth in the morning. TAKE 1 TABLET BY MOUTH EVERY MORNING 90 tablet 3 06/07/19 24 Active furosemide (Lasix) 20 MG tablet TAKE 1 TABLET BY MOUTH EVERY DAY 90 tablet 1 10/15/19 24 Active cholecalciferol (D-5000) 5,000 Units tablet TAKE 1 TABLET BY MOUTH EVERY DAY 90 tablet 3 11/16/19 24 Active famotidine (Pepcid) 20 MG tablet Take 20 mg by mouth Once per day. 01/06/20 24 Active PARoxetine (Paxil) 40 MG tablet Take 1 tablet (40 mg) by mouth in the morning. 30 tablet 11 01/24/20 24 025 Active terazosin (Hytrin) 5 MG capsule Take 1 capsule (5 mg) by mouth Once per day. 30 capsule 2 01/24/20 24 Active metFORMIN (Glucophage) 850 MG tabletIndicatio ns:Type 2 diabetes mellitus without complication, without long-term current use of insulin (CMS/HCC) TOME ULYSSES TABLETA DOS VECES AL VISHAL CON LAS COMIDAS 180 tablet 3 03/08/20 24 Active tiZANidine (Zanaflex) 4 MG tabletIndicatio ns:Neck pain Take 1 tablet (4 mg) by mouth every 8 (eight) hours if needed for muscle spasms for up to 10 days. 30 tablet 04/10/20 24 Active tamsulosin (Flomax) 0.4 MG 24 hr capsuleIndicati ons:Benign prostatic hyperplasia with urinary frequency TAKE 1 CAPSULE BY MOUTH EVERY DAY 1/2 HOUR FOLLOWING THE SAME MEAL EACH DAY 90 capsule 3 06/30/19 25 Active metoprolol tartrate (Lopressor) 25 MG tabletIndicatio ns:Essential pulmonary hypertension (CMS/HCC) TAKE 1/2 TABLET BY MOUTH TWICE A DAY 90 tablet 1 06/30/19 25 Active aspirin 81 MG EC tabletIndicatio ns:Peripheral vascular disease (CMS/HCC) Take 1 tablet (81 mg) by mouth Once per day. 90 tablet 3 06/30/19 25 Active atorvastatin (Lipitor) 80 MG tabletIndicatio ns:Peripheral vascular disease (CMS/HCC) TAKE 1 TABLET BY MOUTH EVERY MORNING 90 tablet 3 06/30/19 25 Active cyanocobalamin (Vitamin B-12) 1000 MCG tabletIndicatio ns:Anemia, unspecified type TAKE 1 TABLET BY MOUTH EVERY MORNING 90 tablet 3 06/30/19 25 Active folic acid (Folvite) 1 MG tabletIndicatio ns:Anemia, unspecified type Take 1 tablet (1,000 mcg) by mouth Once per day. 30 tablet 2 06/30/19 25 025 Active nicotine polacrilex (Nicorette) 4 MG gumIndications: Tobacco abuse Chew 1 each (4 mg) if needed for smoking cessation. 100 each 06/30/19 25 025 Active folic acid (Folvite) 1 MG tablet Take 1 tablet by mouth at bed time. 10/15/19 22 025 Discontinued(Re order (will not trigger notification to Pharmacy)) metoprolol tartrate (Lopressor) 25 MG tabletIndicatio ns:Essential pulmonary hypertension (CMS/HCC) TAKE 1/2 TABLET BY MOUTH TWICE A DAY 90 tablet 1 06/14/19 24 025 Discontinued(Re order (will not trigger notification to Pharmacy)) tamsulosin (Flomax) 0.4 MG 24 hr capsuleIndicati ons:Benign prostatic hyperplasia with urinary frequency TAKE 1 CAPSULE BY MOUTH EVERY DAY 1/2 HOUR FOLLOWING THE SAME MEAL EACH DAY 90 capsule 3 08/09/19 24 025 Discontinued(Re order (will not trigger notification to Pharmacy)) atorvastatin (Lipitor) 80 MG tablet TAKE 1 TABLET BY MOUTH EVERY MORNING 90 tablet 3 01/07/20 24 025 Discontinued(Re order (will not trigger notification to Pharmacy)) aspirin 81 MG EC tabletIndicatio ns:Peripheral vascular disease (CMS/HCC) Take 1 tablet (81 mg) by mouth Once per day. 90 tablet 3 01/24/20 24 025 Discontinued(Re order (will not trigger notification to Pharmacy)) cyanocobalamin (Vitamin B-12) 1000 MCG tablet TAKE 1 TABLET BY MOUTH EVERY MORNING 90 tablet 3 02/23/20 24 025 Discontinued(Re order (will not trigger notification to Pharmacy)) Active Problems Problem Noted Date Diagnosed Date Parotid mass 04/26/2024 Assessment & Plan (06/30/2024 11:10 AM EST): Pt uncertain of follow up with ENT Stat referral as pt endorses constant pain, dysphagia Pancytopenia 04/11/2024 Lymphadenopathy 04/10/2024 Assessment & Plan (04/10/2024 11:28 AM EST): Stat ultrasound and CT ordered Labs as ordered belwo Diabetes due to underlying condition w oth circu latory comp 04/09/2024 Neck pain 02/13/2024 Assessment & Plan (04/10/2024 11:27 AM EST): Chronic neck pain, msk relaxor rx Prn tramadol Chronic left shoulder pain 01/24/2024 Assessment & Plan (01/26/2024 4:12 PM EDT): Limited rom, chronic issue, radiating pain, remote hx of trauma Films ordered, referral to ortho 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 Pneumonia of both lungs due to infectious organi sm 11/26/2022 Neuropathy of right upper extremity 06/05/2022 Anxiety 07/14/2018 Cervical radiculopathy 04/11/2018 Assessment & Plan (04/10/2024 11:27 AM EST): phsyiatry Assessment & Plan (01/26/2024 4:12 PM EDT): X-ray of cervical spine ordered as pt has radiating symptoms, Rtc in 2-3 weeks to review findings Peripheral vascular disease 12/15/2016 Alcoholism 12/15/2016 Assessment & Plan (06/30/2024 11:11 AM EST): 10 years sober, cbc pending Assessment & Plan (01/26/2024 4:14 PM EDT): No longer drinking, sober x years Acute low back pain 04/23/2016 Chronic hepatitis C 03/25/2016 Essential pulmonary hypertension 03/03/2016 Nicotine dependence 03/03/2016 Assessment & Plan (06/30/2024 11:11 AM EST): Aware that cutting down is encouraged before any surgery Nicorette prescribed Referral to tobacco cessation Assessment & Plan (04/10/2024 11:28 AM EST): Encouraged smoking cessation Assessment & Plan (01/26/2024 4:14 PM EDT): Not motivated to quit today but has cut down from a pack per day to 5 cigarettes Type 2 diabetes mellitus without complication Assessment & Plan (01/26/2024 4:13 PM EDT): At goal, hgb A1c 6.9 continue current regimen Pulmonary thromboembolism 03/03/2016 Encounters Date Type Department Care Team Description 06/30/2024 10:30 AM EST Office Visit [facility] [address] [place] [address] Ny Hsu NP Type 2 diabetes mellitus without complication, unspecified whether mcc insulin use ([facility]) (Primary Dx); Parotid mass; Benign prostatic hyperplasia with urinary frequency; Essential pulmonary hypertension ([facility]); Peripheral vascular disease ([facility]); Anemia, unspecified type; Tobacco abuse; Nicotine dependence, uncomplicated, unspecified nicotine product type; Alcoholism ([facility]) 06/30/2024 Refill [facility] [address] [place] [address] Ny Hsu NP Tobacco abuse 06/27/2024 Telephone [facility] [address] [place] [phone] Cecy Islas MA Chart Prep 05/01/2024 Telephone [facility] [address] [place] [phone] Ny Hsu NP No Show 04/28/2024 Telephone [facility] [address] [place] [address] Cecy Islas MA Chart Prep 04/27/2024 Telephone [facility] [address] [place] [phone] Alessandra Nicole RN 04/26/2024 Orders Only [facility] [address] [place] [phone] yN Hsu NP Parotid mass (Primary Dx) 04/19/2024 Telephone [facility] [address] [place] [phone] Tata Gutierres, RN 04/18/2024 Telephone [facility] [address] [place] [phone] Tata Gutierres, RN 04/12/2024 Telephone [facility] [address] [place] [phone] Tata Gutierres, RN 04/11/2024 Orders Only [facility] External Provider, [facility] 04/11/2024 Telephone [facility] [address] [place] [address] Ny Hsu NP 04/10/2024 10:15 AM EST Office Visit [facility] [address] [place] [address] Ny Hsu NP Cervical radiculopathy (Primary Dx); Neck pain; Type 2 diabetes mellitus without complication, unspecified whether lobsterman insulin use (CMS/HCC); Nicotine dependence, uncomplicated, unspecified nicotine product type; Lymphadenopathy; Pancytopenia (CMS/[facility]) from Last 3 Months Immunizations Name Administration Dates Next Due Influenza High-dose Quadriva lent Preservative Free 06/05/2022 Influenza injectable quadriv alent IIV4 with preservative 04/13/2017 Influenza injectable quadriv alent preservative free 03/28/2021,04/25/2020,04/20/2019 Pneumococcal Polysaccharide PPSV23 06/05/2022, Tdap 04/13/2017 Family History Medical History Relation Name Comments Diabetes type II Brother Hypertension Brother Stomach cancer Father Diabetes Mother Heart disease Mother Relation Name Status Comments Brother Father Mother Social History Tobacco Use Types Packs/Day Years Used Date Smoking Tobacco: Every Day Cigarettes Smokeless Tobacco: Never Tobacco Cessation:Ready to Q uit: Not Asked; Counseling Given: Not Answered Comments:Reports smokes 6-8 cigarettes daily Alcohol Use [...] Orientation Straight 03/16/2022 10 :30 AM EDT Last Filed Vital Signs Vital Sign Reading [...] Mass Index 23.07 06/30/2024 10:46 AM EST Plan of Treatment Upcoming Encounters Date Type Department Care Team (Late st Contact Info) Description 08/14/2024 1:45 PM EDT Office Visit [facility] [address] [place], [place] [phone] Ny Hsu NP [address] [place] [address] Health Maintenance Due Date Last Done Comments CT Colonography 1960 FIT DNA/Cologuard 1960 FIT 1960 FOBT 1960 HIV Screening 1960 Sigmoidoscopy 1960 Eye Exam 1970 Hepatitis A Vaccines (1 of 2 - Risk 2-dose series) 08/16/1979 Zoster Vaccines (1 of 2) 2010 Hepatitis B Vaccines (1 of 3 - Risk 3-dose series) 2020 RSV Patients and Patients Aged 60 years or older (1 - Risk 60-74 years 1-dose series) 2020 Pneumococcal Vaccine: 50+ Years (2 of 2 - PCV) 06/05/2023 06/05/2022, 04/20/2019 Diabetes: Urine Protein Screening 11/28/2023 11/27/2022, 02/02/2022, 02/04/2021, Additional history exists Lipid Panel 11/28/2023 11/27/2022, 01/15, 02/04/2021, Additional history exists COVID-19 Vaccine ( season) 2024 04/03/2021, 08/21/2020 Influenza Vaccine (#1) 2024 3, 03/28/2021, 04/25/2020, Additional history exists Diabetes: Foot Exam 10/31/2024 11/01/2023, Diabetes: Hemoglobin A1C 12/28/2024 025, 01/24/2024, 11/01/2023, Additional history exists Alcohol/Substance Use Screening 01/23/2025 01/24/2024 Depression Screening 06/30/2025 06/30/2024, 06/30/19 25 SDOH Screening 06/30/2025 06/30/2024 Tobacco Screening 06/30/2025 06/30/2024 Colonoscopy 03/25/2027 03/25/2022 Colorectal Cancer Screening 03/25/2027 DTaP/Tdap/Td Vaccines (2 - Td or Tdap) 04/13/2027 04/13/2017 HIB Vaccines Aged Out No longer eligi ble based on patient's age to complete this topic HPV Vaccines Aged Out No longer eligi ble based on patient's age to complete this topic IPV Vaccines Aged Out No longer eligi ble based on patient's age to complete this topic Meningococcal Vaccine Aged Out No alicia julisa eligible based on patient's age to complete this topic RSV under 20 months Aged Out No longe r eligible based on patient's age to complete this topic Rotavirus Vaccines Aged Out No longer eligible based on patient's age to complete this topic Procedures Procedure Name Priority Date/Time Associated Diagnosis Comments POCT GLYCATED HEMOGLOBIN, TOTAL Routine 06/30/2024 10:53 AM EST Type 2 diabetes mellitus without complication, unspecified whether mcc insulin use (CMS/HCC) POCT GLUCOSE Routine 06/30/2024 10:53 AM EST Type 2 diabetes mellitus without complication, unspecified whether mcc insulin use (CMS/HCC) AMB REFERRAL TO ENT STAT 04/28/[address] SOFT TISSUE NECK W CONTRAST STAT 04/19/2024 1:49 PM EST Lymphadenopathy US HEAD NECK SOFT TISSUE STAT 04/11/2024 9:09 AM EST Lymphadenopathy XR SHOULDER 2+ VIEWS LEFT Routine 04/11/2024 8:45 AM EST TSH W/REFLEX TO FT4 Routine 04/10/2024 1 1:18 AM EST Lymphadenopathy LD Routine 04/10/2024 11:18 AM EST Lymphadenopathy C-REACTIVE PROTEIN Routine 04/10/2024 11 :18 AM EST Lymphadenopathy SED RATE BY MODIFIED WESTERGREN Routine 04/10/2024 11:18 AM EST Lymphadenopathy COMPREHENSIVE METABOLIC PANEL Routine 04/10/2024 11:18 AM EST Lymphadenopathy CBC WITH AUTO DIFFERENTIAL Routine 04/10/2024 11:18 AM EST Lymphadenopathy POCT GLUCOSE Routine 04/10/2024 10:45 AM EST Type 2 diabetes mellitus without complication, unspecified whether lobsterman insulin use (CMS/HCC) ALBUMIN, RANDOM URINE W/CREATININE Routine 11/27/2022 12:09 PM EDT LIPID PANEL, STANDARD Routine 11/27/2022 12:06 PM EDT HM COLONOSCOPY Routine 03/25/2022 1:38 PM EST from Last 3 Months or Most Recently Relevant to Health Maintenance Results * (ABNORMAL) POCT HGB A1C (06/30/2024 10:53 AM EST) Hemoglobin A1C 6.5(A) 4.0 - 6.0 % QC Media Lot # [id number] Lot# Expiration Date Blood 06/30/2024 10:5 3 AM EST Ny Hsu AIR DRIER POINT OF CARE TEST ENTER/EDIT OR DERABLES Final Result * (ABNORMAL) POCT Glucose (06/30/2024 10:53 AM EST) Only the most recent of2 resultswithin the time period is included. Glucose Blood, POC 210(A) 60 - 200 mg/dL QC Media Lot # [id number] Lot# Expiration Date 101,826 Blood Capillary blood specimen / Unknown 06/30/2024 10:53 AM EST us Ny Hsu NP POINT OF CARE TEST ENTER/EDIT OR DERABLES Final Result * Referral to ENT (04/28/2024) us Ny Hsu NP OUTPATIENT REFERRAL ORDERABLES F inal Result * CT Soft Tissue Neck w/ Contrast (04/19/2024 1:49 PM EST) Anatomical Region Laterality Modality Head, Neck Computed Tomogra phy 04/19/2024 1:49 PM EST Narrative 04/19/2024 7:02 PM EST ? [facility] ?[address] ?[place] [address] ? CT Scan Report ? Signed ? Patient: Floran,Geraldo ?MR#: [id number] ? : 1960 ?Acct:[id number] ? Age/Sex: 63 / M ?ADM Date: 04/19/24 ? Loc: HO.CT ? Attending Dr: Ny Hsu AIR DRIER ? Ordering Physician: Ny Hsu NP ?? Date of Service: 04/19/24 ?? Procedure(s): CT soft tissue neck w IV con ?? Accession Number(s): [id number] ? cc: Ny Hsu NP ? EXAMINATION: ?? CT SOFT TISSUE NECK WITH CONTRAST ? CLINICAL INFORMATION: ?? Neck mass ? COMPARISON: ?? CTA head and neck on 04/30/2020 ? TECHNIQUE: ?? Following the intravenous administration of 100 mL of Omnipaque 350 ?? intravenous contrast, helical imaging was performed in the axial plane ?? with generation of coronal and sagittal reformatted images. ? This CT examination was performed using dose optimization techniques as ?? appropriate, variously including the following: ?? *Automated exposure control ?? *Adjustment of mA and/or kV according to patient size (this includes ?? techniques or standardized protocols for targeted exams where dose is ?? matched to indication/reason for exam; i.e. extremities or head) ?? *Use of iterative reconstruction technique ? DLP: ?? 300 mGy-cm ? FINDINGS: ?? Again seen is a homogeneously enhancing mass in the superficial lobe of ?? the left parotid gland extending to the parotid tail. This mass ?? measures 2.4 x 3.9 cm (AP x CC), previously 3.5 x 1.9 cm. ? The submandibular and thyroid glands as well as the right parotid gland ?? are unremarkable. ? No abnormally enlarged lymph node. ? The nasopharynx, oropharynx, hypopharynx, and laryngeal structures are ?? unremarkable. ? The parotid, submandibular, and thyroid glands are unremarkable. ? The visualized orbits are unremarkable. Chronic left maxillary and ?? ethmoid sinusitis with near complete opacification. The mastoid air ?? cells are clear. ? Atherosclerotic calcifications of the bilateral carotid bulbs extending ?? into the proximal segments of the cervical ICAs bilaterally. There is ?? significant stenosis of the left greater than right proximal cervical ?? ICAs accounting for contrast bolus timing. ? The imaged portions of the brain are unremarkable. ? No acute osseous abnormality. No lytic or blastic osseous lesions. ?? Multilevel degenerative changes of the visualized spine. ? The visualized lungs are clear. ? CT/CT soft tissue neck w IV con ?? IMPRESSION: ?? -Slightly increased size of homogeneously enhancing mass in the left ?? parotid gland superficial lobe. 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 ? -Significant stenosis of the left greater than right proximal cervical ?? ICAs accounting for contrast bolus timing. ? Electronically signed by: ??Sushma Velez MD ??04/19/2024 06:58 PM EST RP ? Dictated By: ?Sushma Veelz MD ? Signed By: ?<Electronically signed by Sushma Velez MD in OV> ? 04/19/24 1858 ? DD/ 1349 ? TD/TT: 04/19/24 1359 ? Fabric Normalizer: ? Procedure Note Ryan Sampson - 04/19/[address] [place] [address] [address] Scan Report Signed Patient: Rylan Unger#: [id number] : 1Acct:[id number] Age/Sex: 63 / MADM Date: 04/19/24 Loc: HO.CT Attending Dr: Ny Hsu AIR DRIER Ordering Physician: Ny Hsu NP Date of Service: 04/19/24 Procedure(s): CT soft tissue neck w IV con Accession Number(s): [id number] cc: Ny Hsu AIR DRIER EXAMINATION: CT SOFT TISSUE NECK WITH CONTRAST CLINICAL INFORMATION: Neck mass COMPARISON: CTA head and neck on 04/30/2020 TECHNIQUE: Following the intravenous administration of 100 mL of Omnipaque 350 intravenous contrast, helical imaging was performed in the axial plane with generation of coronal and sagittal reformatted images. This CT examination was performed using dose optimization techniques as appropriate, variously including the following: *Automated exposure control *Adjustment of mA and/or kV according to patient size (this includes techniques or standardized protocols for targeted exams where dose is matched to indication/reason for exam; i.e. extremities or head) *Use of iterative reconstruction technique DLP: 300 mGy-cm FINDINGS: Again seen is a homogeneously enhancing mass in the superficial lobe of the left parotid gland extending to the parotid tail. This mass measures 2.4 x 3.9 cm (AP x CC), previously 3.5 x 1.9 cm. The submandibular and thyroid glands as well as the right parotid gland are unremarkable. No abnormally enlarged lymph node. The nasopharynx, oropharynx, hypopharynx, and laryngeal structures are unremarkable. The parotid, submandibular, and thyroid glands are unremarkable. The visualized orbits are unremarkable. Chronic left maxillary and ethmoid sinusitis with near complete opacification. The mastoid air cells are clear. Atherosclerotic calcifications of the bilateral carotid bulbs extending into the proximal segments of the cervical ICAs bilaterally. There is significant stenosis of the left greater than right proximal cervical ICAs accounting for contrast bolus timing. The imaged portions of the brain are unremarkable. No acute osseous abnormality. No lytic or blastic osseous lesions. Multilevel degenerative changes of the visualized spine. The visualized lungs are clear. CT/CT soft tissue neck w IV con IMPRESSION: -Slightly increased size of homogeneously enhancing mass in the left parotid gland superficial lobe. 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 -Significant stenosis of the left greater than right proximal cervical ICAs accounting for contrast bolus timing. Electronically signed by: Sushma Velez MD 04/19/2024 06:58 PM EST Dictated By: Sushma Velez MD Signed By: <Electronically signed by Sushma Velez MD in OV> 04/19/24 1858 DD/ 1349 TD/TT: 04/19/24 1359 Fabric Normalizer: Ny Hsu NP IMG CT PROCEDURES Final Result * US Head Neck Soft Tissue (04/11/2024 9:09 AM EST) Anatomical Region Laterality Modality Head, Neck Ultrasound 04/11/2024 9:09 AM EST Narrative 04/12/2024 5:26 PM EST ? [facility] ?[address] ?[place] [address] ? Ultrasound Report ? Signed ? Patient: Floran,Geraldo ?MR#: [id number] ? : 1960 ?Acct:[id number] ? Age/Sex: 63 / M ?ADM Date: 04/11/24 ? Loc: HO.US ? Attending Dr: Ny Hsu AIR DRIER ? Ordering Physician: Ny Hsu NP ?? Date of Service: 04/11/24 ?? Procedure(s): US soft tiss head and/or neck ?? Accession Number(s): [id number] ? cc: Ny Hsu NP ? EXAMINATION: ?? Ultrasound of the neck ? CLINICAL INFORMATION: ?? Left submandibular mass.. ? COMPARISON: ?? CT angiogram head and neck April 30, 2020 ? TECHNIQUE: ?? Linear transducer dove-scale and color Doppler examination with ?? attention to the region of the left neck ? FINDINGS: ?? There is an ovoid lesion in the region of the left gland which is ?? heterogeneous in echotexture and nodular in contour with increased ?? vascularity. Lesion measures 3 x 1.8 x 3.2 cm. This is asymmetric with ?? the right side were no lesion is evident. ?? There is an enhancing lesion present in the left parotid gland present ?? on the CT of the neck April 30, 2020. This correlates with the ?? current lesion. This measured 2.2 x 1.6 x 3.5 cm on prior study. ? US/US soft tiss head and/or neck ?? IMPRESSION: ?? Heterogeneous vascular lesion in the left parotid gland. This ?? correlates with the lesion seen on prior CT angiogram head and neck ?? April 30, 2020. This has not substantially changed in size since ?? prior CAT scan. This is consistent with a benign lesion therefore ? Electronically signed by: ??David Arose MD ??04/12/2024 05:23 PM EST RP ? Dictated By: ?Arose,David MD ? Signed By: ?<Electronically signed by David Arose, MD in OV> ?04/12/24 1723 ? DD/ 0909 ? TD/TT: 04/11/24 0915 ? Fabric Normalizer: BA ? Procedure Note Camilla, Image - 04/12/[address] [address] Ultrasound Report Signed Patient: Rylan Unger#: [id number] : 1Acct:[id number] Age/Sex: 63 / MADM Date: 04/11/24 Loc: HO.US Attending Dr: Ny Hsu NP Ordering Physician: Ny Hsu NP Date of Service: 04/11/24 Procedure(s): US soft tiss head and/or neck Accession Number(s): [id number] cc: Ny Hsu NP EXAMINATION: Ultrasound of the neck CLINICAL INFORMATION: Left submandibular mass.. COMPARISON: CT angiogram head and neck April 30, 2020 TECHNIQUE: Linear transducer dove-scale and color Doppler examination with attention to the region of the left neck FINDINGS: There is an ovoid lesion in the region of the left gland which is heterogeneous in echotexture and nodular in contour with increased vascularity. Lesion measures 3 x 1.8 x 3.2 cm. This is asymmetric with the right side were no lesion is evident. There is an enhancing lesion present in the left parotid gland present on the CT of the neck April 30, 2020. This correlates with the current lesion. This measured 2.2 x 1.6 x 3.5 cm on prior study. US/US soft tiss head and/or neck IMPRESSION: Heterogeneous vascular lesion in the left parotid gland. This correlates with the lesion seen on prior CT angiogram head and neck April 30, 2020. This has not substantially changed in size since prior CAT scan. This is consistent with a benign lesion therefore Electronically signed by: David Tovar MD 04/12/2024 05:23 PM EST Dictated By: David Tovar MD Signed By: <Electronically signed by David Tovar MD in OV> 04/12/24 1723 DD/ 0909 TD/TT: 04/11/24 0915 Fabric Normalizer: GABO us Ny Hsu NP IMG US PROCEDURES Edited Result - Final * XR Shoulder 2+ Views Left (04/11/2024 8:45 AM EST) Anatomical Region Laterality Modality Upper Extremities, Shoulder Left Radi ographic Imaging 04/11/2024 8:45 AM EST Narrative 04/16/2024 7:25 AM EST ? [facility] ?[address] ?[place] [address] ?XRay Report ? Signed ? Patient: Floran,Geralod ?MR#: [id number] ? : 1960 ?Acct:[id number] ? Age/Sex: 63 / M ?ADM Date: 04/11/24 ? Loc: HO.US ? Attending Dr: Ny Hsu AIR DRIER ? Ordering Physician: Devan Llanos MD ?? Date of Service: 04/11/24 ?? Procedure(s): XR shoulder LT min 2V ?? Accession Number(s): [id number] ? cc: Ny Hsu NP; Devan Llanos MD ? EXAMINATION: ?? XR SHOULDER, LEFT ? CLINICAL INFORMATION: ?? M25.512 - Pain in left shoulder ? COMPARISON: ?? None available. ? TECHNIQUE: ?? AP external rotation, Grashey, scapular Y, and axillary views of the ?? left shoulder. ? FINDINGS: ?? There is slight widening of the AC joint suggestive of AC joint ?? separation age-indeterminate. There is also mild arthrosis of the joint. ? Glenohumeral joint normal. ? Surrounding bone and soft tissues unremarkable ? XR/XR shoulder LT min 2V ?? IMPRESSION: ?? Slight widening of the AC joint suggestive of AC joint separation ?? versus normal variation. Mild arthrosis of the joint. ? Electronically signed by: ??Antoni Choi MD ??04/16/2024 07:22 AM ?? EST RP ? Dictated By: ?Antoni Choi MD ? Signed By: ?<Electronically signed by Antoni Choi MD in OV> ?04/16/24 0722 ? DD/ 0845 ? TD/TT: 04/11/24 0905 ? Fabric Normalizer: WG ? Procedure Note Camilla, Ryan - 04/16/[address] [place] [address] XRay Report Signed Patient: Rylan Unger#: [id number] : [id number]:[id number] Age/Sex: 63 / MADM Date: 04/11/24 Loc: . Attending Dr: Ny Hsu AIR DRIER Ordering Physician: Devan Llanos MD Date of Service: 04/11/24 Procedure(s): XR shoulder LT min 2V Accession Number(s): [id number] cc: Ny Hsu AIR DRIER; Devan Llanos MD EXAMINATION: XR SHOULDER, LEFT CLINICAL INFORMATION: M25.512 - Pain in left shoulder COMPARISON: None available. TECHNIQUE: AP external rotation, Grashey, scapular Y, and axillary views of the left shoulder. FINDINGS: There is slight widening of the AC joint suggestive of AC joint separation age-indeterminate. There is also mild arthrosis of the joint. Glenohumeral joint normal. Surrounding bone and soft tissues unremarkable XR/XR shoulder LT min 2V IMPRESSION: Slight widening of the AC joint suggestive of AC joint separation versus normal variation. Mild arthrosis of the joint. Electronically signed by: Antoni Choi MD 04/16/2024 07:22 AM EST Dictated By: Antoni Choi MD Signed By: <Electronically signed by Antoni Choi MD inOV> 04/16/24 0722 DD/ 0845 TD/TT: 04/11/24 0905 Fabric Normalizer: TIERRA [facility] External Provider IMG XR PROCEDURES Final Result * TSH W/Reflex to FT4 (04/10/2024 11:18 AM EST) TSH reflex Free T4 0.96 0.32 - 4.0 uIU/mL [facility] Blood Venous blood specimen / Unknown 04/10/2024 11:18 AM EST 04/10/2024 1:14 PM EST Ny Hsu AIR DRIER LAB BLOOD ORDERABLES Final Resul t [facility] [address], [place] [phone] * (ABNORMAL) CBC auto differential (04/10/2024 11:18 AM EST) White Blood Count 8.9 4.8 - 10.8 X10*3/uL [facility] Red Blood Count 4.59(L) 4.60 - 5.80 X10*6/uL [facility] Hemoglobin 12.3(L) 14.0 - 18.0 g/dl [facility] Hematocrit 37.3(L) 42.0 - 52.0 % [facility] Mean Corpuscular Volume 81.3 80.0 - 98.0 fL [facility] Mean Corpuscular Hemoglobin 26.8(L) 27.0 - 33.0 pg [facility] Mean Corpuscular HGB Conc 33.0 31.0 - 36.0 g/dl [facility] Red Cell Distribution Width 16.6(H) 11.0 - 16.0 % [facility] Platelet Count 217 160 - 400 X10*3/uL [facility] Mean Platelet Volume 12.3 9.4 - 12.4 fL [facility] Neutrophils Percent Auto 66.7 45 - 73 % [facility] Imm Gran Pct Auto 0.3 0.0 - 0.4 % [facility] Lymphocytes Percent Auto 20.5 20 - 40 % [facility] Monocytes Percent Auto 11.0 2 - 11 % [facility] Eosinophils Percent Auto 1.0 0 - 4 % [facility] Basophils Percent Auto 0.5 0 - 2 % [facility] NRBC Pct Auto 0.0 0.0 - 0.2 /100WBC [facility] Neutrophils Absolute Auto 5.9 2.0 - 8.3 x10*3/uL [facility] Imm Gran Abs Auto 0.03 0.00 - 0.03 X10*3/uL [facility] Lymphocytes Absolute Auto 1.8 1.2 - 4.9 X10*3/uL [facility] Monocytes Absolute Auto 1.0 0.1 - 1.2 X10*3/uL [facility] Eosinophils Absolute Auto 0.1 0.0 - 0.4 X10*3/uL [facility] Basophils Absolute Auto 0.0 0.0 - 0.2 X10*3/uL [facility] NRBC Abs Auto 0.000 0.0 - 0.012 X10*3/uL [facility] Blood Venous blood specimen / Unknown 04/10/2024 11:18 AM EST 04/10/2024 1:14 PM EST us Ny Hsu NP LAB BLOOD ORDERABLES Final Resul t Performing Organization Address [facility] Co de Phone Number [facility] [address] [place] [phone] * Sed Rate by Modified Claudia (04/10/2024 11:18 AM EST) Erythrocyte Sedimentation Rate 6 0 - 15 MM/HR [facility] Comment:Patients with polycy themia and many hemoglobin abnormalitiesmay have depressed sed rates whereas patients with anemiamay have elevated sed rates. Blood Venous blood specimen / Unknown 04/10/2024 11:18 AM EST 04/10/2024 1:14 PM EST us Ny Hsu NP LAB BLOOD ORDERABLES Final Resul t Performing Organization Address City/[facility] Co de Phone Number [facility] [address] [place] [phone] * C-reactive Protein (04/10/2024 11:18 AM EST) C Reactive Protein <0.04 < or = 0.50 mg/dL [facility] Blood Venous blood specimen / Unknown 04/10/2024 11:18 AM EST 04/10/2024 1:14 PM EST Ny Graef AIR DRIER LAB BLOOD ORDERABLES Final Resul t Performing Organization Address City/[facility]/ZIP Co de Phone Number [facility] [address] [place] [phone] * Lactate Dehydrogenase (LD) (04/10/2024 11:18 AM EST) Lactate Dehydrogenase 185 118 - 273 U/L [facility] Blood Venous blood specimen / Unknown 04/10/2024 11:18 AM EST 04/10/2024 1:14 PM EST us Ny Hsu AIR DRIER LAB BLOOD ORDERABLES Final Resul t Performing Organization Address [facility] Co de Phone Number [facility] [address] [place] [phone] * (ABNORMAL) Comprehensive Metabolic Panel (04/10/2024 11:18 AM EST) Pathologist [facility] Sodium 135 135 - 145 mmol/L [facility] Potassium 4.2 3.3 - 5.1 mmol/L [facility] Chloride 105 96 - 108 mmol/L [facility] Carbon Dioxide 21(L) 22 - 29 mmol/L [facility] Anion Gap 13 12 - 20 [facility] Urea Nitrogen (BUN) 8(L) 9 - 16 mg/dL [facility] Creatinine, Serum 0.86 0.5 - 1.4 mg/dL [facility] Estimated Glomerular Filt Rate >60 [facility] Comment:Chronic Kidney Disea se: Estimated GFR < 60 mL/min/1.84m7Mhsvoj Kidney Disease: Estimated GFR < 15 mL/min/1.73m2 Glucose 107 60 - 115 mg/dL [facility] Calcium 9.5 8.4 - 10.2 mg/dL [facility] Bilirubin, Total 0.3 0.0 - 1.0 mg/dL [facility] Aspartate Amino Transferase 22 5 - 37 U/L [facility] Alanine Aminotransferase 23 0 - 40 U/L [facility] Total Protein 7.1 6.5 - 8.0 g/dL [facility] Albumin Level 4.2 3.5 - 5.0 g/dL [facility] Alkaline Phosphatase 72 39 - 117 U/L [facility] Blood Venous blood specimen / Unknown 04/10/2024 11:18 AM EST 04/10/2024 1:14 PM EST us Ny Aracelis AIR DRIER LAB BLOOD ORDERABLES Final Resul t Performing Organization Address [facility] de Phone Number [facility] [address] [place] [phone] * Albumin, Random Urine W/Creatinine (11/27/2022 12:09 PM EDT) Creatinine, Urine 76.03 mg/dL [facility] Microalbumin Urine 9.0 mg/L [facility] Microalbum Creatinine Ratio Ur 11.8 ug/mg cr [facility] Comment:Albumin/Creatinine R atio Reference Ranges: Normal: < 30 ug/mg creatinine Microalbuminuria: 30 - 300 ug/mg creatinineClinical Albuminuria: > 300 ug/mg creatinine 11/27/2022 12:0 9 PM EDT 11/27/2022 1:15 PM EDT us [facility] External Provider LAB URI NE ORDERABLES Final Result Performing Organization Address [facility] Co de Phone Number [facility] [address] [place] [phone] * Lipid Panel, Standard (11/27/2022 12:06 PM EDT) Triglycerides 91 mg/dL [facility] Comment:Desirable Triglyceri de: less than 150 mg/dLBorderline High Triglyceride 150-199 mg/dLHigh Triglyceride: 200-499 mg/dLVery High Triglyceride: greater than or equal to 5OO mg/dL Cholesterol 197 mg/dL [facility] Comment:Desirable Cholestero l: less than 200 mg/dLBorderline High Cholesterol: 200-239 mg/dLHigh Cholesterol: greater than 239 mg/dL LDL Cholesterol Calculated 127 mg/dl [facility] Comment:Desirable LDL: less than 100 mg/dLNear Optimal/Above Optimal LDL: 110- 129 mg/dLBorderline High LDL: 130-159 mg/dLHigh LDL: 160-189 mg/dLVery High LDL: greater than or equal to 190 mg/dL HDL Cholesterol 52 mg/dL [facility] Comment:Desirable HDL: great er than 40 mg/dL Note: This HDL assay may give artificially low results in patients with liver disease. 11/27/2022 12:0 6 PM EDT 11/27/2022 1:13 PM EDT [facility] External Provider LAB BLO OD ORDERABLES Final Result [facility] [address] [place] [phone] * Colonoscopy (03/25/2022 1:38 PM EST) Colonoscopy Normal Normal Narrative MaiJovanniba - 03/25/2022 1:38 PM EST Recommended 1-2 year follow up due to fair prep ([facility]) Historical Provider HEALTH MAINTENANCE Edited Result - Final from Last 3 Months or Most Recently Relevant to Health Maintenance Insurance [facility] Care Teams Giver Relationship Specialty Start Date End Date Ny Hsu NP [address] [place] [phone] PCP - General Family Medicine 01/18/24
--- OUTSIDE RECORDS SUMMARY | 2024-06-30 12:15 | XMS_ITS | Clinical Summary ---
Author Organization [facility] Address [address] [place] [address] Care Team Providers Care Customer Care Team Coach Name Role Phone Benito Fabian MD Primary Care Provider Surgical History Surgery Date Site/Laterality Comments OTHER SURGICAL HISTORY PROCEDURE: [place] RHINP PRIM LAT&ALAR CRTLGS&/ELVTN NASAL TI KNEE ARTHROSCOPY 2018 Left PROCEDURE: [place] ARTHROSCOPY AID [place] SPINE&/FX KNEE W/O FIXJ STOMACH SURGERY 2018 Left PROCEDURE: [place] UNLISTED PROCEDURE STOMACH OTHER SURGICAL HISTORY 05/13/2017 Left PROCEDURE: HISTORICAL FEM/POPLITEAL BY Medical History Medical History Date Comments Peripheral artery disease (CMS/HCC) 12/13/2018 DX:Peripheral artery disease (HCC); COMMENT: 04/2017 S/p left fem-pop bypass Hypertension 12/13/2018 DX:Hypertension Hyperlipidemia 12/13/2018 DX:Hyperlipidemi a Chronic pancreatitis (CMS/HCC) 12/13/2018 D X:Chronic pancreatitis (HCC) Type 2 diabetes mellitus wit h peripheral vascular disease (CMS/HCC) 12/13/2018 DX:Type 2 diabet es mellitus with peripheral vascular disease (HCC) History of substance abuse (CMS/HCC) 12/13/2018 DX:History of substance abuse (HCC); COMMENT: alcohol Alcoholic liver disease (CMS/HCC) 12/13/2018 DX:Alcoholic liver disease (HCC) Diabetic neuropathy (CMS/HCC) 12/13/2018 DX :Diabetic neuropathy (HCC) Type 2 diabetes mellitus wit h neurological manifestations (CMS/HCC) 12/13/2018 DX:Type 2 diabet es mellitus with neurological manifestations (HCC) Chronic hepatitis C (CMS/HCC) 12/13/2018 DX :Chronic hepatitis C (HCC) Polyarthralgia 12/13/2018 DX:Polyarthralgi a Chronic mesenteric ischemia (CMS/HCC) 12/13/2018 DX:Chronic mesenteric ischemia (HCC) Pulmonary embolism (CMS/HCC) 12/13/2018 DX: Pulmonary embolism (HCC); COMMENT: 10/2018 On anticoagulation Arterial occlusion, lower ex tremity ([facility]/HCC) 12/13/2018 DX:Arterial occlusion, lower extremity (HCC); COMMENT: 2017 Right-declined surgery Family History Medical History Relation Name Comments Diabetes Mother HTN Relation Name Status Comments Father Mother Social History Tobacco Use Types Packs/Day Years Used Date Smoking Tobacco: Every Day Cigarettes 3 57.1 Started: [birth year]/17/1967 Smokeless Tobacco: Never Alcohol Use Standard Drinks/Week Comments No 0 (1 standard drink = 0.6 oz pur e alcohol) Sex and Gender Information Value Date Recorded Sex Assigned at Not on file Legal Sex Male 5:07 PM EST Gender Identity Not on file Sexual Orientation Not on file Obstetrics History Plan of Treatment Health Maintenance Due Date Last Done Comments DTaP,Tdap,and Td Vaccines (1 - Tdap) 08/16/1979 Pneumococcal Vaccine: 50+ Ye ars (1 of 1 - PCV) 2010 Zoster Vaccines (1 of 2) 2010 COVID-19 Vaccine ( - 2023-2 5 season) 2024 Influenza Vaccine (#1) 2024 RSV Immunization Patients 60 + Years Old (1 - 1-dose 75+ series) 08/16/2035 HIB Vaccines Aged Out No longer eligi ble based on patient's age to complete this topic HPV Vaccines Aged Out No longer eligi ble based on patient's age to complete this topic Hepatitis A Vaccines Aged Out No long er eligible based on patient's age to complete this topic Hepatitis B Vaccines Aged Out No long er eligible based on patient's age to complete this topic IPV Vaccines Aged Out No longer eligi ble based on patient's age to complete this topic MMR Vaccines Aged Out No longer eligi ble based on patient's age to complete this topic Meningococcal ACWY Vaccine Aged Out N o longer eligible based on patient's age to complete this topic Meningococcal B Vacine Aged Out No lo nger eligible based on patient's age to complete this topic Pneumococcal Vaccine: Pediat rics (0 to 5 Years) and At-Risk Patients (6 to 64 Years) Aged Out No longer eligible b ased on patient's age to complete this topic RSV Immunization Patients Un payal 20 months Aged Out No longer eligible b ased on patient's age to complete this topic Varicella Vaccines Aged Out No longer eligible based on patient's age to complete this topic Care Teams Customer Care Team Coach Relationship Specialty Start Date End Date Benito Fabian MD [address] [place] [address] PCP - General Internal Medicine 04/11/18
[2024-06-30 13:08] LABS: MANUAL DIFF FLAG NO
[2024-06-30 13:24] LABS: Basophils Absolute Auto 0.1 X10*3/uL (0.0-0.2); Basophils Percent Auto 0.7 % (0-2); Eosinophils Absolute Auto 0.1 X10*3/uL (0.0-0.4); Eosinophils Percent Auto 1.5 % (0-4); Imm Gran Abs Auto 0.03 X10*3/uL (0.00-0.03); Imm Gran Pct Auto 0.4 % (0.0-0.4); Lymphocytes Absolute Auto 1.4 X10*3/uL (1.2-4.9); Lymphocytes Percent Auto 20.1 % (20-40); Mean Corpuscular HGB Conc 32.4 g/dl (31.0-36.0); Mean Corpuscular Hemoglobin 26.8 pg (27.0-33.0); Mean Corpuscular Volume 82.8 fL (80.0-98.0); Mean Platelet Volume 12.1 fL (9.4-12.4); Monocytes Absolute Auto 0.8 X10*3/uL (0.1-1.2); Monocytes Percent Auto 10.8 % (2-11); Neutrophils Absolute Auto 4.8 x10*3/uL (2.0-8.3); Neutrophils Percent Auto 66.5 % (45-73); Platelet Count 184 X10*3/uL (160-400); Red Blood Count 4.47 X10*6/uL (4.60-5.80); Red Cell Distribution Width 16.9 % (11.0-16.0); White Blood Count 7.2 X10*3/uL (4.8-10.8)
[2024-06-30 13:43] LABS: Estimated Average Glucose 143 mg/dL; Hemoglobin A1C 151.5963 umol/L; Hemoglobin A1c % 6.6 % (<6.0); Total Hemoglobin (HGBA1C) 3122.3463 umol/L
[2024-06-30 13:47] LABS: Alanine Aminotransferase 19 U/L (0-40); Albumin Level 4.1 g/dL (3.5-5.0); Alkaline Phosphatase 74 U/L (39-117); Anion Gap 13 (12-20); Aspartate Amino Transferase 18 U/L (5-37); Bilirubin Total 0.3 mg/dL (0.0-1.0); Blood Urea Nitrogen 13 mg/dL (9-16); Calcium 9.6 mg/dL (8.4-10.2); Carbon Dioxide 24 mmol/L (22-29); Chloride 104 mmol/L (96-108); Estimated Glomerular Filt Rate > 60; Glucose Random 108 mg/dL (60-115); Potassium 3.9 mmol/L (3.3-5.1); Sodium 137 mmol/L (135-145); Total Protein 7.5 g/dL (6.5-8.0)
[2024-06-30 14:09] LABS: Erythrocyte Sedimentation Rate 10 MM/HR (0-15)
[2024-06-30 14:15] LABS: Folate 9.1 ng/mL (> or = 4.0); Vitamin B12 1675 pg/mL (200-900)
== END 2024-06-30 11:26 | disposition home or self-care (01) ==
LOC: HO.HHCL 11:25
PROVIDERS: Visit Provider Nurse Practitioner Family
DX: E11.9 Type 2 diabetes mellitus without complications (principal); D64.9 Anemia, unspecified
CPT/HCPCS: 36415; 80053; 82607; 82746; 83036; 85025; 85652

== ENCOUNTER 2025-03-05 11:32 | Outpatient (REF) | payer OTHER, SELFPAY ==
--- NOTE | ~2025-03-05 | XR_ITS ---
EXAMINATION: XR FOOT, RIGHT CLINICAL INFORMATION: severe plantar pain, COMPARISON: None available. TECHNIQUE: AP, lateral, and oblique views of the right foot. FINDINGS: No visible acute fracture, dislocation or suspicious bony lesion. Tarsometatarsal alignment is maintained. Moderate plantar calcaneal spur. No abnormal soft tissue calcification. XR/XR foot RT min 3V IMPRESSION: Moderate plantar calcaneal spur. Electronically signed by: Estevan Bansal MD 03/05/2025 12:30 PM EDT
== END 2025-03-05 11:33 | disposition home or self-care (01) ==
LOC: HO.HHCL 11:32
PROVIDERS: PCP Nurse Practitioner Family; Visit Provider Nurse Practitioner Family
DX: M72.2 Plantar fascial fibromatosis (principal)
CPT/HCPCS: 73630

== ENCOUNTER → 2025-03-05 11:35 | Outpatient (BNV) | payer OTHER, SELFPAY | PROVIDERS: PCP Nurse Practitioner Family; Visit Provider Radiology Diagnostic Ultrasound | DX: M77.31 Calcaneal spur, right foot (principal) | CPT/HCPCS: 73630 ==

== ENCOUNTER 2025-03-22 09:37 | Outpatient (AMB) | payer OTHER, SELFPAY ==
--- NOTE | 2025-03-22 10:03 | A.OFFVIS_ITS ---
Vital Signs 03/22/25 10:04 Height 5 ft 11 in Weight 180 lb BMI 25.1 Intake Visit Reasons: moderate plantar calcaneal spur Intake Note: Geraldo is a 64 year old male who presents today as a ne w patient for an evaluation of his right calcaneal spur. Patient reports the pain has been going on for about 4-5 months and is located on the plantar aspect of the heel. He has tried massaging his foot with a cream that was prescribed by his PCP and has found no relief for his symptoms. Right foot X-ray IMPRESSION: Moderate plantar calcaneal spur. Allergies No Known Allergies (No Known Allergies*) Allergy (Verified 03/22/25 10:04) HPI HPI moderate plantar calcaneal spur: Details: 64-year-old male with past medical history of DMII, hyperlipidemia, hypertension, right-sided sciatica, presents for right heel and Achilles pain. The patient states this has been going on for at least 4-5 months. He has not tried any treatment so far other than changing shoe wear. He states he has pain only when attempting to walk, denies any pain when resting. [facility] Medical History Mass of left parotid gland Gastritis Warthin's tumor Diabetes mellitus, type II Tobacco dependence Alcohol abuse HLD (hyperlipidemia) HCV (hepatitis C virus) Neuropathy Gout COVID-19 PVD (peripheral vascular disease) DVT (deep venous thrombosis) Pneumonia CHF (congestive heart failure) HTN (hypertension) Diabetes Surgical History History of esophagogastroduodenoscopy (EGD) Hx of colonoscopy S/P femoropopliteal bypass surgery Social History Household Members: Spouse Housing: Apartment Do you presently have visiting nurse or other home services: Yes ([employer]) Alcohol intake: former Comment: refuses bed alarm Patient Tobacco Use Status: Current everyday Tobacco user Tobacco use type: Cigarette Cigarettes Per Day: 4 Years Smoked: 50 Substance Use Type: Marijuana Advance Directives Date on File: 12/02/20 service: No Current occupational status: unemployed Review of Systems Const All systems reviewed & are unremarkable except as noted in HPI and below Physical Exam Vital Signs: BMI result Body Mass Index 25.1 Extrem Other: *Bilateral Lower Extremity Focused Diabetic Foot Exam Vascular: DP/PT 2/4, CFT<3s to digits, TG warm to cool, no pedal edema, pedal hair absent Derm: Skin: xerosis bilateral feet. Interdigital spaces: Clear, no maceration or fungal infection. Nails: No onychomycosis, paronychia, or ingrown nails. Neuro: Cazenovia-ronel monofilament (10g) test 10/10 intact to right foot, 10/10 intact to left foot. Msk: Moderate pain to right plantar medial calcaneal tubercle and along medial band plantar fascia, mild tenderness along the Achilles tendon, worse to the myotendinous junction. No dollar defect, strength 5/5. Footwear Assessment: Shoes inspected; appropriate fit, no excessive wear, or foreign objects noted. Office Procedures AMB Flexor Tendon/Plantar POD Tendon Injection Details of AMB Procedure: Procedure: Steroid injection Location: Right heel Medication: 1.5cc 0.5% bupivicaine, 1cc dexamethasone, 0.5cc kenalog? Description: The right heel was prepped using alcohol. A steroid injection was administered using sterile technique. The site was dressed using a band-aid. Post-procedure Instructions: The patient was instructed to apply ice to the injection site. The patient was advised to call the office if there are signs or symptoms of worsening pain, infection, or steroid flare. Tendon Injection POD1: - Plantar Fascia Injection All charges added?: Procedure code (CPT) selection complete Office Meds triamcinolone acetonide 40 mg/mL suspension for injection Performing Provider: Gianluca Boateng DPM Performing Location: [facility] [place] [place] [facility] Administered by: Gianluca Boateng DPM on 03/22/25 10:32 Dose Route Admin Location Dispensed Lot Number Expiration Date [facility] Room 20 mg Tendon Sheath Inj. 1 mL [address]-3 [employer] Total Dispensed Waste 1 mL 50 % dexamethasone sodium phosphate 4 mg/mL injection solution Performing Provider: Gianluca Boateng DPM Performing Location: [facility] [place] [facility] Administered by: Gianluca Boateng DPM on 03/22/25 10:32 Dose Route Admin Location Dispensed Lot Number Expiration Date [facility]/Steward[facility] Room 4 mg Tendon Sheath Inj. 1 mL 00714-022-11 CORK[employer]U Total Dispensed Waste 1 mL 0 % bupivacaine (PF) 0.5 % (5 mg/mL) injection solution Performing Provider: Gianluca Boateng DPM Performing Location: [facility] [place] [facility] Administered by: Gianluca Boateng DPM on 03/22/25 10:32 Dose Route Admin Location Dispensed Lot Number Expiration Date [facility]/Steward[facility] Room 2 mL intra-articular 10 mL [id number] MTDevika HUNT Total Dispensed Waste 10 mL 80 % Results Reviewed Results Reviewed: Podiatry X-ray Read: 03/05/2025 X-ray right foot 3 views (AP, MO, Lateral) reviewed which shows mild plantar calcaneal spur, small insertional Achilles spur. No fractures, dislocations, or other gross abnormalities. Mild decreased bone sent density to the forefoot. Moderate joint space narrowing of the 3rd tarsometatarsal joint. I personally reviewed the imaging and my findings are listed above. Assessment & Plan Assessment & Plan (1) Plantar fasciitis of right foot: Code(s): M72.2 - Plantar fascial fibromatosis Category: Medical Plan: * Discussed etiology of the patient's foot pain. Differential diagnosis includes plantar fasciitis, neuritis, tendinitis. * Patient educated on the nature and etiology of plantar fasciitis, which involves inflammation and microtearing of the plantar fascia due to repetitive stress and overuse. * Reviewed right foot x-rays * The patient was counseled on conservative management of plantar fasciitis, including daily stretching exercises targeting the plantar fascia and Achilles tendon, use of supportive and properly fitting footwear, and consideration of custom or prefabricated orthotics to improve foot biomechanics. * Cortisone injection administered to right heel. * Instructed the patient on home stretching and range of motion exercises including calf-stretches, frozen water bottle therapy, band-therapy. Handout was dispensed * Referred to physical therapy. * Recommended supportive shoe-wear with arch-supports to avoid increased loading on the patient's plantar fascia band. Recommended Powerstep orthotics * Follow up in 3 weeks (2) Achilles bursitis or tendinitis: Code(s): M76.60 - Achilles tendinitis, unspecified leg Category: Medical Plan: * Recommended at home range of motion and stretching exercises Orders: Orders AMB Flexor Tendon / Plantar Fascia Injection Today M72.2 - Plantar fascial fibromatosis Coding Level of Care Code New Pt Level 4 (21540) Diagnoses Plantar fasciitis of right foot M72.2 Achilles bursitis or tendinitis M76.60 CPT Codes Tendon Injection - Tendon Injection POD1: - Plantar Fascia Injection ([id number]) Time Spent (min) 35
[2025-03-22 10:04] VITALS: BMI 25.1
--- OUTSIDE RECORDS SUMMARY | 2025-03-22 10:49 | XMS_ITS | Encounter Summary ---
Author Organization [employer] Address 75 [facility] 7t [place] [address] Care Team Providers Care Orchestra Conductor Name Role Phone Fifi Lee Primary Care Provider [phone] Ny Hsu NP Primary Care Provider [phone] Meghan Garcia PharmD Unavailable [phone] Encounter Details Date Type Department Care Team (Late Contact Info) Description 10/28/2022 Abstract [facility] MEDICINE [address] [place], [place] [phone] Fifi Lee FNP [address] [place], [place] [phone] Social History Tobacco Use Types Packs/Day Years [...] Encounters Date Type Department Care Team (Late Contact Info) Description 03/29/2025 10:30 AM EST Medication Management [facility] MEDICINE [address] [place], [place] [phone] Meghan Garcia PharmD [facility] [place] [address] 05/15/2025 11:30 AM EST Office Visit [facility] [address] [facility] [place] [address] Ny Hsu, SERA 230 [place] [address] documented as of this encounter Procedures Procedure Name Priority Date/Time Associated Diagnosis Comments COLONOSCOPY Routine 03/25/2022 1:38 PM EST documented in this encounter Results * Colonoscopy (03/25/2022 1:38 PM EST) Colonoscopy Normal Normal Narrative Amrita Oneill - 03/25/2022 1:38 PM EST Recommended 1-2 year follow up due to fair [place] [place] Historical Provider HEALTH MAINTENANCE Edited Result - Final documented in this encounter Visit Diagnoses Not on filedocumented in this encounter Additional Health Concerns Assessment Noted Time PHQ-9 Depression Total Score: 1 06/05/19 23 11:19 AM EST documented as of this encounter Care Teams Orchestra Conductor Relationship Specialty Start Date End Date [place] [address] PCP - General Family Medicine 04/06/22 01/17/24 Ny Hsu, SERA [address] [place] [address] [phone] PCP - General Family Medicine 01/18/24 Meghan Garcia PharmD Melisa [place], [place] [phone] Pharmacist Internal Medicine 08/22/24 documented as of this encounter
--- OUTSIDE RECORDS SUMMARY | 2025-03-22 10:49 | XMS_ITS | Encounter Summary ---
Author Organization [employer] Address 75 [facility] 7t [place] [address] Care Team Providers Care Felt Strip Finisher Name Role Phone LindsayMya mckayjunior GONZALESP Primary Care Provider [phone] Ny Hsu NP Primary Care Provider [phone] Meghan Garcia PharmD Unavailable [phone] Reason for Visit * Reason Comments Med Refill Encounter Details Date Type Department Care Team (Late st Contact Info) Description 11/25/2023 Refill [facility] MEDICINE 230 [place], [place] [phone] Laurel Moore MD 230 [place], [place] [phone] Social History Tobacco Use Types Packs/Day Years [...] Care Team (Late st Contact Info) Description 03/29/2025 10:30 AM EST Medication Management [facility] MEDICINE [address] [place] [address] Meghan Garcia PharmD [address] [place] [address] 05/15/2025 11:30 AM EST Office Visit [facility] MEDICINE [address] [place] [address] Ny Hsu NP 230 [place] [address] documented as of this encounter Visit Diagnoses Not on filedocumented in this encounter Additional Health Concerns Assessment Noted Time PHQ-9 Depression Total Score: 1 05/26/19 24 3:48 PM EST documented as of this encounter Care Teams Felt Strip Finisher Relationship Specialty Start Date End Date Fifi Lee FNP [address] [place] [address] PCP - General Family Medicine 04/06/22 01/17/24 Ny Hsu NP 230 [place] [address] PCP - General Family Medicine 01/18/24 Meghan Garcia PharmD [address] [place] [address] Pharmacist Internal Medicine 08/22/24 documented as of this encounter
--- OUTSIDE RECORDS SUMMARY | 2025-03-22 10:49 | XMS_ITS | Encounter Summary ---
Author Organization [employer] Address 75 [facility] 7t [place] [address] Care Team Providers Care Pharmaceutical Compounding Supervisor Name Role Phone Fifi Lee Primary Care Provider [phone] Ny Hsu NP Primary Care Provider [phone] Meghan Garcia PharmD Unavailable [phone] Reason for Visit * Reason Comments Med Refill Encounter Details Date Type Department Care Team (Late st Contact Info) Description 07/02/2023 Refill [facility] MEDICINE 230 [place], [place] [phone] Fifi Lee FNP [address] [place], [place] [phone] Peripheral vascular disease (CMS/HCC) Social History Tobacco [...] Description 03/29/2025 10:30 AM EST Medication Management [facility] MEDICINE [address] [place] [address] Meghan Garcia, AndersonD 230 [place] [address] 05/15/2025 11:30 AM EST Office Visit [facility] MEDICINE [address] [place] [address] Ny Hsu NP 230 [place] [address] documented as of this encounter Visit Diagnoses Diagnosis Peripheral vascular disease (CMS/HCC) Unspecified peripheral vascular disease documented in this encounter Additional Health Concerns Assessment Noted Time PHQ-9 Depression Total Score: 1 05/26/19 24 3:48 PM EST documented as of this encounter Care Teams Pharmaceutical Compounding Supervisor Relationship Specialty Start Date End Date Fifi Lee FNP 230 [place] [address] PCP - General Family Medicine 04/06/22 01/17/24 Ny Hsu NP 230 [place] [address] PCP - General Family Medicine 01/18/24 Meghan Garcia PharmD 230 [place] [address] Pharmacist Internal Medicine 08/22/24 documented as of this encounter
--- OUTSIDE RECORDS SUMMARY | 2025-03-22 10:49 | XMS_ITS | Encounter Summary ---
Author Organization [employer] Address 75 [facility] 7t [place] [address] Care Team Providers Care Credit Card Analyst Name Role Phone Fifi Lee Primary Care Provider [phone] Ny Hsu NP Primary Care Provider [phone] Meghan Garcia PharmD Unavailable [phone] Reason for Visit * Reason Onset Date Comments Change PCP 12/14/2023 Encounter Details Date Type Department Care Team (Late st Contact Info) Description 12/14/[address] [facility] MEDICINE 230 [place], [place] [phone] Fifi Lee FNP [address] [place], [place] [phone] Change PCP Social History Tobacco Use Types [...] back for clarification. Please contact pt at [phone]. [facility] Speaker. documented in this encounter Plan of Treatment Upcoming Encounters Date Type Department Care Team ([facility] st Contact Info) Description 03/29/2025 10:30 AM EST Medication Management [facility] MEDICINE [address] [place] [address] Meghan Garcia, AndersonD 230 [place] [address] 05/15/2025 11:30 AM EST Office Visit [facility] MEDICINE 230 [place] [address] Ny Hsu NP 230 [place] [address] documented as of this encounter Visit Diagnoses Not on filedocumented in this encounter Additional Health Concerns Assessment Noted Time PHQ-9 Depression Total Score: 1 05/26/19 24 3:48 PM EST documented as of this encounter Care Teams Credit Card Analyst Relationship Specialty Start Date End Date Fifi Lee FNP 230 [place] [address] PCP - General Family Medicine 04/06/22 01/17/24 Ny Hsu NP 230 [place] [address] PCP - General Family Medicine 01/18/24 Meghan Garcia PharmD 230 [place] [address] Pharmacist Internal Medicine 08/22/24 documented as of this encounter
--- OUTSIDE RECORDS SUMMARY | 2025-03-22 10:49 | XMS_ITS | Encounter Summary ---
Author Organization [employer] Address 75 [facility] 7t [place] [address] Care Team Providers Care Vb Developer Name Role Phone Fifi Lee Primary Care Provider [phone] Ny Hsu NP Primary Care Provider [phone] Meghan Garcia PharmD Unavailable [phone] Reason for Visit * Reason Comments Med Refill Encounter Details Date Type Department Care Team (Late st Contact Info) Description 06/10/2023 Refill [facility] MEDICINE 230 [place], [place] [phone] Fifi Lee FNP [address] [place], [place] [phone] Peripheral vascular disease (CMS/HCC); Essential pulmonary hypertension [...] the past 12 months, has t he [employer], gas, oil or water [employer] threatened to shut off services in your [...] Description 03/29/2025 10:30 AM EST Medication Management [facility] MEDICINE [address] [place] [address] Meghan Garcia, AndersonD 230 [place] [address] 05/15/2025 11:30 AM EST Office Visit [facility] MEDICINE [address] [place] [address] Ny Hsu NP 230 [place] [address] documented as of this encounter Visit Diagnoses Diagnosis Peripheral vascular disease (CMS/HCC) Unspecified peripheral vascular disease Essential pulmonary hypertension (CMS/HCC) (HCC) documented in this encounter Additional Health Concerns Assessment Noted Time PHQ-9 Depression Total Score: 1 05/26/19 24 3:48 PM EST documented as of this encounter Care Teams Vb Developer Relationship Specialty Start Date End Date Fifi Lee FNP 230 [place] [address] PCP - General Family Medicine 04/06/22 01/17/24 Ny Hsu NP 230 [place], [place] [phone] PCP - General Family Medicine 01/18/24 Meghan Garcia PharmD 230 [place] [address] Pharmacist Internal Medicine 08/22/24 documented as of this encounter
--- OUTSIDE RECORDS SUMMARY | 2025-03-22 10:49 | XMS_ITS | Encounter Summary ---
Author Organization [employer] Address 75 [facility] 7t [place] [address] Care Team Providers Care Electric Welder Helper Name Role Phone Fifi Lee Primary Care Provider [phone] Ny Hsu NP Primary Care Provider [phone] Meghan Garcia PharmD Unavailable [phone] Encounter Details Date Type Department Care Team (Late st Contact Info) Description 06/14/2023 Orders Only [facility] MED & PEDS [address] [place] [address] Fifi Lee FNP [address] [facility] [place], [place] [phone] Essential pulmonary hypertension (CMS/HCC) Social History Tobacco [...] 10:30 AM EST Medication Management [facility] MEDICINE [address] [place] [address] Meghan Garcia, PharmD 230 [place] [address] 05/15/2025 11:30 AM EST Office Visit [facility] MEDICINE [address] [place] [address] Ny Hsu NP 230 [place] [address] documented as of this encounter Visit Diagnoses Diagnosis Essential pulmonary hypertension (CMS/HCC) (HCC) documented in this encounter Additional Health Concerns Assessment Noted Time PHQ-9 Depression Total Score: 1 05/26/19 24 3:48 PM EST documented as of this encounter Care Teams Electric Welder Helper Relationship Specialty Start Date End Date Fifi Lee FNP 230 [place] [address] PCP - General Family Medicine 04/06/22 01/17/24 Ny Hsu NP 230 [place] [address] PCP - General Family Medicine 01/18/24 Meghan Garcia PharmD 230 [place] [address] Pharmacist Internal Medicine 08/22/24 documented as of this encounter
--- OUTSIDE RECORDS SUMMARY | 2025-03-22 10:49 | XMS_ITS | Encounter Summary ---
Author Organization [employer] Address 75 [facility] 7t [place] [address] Care Team Providers Care Stock Taker Name Role Phone Fifi Lee Primary Care Provider [phone] Ny Hsu NP Primary Care Provider [phone] Meghan Garcia PharmD Unavailable [phone] Reason for Visit * Reason Comments Med Refill Encounter Details Date Type Department Care Team (Late st Contact Info) Description 11/25/2023 Refill [facility] MED [facility] PEDS [address] [place] [address] Fifi Lee FNP 230 [place], [place] [phone] Social History Tobacco Use Types Packs/Day Years [...] Description 03/29/2025 10:30 AM EST Medication Management [facility] MEDICINE [address] [place] [address] Meghan Garcia, PharmD [address] [place] [address] 05/15/2025 11:30 AM EST Office Visit [facility] MEDICINE [address] [place] [address] Ny Hsu NP [address] [place] [address] documented as of this encounter Visit Diagnoses Not on filedocumented in this encounter Additional Health Concerns Assessment Noted Time PHQ-9 Depression Total Score: 1 05/26/19 24 3:48 PM EST documented as of this encounter Care Teams Stock Taker Relationship Specialty Start Date End Date Fifi Lee FNP [address] [place] [address] PCP - General Family Medicine 04/06/22 01/17/24 Ny Hsu NP 230 [place] [address] PCP - General Family Medicine 01/18/24 Meghan Garcia PharmD 230 [place] [address] Pharmacist Internal Medicine 08/22/24 documented as of this encounter
--- OUTSIDE RECORDS SUMMARY | 2025-03-22 10:49 | XMS_ITS | Encounter Summary ---
Author Organization [employer] Address 75 [facility] 7t [place] [address] Care Team Providers Care Statistical Technician Name Role Phone Ny Hsu NP Primary Care Provider [phone] Meghan Garcia PharmD Unavailable [phone] Reason for Visit * Reason Comments Med Change Request Encounter Details Date Type Department Care Team (Late st Contact Info) Description 10/22/2024 Refill [facility] MEDICINE 230 [place] [address] Nae Hui, UNIVERSITY LIBRARIAN [address] [place], [place] [phone] Anxiety; Insomnia, unspecified type Social History Tobacco Use Types Packs/Day Years [...] Description 03/29/2025 10:30 AM EST Medication Management [facility] MEDICINE [address] [place] [address] Meghan Garcia PharmD [address] [place] [address] 05/15/2025 11:30 AM EST Office Visit [facility] MEDICINE [address] [place] [address] Ny Hsu NP [address] [place] [address] documented as of this encounter Visit Diagnoses Diagnosis Anxiety Anxiety state, unspecified Insomnia, unspecified type documented in this encounter Additional Health Concerns Assessment Noted Time PHQ-9 Depression Total Score: 2 06/30/19 25 10:52 AM EST documented as of this encounter Care Teams Statistical Technician Relationship Specialty Start Date End Date Ny Hsu NP 230 [place] [address] PCP - General Family Medicine 01/18/24 Meghan Garcia PharmD 230 [place] [address] Pharmacist Internal Medicine 08/22/24 documented as of this encounter
--- OUTSIDE RECORDS SUMMARY | 2025-03-22 10:49 | XMS_ITS | Encounter Summary ---
Author Organization [employer] Address 75 [facility] 7t [place] [address] Care Team Providers Care Reporting Analyst Name Role Phone Fifi Lee Primary Care Provider [phone] Ny Hsu NP Primary Care Provider [phone] Meghan Garcia PharmD Unavailable [phone] Encounter Details Date Type Department Care Team (Late st Contact Info) Description 05/26/2023 Abstract [facility] MEDICINE 230 [place], [place] [phone] Fifi Lee FNP 230 [place], [place] [phone] Social History Tobacco Use Types Packs/Day Years [...] AM EDT documented as of this encounter Functional Status * Over the past 2 weeks, how often have you been bothered by any of the following problems? Question Answer Date of Assessment Author Patient Health Questionnaire -2 Score 0 05/26/2023 3:48 PM Raza Heredia [place] * Over the last 2 weeks, how often have you been bothered by any of the following problems? Question Answer Date of Assessment Author Feeling nervous, anxious, or on edge 0 05/26/2023 3:49 PM Raza Heredia MA Not being able to stop or control worrying 1 05/26/2023 3:49 PM Raza Heredia MA Worrying too much about different things 1 05/26/2023 3:49 PM Raza Heredia MA Trouble relaxing 0 05/26/2023 3:49 PM Jose Richardson MA Being so restless that it is hard to sit still 0 05/26/2023 3:49 PM Raza Heredia MA Becoming easily annoyed or irritable 3 05/26/2023 3:49 PM Raza Heredia MA Feeling afraid as if somethi ng awful might happen 0 05/26/2023 3:49 PM Raza Heredia MA NEYMAR-7 Total Score 5 05/26/2023 3:49 PM Jose Heredia MA * Over the past 2 weeks, how often have you been bothered by any of the following problems? Question Answer Date of Assessment Author Little interest or pleasure in doing things Not at all 05/26/2023 3:48 PM Raza Heredia MA Feeling down, depressed, or hopeless Not at all 05/26/2023 3:48 PM Raza Heredia [place] Trouble falling or staying asleep, or sleeping too much Not at all 05/26/2023 3:48 PM Jose Heredia MA Feeling tired or having little energy Several days 05/26/2023 3:48 PM Raza Heredia MA Poor appetite or overeating Not at all 05/26/2023 3: 48 PM Jose Heredia MA Feeling bad about yourself - or that you are a failure or have let yourself or your family down Not at all 05/26/2023 3:48 PM Raza Heredia MA Trouble concentrating on things, such as reading the newspaper or watching television Not at all 05/26/2023 3:48 PM Raza Heredia MA Moving or speaking so slowly that other people could have noticed? Or the opposite - being so fidgety or restless that you have been moving around a lot more than usual. Not at all 05/26/2023 3:48 PM Raza Heredia MA Thoughts that you would be better off or hurting yourself in some way Not at all 05/26/2023 3:48 PM Joe Heredia MA Patient Health Questionnaire-9 Score 1 05/26/2023 3:48 PM Julien Heredia MA documented as of this encounter Plan of Treatment Upcoming Encounters Date Type Department Care Team (Late st Contact Info) Description 03/29/2025 10:30 AM EST Medication Management [facility] MEDICINE 230 [place] [address] Meghan Garcia PharmD [address] [place] [address] 05/15/2025 11:30 AM EST Office Visit [facility] MEDICINE 230 [place] [address] Ny Hsu NP 230 [place] [address] documented as of this encounter Visit Diagnoses Not on filedocumented in this encounter Additional Health Concerns Assessment Noted Time PHQ-9 Depression Total Score: 1 05/26/19 24 3:48 PM EST documented as of this encounter Care Teams Reporting Analyst Relationship Specialty Start Date End Date Fifi Lee FNP [address] [address] PCP - General Family Medicine 04/06/22 01/17/24 Ny Hsu, SERA [address] [place] [address] PCP - General Family Medicine 01/18/24 Meghan Garcia PharmD [address] [place] [address] Pharmacist Internal Medicine 08/22/24 documented as of this encounter
--- OUTSIDE RECORDS SUMMARY | 2025-03-22 10:49 | XMS_ITS | Encounter Summary ---
Author Organization [employer] Address 75 [facility] 7t [place] [address] Care Team Providers Care Shuttle Spotter Name Role Phone Ny Hsu NP Primary Care Provider [phone] Meghan Garcia PharmD Unavailable [phone] Reason for Visit * Reason Onset Date Comments Referral 11/16/2024 FYI 11/16/2024 Encounter Details Date Type Department Care Team ([facility] st Contact Info) Description 11/16/2024 Telephone [facility] MEDICINE 230 [place], [place] [phone] Ny Hsu NP 230 [place], [place] [phone] Referral; I Social History Tobacco Use Types Packs/Day Years [...] * Telephone Encounter - Adama Maciel - 11/16/2024 10:07 AM EDT Tc from pt calling in regards to referral for ENT stating they were advised to inform pcp when an appt is scheduled. An appt was scheduled for 12/19. If any questions you can contact pt at [phone]. documented in this encounter Plan of Treatment Upcoming Encounters Date Type Department Care Team (Late st Contact Info) Description 03/29/2025 10:30 AM EST Medication Management [facility] MEDICINE [address] [place] [address] Meghan Garcia, PharmD 230 [place] [address] 05/15/2025 11:30 AM EST Office Visit [facility] MEDICINE [address] [place] [address] Ny Hsu NP 230 [place] [address] documented as of this encounter Visit Diagnoses Not on filedocumented in this encounter Additional Health Concerns Assessment Noted Time PHQ-9 Depression Total Score: 2 06/30/19 10:52 AM EST documented as of this encounter Care Teams Shuttle Spotter Relationship Specialty Start Date End Date Ny Hsu NP [address] [place] [address] PCP - General Family Medicine 01/18/24 Meghan Garcia PharmD [address] [place] [address] Pharmacist Internal Medicine 08/22/24 documented as of this encounter
--- OUTSIDE RECORDS SUMMARY | 2025-03-22 10:49 | XMS_ITS | Encounter Summary ---
Author Organization [employer] Address 75 [facility] 7t [place] [address] Care Team Providers Care Whiskey Regauger Name Role Phone Fifi Lee Primary Care Provider [phone] Ny Hsu NP Primary Care Provider [phone] Meghan Garcia PharmD Unavailable [phone] Reason for Visit * Reason Onset Date Comments Results 11/09/2023 Encounter Details Date Type Department Care Team (Late st Contact Info) Description 11/09/[address] [facility] MEDICINE 230 [place], [place] [phone] Fifi Lee FNP [address] [place], [place] [phone] Results Social History Tobacco Use Types Packs/Day [...] xray toe Date when done: 10/31 Facility: [facility] walk in Please contact pt at [phone] documented in this encounter Plan of Treatment Upcoming Encounters Date Type Department Care Team (Late st Contact Info) Description 03/29/2025 10:30 AM EST Medication Management [facility] MEDICINE [address] [place] [address] Meghan Garcia, PharmD 230 [place] [address] 05/15/2025 11:30 AM EST Office Visit [facility] MEDICINE [address] [place] [address] Ny Hsu NP 230 [place] [address] documented as of this encounter Visit Diagnoses Not on filedocumented in this encounter Additional Health Concerns Assessment Noted Time PHQ-9 Depression Total Score: 1 05/26/19 24 3:48 PM EST documented as of this encounter Care Teams Whiskey Regauger Relationship Specialty Start Date End Date Fifi Lee FNP 230 [place] [address] PCP - General Family Medicine 04/06/22 01/17/24 Ny Hsu NP [address] [place] [address] PCP - General Family Medicine 01/18/24 Meghan Garcia PharmD [address] [place] [address] Pharmacist Internal Medicine 08/22/24 documented as of this encounter
--- OUTSIDE RECORDS SUMMARY | 2025-03-22 10:50 | XMS_ITS | Encounter Summary ---
Author Organization [employer] Address [address] [facility] [address] [place] [address] Care Team Providers Care Donor Services Team Leader Name Role Phone Ny Hsu NP Primary Care Provider [phone] Meghan Garcia PharmD Unavailable [phone] Reason for Visit * Reason Onset Date Comments Med Refill 07/26/2024 Encounter Details Date Type Department Care Team (Late st Contact Info) Description 07/26/2024 Telephone [facility] MEDICINE [address] [place], [place] [phone] Ny Hsu NP [address] [place], [place] [phone] Med Refill Social History Tobacco Use Types Packs/Day Years [...] the past 12 months, has t he [employer] gas, oil or water company threatened to [...] encounter Miscellaneous Notes * Telephone Encounter - Valentine Myers LPN - 07/26/2024 11:04 AM EDT Omeprazole isn't prescribed by PCP and Amlodipine/Terazosin were sent to [facility] #[id number] on 07/05/24 90 day supply. * Telephone Encounter - Homero Dyson - 07/26/2024 11:02 AM EDT TC from pt requesting medication refill. Medications needing refill : amLODIPine (Norvasc) 5 MG tablet omeprazole (PriLOSEC) [address] capsule terazosin (Hytrin) 5 MG capsule To be sent to: [facility]/pharmacy #[id number] - [address] documented in this encounter Plan of Treatment Upcoming Encounters Date Type Department Care Team (Late st Contact Info) Description 03/29/2025 10:30 AM EST Medication Management [facility] MEDICINE [address] [place] [phone] Meghan Garcia PharmD [address] [place] [phone] 05/15/2025 11:30 AM EST Office Visit [facility] MEDICINE [address] [place] [phone] Ny Hsu NP [address] [place] [address] documented as of this encounter Visit Diagnoses Not on filedocumented in this encounter Additional Health Concerns Assessment Noted Time PHQ-9 Depression Total Score: 2 06/30/19 25 10:52 AM EST documented as of this encounter Care Teams Donor Services Team Leader Relationship Specialty Start Date End Date Ny Hsu NP [address] [place] [phone] PCP - General Family Medicine 01/18/24 Meghan Garcia PharmD [address] [place] [phone] Pharmacist Internal Medicine 08/22/24 documented as of this encounter
--- OUTSIDE RECORDS SUMMARY | 2025-03-22 10:50 | XMS_ITS | Clinical Summary ---
Author Organization [employer] Address [address] [facility] 7t [place] [address] Care Team Providers Care Powerhouse Electrician Apprentice Name Role Phone Ny Hsu NP Primary Care Provider [phone] Meghan Garcia PharmD Unavailable [phone] Allergies No known active allergies Medications * This document contains information received from the source organization and may not represent a complete record from that organization. glucose blood (FREESTYLE TEST STRIPS) test strip every 8 (eight) hours. 07/29/19 22 Active omeprazole (PriLOSEC) [address] capsule Take 1 capsule by mouth at bed time. 11/05/19 22 Active rivaroxaban (Xarelto) 20 MG tablet Take 1 tablet by mouth at bed time. Active gabapentin (Neurontin) 800 MG tablet TAKE 1 TABLET BY MOUTH THREE TIMES A DAY 90 tablet 1 12/31/19 23 Active furosemide (Lasix) 20 MG tablet TAKE [...] the morning. 30 tablet 11 01/24/20 24 Active tiZANidine (Zanaflex) 4 MG tabletIndicatio ns:Neck pain Take 1 tablet (4 mg) by mouth every 8 (eight) hours if needed for muscle spasms for up to 10 days. 30 tablet 04/10/20 24 Active aspirin 81 MG EC tabletIndicatio ns:Peripheral [...] MORNING 90 tablet 3 06/30/19 25 Active nicotine polacrilex (Nicorette) 4 MG gumIndications: Tobacco abuse Chew 1 each (4 mg) if needed for smoking cessation (q 2 hours as needed). 100 each 06/30/19 25 Active Additional Information Patient not taking.Reported on 08/22/2024 tamsulosin (Flomax) 0.4 MG 24 hr capsuleIndicati ons:Benign prostatic hyperplasia with urinary frequency TAKE 1 CAPSULE BY MOUTH EVERY DAY 1/2 HOUR FOLLOWING THE SAME MEAL EACH DAY 90 capsule 3 09/30/19 25 Active metoprolol tartrate (Lopressor) 25 MG tabletIndicatio ns:Essential pulmonary hypertension (CMS/HCC) (HCC) TAKE 1/2 TABLET BY MOUTH TWICE A DAY 90 tablet 1 09/30/19 25 Active amLODIPine (Norvasc) 5 MG tabletIndicatio ns:Essential pulmonary hypertension (CMS/HCC) (HCC) Take 1 tablet (5 mg) by mouth Once per day. 90 tablet 3 09/30/19 25 2025 Active terazosin (Hytrin) 5 MG capsule Take 1 capsule (5 mg) by mouth 1 (one) time for 1 dose. 90 capsule 3 09/30/19 25 Active LORazepam (Ativan) 0.5 MG tabletIndicatio ns:Panic attack,Insomnia , unspecified type Take 1 tablet (0.5 mg) by mouth if needed in the morning and at bedtime for anxiety (panic symptoms) for up to 5 days. 10 tablet 02/02/20 25 Active hydrOXYzine HCl (Atarax) 25 MG tabletIndicatio ns:Anxiety,Inso mnia, unspecified type THU LA PRIMERA SEMANA, TOME 1 TABLETA (25 MG) A LA HORA DE DORMIR. DESPU S DE 1 SEMANA, SI LO TOLERA, PUEDE JUWAN 1 TABLETA (25 MG) 4 VECES AL D A SEG N SEA NECESARIO. 120 tablet 02/24/20 25 Active folic acid (Folvite) 1 MG tabletIndicatio ns:Anemia, unspecified type TOME 1 TABLETA POR VIA ORAL TODOS LOS CERNA 90 tablet 03/02/20 25 Active olmesartan (Benicar) 20 MG tablet Take 1 tablet (20 mg) by mouth Once per day. 30 tablet 11 03/05/20 25 2025 Active metFORMIN (Glucophage) 850 MG tabletIndicatio ns:Type 2 diabetes mellitus without complication, without long-term current use of insulin (HCC) Take 1 tablet (850 mg) by mouth with breakfast and with evening meal. 180 tablet 3 03/05/20 25 Active Diclofenac Sodium 1 % gel Apply 1 Application topically if needed in the morning, at noon, and at bedtime (as needed for severe pain). 40 g 1 03/05/20 25 Active albuterol 108 (90 Base) MCG/ACT inhaler Inhale 2 puffs 2 times daily. 18 g 11 03/05/20 25 2025 Active metFORMIN (Glucophage) 850 MG tabletIndicatio ns:Type 2 diabetes mellitus without complication, without long-term current use of insulin (HCC) TOME ULYSSES TABLETA DOS VECES AL VISHAL CON LAS COMIDAS 180 tablet 3 03/08/20 24 2024 Discontinued(R eorder (will not trigger notification to Pharmacy)) folic acid (Folvite) 1 MG tabletIndicatio ns:Anemia, unspecified type TOME 1 TABLETA POR VIA ORAL TODOS LOS CERNA 90 tablet 12/26/19 25 2024 Discontinued hydrOXYzine HCl (Atarax) 25 MG tabletIndicatio ns:Anxiety,Inso mnia, unspecified type Thu la primera semana, tome 1 tableta (25 mg) a la hora de dormir. Despu s de 1 semana, si lo tolera, puede juwan 1 tableta (25 mg) 4 veces al d a seg n sea necesario. 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 Sialoadenitis 07/25/2024 Parotid mass 04/26/2024 Assessment & Plan (03/05/2025 4:30 PM EDT): Orders: Referral to ENT; Future Assessment & Plan (06/30/2024 11:10 AM EST): [...] left shoulder pain 01/24/2024 Assessment & Plan (03/05/2025 4:30 PM EDT): Orders: Referral to Orthopaedic Surgery; Future Assessment & Plan (01/26/2024 4:12 PM EDT): Limited rom, chronic issue, radiating pain, remote hx of trauma Films ordered, referral to ortho 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 Pneumonia of both lungs due to infectious organi sm 11/26/2022 Neuropathy of right upper extremity 06/05/2022 Deviated nasal septum 12/27/2019 Overview (07/28/2024): Deviated nasal septum; Note: Date Diagnosed: 12/27/2019 2:04 PM (J34.2) Allergic rhinitis 12/05/2019 Overview (07/28/2024): Allergic rhinitis, unspecified; Note: Date Diagnosed: 12/05/2019 8:51 AM (J30.9) 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 Overview (07/28/2024): Unspecified disturbances of smell and taste; Note: Date Diagnosed: 12/05/2019 8:51 AM (R43.9) Disorder of taste 12/05/2019 Overview (07/28/2024): Unspecified disturbances of smell and taste; Note: Date Diagnosed: 12/05/2019 8:51 AM (R43.9) Benign neoplasm of major salivary gland 09/25/19 Overview (07/28/2024): Benign neoplasm of other major salivary glands; Note: Date Diagnosed: 09/25/2019 10:12 AM (D11.7) Neoplasm of uncertain behavior of parotid gland 09/19/2019 Overview (07/28/2024): Neoplasm of uncertain behavior of the parotid salivary glands; Note: Date Diagnosed: 09/19/2019 3:49 PM (D37.030) Anxiety 07/14/2018 Cervical radiculopathy 04/11/2018 Assessment & Plan (04/10/2024 11:27 AM EST): phsyiatry Assessment & Plan (01/26/2024 4:12 PM EDT): X-ray of cervical spine ordered as pt has radiating symptoms, Rtc in 2-3 weeks to review findings Peripheral vascular disease 12/15/2016 Assessment & Plan (03/05/2025 4:30 PM EDT): Alcoholism (CMS/HCC) 12/15/2016 Assessment & Plan (06/30/2024 11:11 AM EST): 10 years sober, cbc pending Assessment & Plan (01/26/2024 4:14 PM EDT): No longer drinking, sober x years Acute low back pain 04/23/2016 Essential pulmonary hypertension (CMS/HCC) 03/03 Nicotine dependence 03/03/2016 Assessment & Plan (06/30/2024 [...] 5 cigarettes Type 2 diabetes mellitus without complications 1 Assessment & Plan (03/05/2025 4:30 PM EDT): Orders: POCT Glucose POCT Hgb A1c metFORMIN (Glucophage) 850 MG tablet; Take 1 tablet (850 mg) by mouth with breakfast and with evening meal. Assessment & Plan (01/26/2024 4:13 PM EDT): At goal, hgb A1c 6.9 continue current regimen Pulmonary thromboembolism (CMS/HCC) 03/03/2016 Assessment & Plan (03/05/2025 4:30 PM EDT): Resolved Problems Problem Noted Date Diagnosed Date Resolved Date Chronic hepatitis C (CMS/HCC) 03/25/2016 10/13/2024 Encounters * This document contains information received from the source organization and may not represent a complete record from that organization. Date Type Department Care Team Description 03/05/2025 10:15 AM EDT Office Visit [facility] MEDICINE [address] [place] [address] Ny Hsu NP Type 2 diabetes mellitus without complication, without long-term current use of insulin (HCC) (Primary Dx); Pulmonary thromboembolism (CMS/HCC) (HCC); Peripheral vascular disease (CMS/HCC); Primary hypertension; Plantar fascia syndrome; Chronic left shoulder pain; Parotid mass 03/05/2025 Results Follow-Up [facility] MEDICINE [address] [place] [phone] Ny Hsu NP XR Foot 3+ Views Right 03/05/2025 Travel 03/02/2025 Telephone [facility] MEDICINE [address] [place] [address] Ny Hsu NP chart prep 03/01/2025 Refill [facility] MEDICINE [address] [place] [address] Ny Hsu NP Anemia, unspecified type 02/23/2025 Refill [facility] MEDICINE [address] [place] [address] [place] Anxiety; Insomnia, unspecified type 02/01/2025 11:20 AM EDT Office Visit [facility] [address] [place] [phone] Sin Conroy MD Bereavement (Primary Dx); Panic attack; Insomnia, unspecified type 02/01/2025 Telephone [facility] [address] [place] [address] Sin Conroy MD 02/01/2025 Travel 01/26/2025 Refill [facility] MEDICINE [address] [place] [address] Ny Hsu NP Anxiety; Insomnia, unspecified type 01/08/2025 Telephone [facility] OPTOMETRY [address] [place] [address] Chari Spicer, OD 12/23/2024 Refill [facility] MEDICINE [address] [place] [address] Nae Hui CNP Anemia, unspecified type 12/22/2024 Telephone [facility] MEDICINE [address] [place] [phone] Ny Hsu NP Nurse Triage from Last 3 Months Immunizations Immunization Administration Dates Next Due Influenza High-dose Quadriva [...] Used Date Smoking Tobacco: Every Day Cigarettes Passive Smoke Exposure: Current Smokeless Tobacco: Never Tobacco Cessation:Ready to Q [...] Sign Reading Time Taken Comments Blood Pressure 168/72 03/05/2025 10:27 AM EDT Pulse 69 03/05/2025 10:27 AM EDT Temperature 36.4 C (97.6 F) 03/05/2025 10:27 AM EDT Respiratory Rate 16 03/05/2025 10:27 AM EDT Oxygen Saturation 99% 03/05/2025 10:27 AM EDT Inhaled Oxygen Concentration - - Weight 81.2 kg (179 lb) 03/05/2025 10:27 AM EDT Height 180.3 cm (5' 11 ) 03/05/2025 10:27 AM EDT Body Mass Index 24.97 03/05/2025 10:27 AM EDT Plan of Treatment Upcoming Encounters Date Type Department Care Team (Late st Contact Info) Description 03/29/2025 10:30 AM EST Medication Management [facility] MEDICINE [address] [place] [phone] Meghan Garcia, PharmD [address] [place] [address] 05/15/2025 11:30 AM EST Office Visit [facility] [address] [place] [address] Ny Hsu, SERA [address] [place] [address] Health Maintenance Due Date Last Done Comments CT Colonography 1960 FIT DNA/Cologuard 1960 FIT 1960 FOBT 1960 HIV Screening 1960 Sigmoidoscopy 1960 Eye Exam 1970 Hepatitis C Screening 1978 Zoster Vaccines (1 of 2) 2010 Pneumococcal Vaccine: 50+ Years (2 of 2 - PCV) 06/05/2023 06/05/2022, 04/20/2019 Diabetes: Urine Protein Screening 11/28/2023 11/27/2022, 02/02/2022, 02/04/2021, Additional history exists Lipid Panel 11/28/2023 11/27/2022, 01/15, 02/04/2021, Additional history exists Colonoscopy 03/25/2024 03/25/2022 Colorectal Cancer Screening 03/25/2024 COVID-19 Vaccine ( season) 2025 04/03/2021, 08/21/2020 Depression Screening 06/30/2025 06/30/2024, 06/30/19 SDOH Screening 06/30/2025 06/30/2024 Diabetes: Hemoglobin A1C 09/03/2025 025, 06/30/2024, 06/30/2024, Additional history exists Alcohol/Substance Use Screening 03/05/2026 03/05/2025 Diabetes: Foot Exam 03/05/2026 03/05/2025, 03/05/2025, 11/01/2023, Additional history exists Disability Screening 03/05/2026 03/05/2025 Tobacco Screening 03/05/2026 03/05/2025 DTaP/Tdap/Td Vaccines (2 - Td or Tdap) 04/13/2027 04/13/2017 Influenza Vaccine Completed 02/27/2025, , 03/28/2021, Additional history exists RSV Patients and Patients Aged 60 years or older Completed 02/27/2025 HIB Vaccines Aged Out No longer eligi [...] age to complete this topic Meningococcal B Vaccine Aged Out No l onger eligible based on patient's age to complete [...] Procedure Name Priority Date/Time Associated Diagnosis Comments XR FOOT 3+ VIEWS RIGHT Routine 03/05/2025 12:15 PM EDT Plantar fascia syndrome POCT GLYCATED HEMOGLOBIN, TOTAL Routine 03/05/2025 10:30 AM EDT Type 2 diabetes mellitus without complication, without long-term current use of insulin (HCC) POCT GLUCOSE Routine 03/05/2025 10:29 AM EDT Type 2 diabetes mellitus without complication, without long-term current use of insulin (HCC) ALBUMIN, RANDOM URINE W/CREATININE Routine 11/27/2022 12:09 PM EDT LIPID PANEL, STANDARD Routine 11/27/2022 12:06 PM EDT HM COLONOSCOPY Routine 03/25/2022 1:38 PM EST from Last 3 Months or Most Recently Relevant to Health Maintenance Results * XR Foot 3+ Views Right (03/05/2025 12:15 PM EDT) Anatomical Region Laterality Modality Lower Extremities, Foot Right [facility] 03/05/2025 12:1 5 PM EDT Narrative 03/05/2025 12:33 PM EDT [place] [address] XRay Report Signed Patient: Geraldo Unger MR#: [id number] : 1960 Acct:[id number] Age/Sex: 64 / M ADM Date: 03/05/25 Loc: [facility] Attending Dr: Ny Hsu NP Ordering Physician: Ny Hsu NP Date of Service: 03/05/25 Procedure(s): XR foot RT min 3V Accession Number(s): [id number] cc: Ny Hsu NP Reason for Exam: severe plantar pain, EXAMINATION: XR FOOT, RIGHT CLINICAL INFORMATION: severe plantar pain, COMPARISON: None available. TECHNIQUE: AP, lateral, and oblique views of the right foot. FINDINGS: No visible acute fracture, dislocation or suspicious bony lesion. Tarsometatarsal alignment is maintained. Moderate plantar calcaneal spur. No abnormal soft tissue calcification. XR/XR foot RT min 3V IMPRESSION: Moderate plantar calcaneal spur. Electronically signed by: Estevan Bansal MD 03/05/2025 12:30 PM EDT RP Dictated By: Estevan Bansal MD Signed By: <Electronically signed by Estevan Bansal MD in OV> 03/05/25 1230 DD/ 1215 TD/TT: 03/05/258 Senior Quality Analyst: JAMEE Procedure Note Donotuseinterpreter, Image - 03/05/[address] [address] XRay Report Signed Patient: Rylan Unger#: [id number] : 1960cct:[id number] Age/Sex: 64 / MADM Date: 03/05/25 Loc: [facility] Attending Dr: Ny Hsu CERTIFIED TOWER CLIMBER Ordering Physician: Ny Hsu NP Date of Service: 03/05/25 Procedure(s): XR foot RT min 3V Accession Number(s): [id number] cc: Ny Hsu NP Reason for Exam: severe plantar pain, EXAMINATION: XR FOOT, RIGHT CLINICAL INFORMATION: severe plantar pain, COMPARISON: None available. TECHNIQUE: AP, lateral, and oblique views of the right foot. FINDINGS: No visible acute fracture, dislocation or suspicious bony lesion. Tarsometatarsal alignment is maintained. Moderate plantar calcaneal spur. No abnormal soft tissue calcification. XR/XR foot RT min 3V IMPRESSION: Moderate plantar calcaneal spur. Electronically signed by: Estevan Bansal MD 03/05/2025 12:30 PM EDT RP Dictated By: Estevan Bansal MD Signed By: <Electronically signed by Estevan Bansal MD in OV> 03/05/25 1230 DD/ 1215 TD/TT: 03/05/258 Senior Quality Analyst: JAMEE Ny Hsu CERTIFIED TOWER CLIMBER IMG XR PROCEDURES Edited Result - Final * (ABNORMAL) POCT Hgb A1c (03/05/2025 10:30 AM EDT) Hemoglobin A1C 6.0(A) 4.0 - 5.7 % QC Media Lot # [id number] Lot# Expiration Date 4, Blood 03/05/2025 10:3 0 AM EDT Ny Hsu CERTIFIED TOWER CLIMBER POINT OF CARE TEST ENTER/EDIT OR DERABLES Final Result * POCT Glucose (03/05/2025 10:29 AM EDT) Glucose Blood, POC 132 60 - 200 mg/dL QC Media Lot # [id number] Lot# Expiration Date 3 Blood Capillary blood specimen / Unknown 03/05/2025 10:29 AM EDT Ny Hsu CERTIFIED TOWER CLIMBER POINT OF CARE TEST ENTER/EDIT OR DERABLES Final Result * Albumin, Random Urine W/Creatinine (11/27/2022 12:09 PM EDT) Creatinine, Urine 76.03 mg/dL [facility] Microalbumin Urine 9.0 mg/L [facility] Microalbum Creatinine Ratio Ur 11.8 ug/mg cr [facility] Comment:Albumin/Creatinine R atio Reference Ranges: Normal: < 30 ug/mg creatinine Microalbuminuria: 30 - 300 ug/mg creatinineClinical Albuminuria: > 300 ug/mg creatinine 11/27/2022 12:0 9 PM EDT 11/27/2022 1:15 PM EDT [facility] External Provider LAB URI NE ORDERABLES Final Result [facility] [address] [place] [phone] * Lipid Panel, Standard (11/27/2022 12:06 PM EDT) Triglycerides 91 mg/dL [facility] Comment:Desirable Triglyceri de: less than 150 mg/dLBorderline High Triglyceride 150-199 mg/dLHigh Triglyceride: 200-499 mg/dLVery High Triglyceride: greater than or equal to 5OO mg/dL Cholesterol 197 mg/dL [facility] Comment:Desirable Cholestero l: less than 200 mg/dLBorderline High Cholesterol: 200-239 mg/dLHigh Cholesterol: greater than 239 mg/dL LDL Cholesterol Calculated 127 mg/dl [facility] Comment:Desirable LDL: less than 100 mg/dLNear Optimal/Above Optimal LDL: 110- 129 mg/dLBorderline High LDL: 130-159 mg/dLHigh LDL: 160-189 mg/dLVery High LDL: greater than or equal to 190 mg/dL HDL Cholesterol 52 mg/dL [facility] Comment:Desirable HDL: great er than 40 mg/dL Note: This HDL assay may give artificially low results in patients with liver disease. 11/27/2022 12:0 6 PM EDT 11/27/2022 1:13 PM EDT [facility] External Provider LAB BLO OD ORDERABLES Final Result [facility] [address] [place] [address] [phone] * Colonoscopy (03/25/2022 1:38 PM EST) Colonoscopy Normal Normal Narrative Amrita Oneill - 03/25/2022 1:38 PM EST Recommended 1-2 year follow up due to fair prep ([facility]) Historical Provider HEALTH MAINTENANCE Edited Result - Final from Last 3 Months or Most Recently Relevant to Health Maintenance Insurance [facility] ONE CARE < [address] [place] [id number] Care Teams Powerhouse Electrician Apprentice Relationship Specialty Start Date End Date Ny Hsu NP [address] [place] [address] PCP - General Family Medicine 01/18/24 Meghan Garcia PharmD [address] [place] [address] Pharmacist Internal Medicine 08/22/24
== END 2025-03-22 10:26 | disposition home or self-care (01) ==
LOC: HO.HPODS 09:38
PROVIDERS: PCP Nurse Practitioner Family; Visit Provider Student in an Organized Health Care Education/Training Program
DX: M72.2 Plantar fascial fibromatosis (principal); M76.60 Achilles tendinitis, unspecified leg
CPT/HCPCS: 20550; 99204

== ENCOUNTER → 2025-03-22 09:37 | Outpatient (BNVA) | payer OTHER, SELFPAY | PROVIDERS: PCP Nurse Practitioner Family; Visit Provider Student in an Organized Health Care Education/Training Program | DX: M76.60 Achilles tendinitis, unspecified leg (principal) | CPT/HCPCS: 20550; 99202; J0665; J1100; J3301 ==

== ENCOUNTER 2025-04-17 10:15 | Outpatient (AMB) | payer OTHER, SELFPAY ==
--- NOTE | 2025-04-17 10:35 | A.OFFVIS_ITS ---
Vital Signs 04/17/25 10:36 Height 5 ft 11 in Weight 180 lb BMI 25.1 Intake Visit Reasons: moderate plantar calcaneal spur Intake Note: Patient is a 64 year old male presenting today as a follow up for foot pain caused by plantar fasciitis. Patient reports that he is having a lot of pain in bottom of right foot, making it hard to walk, and it is the same pain he has bee n dealing with. Patient has been doing some of the stretching and exercises and it hasn't helped. Has been using the cream prescribed but it also isn't helping. Physical therapy hasn't called and no supportive shoewear or orthotics have been purchased. Cortisone injection didn't help that much. Patient reports that his ankle was hurting really bad 2 weeks ago and he couldn't get up. Walking is bec oming a problem as he is having more pain. Powerhouse Mechanic Required: Yes Powerhouse Mechanic Name: Patient's niece Allergies No Known Allergies (No Known Allergies*) Allergy (Verified 04/17/25 10:36) HPI HPI moderate plantar calcaneal spur: Details: 64-year-old male with past medical history of DMII, hyperlipidemia, hypertension, right-sided sciatica, returns for right heel and Achilles pain. He states that the injection administered last visit only relieved his pain temporarily. He now has pain to the inside of his ankle. History: The patient states this has been going on for at least 4-5 months. He has not tried any treatment so far other than changing shoe wear. He states he has pain only when attempting to walk, denies any pain when resting. [facility] Medical History Mass of left parotid gland Gastritis Warthin's tumor Diabetes mellitus, type II Tobacco dependence Alcohol abuse HLD (hyperlipidemia) HCV (hepatitis C virus) Neuropathy Gout COVID-19 PVD (peripheral vascular disease) DVT (deep venous thrombosis) Pneumonia CHF (congestive heart failure) HTN (hypertension) Diabetes Surgical History History of esophagogastroduodenoscopy (EGD) Hx of colonoscopy S/P femoropopliteal bypass surgery Social History Household Members: Spouse Housing: Apartment Do you presently have visiting nurse or other home services: Yes (NONDESTRUCTIVE TESTER) Alcohol intake: former Comment: refuses bed alarm Patient Tobacco Use Status: Current everyday Tobacco user Tobacco use type: Cigarette Cigarettes Per Day: 4 Years Smoked: 50 Substance Use Type: Marijuana Advance Directives Date on File: 12/02/20 service: No Current occupational status: unemployed Review of Systems Const All systems reviewed & are unremarkable except as noted in HPI and below Physical Exam Vital Signs: BMI result Body Mass Index 25.1 Extrem Other: *Bilateral Lower Extremity Focused Diabetic Foot Exam Vascular: DP/PT 2/4, CFT<3s to digits, TG warm to cool, no pedal edema, pedal hair absent Derm: Skin: xerosis bilateral feet. Interdigital spaces: Clear, no maceration or fungal infection. Nails: No onychomycosis, paronychia, or ingrown nails. Neuro: Brimley-ronel monofilament (10g) test 10/10 intact to right foot, 10/10 intact to left foot. Msk: Moderate pain to right plantar medial calcaneal tubercle and along medial band plantar fascia, no tenderness along the Achilles tendon, moderate tenderness along the posterior tibial tendon from the retromalleolar region to the navicular insertion. Footwear Assessment: Shoes inspected; appropriate fit, no excessive wear, or foreign objects noted. Results Reviewed Results Reviewed: Podiatry X-ray Read: 03/05/2025 X-ray right foot 3 views (AP, MO, Lateral) reviewed which shows mild plantar calcaneal spur, small insertional Achilles spur. No fractures, dislocations, or other gross abnormalities. Mild decreased bone sent density to the forefoot. Moderate joint space narrowing of the 3rd tarsometatarsal joint. I personally reviewed the imaging and my findings are listed above. Assessment & Plan Assessment & Plan (1) Plantar fasciitis of right foot: Code(s): M72.2 - Plantar fascial fibromatosis Category: Medical Plan: * Discussed etiology of the patient's foot pain. Differential diagnosis includes plantar fasciitis, neuritis, tendinitis. * Patient educated on the nature and etiology of plantar fasciitis, which involves inflammation and microtearing of the plantar fascia due to repetitive stress and overuse. * The patient was counseled on conservative management of plantar fasciitis, including daily stretching exercises targeting the plantar fascia and Achilles tendon, use of supportive and properly fitting footwear, and consideration of custom or prefabricated orthotics to improve foot biomechanics. * Instructed the patient on home stretching and range of motion exercises including calf-stretches, frozen water bottle therapy, band-therapy. Handout was dispensed * Referred to physical therapy. * Follow up in 1 month. (2) Posterior tibial tendinitis, right leg: Code(s): M76.821 - Posterior tibial tendinitis, right leg Category: Medical Plan: * Dispensed lace-up ankle brace * Follow up in 1 month. May require an MRI Orders: Orders PT Evaluation and Treatment Today M72.2 - Plantar fascial fibromatosis, M76.821 - Posterior tibial tendinitis, right leg Coding Level of Care Code Est Pt Level 3 (26141) Diagnoses Plantar fasciitis of right foot M72.2 Posterior tibial tendinitis, right leg M76.821 Time Spent (min) 20
[2025-04-17 10:36] VITALS: BMI 25.1
--- OUTSIDE RECORDS SUMMARY | 2025-04-17 11:41 | XMS_ITS | Encounter Summary ---
Author Organization [employer] Address [address] [facility] 7t [place] [address] Care Team Providers Care Well Drill Operator Name Role Phone Fifi Lee Primary Care Provider [phone] Ny Hsu NP Primary Care Provider [phone] Meghan Garcia PharmD Unavailable [phone] Encounter Details Date Type Department Care Team (Late st Contact Info) Description 05/26/2023 Abstract [facility] [address] [place], [place] [phone] Fifi Lee FNP [address] [place], [place] [phone] Social History Tobacco Use Types Packs/Day Years [...] Care Team (Late st Contact Info) Description 05/15/2025 11:30 AM EST Office Visit [facility] [address] [place] [address] Ny Hsu NP [address] [place] [address] documented as of this encounter Visit Diagnoses Not on filedocumented in this encounter Additional Health Concerns Assessment Noted Time PHQ-9 Depression Total Score: 1 05/26/19 24 3:48 PM EST documented as of this encounter Care Teams Well Drill Operator Relationship Specialty Start Date End Date Fifi Lee FNP [address] [place] [address] PCP - General Family Medicine 04/06/22 01/17/24 Ny Hsu NP [address] [place] [id number] PCP - General Family Medicine 01/18/24 Meghan Garcia PharmD [address] [place] [phone] Pharmacist Internal Medicine 08/22/24 documented as of this encounter
--- OUTSIDE RECORDS SUMMARY | 2025-04-17 11:41 | XMS_ITS | Encounter Summary ---
Author Organization [employer] Address [address] [facility] 7t [place] [address] Care Team Providers Care Flyer Repairer Name Role Phone Ny Hsu NP Primary Care Provider [phone] Meghan Garcia PharmD Unavailable [phone] Reason for Visit * Reason Comments Med Refill Encounter Details Date Type Department Care Team (Late st Contact Info) Description 04/02/2025 Refill [facility] MEDICINE [address] [place], [place] [phone] Ny Hsu NP [address] [place], [place] [phone] Neck pain; Cervical radiculopathy; Lymphadenopathy Social History Tobacco Use Types Packs/Day Years Used Date Smoking Tobacco: Every Day Cigarettes Passive Smoke Exposure: Current Smokeless Tobacco: Never Comments:Reports smokes 6-8 cigarettes [...] Description 05/15/2025 11:30 AM EST Office Visit [facility] MED[facility]INE [address] [place] [address] Ny Hsu NP [address] [place] [address] documented as of this encounter Goals Goal Patient Goal Type Associated Problems Recent Progress Patient-Stated? Author Help patients manage their type 2 diabetes Care Plan Help patients manage their type 2 diabetes No Meghan Garcia PharmD Weekly blood pressure task Care Plan Weekly blood pressure task No Meghan Garcia PharmD Help patients manage their type 2 diabetes Care Plan Help patients manage their type 2 diabetes No Meghan Garcia PharmD Patient has chronic kidney disease Care Plan Patient has chronic kidney disease No Meghan Garcia PharmD Weekly blood pressure task Care Plan Weekly blood pressure task No Meghan Garcia PharmD Patient has chronic kidney disease Care Plan Patient has chronic kidney disease No Meghan Garcia PharmD Weekly blood pressure task Care Plan Weekly blood pressure task No Meghan Garcia PharmRigo Weekly blood pressure task Care Plan Weekly blood pressure task No Meghan Garcia PharmRigo Patient has chronic kidney disease Care Plan Patient has chronic kidney disease No Meghan Garcia PharmRigo Patient has chronic kidney disease Care Plan Patient has chronic kidney disease No Meghan Garcia PharmRigo Weekly blood pressure task Care Plan Weekly blood pressure task No Meghan Garcia PharmRigo Weekly blood pressure task Care Plan Weekly blood pressure task No Meghan Garcia PharmD Patient has chronic kidney disease Care Plan Patient has chronic kidney disease No Meghan Garcia PharmRigo Patient has chronic kidney disease Care Plan Patient has chronic kidney disease No Meghan Garcia PharmD documented as of this encounter Visit Diagnoses Diagnosis Neck pain Cervicalgia Cervical radiculopathy Brachial neuritis or radiculitis nos Lymphadenopathy Enlargement of lymph nodes documented in this encounter Additional Health Concerns Active Problems Noted Date Diagnosed Date Help patients manage their type 2 diabetes 03/29 Weekly blood pressure task 03/29/2025 Help patients manage their type 2 diabetes 03/29 Patient has chronic kidney disease 03/29/2025 Weekly blood pressure task 03/29/2025 Patient has chronic kidney disease 03/29/2025 Weekly blood pressure task 03/29/2025 Weekly blood pressure task 03/29/2025 Patient has chronic kidney disease 03/29/2025 Patient has chronic kidney disease 03/29/2025 Weekly blood pressure task 03/29/2025 Weekly blood pressure task 03/29/2025 Patient has chronic kidney disease 03/29/2025 Patient has chronic kidney disease 03/29/2025 Assessment Noted Time PHQ-9 Depression Total Score: 2 06/30/19 25 10:52 AM EST documented as of this encounter Care Teams Flyer Repairer Relationship Specialty Start Date End Date Ny Hsu NP [address] [place] [address] PCP - General Family Medicine 01/18/24 Meghan Garcia PharmD [address] [place] [address] Pharmacist Internal Medicine 08/22/24 documented as of this encounter
--- OUTSIDE RECORDS SUMMARY | 2025-04-17 11:41 | XMS_ITS | Encounter Summary ---
Author Organization [employer] Address [address] [facility] 7t [place] [address] Care Team Providers Care Insurance Salesperson Name Role Phone Fifi Lee Primary Care Provider [phone] Ny Hsu NP Primary Care Provider [phone] Meghan Garcia PharmD Unavailable [phone] Reason for Visit * Reason Comments Med Refill Encounter Details Date Type Department Care Team (Late st Contact Info) Description 11/25/2023 Refill [facility] [address] [place] [address] Fifi Lee FNP [address] [place], [place] [phone] Social History Tobacco Use Types Packs/Day Years [...] Description 05/15/2025 11:30 AM EST Office Visit [facility] [address] [place] [address] Ny Hsu NP [address] [place] [address] documented as of this encounter Visit Diagnoses Not on filedocumented in this encounter Additional Health Concerns Assessment Noted Time PHQ-9 Depression Total Score: 1 05/26/19 24 3:48 PM EST documented as of this encounter Care Teams Insurance Salesperson Relationship Specialty Start Date End Date Fifi Lee FNP [address] [place] [address] PCP - General Family Medicine 04/06/22 01/17/24 Ny Hsu NP [address] [place] [address] PCP - General Family Medicine 01/18/24 Meghan Garcia PharmD [address] [place] [phone] Pharmacist Internal Medicine 08/22/24 documented as of this encounter
--- OUTSIDE RECORDS SUMMARY | 2025-04-17 11:41 | XMS_ITS | Clinical Summary ---
Author Organization [employer] Address [address] [facility] 7[address] [place] [address] Care Team Providers Care Diamond Blender Name Role Phone Ny Hsu NP Primary Care Provider [phone] Meghan Garcia PharmD Unavailable [phone] Allergies No known active allergies Medications * [...] per day. 90 tablet 3 09/30/19 25 026 Active terazosin (Hytrin) 5 MG capsule Take 1 capsule (5 mg) by mouth 1 (one) time for 1 dose. 90 capsule 3 09/30/19 25 Active folic acid (Folvite) 1 MG tabletIndicatio ns:Anemia, unspecified type TOME 1 TABLETA POR VIA ORAL TODOS LOS CERNA 90 tablet 03/02/20 25 Active olmesartan (Benicar) 20 MG tablet Take 1 tablet (20 mg) by mouth Once per day. 30 tablet 11 03/05/20 25 026 Active metFORMIN (Glucophage) 850 MG tabletIndicatio ns:Type [...] times daily. 18 g 11 03/05/20 25 026 Active hydrOXYzine HCl (Atarax) 25 MG tabletIndicatio ns:Anxiety,Inso mnia, unspecified type TAKE 1 TABLET BY MOUTH 4 TIMES A DAY NEEDED 360 tablet 03/29/20 25 Active LORazepam (Ativan) 0.5 MG tabletIndicatio ns:Panic attack,Insomnia , unspecified type Take 1 tablet (0.5 mg) by mouth if needed each day for anxiety. 5 tablet 04/03/20 25 Active LORazepam (Ativan) 0.5 MG tabletIndicatio ns:Panic attack,Insomnia , unspecified type Take 1 tablet (0.5 mg) by mouth if needed in the morning and at bedtime for anxiety (panic symptoms) for up to 5 days. 10 tablet 02/02/20 25 025 Discontinued hydrOXYzine HCl (Atarax) 25 MG tabletIndicatio ns:Anxiety,Inso mnia, unspecified type THU LA PRIMERA SEMANA, TOME 1 TABLETA (25 MG) A LA HORA DE DORMIR. DESPU S DE 1 SEMANA, SI LO TOLERA, PUEDE JUWAN 1 TABLETA (25 MG) 4 VECES AL D A SEG N SEA NECESARIO. 120 tablet 02/24/20 25 025 Discontinued Active Problems Problem Noted Date Diagnosed [...] organization. Date Type Department Care Team Description 04/02/2025 Refill [facility] [address] [place] [address] Sin Conroy MD Panic attack; Insomnia, unspecified type 04/02/2025 Refill [facility] [address] [place] [address] Ny Hsu NP Neck pain; Cervical radiculopathy; Lymphadenopathy 03/29/2025 Telephone [facility] [address] [place] [address] Meghan Garcia PharmD 03/28/2025 Refill [facility] [address] [place] [address] Ny Hsu NP Anxiety; Insomnia, unspecified type 03/05/2025 10:15 AM EDT Office Visit [facility] [address] [place] [address] Ny Hsu NP Type 2 diabetes mellitus without complication, without long-term current use of insulin (HCC) (Primary Dx); Pulmonary thromboembolism (CMS/HCC) (HCC); Peripheral vascular disease (CMS/HCC); Primary hypertension; Plantar fascia syndrome; Chronic left shoulder pain; Parotid mass 03/05/2025 Results Follow-Up [facility] [address] [place] [phone] Ny Hsu NP XR Foot 3+ Views Right 03/05/2025 Travel 03/02/2025 Telephone [facility] [address] [place] [address] Ny Hsu NP chart prep 03/01/2025 Refill [facility] [address] [place] [address] Ny Hsu NP Anemia, unspecified type 02/23/2025 Refill [facility] [address] [place] [address] Praveena Sorenson FNP Anxiety; Insomnia, unspecified type 02/01/2025 11:20 AM EDT Office Visit [facility] [address] [place] [address] Sin Conroy MD Bereavement (Primary Dx); Panic attack; Insomnia, unspecified type 02/01/2025 Telephone [facility] [address] [place] [address] Sin Conroy MD 02/01/2025 Travel 01/26/2025 Refill [facility] [address] [place] [address] Ny Hsu NP Anxiety; Insomnia, unspecified type from Last 3 Months Immunizations Immunization Administration Dates Next Due Influenza High-dose Quadriva lent Preservative Free 06/05/2022 Influenza injectable quadriv alent IIV4 with preservative 04/13/2017 Influenza injectable quadriv alent preservative free 03/28/2021,04/25/2020,04/20/2019 Influenza, Recombinant, inje ctable, preservative free 02/27/2025 Pneumococcal Polysaccharide PPSV23 06/05/2022, RSV Adjuvant 02/27/2025 Tdap 04/13/2017 Family History Medical History Relation [...] Description 05/15/2025 11:30 AM EST Office Visit [facility] [address] [place], [place] [phone] Ny Hsu NP [address] [place], [place] [phone] Health Maintenance Due Date Last Done Comments [...] 04/03/2021, 08/21/2020 Depression Screening 06/30/2025 06/30/2024, 06/30/19 25 SDOH Screening 06/30/2025 06/30/2024 Diabetes: Hemoglobin A1C [...] on patient's age to complete this topic Goals Goal Patient Goal Type Associated Problems [...] blood pressure task No Meghan Garcia PharmD Weekly blood pressure task Care Plan Weekly blood pressure task No Meghan Garcia PharmD Patient has chronic kidney disease Care Plan Patient has chronic kidney disease No Meghan Garcia PharmD Patient has chronic kidney disease Care Plan Patient has chronic kidney disease No Meghan Garcia PharmD Weekly blood pressure task Care Plan Weekly blood pressure task No Meghan Garcia PharmD Weekly blood pressure task Care Plan Weekly blood pressure task No Meghan Garcia PharmD Patient has chronic kidney disease Care Plan Patient has chronic kidney disease No Meghan Garcia PharmD Patient has chronic kidney disease Care Plan Patient has chronic kidney disease No Meghan Garcia PharmD Weekly blood pressure task Care Plan Weekly blood pressure task No Anna Downs RN Weekly blood pressure task Care Plan Weekly blood pressure task No Anna Downs RN Patient has chronic kidney disease Care Plan Patient has chronic kidney disease No Anna Downs RN Patient has chronic kidney disease Care Plan Patient has chronic kidney disease No Anna Downs RN Procedures Procedure Name Priority Date/Time Associated Diagnosis Comments AMB REFERRAL TO ORTHOPAEDIC SURGERY Urgent 03/22/2025 Plantar fascia syndrome XR FOOT 3+ VIEWS RIGHT Routine 03/05/2025 [...] Recently Relevant to Health Maintenance Results * Referral to Orthopaedic Surgery (03/22/2025) us Ny Hsu DRAFTING DETAILER OUTPATIENT REFERRAL ORDERABLES F inal Result * XR Foot 3+ Views Right (03/05/2025 12:15 PM EDT) Anatomical Region Laterality Modality Lower Extremities, Foot Right Radiogra phic Imaging 03/05/2025 12:1 5 PM EDT Narrative 03/05/2025 12:33 PM EDT [address] [address] XRay Report Signed Patient: Geraldo Unger MR#: [id number] : 1960 Acct:[id number] Age/Sex: 64 / M ADM Date: 03/05/25 Loc: .[facility] Attending Dr: Ny Hsu NP Ordering Physician: Ny Hsu NP Date of Service: 03/05/25 Procedure(s): XR foot RT min 3V Accession Number(s): [id number] cc: Ny Hsu NP Reason for Exam: [...] Estevan Bansal MD 03/05/2025 12:30 PM EDT Dictated By: Estevan Bansal MD Signed By: <Electronically signed by Estevan Bansal MD in OV> 03/05/25 1230 DD/ 1215 TD/TT: 03/05/25 1218 Personal Security Specialist: JAMEE Procedure Note Donotuseinterpreter, Image - 03/05/[address] [address] XRay Report Signed Patient: Rylan Unger#: [id number] : [id number]:[id number] Age/Sex: 64 / MADM Date: 03/05/25 Loc: [facility] Attending Dr: Ny Hsu NP Ordering Physician: Ny Hsu NP Date of Service: 03/05/25 Procedure(s): XR foot RT min 3V Accession Number(s): [id number] cc: Ny Hsu NP Reason for Exam: [...] Estevan Bansal MD 03/05/2025 12:30 PM EDT Dictated By: Estevan Bansal MD Signed By: <Electronically signed by Estevan Bansal MD in OV> 03/05/25 1230 DD/ 1215 TD/TT: 03/05/25 1218 Personal Security Specialist: JAMEE Ny Hsu NP IMG XR PROCEDURES Edited Result - Final * (ABNORMAL) POCT Hgb A1c (03/05/2025 10:30 AM EDT) Hemoglobin A1C 6.0(A) 4.0 - 5.7 % QC Media Lot # [id number] Lot# Expiration Date ,585,[id number] Blood 03/05/2025 10:3 0 AM EDT Ny Hsu NP POINT OF CARE TEST ENTER/EDIT OR DERABLES Final Result * POCT Glucose (03/05/2025 10:29 AM EDT) Glucose Blood, POC 132 60 - 200 mg/dL QC Media Lot # [id number] Lot# Expiration Date [id number] Blood Capillary blood specimen / Unknown 03/05/2025 10:29 AM EDT Ny Hsu NP POINT OF CARE TEST ENTER/EDIT OR DERABLES Final Result * Albumin, Random Urine W/Creatinine (11/27/2022 12:09 PM EDT) Creatinine, Urine 76.03 mg/dL [facility] Microalbumin Urine 9.0 mg/L [facility] Microalbum Creatinine Ratio Ur 11.8 ug/mg cr [facility] Comment:Albumin/Creatinine R atio Reference Ranges: Normal: < 30 ug/mg creatinine Microalbuminuria: 30 - 300 ug/mg creatinineClinical Albuminuria: > 300 ug/mg creatinine 11/27/2022 12:0 9 PM EDT 11/27/2022 1:15 PM EDT [facility] External Provider LAB URI NE ORDERABLES Final Result [facility] [address] [place] [phone] * Lipid Panel, Standard (11/27/2022 12:06 PM EDT) Triglycerides 91 mg/dL [facility] Comment:Desirable Triglyceri de: less than 150 mg/dLBorderline High Triglyceride 150-199 mg/dLHigh Triglyceride: 200-499 mg/dLVery High Triglyceride: greater than or equal to 5OO mg/dL Cholesterol 197 mg/dL [facility] Comment:Desirable Cholestero l: less than 200 mg/dLBorderline High Cholesterol: 200-239 mg/dLHigh Cholesterol: greater than 239 mg/dL LDL Cholesterol Calculated 127 mg/dl [facility] Comment:Desirable LDL: less than 100 mg/dLNear Optimal/Above Optimal LDL: 110- 129 mg/dLBorderline High LDL: 130-159 mg/dLHigh LDL: 160-189 mg/dLVery High LDL: greater than or equal to 190 mg/dL HDL Cholesterol 52 mg/dL [facility] Comment:Desirable HDL: great er than 40 mg/dL Note: This HDL assay may give artificially low results in patients with liver disease. 11/27/2022 12:0 6 PM EDT 11/27/2022 1:13 PM EDT [facility] External Provider LAB BLO OD ORDERABLES Final Result [facility] [address] [place] [address] [phone] * Colonoscopy (03/25/2022 1:38 PM EST) Colonoscopy Normal Normal Narrative Amrita Oneill - 03/25/2022 1:38 PM EST Recommended 1-2 year follow up due to fair prep ([facility]) Historical Provider HEALTH MAINTENANCE Edited Result - Final from Last 3 Months or Most Recently Relevant to Health Maintenance Additional Health Concerns Active Problems Noted Date [...] kidney disease 03/29/2025 Weekly blood pressure task 04/03/2025 Weekly blood pressure task 04/03/2025 Patient has chronic kidney disease 04/03/2025 Patient has chronic kidney disease 04/03/2025 Insurance [employer] < [address] [place] [id number] Care Teams Diamond Blender Relationship Specialty Start Date End Date Ny Hsu NP [address] [place] [address] PCP - General Family Medicine 01/18/24 Meghan Garcia PharmD [address] [place] [address] Pharmacist Internal Medicine 08/22/24
--- OUTSIDE RECORDS SUMMARY | 2025-04-17 11:41 | XMS_ITS | Encounter Summary ---
Author Organization [employer] Address [address] [facility] 7t [place] [address] Care Team Providers Care Sports Broadcaster Name Role Phone Fifi Lee Primary Care Provider [phone] Ny Hsu NP Primary Care Provider [phone] Meghan Garcia PharmD Unavailable [phone] Reason for Visit * Reason Comments Med Refill Encounter Details Date Type Department Care Team (Late st Contact Info) Description 06/10/2023 Refill [facility] [address] [place], [place] [phone] Fifi Lee FNP [address] [place], [place] [phone] Peripheral vascular disease (CMS/HCC); Essential pulmonary hypertension [...] the past 12 months, has t he [employer], gas, oil or water [employer] threatened to shut off services in your [...] Description 05/15/2025 11:30 AM EST Office Visit [facility] [address] [place] [address] Ny Hsu NP [address] [place] [address] documented as of this encounter Visit Diagnoses Diagnosis Peripheral vascular disease (CMS/HCC) Unspecified peripheral vascular disease Essential pulmonary hypertension (CMS/HCC) (HCC) documented in this encounter Additional Health Concerns Assessment Noted Time PHQ-9 Depression Total Score: 1 05/26/19 24 3:48 PM EST documented as of this encounter Care Teams Sports Broadcaster Relationship Specialty Start Date End Date Fifi Lee FNP [address] [place] [address] PCP - General Family Medicine 04/06/22 01/17/24 Ny Hsu NP [address] [place] [address] PCP - General Family Medicine 01/18/24 Meghan Garcia, PharmD [address] [place] [address] Pharmacist Internal Medicine 08/22/24 documented as of this encounter
--- OUTSIDE RECORDS SUMMARY | 2025-04-17 11:41 | XMS_ITS | Data Portability ---
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 History of CVA on blood thinner. He smokes 4 cigarettes daily. He reports associated pain that radiates to the left ear. The mass causes discomfort with eating and swallowing. He feels the tumor is growing. He endorses associated numbness since 2019. Exam demonstrates approximately 3 cm x 4 cm left parotid mass, without swelling or skin changes. Recommend Augmentin twice daily for 10 days and follow up with Dr. Wyatt for surgical consult. 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 Based on the needle biopsy performed in September 2019, the tumor is not malignant. These tumors typically grow slowly over time and are not associated with swallowing difficulties, as the tumor is external and unrelated to internal throat function. I explained to the patient that removing the tumor is unlikely to improve swallowing or eating difficulties. The patient was reassured that the tumor is benign and does not pose a risk of malignancy. If there are any changes in symptoms or concerns, the patient is encouraged to return for further evaluation. [email or web address] Not available 12/19/2024 16:27:25 Plan of Treatment Reminders Order Date Submit Date Provider Last Modified By Organization Details Last Modified Time Details Appointments None recorded. Lab None recorded. Referral None recorded. Procedures None recorded. Surgeries None recorded. Imaging None recorded. Medication Orders amoxicillin 875 mg-potassiu m clavulanate 125 mg tablet 2024 025 [facility]/Pharmacy #[id number], [address] [facility], [place], [address], 5 15:56:49 Patient TargetsNo targets recorded. Patient Instructions Encounter Date Encounter Id Patient Instructions Last Modified By Organization Details Last Modified Time 12/19/2024 [id number] The patient is encouraged to return for further evaluation if there are any changes in symptoms or concerns. [email or web address] Not available 12/19/2024 16:27:25 Please note: Parts of this encounter note have been generated by AI based on audio conversation. Patient consent was required prior to utilizing this technology. Content review was required prior to finalizing the note. [email or web address] Not available 12/19/2024 16:27:25 Reason for Referral None Reported. 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 neoplasm of other major salivary glands; Note: Date Diagnosed: 09/25/2019 10:12 AM (D11.7) BETSY WYATT MD [address] [place] [address], [place], [phone] , [facility] 5 17:04:59 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 Active 2019 Unspecifie d disturbanc es of smell and taste; Note: Date Diagnosed: 12/05/2019 8:51 AM (R43.9) Not Available [facility] 4 03:02:53 Disorder of taste 554835299 Active 2019 Unspecifie d disturbanc es of smell and taste; Note: Date Diagnosed: 12/05/2019 8:51 AM (R43.9) Not Available [facility] 4 03:02:54 Allergic rhinitis 22061646 Active 2019 Allergic rhinitis, unspecifie d; Note: Date Diagnosed: 12/05/2019 8:51 AM (J30.9) Not Available [facility] 4 03:02:51 Deviated nasal septum 892458393 Active 2019 Deviated nasal septum; Note: Date Diagnosed: 12/27/2019 2:04 PM (J34.2) Not Available [facility] 4 03:02:52 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 ELIO BUTLER PA-C [address] [place] [address],[place] [address], [place], [address] , [facility] 5 14:05:04 Warthin's tumor of parotid gland 686890901 Active 2024 ELIO BUTLER PA-C [address] [place] [address],[place] [address], [place], [place], [address] , [facility] 5 14:05:08 Benign neoplasm of parotid gland 73286344 Active 2024 BETSY WYATT MD [address] [place] [address],[place] [address], [place], [address] , [facility] 5 16:28:40 Problem Notes None recorded. Medical Equipment None Reported. Medications Name Sig Start Date Stop Date Status Note LastModified by Organization Details LastModified Time terazosin 5 mg capsule TOME 1 C PSULA POR V A ORAL TODOS LOS D active Not Available Not Available No t Available atorvasta tin 40 mg tablet 05/23 completed Medicati on ID: [id number] D uration Value: 30 Brand Name: atorvast atin Sen d Method: E-Prescr ibed Sub s Allowed: subs OK Speci al Instruct ion: TAKE 1 TABLET BY MOUTH EVERY DAY Medi cationGe nericNam e: atorvast atin Not Available Not Available Not Available atorvasta tin 80 mg tablet TOME 1 TABLETA POR V A ORAL TODOS LOS D EN LA MIGUEL[place]O YEE active Not Available Not Available No t Available Vitamin C 500 mg tablet 05/23 completed Medicati on ID: [id number] D uration Value: 30 Brand Name: Vitamin C Send Method: E-Prescr ibed Sub s Allowed: subs OK Speci al Instruct ion: TAKE 1 TABLET BY MOUTH TWICE A DAY Medi cationGe nericNam e: Vitamin C Not Available Not Available Not Available amitripty line 150 mg tablet active Medicati on ID: [id number] B rand Name: amitript yline Se nd Method: E-Prescr ibed Sub s Allowed: subs OK Medic ationGen ericName : amitript yline Not Available Not Available Not Available tizanidin e 4 mg tablet TOME ULYSSES TABLETA POR V A ORAL CADA OCHO HORAS PARA EL ESPASMO MUSCULAR CUANDO SEA NECESARI O X10 DAYS 12/19 completed Not Available Not Available Not Available FreeStyle Test strips active Medicati on ID: [id number] B rand Name: FreeStyl e Test Sen d Method: E-Prescr ibed Sub s Allowed: subs OK Medic ationGen ericName : FreeStyl e Test Not Available Not Available Not Available meloxicam 15 mg tablet 12/19 completed Medicati on ID: [id number] B rand Name: meloxica m Send Method: E-Prescr ibed Sub s Allowed: subs OK Medic ationGen ericName : meloxica m Not Available Not Available Not Available FreeStyle Lancets 28 gauge active Medicati on ID: [id number] B rand Name: FreeStyl e Lancets Send Method: E-Prescr ibed Sub s Allowed: subs OK Medic ationGen ericName : FreeStyl e Lancets Not Available Not Available Not Available metformin 850 mg tablet TOME 1 TABLETA POR V A ORAL DOS VECES AL D A CON ALIMENTO active Not Available Not Available No t Available amlodipin e 5 mg tablet TOME 1 TABLETA POR V A ORAL TODOS LOS D EN LA MA YEE active Not Available Not Available No t Available aspirin 81 mg tablet,de layed release TAKE 1 TABLET (81 MG) BY MOUTH ONCE PER DAY. active Not Available Not Available No t Available tramadol 50 mg tablet TAKE 2 TABLETS BY MOUTH IF NEEDED IN THE MORNING AND AT BEDTIME FOR SEVERE PAIN FOR UP TO 7 DAYS active Not Available Not Available No t Available acetamino phen 500 mg tablet TOME DOS TABLETAS POR V A ORAL CADA OCHO HORAS CUANDO SEA NECESARI O PARA EL DOLOR FOR UP TO 10 DAYS 12/19 completed Not Available Not Available Not Available famotidin e 20 mg tablet TOME 1 TABLETA POR V A ORAL TODOS LOS D AL ACOSTARS E 12/19 completed Not Available Not Available Not Available amitripty line 25 mg tablet 05/23 completed Medicati on ID: [id number] D uration Value: 90 Brand Name: amitript yline Se nd Method: E-Prescr ibed Sub s Allowed: subs OK Speci al Instruct ion: TAKE 1 TABLET BY ORAL ROUTE EVERY DAY AT BEDTIME FOR 2 WEEKS, THEN 2 T ABLETS AT BEDTIME Medicati onGeneri cName: amitript yline Not Available Not Available Not Available lorazepam 0.5 mg tablet TAKE 1 TAB BY MOUTH IF NEEDED IN THE MORNING AND AT BEDTIME FOR ANXIET FOR UP TO 5 DAYS. active Not Available Not Available No t Available tamsulosi n 0.4 mg capsule TAKE 1 CAPSULE BY MOUTH EVERY DAY 1/2 HOUR FOLLOWIN G THE SAME MEAL EACH DAY active Not Available Not Available No t Available gabapenti n 800 mg tablet active Medicati on ID: [id number] B rand Name: gabapent in Send Method: E-Prescr ibed Sub s Allowed: subs OK Medic ationGen ericName : gabapent in Not Available Not Available Not Available nicotine (polacril ex) 4 mg gum CHEW 1 EACH (4 MG) IF NEEDED FOR SMOKING CESSATIO N (EVERY 2 HOURS NEEDED). active Not Available Not Available No t Available glipizide ER 2.5 mg tablet, extended release 24 hr 12/19 completed Medicati on ID: [id number] B rand Name: glipizid e Send Method: E-Prescr ibed Sub s Allowed: subs OK Medic ationGen ericName : glipizid e Not Available Not Available Not Available cephalexi n 500 mg capsule TAKE 1 CAPSULE (500 MG) BY MOUTH 4 TIMES DAILY FOR 10 DAYS 12/19 completed Not Available Not Available Not Available paroxetin e 30 mg tablet 12/19 completed Medicati on ID: [id number] B rand Name: paroxeti ne HCl Send Method: E-Prescr ibed Sub s Allowed: subs OK Medic ationGen ericName : paroxeti ne HCl Not Available Not Available Not Available ferrous sulfate 325 mg (65 mg iron) tablet 12/19 completed Medicati on ID: [id number] B rand Name: ferrous sulfate Send Method: E-Prescr ibed Sub s Allowed: subs OK Medic ationGen ericName : ferrous sulfate Not Available Not Available Not Available lidocaine 5 % topical patch APPLY 1 PATCH TOPICALL Y ONCE PER DAY. REMOVE & DISCARD PATCH WITHIN 12 HOURS OR DIRECTED BY MD. active Not Available Not Available No t Available omeprazol e 20 mg capsule,d elayed release 12/19 completed Medicati on ID: [id number] B rand Name: omeprazo le Send Method: E-Prescr ibed Sub s Allowed: subs OK Medic ationGen ericName : omeprazo le Not Available Not Available Not Available aspirin 81 mg chewable tablet 05/23 completed Medicati on ID: [id number] D uration Value: 30 Brand Name: aspirin Send Method: E-Prescr ibed Sub s Allowed: subs OK Speci al Instruct ion: TAKE 1 TABLET BY MOUTH EVERY DAY Medi [facility] nericNam e: aspirin Not Available Not Available Not Available folic acid 1 mg tablet TOME 1 TABLETA POR VIA ORAL TODOS LOS CERNA active Not Available Not Available No t Available hydroxyzi ne HCl 25 mg tablet PLEASE SEE ATTACHED FOR DETAILED DIRECTIO NS active Not Available Not Available No t Available furosemid e 20 mg tablet 12/19 completed Medicati on ID: [id number] B rand Name: furosemi de Send Method: E-Prescr ibed Sub s Allowed: subs OK Medic ationGen ericName : furosemi de Not Available Not Available Not Available albuterol sulfate HFA 90 mcg/actua tion aerosol inhaler TOME DOS INHALACI ONES POR V A ORAL DOS VECES AL D A active Not Available Not Available No t Available paroxetin e 40 mg tablet TOME 1 TABLETA POR V A ORAL TODOS LOS D EN EVELINA FRAIRE 12/19 completed Not Available Not Available Not Available clotrimaz ole 1 % topical cream 05/23 completed Medicati on ID: [id number] D uration Value: 30 Brand Name: eric ontiveros Sen d Method: E-Prescr ibed Sub s Allowed: subs OK Medic ationGen ericName : clotrima zole Not Available Not Available Not Available lisinopri l 2.5 mg tablet 12/19 completed Medicati on ID: [id number] B rand Name: lisinopr il Send Method: E-Prescr ibed Sub s Allowed: subs OK Medic ationGen ericName : lisinopr il Not Available Not Available Not Available amoxicill in 875 mg-potass ium clavulana te 125 mg tablet TOME 1 TABLETA POR V A ORAL CADA 12 HORAS CON LAS COMIDAS POR 10 D FOR SIALOADE NITIS 12/19 completed Not Available Not Available Not Available Vitamin B-12 1,000 mcg tablet TOME 1 TABLETA POR V A ORAL TODOS LOS D EN LA MA YEE active Not Available Not Available No t Available olmesarta n 20 mg tablet TOME 1 TABLETA POR V A ORAL TODOS LOS D active Not Available Not Available No t Available cyclobenz aprine 5 mg tablet TOME ULYSSES TABLETA POR V A ORAL AL ACOSTARS E CUANDO SEA NECESARI O FOR MUSCLE SPASMS 12/19 completed Not Available Not Available Not Available metoprolo l tartrate 25 mg tablet TOME 1/2 TABLETA 2 VECES AL D A POR V A ORAL active Not Available Not Available No t Available pregabali n 75 mg capsule 05/23 completed Medicati on ID: [id number] D uration Value: 30 Brand Name: pregabal in Send Method: E-Prescr ibed Sub s Allowed: subs OK Medic ationGen ericName : pregabal in Not Available Not Available Not Available diclofena c 1 % topical gel PLEASE SEE ATTACHED FOR DETAILED DIRECTIO NS active Not Available Not Available No t Available Vitamin D3 125 mcg (5,000 unit) tablet TOME 1 TABLETA POR V A ORAL TODOS LOS D active Not Available Not Available No t Available Xarelto 20 mg tablet TOME ULYSSES TABLETA TODOS LOS D FOR 90 DAYS 12/19 completed Not Available Not Available Not Available Jardiance 25 mg tablet 12/19 completed Medicati on ID: [id number] B rand Name: Mo pacheco Send Method: E-Prescr ibed Sub s Allowed: subs OK Medic ationGen ericName : Mo pacheco Not Available Not Available Not Available Vitals Date Recorded Body height Body mass index (BMI) Body weight Provider Name and Address Organization Details Last Updated DateTime 07/25/2024 180.34 cm 22.6 kg/m2 10681.96 g Evelia Whaleyos [place] [facility] 07/25/2024 13:43:50 Date Recorded Body height Body mass index (BMI) Body weight Provider Name and Address Organization Details Last Updated DateTime 12/19/2024 180.34 cm 22.6 kg/m2 80982.96 g SHYAM JADIEL [place] [facility] 12/19/2024 16:03:25 Social History None recorded. Functional Status None recorded. Mental Status None recorded. Family History Nothing Reported. 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 284030117 D11.0 [id number] BETSY WYATT MD [facility] [address] [address] 12/19/2024 15:32:10 12/20/2024 12:50:54 Benign neoplasm of parotid gland 54465877 D11.0 7601901 Health Concerns Section Related Observation LastModified by Organization Detai ls LastModified Time None Recorded Concern Status LastModified by Organization Details LastModified Time None Recorded Advance Directives Directive None Recorded Payers Insurance Date Sequence Insurance Name Policy Number Policy Urena Covered Member ID Urena Member ID Guarantor Name 03/19/2025 1 [facility] - DOS ON OR AFTER 2022 - MEDICARE ADVANTAGE [place] (MEDICARE REPLACEMENT/ADV ANTAGE - PPO) Geraldo Johnsonjaymie [id number] Geraldo Unger 12/19/2024 2 [place] [employer] Geraldo Johnsonjaymie [id number] Geraldo Elizabethjaymie Notes Date Note Type Note Provider Name and Address Organization Details Recorded Time 06/02/2024 text/html ROS as noted in the HPI NO SHOW IPad - [facility] Parotid mass 10/04/2018 CT neck with contrast at [facility]68 mm mass within the left inferior parotid 09/19/[facility] warthin's [facility] Tob+CVA in 2019 with resulting left oral and facial paresthesia, on blood thinner PV 05/23/2021 Yoselin - left warthin tumor, no surgery recommended. 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 He reports the mass is painful with radiation to the left ear. The mass causes discomfort with eating and swallowing. He feels the tumor is growing. He endorses associated numbness since 2019. History of CVA on blood thinner. Smokes 4 cigarettes daily. He is interested in surgical removal. YANDEL CASTILLO MD [address] [place] [address],[place] [address], [place], [address], [place] [facility] 07/26/2024 10:29:32 12/19/2024 text/html IPad - Dutch left Parotid mass 10/04/2018 CT neck with contrast at [place] 24 mm mass within the left inferior parotid 09/19/2019 FNA left parotid pathology at [facility] Benign, warthin's tumor Tob+ CVA in 2019 with resulting left oral and facial paresthesia, no longer on blood thinner PV 05/23/2021 Yoselin - left warthin tumor, no surgery recommended. left facial and lingual paresthesia Geraldo Unger is a 64-year-old male who presents for evaluation of a left parotid mass. The patient reports experiencing tightness and difficulty eating associated with the mass, which has been present for almost two years. A needle biopsy performed in September 2019 demonstrated a Warthin tumor, a benign tumor of the parotid gland. The patient has a history of a stroke in 06/2018, which may contribute to some weakness in facial movement and throat muscle control. The mass is approximately 3 by 4 centimeters in size, consistent with previous evaluations. BETSY WYATT MD [address] [place] [address], [address], [place] [facility] 12/19/2024 16:29:34
--- OUTSIDE RECORDS SUMMARY | 2025-04-17 11:41 | XMS_ITS | Encounter Summary ---
Author Organization [employer] Address [address] [facility] [address]t [place] [address] Care Team Providers Care Carpet Or Rug Layer Helper Name Role Phone Fifi Lee Primary Care Provider [phone] Ny Hsu NP Primary Care Provider [phone] Meghan Garcia PharmD Unavailable [phone] Encounter Details Date Type Department Care Team (Late Contact Info) Description 10/28/2022 Abstract [facility] MEDICINE [address] [place], [place] [phone] Fifi Lee FNP [address] [place], [place] [phone] Social History Tobacco Use Types Packs/Day Years [...] Department Care Team (Late Contact Info) Description 05/15/2025 11:30 AM EST Office Visit [facility] MED[facility] [address] [place], [place] [phone] Ny Hsu NP [address] [place] [address] documented as of this encounter Procedures Procedure Name Priority Date/Time Associated Diagnosis Comments COLONOSCOPY Routine 03/25/2022 1:38 PM EST documented in this encounter Results * Hm Colonoscopy (03/25/2022 1:38 PM EST) Colonoscopy Normal Normal Narrative Amrita Oneill - 03/25/2022 1:38 PM EST Recommended 1-2 year follow up due to fair [place] [place] Historical Provider HEALTH MAINTENANCE Edited Result - Final documented in this encounter Visit Diagnoses Not on filedocumented in this encounter Additional Health Concerns Assessment Noted Time PHQ-9 Depression Total Score: 1 06/05/19 23 11:19 AM EST documented as of this encounter Care Teams Carpet Or Rug Layer Helper Relationship Specialty Start Date End Date Fifi Lee FNP [address] [place] [address] PCP - General Family Medicine 04/06/22 01/17/24 Ny Hsu NP [address] [place] [address] PCP - General Family Medicine 01/18/24 Meghan Garcia PharmD [address] [place] [address] Pharmacist Internal Medicine 08/22/24 documented as of this encounter
--- OUTSIDE RECORDS SUMMARY | 2025-04-17 11:41 | XMS_ITS | Encounter Summary ---
Author Organization [employer] Address [address] [facility] 7t [place] [address] Care Team Providers Care Convict Guard Name Role Phone Ny Hsu NP Primary Care Provider [phone] Meghan Garcia PharmD Unavailable [phone] Reason for Visit * Reason Comments Med Change Request Encounter Details Date Type Department Care Team (Late st Contact Info) Description 10/22/[address] [facility] MED[facility] [address] [place] [address] Nae Hui, NUCLEAR INSTRUCTOR [address] [place], [place] [phone] Anxiety; Insomnia, unspecified type Social History Tobacco [...] Description 05/15/2025 11:30 AM EST Office Visit [facility] [address] [place] [address] Ny Hsu NP [address] [place] [address] documented as of this encounter Visit Diagnoses Diagnosis Anxiety Anxiety state, unspecified Insomnia, unspecified type documented in this encounter Additional Health Concerns Assessment Noted Time PHQ-9 Depression Total Score: 2 06/30/19 25 10:52 AM EST documented as of this encounter Care Teams Convict Guard Relationship Specialty Start Date End Date Ny Hsu NP [address] [place] [address] PCP - General Family Medicine 01/18/24 Meghan Garcia PharmD [address] [place] [address] Pharmacist Internal Medicine 08/22/24 documented as of this encounter
--- OUTSIDE RECORDS SUMMARY | 2025-04-17 11:41 | XMS_ITS | Encounter Summary ---
Author Organization [employer] Address [address] [facility] 7t [place] [address] Care Team Providers Care Freight Traffic Consultant Name Role Phone Fifi Lee Primary Care Provider [phone] Ny Hsu NP Primary Care Provider [phone] Meghan Garcia PharmD Unavailable [phone] Reason for Visit * Reason Onset Date Comments Change PCP 12/14/2023 Encounter Details Date Type Department Care Team (Late st Contact Info) Description 12/14/2023 Telephone [facility] MEDICINE [address] [place], [place] [phone] Fifi Lee FNP [address] [place], [place] [phone] Change PCP Social History Tobacco Use Types [...] back for clarification. Please contact pt at [phone]. [place]ian Speaker. documented in this encounter Plan of Treatment Upcoming Encounters Date Type Department Care Team (Late st Contact Info) Description 05/15/2025 11:30 AM EST Office Visit [facility] MEDICINE [address] [place] [address] Ny Hsu NP [address] [place] [address] documented as of this encounter Visit Diagnoses Not on filedocumented in this encounter Additional Health Concerns Assessment Noted Time PHQ-9 Depression Total Score: 1 05/26/19 24 3:48 PM EST documented as of this encounter Care Teams Freight Traffic Consultant Relationship Specialty Start Date End Date Fifi Lee FNP [address] [place] [address] PCP - General Family Medicine 04/06/22 01/17/24 Ny Hsu NP [address] [place], [place] [phone] PCP - General Family Medicine 01/18/24 Meghan Garcia PharmD 230 [place] [address] Pharmacist Internal Medicine 08/22/24 documented as of this encounter
--- OUTSIDE RECORDS SUMMARY | 2025-04-17 11:41 | XMS_ITS | Encounter Summary ---
Author Organization [employer] Address [address] [facility] 7t [place] [address] Care Team Providers Care Jogger Operator Name Role Phone Ny Hsu NP Primary Care Provider [phone] Meghan Garcia PharmD Unavailable [phone] Reason for Visit * Reason Onset Date Comments Med Refill 07/26/2024 Encounter Details Date Type Department Care Team (Late st Contact Info) Description 07/26/[address] [facility] MEDICINE [address] [place], [place] [phone] Ny Hsu NP [address] [place], [place] [phone] Med Refill Social History Tobacco Use Types [...] the past 12 months, has t he [employer], gas, oil or water company threatened to [...] by PCP and Amlodipine/Terazosin were sent to [id number] on 07/05/24 90 day supply. * Telephone Encounter - Homero Dyson - 07/26/2024 11:02 AM EDT TC from pt requesting medication refill. Medications needing refill : amLODIPine (Norvasc) 5 MG tablet omeprazole (PriLOSEC) [address] capsule terazosin (Hytrin) 5 MG capsule To be sent to: [facility]/pharmacy #[id number] - [address] documented in this encounter Plan of Treatment Upcoming Encounters Date Type Department Care Team (Late st Contact Info) Description 05/15/2025 11:30 AM EST Office Visit [facility] MEDICINE [address] [place] [address] Ny Hsu NP [address] [place] [address] documented as of this encounter Visit Diagnoses Not on filedocumented in this encounter Additional Health Concerns Assessment Noted Time PHQ-9 Depression Total Score: 2 06/30/19 10:52 AM EST documented as of this encounter Care Teams Jogger Operator Relationship Specialty Start Date End Date Ny Hsu NP [address] [place] [address] PCP - General Family Medicine 01/18/24 Meghan Garcia PharmD [address] [place] [address] Pharmacist Internal Medicine 08/22/24 documented as of this encounter
--- OUTSIDE RECORDS SUMMARY | 2025-04-17 11:41 | XMS_ITS | Encounter Summary ---
Author Organization [employer] Address 75 [facility] 7t [place] [address] Care Team Providers Care Supervisor Telephone Information Name Role Phone Fifi Lee Primary Care Provider [phone] Ny Hsu NP Primary Care Provider [phone] Meghan Garcia PharmD Unavailable [phone] Reason for Visit * Reason Comments Med Refill Encounter Details Date Type Department Care Team (Late st Contact Info) Description 07/02/2023 Refill [facility] MEDICINE [address] [place], [place] [phone] Fifi Lee FNP [address] [place], [place] [phone] Peripheral vascular disease (CMS/HCC) Social History Tobacco [...] Description 05/15/2025 11:30 AM EST Office Visit [facility] MEDICINE [address] [place] [address] Ny Hus NP [address] [place] [address] documented as of this encounter Visit Diagnoses Diagnosis Peripheral vascular disease (CMS/HCC) Unspecified peripheral vascular disease documented in this encounter Additional Health Concerns Assessment Noted Time PHQ-9 Depression Total Score: 1 05/26/19 24 3:48 PM EST documented as of this encounter Care Teams Supervisor Telephone Information Relationship Specialty Start Date End Date Fifi Lee FNP [address] [place] [address] PCP - General Family Medicine 04/06/22 01/17/24 Ny Hsu NP [address] [place] [address] PCP - General Family Medicine 01/18/24 Meghan Garcia PharmD [address] [place] [address] Pharmacist Internal Medicine 08/22/24 documented as of this encounter
--- OUTSIDE RECORDS SUMMARY | 2025-04-17 11:41 | XMS_ITS | Encounter Summary ---
Author Organization [employer] Address [address] [facility] 7t [place] [address] Care Team Providers Care Maintenance Specialist Name Role Phone LindsayMya mckayjunior GONZALESP Primary Care Provider [phone] Ny Hsu NP Primary Care Provider [phone] Meghan Garcia PharmD Unavailable [phone] Reason for Visit * Reason Comments Med Refill Encounter Details Date Type Department Care Team (Late st Contact Info) Description 11/25/2023 Refill [facility] MEDICINE [address] [place], [place] [phone] Laurel Moore MD 230 [place], [place] [phone] Social History Tobacco Use Types Packs/Day Years [...] Description 05/15/2025 11:30 AM EST Office Visit [facility] MEDICINE [address] [place] [address] Ny Hsu NP [address] [place] [address] documented as of this encounter Visit Diagnoses Not on filedocumented in this encounter Additional Health Concerns Assessment Noted Time PHQ-9 Depression Total Score: 1 05/26/19 24 3:48 PM EST documented as of this encounter Care Teams Maintenance Specialist Relationship Specialty Start Date End Date Fifi Lee FNP [address] [place] [phone] PCP - General Family Medicine 04/06/22 01/17/24 Ny Hsu NP [address] [place] [address] PCP - General Family Medicine 01/18/24 Meghan Garcia PharmD [address] [place] [address] Pharmacist Internal Medicine 08/22/24 documented as of this encounter
--- OUTSIDE RECORDS SUMMARY | 2025-04-17 11:41 | XMS_ITS | Encounter Summary ---
Author Organization [employer] Address 75 [facility] 7t [place] [address] Care Team Providers Care Small Business Consultant Name Role Phone Fifi Lee Primary Care Provider [phone] Ny Hsu NP Primary Care Provider [phone] Meghan Garcia PharmD Unavailable [phone] Reason for Visit * Reason Onset Date Comments Results 11/09/2023 Encounter Details Date Type Department Care Team (Late st Contact Info) Description 11/09/2023 Telephone [facility] MEDICINE [address] [place], [place] [phone] Fifi Lee FNP [address] [place], [place] [phone] Results Social History Tobacco Use Types Packs/Day [...] xray toe Date when done: 10/31 Facility: [facility] walk in Please contact pt at [phone] documented in this encounter Plan of Treatment Upcoming Encounters Date Type Department Care Team (Late st Contact Info) Description 05/15/2025 11:30 AM EST Office Visit [facility] MEDICINE [address] [place] [address] Ny Hsu NP [address] [place], [place] [phone] documented as of this encounter Visit Diagnoses Not on filedocumented in this encounter Additional Health Concerns Assessment Noted Time PHQ-9 Depression Total Score: 1 05/26/19 24 3:48 PM EST documented as of this encounter Care Teams Small Business Consultant Relationship Specialty Start Date End Date Fifi Lee FNP [address] [place] [address] PCP - General Family Medicine 04/06/22 01/17/24 Ny Hsu NP [address] [place] [address] PCP - General Family Medicine 01/18/24 Meghan Garcia PharmD [address] [place] [address] Pharmacist Internal Medicine 08/22/24 documented as of this encounter
--- OUTSIDE RECORDS SUMMARY | 2025-04-17 11:41 | XMS_ITS | Encounter Summary ---
Author Organization [employer] Address 75 [facility] 7t [place] [address] Care Team Providers Care Rn Clinical Research Name Role Phone Fifi Lee Primary Care Provider [phone] Ny Hsu NP Primary Care Provider [phone] Meghan Garcia PharmD Unavailable [phone] Encounter Details Date Type Department Care Team (Late st Contact Info) Description 06/14/2023 Orders Only [facility] MED & PEDS [address] [place] [address] Fifi Lee FNP [address] [facility] [place], [place] [phone] Essential pulmonary hypertension (CMS/HCC) Social History Tobacco [...] Description 05/15/2025 11:30 AM EST Office Visit [facility] MEDICINE [address] [place] [address] Ny Hsu NP [address] [place] [address] documented as of this encounter Visit Diagnoses Diagnosis Essential pulmonary hypertension (CMS/HCC) (HCC) documented in this encounter Additional Health Concerns Assessment Noted Time PHQ-9 Depression Total Score: 1 05/26/19 24 3:48 PM EST documented as of this encounter Care Teams Rn Clinical Research Relationship Specialty Start Date End Date Fifi Lee FNP [address] [place] [address] PCP - General Family Medicine 04/06/22 01/17/24 Ny Hsu NP [address] [place] [address] PCP - General Family Medicine 01/18/24 Meghan Garcia PharmD [address] [place] [address] Pharmacist Internal Medicine 08/22/24 documented as of this encounter
--- OUTSIDE RECORDS SUMMARY | 2025-04-17 11:41 | XMS_ITS | Encounter Summary ---
Author Organization [employer] Address 75 [facility] 7t [place] [address] Care Team Providers Care Humanities And Languages Professor Name Role Phone Ny Hsu NP Primary Care Provider [phone] Meghan Garcia PharmD Unavailable [phone] Reason for Visit * Reason Onset Date Comments Referral 11/16/2024 FYI 11/16/2024 Encounter Details Date Type Department Care Team ([facility] st Contact Info) Description 11/16/2024 Telephone [facility] MEDICINE [address] [place], [place] [phone] Ny Hsu NP [address] [place], [place] [phone] Referral; I Social History Tobacco Use Types [...] any questions you can contact pt at [phone]. documented in this encounter Plan of Treatment Upcoming Encounters Date Type Department Care Team (Late st Contact Info) Description 05/15/2025 11:30 AM EST Office Visit [facility] MEDICINE [address] [place], [place] [phone] Ny Hsu NP [address] [place], [place] [phone] documented as of this encounter Visit Diagnoses Not on filedocumented in this encounter Additional Health Concerns Assessment Noted Time PHQ-9 Depression Total Score: 2 06/30/19 25 10:52 AM EST documented as of this encounter Care Teams Humanities And Languages Professor Relationship Specialty Start Date End Date Ny Hsu NP [address] [place] [address] PCP - General Family Medicine 01/18/24 Meghan Garcia PharmD [address] [place] [address] Pharmacist Internal Medicine 08/22/24 documented as of this encounter
== END 2025-04-17 10:52 | disposition home or self-care (01) ==
LOC: HO.HPODS 10:16
PROVIDERS: PCP Nurse Practitioner Family; Visit Provider Student in an Organized Health Care Education/Training Program
DX: M72.2 Plantar fascial fibromatosis (principal); M76.821 Posterior tibial tendinitis, right leg
CPT/HCPCS: 99213

== ENCOUNTER → 2025-04-17 10:15 | Outpatient (BNVA) | payer OTHER, SELFPAY | PROVIDERS: PCP Nurse Practitioner Family; Visit Provider Student in an Organized Health Care Education/Training Program | DX: M72.2 Plantar fascial fibromatosis (principal); M76.821 Posterior tibial tendinitis, right leg | CPT/HCPCS: 99212 ==